=== PATIENT | male | born 1940 | race Caucasian/White ===

== ENCOUNTER → 2019-07-22 16:40 | Outpatient (BNVA) | payer MEDICARE, BC, SELFPAY | PROVIDERS: Family Provider Internal Medicine; PCP Internal Medicine; Visit Provider Internal Medicine Cardiovascular Disease | DX: I11.0 Hypertensive heart disease with heart failure (principal); I50.9 Heart failure, unspecified; I25.10 Atherosclerotic heart disease of native coronary artery without angina pectoris; E78.00 Pure hypercholesterolemia, unspecified; Z79.82 Long term (current) use of aspirin | CPT/HCPCS: 80053; 83735; 83880; 85025 ==

== ENCOUNTER 2019-09-29 13:14 | Inpatient (IN) | payer MEDICARE, BC, SELFPAY ==
[2019-09-29 13:15] VITALS: BMI 25.8
[2019-09-29 13:18] VITALS: BP 127/80; PULSE 88; RESP 16; TEMP 36.4; O2SAT 96
--- NOTE | 2019-09-29 13:30 | CT_ITS ---
WS: [id number] CT HEAD NONCONTRAST HISTORY: AMS TECHNIQUE: Contiguous axial imaging performed through the brain in 2.5 mm imaging. Bone and soft tiss ue windows. Sagittal and coronal reformats reviewed. All CT scans at [facility] use at ast one of these dose optimization techniques: automated exposure control; mA and/or kV adjustment pe r patient size (includes targeted exams where dose is matched to clinical indication); or iterative r econstruction. DLP: 710.38 mGy.cm COMPARISON: 03/04/2019 No acute intracranial hemorrhage, midline shift or mass effect. Mild bilateral atrophy and chronic ischemic disease. Small bilateral basal ganglia lacunar infarcts similar to the prior study. Ventricles: Normal size with no hydrocephalus. No inferior displacement of cerebellar tonsils. Mild atherosclerosis intracranial carotid arteries. Paranasal sinuses: Prior sinus surgery. Mucoperiosteal thickening involving the ethmoid and sphenoid air cells. Mastoid air cells: Well pneumatized. Calvarium and scalp: Skull is intact with no soft tissue edema or swelling. CT/CT head wo con* [id number] IMPRESSION: 1. No acute intracranial hemorrhage or edema. 2. Mild atrophy and chronic microvascular ischemic disease and prior lacunar i nfarcts, stable.
--- NOTE | 2019-09-29 13:31 | ECG_ITS ---
Measurements Intervals [place] Rate: 88 P: 63 MO: 159 QRS: -18 QRSD: 97 T: 13 QT: 330 QTc: 401 SINUS RHYTHM SEPTAL MYOCARDIAL INFARCTION [40+ ms Q WAVE IN V1/V2], PROBABLY OLD Compared to ECG 03/04/2019 21:11:20 Sinus tachycardia no longer present Myocardial infarct finding still present Electronically Signed On 09-29-2019 15:56:50 CDT by Annalise Roblero M.D. [id number]
--- NOTE | 2019-09-29 13:31 | XR_ITS ---
WS: [id number] PORTABLE CHEST HISTORY: dyspnea/cough COMPARISON: 03/04/2019 Lungs are clear and well expanded. No pleural effusion or pneumothorax. Cardiac size: Normal size heart. Mediastinum/Aorta: Mild atherosclerosis aorta. No osseous abnormality seen. XR/XR chest 1V portable [id number] IMPRESSION: Unremarkable portable chest.
--- NOTE | 2019-09-29 13:42 | ED_ITS ---
HPI - Altered Mental Status General: Chief Complaint: Altered Mental Status Stated Complaint: AMS Time Seen by Provider: 09/29/19 13:15 History of Present Illness: HPI narrative: 79-year-old male presents to the emergency room by EMS with a complaint of altered mental status. He is really not any help at all as a historian he will answer some simple yes/no questions but answers no to everything when answered simple questions about the color of an object he cannot answer. He is not able answer any open-ended questions. EMS reported that the son had called 911 for a wellbeing check. When the police arrived they were able to see him through a window he would wave at them but would not come to the door and took him 30 minutes to get him to even come to the door eventually when they did come to the door he did not seem very coherent so they called EMS. Normally report is that he is awake alert oriented able to manage his own tasks and does very well. complaint: altered mental status Review of Systems General: Reports: ROS unobtainable due to mental status PFSH ED 2 PFSH: Medical History (Updated 09/29/19 @ 17:05 by Deejay Novoa DO) CAD (coronary artery disease) CHF (congestive heart failure) CVA (cerebral vascular accident) HTN (hypertension) Hypercholesteremia Neuropathy Pericardial effusion Social History Smoking and tobacco status: never smoked Alcohol intake: never Physical Exam Const: COMMON NORMALS: no apparent distress GENERAL APPEARANCE: cooperative and comfortable HENMT: COMMON NORMALS: normocephalic, head/scalp atraumatic, hearing grossly normal bilaterally, external ears normal, EAC's normal, TM's normal bilaterally, nasal mucous membranes and turbinates normal, moist oral mucous membranes and oropharynx normal HEAD & SCALP: normocephalic and atraumatic NOSE: nasal mucous membranes and turbinates normal EXTERNAL EAR: Yes external ears normal EXTERNAL AUDITORY CANAL: EAC's normal TYMPANIC MEMBRANE: TM's normal bilaterally Eye: COMMON NORMALS: PERRL, EOMs intact bilaterally, conjunctivae normal and no scleral icterus CONJUNCTIVA: Yes conjunctivae normal PUPIL: Yes PERRL Neck/C-Spine: COMMON NORMALS: full ROM, no lymphadenopathy, supple and no JVD Lymph: LYMPHATIC: no lymphadenopathy noted and no lymphedema noted Resp: COMMON NORMALS: normal respiratory effort, no retractions, no use of accessory muscles and clear to auscultation bilaterally AUSCULTATION: clear to auscultation bilaterally Cardio: COMMON NORMALS: no JVD, regular rate, regular rhythm and no murmurs RATE: regular rate RHYTHM: regular rhythm GI: COMMON NORMALS: soft to palpation and no hepatosplenomegaly AUSCULTATION: Yes normoactive bowel sounds PALPATION: Yes soft, No tender, No guarding and Yes no hepatosplenomegaly Extremity: COMMON NORMALS: normal to inspection, normal capillary refill, no clubbing, cyanosis or edema, no calf tenderness and no pedal edema Skin: COMMON NORMALS: no rashes or lesions noted GENERAL SKIN EXAM: no rashes or lesions noted Course Vital Signs: Vital signs: Vital Signs Temperature 97.6 F 09/29/19 13:18 Pulse Rate 89 09/29/19 16:46 Respiratory Rate 16 09/29/19 16:46 Blood Pressure 138/77 09/29/19 16:46 Pulse Oximetry 98 09/29/19 16:46 MDM - Altered Mental Status Lab Data: Labs: Lab Results 09/29/19 09/29/19 09/29/19 Range/Units 13:50 13:52 14:05 WBC 14.2 H (4.0-10.0) 10^3/ uL RBC 5.28 (4.1-5.3) 10^6/u L Hgb 15.3 (11.7-16.6) g/dL Hct 48.9 (42.0-52.0) % MCV 92.6 (80-94) fL MCH 29.0 (28.0-34.0) pg MCHC 31.3 (30.0-36.0) g/dL RDW 13.8 (12.1-15.1) % Plt Count 281 (130-400) 10^3/c mm MPV 11.0 H (7.4-10.4) fL Neut % (Auto) 55.4 % Lymph % (Auto) 7.9 % Burt % (Auto) 7.7 % Eos % (Auto) 27.9 % Baso % (Auto) 0.7 % Neut # (Auto) 7.8 H (1.8-7.7) 10^3/u L Lymph # (Auto) 1.1 (0.8-4.8) 10^3/u L Burt # (Auto) 1.1 H (0.2-0.9) 10^3/u L Eos # (Auto) 4.0 H (0.0-0.8) 10^3/u L Baso # (Auto) 0.1 (0.0-0.1) 10^3/u L Nucleated RBC % (a uto) 0 % Nucleated RBCs # 0.0 /100WBC Specimen Type Arterial Sample Site Radial, left ABG pH 7.43 (7.35-7.45) ABG pCO2 30.9 L (35-45) mmHg ABG pO2 63.0 L (80.0-100.0) mmH g ABG HCO3 20.3 L (22-26) mmol/L ABG O2 Saturation 91.4 ABG Base Excess -2.8 L (-2.0-2.0) mmol/ L Holden Test Pos A-a O2 Gradient 47.1 H (5-10) mmHg Hematocrit 50.2 (42-52) % Hgb O2 Saturation 90.5 L (95-100) % Carboxyhemoglobin 0.6 (0.4-20.1) %THgb Methemoglobin 0.5 (0.4-1.5) % Total Hemoglobin 16.4 (14-18) g/dL Sodium 139.0 (131-143) mmol/L Potassium 4.6 (3.5-5.0) mmol/L Glucose 101.0 (70-115) mg/dL Ionized Calcium 1.2 (1.1-1.4) mmol/L O2 Delivery Device Room air FiO2 21.0 % Account Management Specialist ID glc Chloride (98-107) mmol/L Carbon Dioxide (22-29) mmol/L Anion Gap (5-19) BUN (8-23) mg/dL Creatinine (0.7-1.2) mg/dL Calculated Osmolal ity (285-295) mOsm/k g Calcium (8.5-10.5) mg/dL Total Bilirubin (0.15-1.2) mg/dL AST (0-40) U/L ALT (0-41) U/L Alkaline Phosphata se (40-130) IU/L Troponin T Baselin e (0-15) ng/mL Total Protein (6.6-8.7) g/dL Albumin (3.5-5.2) g/dL Globulin (1.3-4.6) g/dL Lipase (13-60) U/L Salicylates (3-10) mg/dL Acetaminophen (10-30) ug/mL Ethyl Alcohol (0-10) mg/dL Serum Ketones (Negative) Influenza Type A A g Negative (Negative) Influenza Type B A g Negative (Negative) 09/29/19 09/29/19 09/29/19 Range/Units 14:05 14:05 14:05 WBC (4.0-10.0) 10^3/ uL RBC (4.1-5.3) 10^6/u L Hgb (11.7-16.6) g/dL Hct (42.0-52.0) % MCV (80-94) fL MCH (28.0-34.0) pg MCHC (30.0-36.0) g/dL RDW (12.1-15.1) % Plt Count (130-400) 10^3/c mm MPV (7.4-10.4) fL Neut % (Auto) % Lymph % (Auto) % Burt % (Auto) % Eos % (Auto) % Baso % (Auto) % Neut # (Auto) (1.8-7.7) 10^3/u L Lymph # (Auto) (0.8-4.8) 10^3/u L Burt # (Auto) (0.2-0.9) 10^3/u L Eos # (Auto) (0.0-0.8) 10^3/u L Baso # (Auto) (0.0-0.1) 10^3/u L Nucleated RBC % (a uto) % Nucleated RBCs # /100WBC Specimen Type Sample Site ABG pH (7.35-7.45) ABG pCO2 (35-45) mmHg ABG pO2 (80.0-100.0) mmH g ABG HCO3 (22-26) mmol/L ABG O2 Saturation ABG Base Excess (-2.0-2.0) mmol/ L Holden Test A-a O2 Gradient (5-10) mmHg Hematocrit (42-52) % Hgb O2 Saturation (95-100) % Carboxyhemoglobin (0.4-20.1) %THgb Methemoglobin (0.4-1.5) % Total Hemoglobin (14-18) g/dL Sodium 139 (131-143) mmol/L Potassium 5.2 H (3.5-5.0) mmol/L Glucose 107 (70-115) mg/dL Ionized Calcium (1.1-1.4) mmol/L O2 Delivery Device FiO2 % Account Management Specialist ID Chloride 102 (98-107) mmol/L Carbon Dioxide 22 (22-29) mmol/L Anion Gap 20.2 H (5-19) BUN 47 H (8-23) mg/dL Creatinine 1.5 H (0.7-1.2) mg/dL Calculated Osmolal ity 287 (285-295) mOsm/k g Calcium 9.4 (8.5-10.5) mg/dL Total Bilirubin 0.4 (0.15-1.2) mg/dL AST 18 (0-40) U/L ALT 19 (0-41) U/L Alkaline Phosphata se 101 (40-130) IU/L Troponin T Baselin e 543 H* (0-15) ng/mL Total Protein 7.6 (6.6-8.7) g/dL Albumin 3.5 (3.5-5.2) g/dL Globulin 4.1 (1.3-4.6) g/dL Lipase 29 (13-60) U/L Salicylates < 0.3 L (3-10) mg/dL Acetaminophen < 5.0 L (10-30) ug/mL Ethyl Alcohol < 10 (0-10) mg/dL Serum Ketones Negative (Negative) Influenza Type A A g (Negative) Influenza Type B A g (Negative) Discharge Plan Discharge Patient Disposition: Admitted As Inpatient Admit Provider: Kassie Eugene Clinical Impression: Non-ST elevation OR (NSTEMI), HTN (hypertension), Altered mental status Condition: Stable Interventions: ED Discharge Assessment Last Done: 09/29/19 16:46 Discharge Date/Time: 09/29/19 16:47 Coding Level of Care Code ED Welder/Fitter for Chg Fwd Exam Comprehensive
[2019-09-29 14:08] LABS: ABG PCO2 30.9 mmHg (35-45); ABG PH Result 7.43 (7.35-7.45); Alveolar-Arterial Oxygen Gradi 47.1 mmHg (5-10); Arterial Blood Gas Hematocrit 50.2 % (42-52); Base Excess ABG -2.8 mmol/L (-2.0-2.0); Blood Gas Allen Test Pos; Blood Gas Operator Identificat glc; Blood Gas Sample Site Radial, left; Blood Gas Sample Type Arterial; Carboxyhemoglobin 0.6 %THgb (0.4-20.1); HCO3 ABG 20.3 mmol/L (22-26); HGB O2 Sat 90.5 % (95-100); Ionized Calcium Level - ABG 1.2 mmol/L (1.1-1.4); Methemoglobin 0.5 % (0.4-1.5); Oxygen Device ROOM AIR; Oxygen Saturation ABG 91.4; Potassium Level - ABG 4.6 mmol/L (3.5-5.0); Total Hemoglobin 16.4 g/dL (14-18)
[2019-09-29 14:14] LABS: Basophils # 0.1 10^3/uL (0.0-0.1); Basophils % 0.7 %; Eosinophils % 27.9 %; Hematocrit 48.9 % (42.0-52.0); Hemoglobin 15.3 g/dL (11.7-16.6); Lymphocytes # 1.1 10^3/uL (0.8-4.8); Lymphocytes % 7.9 %; Mean Corpuscular HGB Conc 31.3 g/dL (30.0-36.0); Mean Corpuscular Volume 92.6 fL (80-94); Monocytes # 1.1 10^3/uL (0.2-0.9); Monocytes % 7.7 %; Neutrophils # 7.8 10^3/uL (1.8-7.7); Neutrophils % 55.4 %; Nucleated Red Blood Cells % 0 %; Platelet Count 281 10^3/cmm (130-400); Red Blood Count 5.28 10^6/uL (4.1-5.3); Red Cell Distribution Width 13.8 % (12.1-15.1); White Blood Count 14.2 10^3/uL (4.0-10.0)
[2019-09-29] MEDS: sodium chloride 0.9% 1,000 ML 999 ML IV (14:23)
[2019-09-29 14:32] LABS: Influenza A by IFA Negative (Negative); Influenza B by IFA Negative (Negative)
[2019-09-29 14:40] LABS: Ketone (Acetest) Serum Negative (Negative)
[2019-09-29 14:41] LABS: Alanine Aminotransferase 19 U/L (0-41); Albumin Level 3.5 g/dL (3.5-5.2); Alkaline Phosphatase 101 IU/L (40-130); Anion Gap 20.2 (5-19); Aspartate Amino Transferase 18 U/L (0-40); Blood Urea Nitrogen 47 mg/dL (8-23); Calcium 9.4 mg/dL (8.5-10.5); Carbon Dioxide 22 mmol/L (22-29); Chloride 102 mmol/L (98-107); Globulin 4.1 g/dL (1.3-4.6); Glucose 107 mg/dL (65-115); Lipase 29 U/L (13-60); Osmolality Calculated 287 mOsm/kg (285-295); Potassium 5.2 mmol/L (3.5-5.1); Sodium 139 mmol/L (136-145); Total Bilirubin 0.4 mg/dL (0.15-1.2); Total Protein 7.6 g/dL (6.6-8.7)
[2019-09-29 14:47] LABS: Acetaminophen < 5.0 ug/mL (10-30); Alcohol Level < 10 mg/dL (0-10); Salicylate < 0.3 mg/dL (3-10)
[2019-09-29 15:20] LABS: Troponin(5th) Baseline 543 ng/mL (0-15)
--- NOTE | 2019-09-29 15:31 | ECG_ITS ---
Measurements Intervals [place] Rate: 84 P: 66 MO: 169 QRS: -17 QRSD: 108 T: -7 QT: 385 QTc: [address] DEPRESSION [0.025+ mV ST DEPRESSION] Compared to ECG 09/29/2019 13:47:55 ST (T wave) deviation now present Myocardial infarct finding no longer present Electronically Signed On 09-30-2019 18:12:04 CDT by Daljit Anthony M.D. [id number]
[2019-09-29] MEDS: aspirin 325 mg Tablet PO (16:14)
[2019-09-29] MEDS: enoxaparin 80 mg/0.8 mL Syringe SUBCUT (16:14)
[2019-09-29 16:46] VITALS: BP 138/77; PULSE 89; RESP 16; O2SAT 98
[2019-09-29 17:05] VITALS: BP 132/81; PULSE 86; RESP 18; TEMP 36.4; O2SAT 93
[2019-09-29 17:06] LABS: Troponin 5 2HR 512.5 ng/mL (0-15); Troponin 5 2HR Delta -30.5 ABS# (0-10)
--- NOTE | 2019-09-29 17:25 | PM.HP ---
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 He lives by himself. History is obtained today by talking to his son. He states that usually patients numbers go and check up on him. On Sunday 1 of his neighbors went to check on him and found him to be confused and disoriented. He also appeared to be disheveled at the time. His son usually has weekly calls at home with him on Sunday and tried calling him all day however his phone was switched off. This eventually triggered a wellness check by the police and when they reach the patient he was found to be at home confused and disoriented. He was then brought to the hospital. His son reports that he has had over the past year at least 3 instances of coming into the hospital after which she was placed into an assisted living facility, from which he subsequently returned home after some cognitive improvement. Patient is currently stating only yees or no answers in reesponse to questions. He almost appears to have aphasia. He is able to sign his name, however he does this in response to asking name, , all orientation questions. His son last spoke to him last weekend when he was last known to be in his usual state of health Review of Systems General: Reports: ROS unobtainable due to mental status Medications/Allergies Home Medications Medication Instructions Recorded Confirmed Last Taken Type aspirin 325 mg tablet 325 mg PO DAILY 07/24/19 09/29/19 Unknown History atorvastatin 20 mg tablet 20 mg PO DAILY #30 tab 07/24/19 09/29/19 Unknown Rx furosemide 40 mg tablet 40 mg PO BID #60 tab 07/24/19 09/29/19 Unknown Rx gabapentin 600 mg tablet 600 mg PO Q4H tab 07/24/19 09/29/19 Unknown History lisinopril 30 mg tablet 30 mg PO DAILY #30 tab 07/24/19 09/29/19 Unknown Rx metoprolol succinate 50 mg 50 mg PO DAILY #30 tab 07/24/19 09/29/19 Unknown Rx tablet,extended release 24 hr potassium chloride 20 mEq 20 meq PO DAILY #30 tab 07/24/19 09/29/19 Unknown Rx tablet,extended release spironolactone 25 mg tablet 25 mg PO DAILY #30 tab 07/24/19 09/29/19 Unknown Rx fluticasone propion-salmeterol 1 inh INHALATION BID 09/29/19 09/29/19 Unknown History [Wixela Inhub] Allergies Allergy/AdvReac Type Severity Reaction Status Date / Time No Known Allergies Allergy Unverified 09/29/19 13:20 PFSH Acute PFSH: Medical History CAD (coronary artery disease) CHF (congestive heart failure) CVA (cerebral vascular accident) HTN (hypertension) Hypercholesteremia Neuropathy Pericardial effusion Social History Smoking and tobacco status: never smoked Alcohol intake: never Vitals/I&O/Wt Last Vital Signs Temp 97.6 F 09/29/19 17:05 Pulse 86 09/29/19 17:05 Resp 18 09/29/19 17:05 BP 132/81 09/29/19 17:05 Pulse Ox 93 09/29/19 17:05 Weight last 48 hrs Weight 77.111 kg Physical Exam Narrative: EXAM NARRATIVE: GEN: Awake, aphasia+, moves extremities in bed CVS: S1S2 N RS: CTA B/L Abd: Soft, nt/nd , bs+ LAST MARKER: no focal neuro deficits Data : 09/30/19 06:37 09/30/19 06:37 Micro: Microbiology 09/29/19 14:08 Blood Culture - Preliminary Blood SPECIMEN COLLECTED 09/29/19 14:05 Blood Culture - Preliminary Blood SPECIMEN COLLECTED A&P Assessment and plan (1) Altered mental status: Status: Acute (2) CVA (cerebral vascular accident): Status: Acute Qualifiers: CVA mechanism: unspecified Qualified Code(s): I63.9 - Cerebral infarction, unspecified (3) HTN (hypertension): Status: Acute (4) Hypercholesteremia: Status: Acute (5) CHF (congestive heart failure): Status: Acute Additional A&P Information # AMS: suspect CVA, mri in am Continue ASA 325 mg and lipitor pt/ot/speech eval Check UA CXR without gross infiltrates #increased troponin : negative delta, no ekg changes, [facility], appears chronically elevated, liklely from cardiomyopathy. Last stress test 03/2019. # H/o GCA: Unable to asesss for current vision, however he follows commands to look at specific objects such as TV, board, etc. Check ESR #CHF: continue lasix 40mg BID, monitor urine output closely Code status: Full code for now as discussed with son, however if appearing to be without medical benefit, would want to switch to DNR Attestations Medical Necessity Statement*: AMS of unclear etiology undergoing work up Coding Level of Care Code Acute Sanding Machine Tender Automatic for Chg 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
[2019-09-29 17:35] LABS: Add Urine Microscopic? NO
[2019-09-29 17:40] LABS: Urine Appearance Hazy (CLEAR); Urine Color Yellow (Yellow)
[2019-09-29 17:42] LABS: Bilirubin Urine Neg (NEGATIVE); Blood Urine Neg (Negative); Glucose Urine UA Norm (Normal); Ketones Urine 1+ (Negative); Leukocyte Esterase Urine Negative (Negative); Nitrate Urine Negative (Negative); Protein Urine Neg (Negative); Specific Gravity, Urine 1.025 (1.005-1.030); Urobilinogen Urine Norm (Negative); pH Urine 5 (5-7)
[2019-09-29 17:46] LABS: Amphetamines Screen Urine Negative (Negative); Barbiturates Screen Urine Negative (Negative); Benzodiazepines Screen Urine Negative (Negative); Cocaine Screen Urine Negative (Negative); Opiate Screen Urine Negative (Negative); PCP Screen Urine Negative (Negative); THC Screen Urine Negative (Negative)
[2019-09-29 18:41] LABS: Thyroid Stimulating Hormone 1.69 uIU/mL (0.27-4.20)
--- NOTE | 2019-09-29 19:31 | ECG_ITS ---
Measurements Intervals [place] Rate: 87 P: 79 CA: 175 QRS: -17 QRSD: 104 T: -34 QT: 364 QTc: [address] & T-WAVE ABNORMALITY Compared to ECG 09/29/2019 13:47:55 T-wave abnormality now present Myocardial infarct finding no longer present Electronically Signed On 09-30-2019 18:11:58 CDT by Daljit Anthony M.D. [id number]
[2019-09-29 20:00] VITALS: BP 122/65; PULSE 80; RESP 24; TEMP 36.8; O2SAT 94
[2019-09-29] MEDS: sodium chloride 0.9% 1,000 ML 100 ML IV (20:17)
[2019-09-29 20:41] LABS: Troponin 5 6HR 566.7 ng/mL (0-15); Troponin 5 6HR Delta 23.7 ng/L (0-12)
[2019-09-29 22:38] VITALS: BP 122/65; PULSE 80; RESP 24; TEMP 36.8
[2019-09-30] VITALS (9 sets, daily range): BP systolic 108–123; BP diastolic 65–77; PULSE 77–93; RESP 16–24; TEMP 36.1–37.2; O2SAT 89–98
--- NOTE | 2019-09-30 06:09 | PC.NURSE ---
REEVES WAS PLACED D/T URINE RETENTION. PT HAD 400ML OF RETURN AFTER REEVES WAS PLACED. URINE WAS A DARK BROWN COLOR AND HAD A LOT OF SEDIMENTS. PT TOLERATES PLACEMENT FAIR. WILL CONTINUE TO MONITOR.
[2019-09-30 06:52] LABS: Basophils # 0.1 10^3/uL (0.0-0.1); Basophils % 0.8 %; Eosinophils # 6.8 10^3/uL (0.0-0.8); Eosinophils % 40.2 %; Hemoglobin 13.4 g/dL (11.7-16.6); Lymphocytes # 1.2 10^3/uL (0.8-4.8); Mean Corpuscular HGB Conc 31.9 g/dL (30.0-36.0); Mean Corpuscular Hemoglobin 29.6 pg (28.0-34.0); Mean Corpuscular Volume 92.7 fL (80-94); Mean Platelet Volume 11.2 fL (7.4-10.4); Monocytes # 1.2 10^3/uL (0.2-0.9); Neutrophils # 7.6 10^3/uL (1.8-7.7); Neutrophils % 44.8 %; Nucleated Red Blood Cells % 0 %; Platelet Count 242 10^3/cmm (130-400); Red Blood Count 4.53 10^6/uL (4.1-5.3); Red Cell Distribution Width 13.8 % (12.1-15.1); White Blood Count 16.9 10^3/uL (4.0-10.0)
[2019-09-30 07:01] LABS: Alanine Aminotransferase 15 U/L (0-41); Albumin Level 3.2 g/dL (3.5-5.2); Alkaline Phosphatase 87 IU/L (40-130); Anion Gap 16.6 (5-19); Aspartate Amino Transferase 18 U/L (0-40); Blood Urea Nitrogen 37 mg/dL (8-23); Calcium 8.6 mg/dL (8.5-10.5); Carbon Dioxide 22 mmol/L (22-29); Chloride 104 mmol/L (98-107); Globulin 3.4 g/dL (1.3-4.6); Glucose 85 mg/dL (65-115); Osmolality Calculated 283 mOsm/kg (285-295); Potassium 4.6 mmol/L (3.5-5.1); Sodium 138 mmol/L (136-145); Total Bilirubin 0.4 mg/dL (0.15-1.2); Total Protein 6.6 g/dL (6.6-8.7)
[2019-09-30 07:02] LABS: Chol HDL Ratio 3.45 mg/dL (1.0-5.00); Cholesterol 114 mg/dL (0-200); HDL Cholesterol 33 mg/dL (60-100); LDL Cholesterol Calculated 61 mg/dL (50-129); LDL HDL Ratio 1.85 RATIO (0.00-3.22); Triglycerides 102 mg/dL (0-150)
[2019-09-30 07:11] LABS: Estmated Average Glucose 157; Hemoglobin A1C 7.1 % (4.0-6.0)
--- NOTE | 2019-09-30 07:15 | PC.NURSE ---
Nurse called to bedside. Patient appears agitated, threatening staff. Patient disconnected IV. Patient unable to answer nurse's questions. Patient states, I don't know what you're saying! I'd like to smash your face in, as patient made a fist and shook it towards nurse. Dr. Eugene notified of patient behavior. RBVO received to administer 5 mg Zypreza IM.
[2019-09-30 08:00] LABS: Erythrocyte Sedimentation Rate 66 mm/hr (0-10)
--- NOTE | 2019-09-30 08:45 | PC.NURSE ---
Nurse entered room to administer Zyprexa. Patient now calm working with PT and ST. Patient aggression due to not being able to comprehend statements made to patient. Staff is now writing questions/statements, patient reads statement and is able to respond to question or statement. Patient is now compliant with care and does not appear anxious or aggressive. Dr. Eugene notified. Zyprexa is not to be administered.
[2019-09-30] MEDS: FUROsemide 40 mg Tablet PO ×2 (09:07→17:05)
[2019-09-30] MEDS: aspirin 325 mg Tablet PO (09:07)
[2019-09-30] MEDS: atorvastatin 40 mg Tablet PO (09:07)
[2019-09-30] MEDS: metoprolol succinate ER (24 HR) 50 mg Tablet PO (09:07)
[2019-09-30] MEDS: sodium chloride 0.9% 1,000 ML 100 ML IV (09:08)
--- NOTE | 2019-09-30 09:53 | PC.PHAR ---
Gabapentin dose reconciled as 600 q4h. Did not approve last night for use until dose checked. I clarified with [facility] 09/30/19 to be 600 q8h. ok to change per Dr. Sampson~[id number], entered for ,
--- NOTE | 2019-09-30 12:00 | MR_ITS ---
WS: [id number] MRI BRAIN WITHOUT CONTRAST HISTORY: new aphasia, CVA COMPARISON: 02/22/2018. Head CT 09/29/2019. TECHNIQUE: Diffusion imaging, multiplanar T1, T2 and FLAIR imaging obtained. No evidence for acute infarct or hemorrhage. Bailon-white matter differentiation is normal. Moderate atrophy with severe chronic microvascular ischemic disease. Bilateral prior cerebellar infar cts. Moderate progression of chronic ischemic changes since the prior study from 2018. Volume loss zepeda s slightly progressed also. Ventricles and extra-axial spaces are mildly prominent. No inferior displacement of cerebellar tonsils. The sella turcica and pituitary gland are unremarkabl e. Dural venous sinuses and [place] demonstrate no abnormality on this unenhanced studies. Paranasal sinuses: Moderate mucoperiosteal thickening throughout the maxillary sinuses. Extensive muc operiosteal thickening in the sphenoid air cells and ethmoid air cells. Mastoid air cells: Normal. Calvarium and scalp: Intact. MR/MR head wo con* [id number] IMPRESSION: 1. No acute infarct. 2. Moderate atrophy with progression of chronic ischemic changes and atrophy s juan 2017. 3. Bilateral cerebellar infarcts, remote. 4. Chronic pansinusitis.
[2019-09-30] MEDS: gabapentin 300 mg Capsule PO ×2 (13:40→21:17)
[2019-09-30] MEDS: enoxaparin 30 mg/0.3 mL Syringe SUBCUT (17:25)
--- NOTE | 2019-09-30 19:24 | PM.PN ---
Subjective Subjective: Interval history: Seen and examined earlier this morning. Underwent MRI this morning, awaiting results. This morning is more communicative, able to form 2-3 word sentences, however mainly communicates by writing. (yes, no, nods in response to reading written questions) Medications: Reviewed: Yes Vitals/I&O/Wt Last Vital Signs Temp 98.0 F 09/30/19 15:53 Pulse 81 09/30/19 15:53 Resp 16 09/30/19 15:53 BP 108/70 09/30/19 15:53 Pulse Ox 95 09/30/19 15:53 09/30/19 09/30/19 09/30/19 06:59 14:59 22:59 Intake Total 1021.667 / 2925.187 4293.334 / 1378.334 240 / 1618.334 Output Total 825 / 825 375 / 1200 Balance 1021.667 / 1021.667 553.334 / 553.334 -135 / 418.334 Weight last 48 hrs Weight 77.111 kg Physical Exam Narrative: EXAM NARRATIVE: GEN: Awake, alert and oriented, no acute distress CVS: S1S2 N RS: CTA B/L Abd: Soft, nt/nd , bs+ PROTEIN PURIFICATION SCIENTIST: no focal neuro deficits EXT: no gross edema Urinary Catheter Management^: Echevarria Latex Free: Cath Placed During This Visit: yes Reason for Continuing Indwelling Catheter: Acute Urinary Retention or Obstruction Urinary Catheter Date of Insertion: 09/30/19 Urinary Catheter Time of Insertion: 01:33 Data : 09/30/19 06:37 09/30/19 06:37 Micro: Microbiology 09/29/19 14:08 Blood Culture - Preliminary Blood NEGATIVE TO DATE 09/29/19 14:05 Blood Culture - Preliminary Blood NEGATIVE TO DATE A&P Assessment and plan (1) Altered mental status: Status: Acute (2) CVA (cerebral vascular accident): Status: Acute Qualifiers: CVA mechanism: unspecified Qualified Code(s): I63.9 - Cerebral infarction, unspecified (3) HTN (hypertension): Status: Acute (4) Hypercholesteremia: Status: Acute (5) CHF (congestive heart failure): Status: Acute Additional A&P Information # Expressive apahsia, which is new Susoect CVA, CT head without any acute changes, MR today MR today, pending results If new CVA on high dose ASA, will need to consider plavix pt/ot/speech eval Clinically does not appear to be enceohalopathic. UA with negative nitrates and leukocyte esterase, U tox negative, TSH within range. NA normal, CXR with clear lungs. No gross infectious focus at this present time. #increased troponin : negative delta, no ekg changes, per review of prior in [facility], appears elevated in the past, liklely from cardiomyopathy, however previous ones were trop I as against 5th generation. Last stress test 03/2019. Writes no when asked about current chest pain. # H/o GCA: Check ESR #h/o CHF : continue home dose lasix 40mg BID, monitor urine output closely. Currently euvolemic Code status: Full code for now as discussed with son, however if appearing to be without medical benefit, would want to switch to DNR Dispo: SNF placement Attestations Medical Necessity Statement*: Expressive aphasia under evaluation, therapy assessment, facility placement Coding Level of Care Code Acute Forge Heater for [facility] 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
--- NOTE | 2019-09-30 21:24 | PC.NURSE ---
patient has refused to have his ns hooked up, tried to explain why but he said ii dont want it.
[2019-10-01] VITALS (9 sets, daily range): BP systolic 101–115; BP diastolic 64–76; PULSE 68–80; RESP 17–20; TEMP 36.4–37.2; O2SAT 92–97
[2019-10-01] MEDS: gabapentin 300 mg Capsule PO ×3 (06:32→20:48)
[2019-10-01 06:43] LABS: Basophils # 0.1 10^3/uL (0.0-0.1); Basophils % 0.8 %; Eosinophils # 5.9 10^3/uL (0.0-0.8); Eosinophils % 46.4 %; Hematocrit 42.5 % (42.0-52.0); Hemoglobin 13.7 g/dL (11.7-16.6); Lymphocytes # 1.3 10^3/uL (0.8-4.8); Lymphocytes % 10.4 %; Mean Corpuscular HGB Conc 32.2 g/dL (30.0-36.0); Mean Corpuscular Hemoglobin 29.7 pg (28.0-34.0); Mean Platelet Volume 10.7 fL (7.4-10.4); Monocytes # 0.9 10^3/uL (0.2-0.9); Monocytes % 7.3 %; Neutrophils # 4.5 10^3/uL (1.8-7.7); Neutrophils % 34.9 %; Nucleated Red Blood Cells % 0 %; Platelet Count 231 10^3/cmm (130-400); Red Blood Count 4.62 10^6/uL (4.1-5.3); Red Cell Distribution Width 13.8 % (12.1-15.1); White Blood Count 12.7 10^3/uL (4.0-10.0)
[2019-10-01 06:58] LABS: Alanine Aminotransferase 15 U/L (0-41); Alkaline Phosphatase 81 IU/L (40-130); Anion Gap 17.2 (5-19); Aspartate Amino Transferase 16 U/L (0-40); Blood Urea Nitrogen 28 mg/dL (8-23); Calcium 8.7 mg/dL (8.5-10.5); Carbon Dioxide 21 mmol/L (22-29); Chloride 102 mmol/L (98-107); Globulin 3.6 g/dL (1.3-4.6); Glucose 92 mg/dL (65-115); Osmolality Calculated 279 mOsm/kg (285-295); Potassium 4.2 mmol/L (3.5-5.1); Sodium 136 mmol/L (136-145); Total Bilirubin 0.4 mg/dL (0.15-1.2); Total Protein 6.6 g/dL (6.6-8.7)
[2019-10-01] MEDS: metoprolol succinate ER (24 HR) 50 mg Tablet PO (08:44)
[2019-10-01] MEDS: atorvastatin 40 mg Tablet PO (08:44)
[2019-10-01] MEDS: FUROsemide 40 mg Tablet PO ×2 (08:44→16:58)
[2019-10-01] MEDS: aspirin 325 mg Tablet PO (08:44)
--- NOTE | 2019-10-01 11:26 | USCV_ITS ---
Chapin Govea Age: 79 Gender: M : 1940 Exam Date: 10/01/2019 15:12 Ordering Phys: Marty Montemayor MD Technologist: Evelin Segura [place] [facility] [place]: CVA Risk Factors: Unknown Previous Vascular Surgery: None PER PT Right Brachial BP: / Left Brachial BP: / Right Left Velocity (cm/s) Spectral Plaque Velocity (cm/s) Spectral Plaque Syst/Diast Broadening Syst/Diast Broadening 41.10/ 8.00 Prox CCA 67.00 / 8.10 52.80/ 7.80 Mid CCA 62.30 / 10.80 50.50/ 13.20 Distal CCA 41.40 / 8.40 39.30/ 10.80 Prox ICA 49.90 / 10.00 47.40/ 14.20 Mid ICA 40.30 / 12.90 46.00/ 16.90 Distal ICA 42.80 / 11.20 54.20 ECA 42.40 0.90 ICA/CCA 0.80 Antegrade Vertebral Antegrade 39.30/ 10.80 cm/s 25.10/ 6.90 cm/s Tri Subclavian Tri 58.20 84.00 FINDINGS Comparison:. 02/23/18 No significant elevation of systolic or diastolic velocities. Diffuse, mild bilateral scattered calcified plaque and intimal thickening throughout the common carotid arteries and extending through the bifurcation. Bilateral antegrade vertebral arteries. CONCLUSIONS Bilateral ICA stenosis less than 50%. No interval change in stenosis since prior exam. Dr. Jada Hansen DO (Electronically Signed) Final Date: 01 October 2019 16:02 S
[2019-10-01] MEDS: clopidogrel 75 mg Tablet PO (11:47)
--- NOTE | 2019-10-01 16:13 | PM.PN ---
Subjective Subjective: Interval history: Chapin reports he is doing okay. He feels somewhat tired. He refuses nursing facility placement, but will agree to home health. He denies any acute concerns now and believes his speech is back at baseline. He comments that there was quite a storm last night. History and physical was reviewed. Medications: Reviewed: Yes Vitals/I&O/Wt Last Vital Signs Temp 97.5 F L 10/01/19 15:40 Pulse 68 10/01/19 15:40 Resp 18 10/01/19 15:40 BP 101/64 10/01/19 15:40 Pulse Ox 97 10/01/19 15:40 10/01/19 10/01/19 10/01/19 06:59 14:59 22:59 Intake Total 563.333 / 2241.667 720 / 720 Balance 563.333 / 1041.667 720 / 720 Physical Exam Narrative: EXAM NARRATIVE: General exam is no apparent distress, he is alert and oriented x3 Cardiovascular regular rate and rhythm with a 2/6 systolic murmur Lungs clear Abdomen is soft and positive bowel sounds Extremities no cyanosis clubbing or edema Neuro no obvious focal deficits Urinary Catheter Management^: Echevarria Latex Free: Cath Placed During This Visit: yes, but has since been removed by the nurse Reason for Continuing Indwelling Catheter: Acute Urinary Retention or Obstruction Urinary Catheter Date of Insertion: 09/30/19 Urinary Catheter Time of Insertion: 01:33 Date Urinary Catheter Removed: 10/01/19 Time Urinary Catheter Discontinued: 10:57 Data : 10/01/19 06:32 10/01/19 06:32 Micro: Microbiology 09/29/19 14:08 Blood Culture - Preliminary Blood NEGATIVE TO DATE 09/29/19 14:05 Blood Culture - Preliminary Blood NEGATIVE TO DATE A&P Assessment and plan (1) Altered mental status: This appears to have resolved, sometime early this morning or late last night. If continues to have no recurrence, carotid duplex demonstrates no significant flow-limiting lesions consider discharge to home with home health tomorrow. Status: Acute (2) CVA (cerebral vascular accident): Will check carotid duplex Add Plavix. Change aspirin to low-dose. Echocardiogram not repeated. Was done in March 2019 demonstrating EF of 30%, diffuse hypokinesis. This was a change from her previous EF of 55%. Stress test at that time demonstrated myocardial scarring, with very little ayah-infarct ischemia. Secondary to his underlying mental status medical management was done. We will repeat echocardiogram. Status: Acute Qualifiers: CVA mechanism: unspecified Qualified Code(s): I63.9 - Cerebral infarction, unspecified (3) HTN (hypertension): Continue present medications. Status: Acute (4) Hypercholesteremia: Continue statin Status: Acute (5) CHF (congestive heart failure): Compensated currently Status: Acute Additional A&P Information Expressive aphasia, resolved CVA. MRI does not notice any new lesions, but symptomatology most consistent with CVA. Duration of symptoms much too long for postictal and no clinical history or exam findings consistent with seizure. TSH, laboratory, urine, etc. do not show any cause for encephalopathy. Elevated troponin, chronically so. Previous work-up. Patient without any new EKG changes, or chest discomfort. History of giant cell arteritis. ESR 66. This will warrant repeat as an outpatient but with symptoms resolving completely doubt this is playing a role. Son reports he has had several of these events in the past. Full code Lovenox for DVT prophylaxis Attestations Medical Necessity Statement*: Needs continued hospitalization for evaluation. 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
[2019-10-01] MEDS: enoxaparin 30 mg/0.3 mL Syringe SUBCUT (16:58)
[2019-10-02] VITALS (7 sets, daily range): BP systolic 94–124; BP diastolic 57–75; PULSE 80–98; RESP 16–18; TEMP 36.7–36.8; O2SAT 93–96
[2019-10-02] MEDS: gabapentin 300 mg Capsule PO (05:36)
[2019-10-02 06:05] LABS: Basophils # 0.1 10^3/uL (0.0-0.1); Basophils % 0.7 %; Eosinophils # 8.4 10^3/uL (0.0-0.8); Eosinophils % 58.1 %; Hematocrit 41.4 % (42.0-52.0); Hemoglobin 13.3 g/dL (11.7-16.6); Lymphocytes # 1.4 10^3/uL (0.8-4.8); Lymphocytes % 9.4 %; Mean Corpuscular HGB Conc 32.1 g/dL (30.0-36.0); Mean Corpuscular Hemoglobin 28.8 pg (28.0-34.0); Mean Corpuscular Volume 89.6 fL (80-94); Mean Platelet Volume 11.4 fL (7.4-10.4); Monocytes # 0.8 10^3/uL (0.2-0.9); Monocytes % 5.8 %; Neutrophils # 3.7 10^3/uL (1.8-7.7); Neutrophils % 25.7 %; Nucleated Red Blood Cells % 0 %; Platelet Count 268 10^3/cmm (130-400); Red Blood Count 4.62 10^6/uL (4.1-5.3); Red Cell Distribution Width 13.6 % (12.1-15.1); White Blood Count 14.4 10^3/uL (4.0-10.0)
[2019-10-02 06:20] LABS: Alanine Aminotransferase 18 U/L (0-41); Albumin Level 3.1 g/dL (3.5-5.2); Alkaline Phosphatase 89 IU/L (40-130); Anion Gap 15.8 (5-19); Aspartate Amino Transferase 22 U/L (0-40); Blood Urea Nitrogen 26 mg/dL (8-23); Calcium 8.2 mg/dL (8.5-10.5); Carbon Dioxide 24 mmol/L (22-29); Chloride 101 mmol/L (98-107); Glucose 103 mg/dL (65-115); Osmolality Calculated 281 mOsm/kg (285-295); Potassium 3.8 mmol/L (3.5-5.1); Sodium 137 mmol/L (136-145); Total Bilirubin 0.2 mg/dL (0.15-1.2); Total Protein 6.1 g/dL (6.6-8.7)
--- NOTE | 2019-10-02 07:00 | USCV_ITS ---
Chapin Govea Age: 79 Gender: M : 1940 Exam Date: 10/02/2019 10:43 Ordering Phys: Marty Montemayor MD Technologist: Evelin Segura Exam Location: [facility] Indication: ELEVATED TROP BP: / HR: 79 Rhythm: Sinus Technical Quality: Adequate MEASUREMENTS (Male / Female) Normal Values 2D ECHO LV Diastolic Diameter PLAX 5.3 cm 4.2 - 5.9 / 3.9 - 5.3 cm LV Systolic Diameter PLAX 4.0 cm LV Chamber Size 3.7 cm IVS Diastolic Thickness 1.3 cm 0.6 - 1.0 / 0.6 - 0.9 cm IVS Systolic Thickness 1.7 cm LVPW Diastolic Thickness 1.5 cm 0.6 - 1.0 / 0.6 - 0.9 cm LVPW Systolic Thickness 1.8 cm RV Chamber Size 3.4 cm LVOT Diameter 2.0 cm LV Ejection Fraction 2D Teich 48.4 % LV Ejection Fraction MOD 2C 7.2 % LV Ejection Fraction 2C AL 4.2 % LA Diameter 4.4 cm LA Width 2.7 cm LA Height 5.1 cm RA Width 3.6 cm RA Height 4.3 cm Aorta at Sinotubular Diameter 2.7 cm M-MODE LV Diastolic Diameter MM 5.1 cm 4.2 - 5.9 / 3.9 - 5.3 cm LV Systolic Diameter MM 3.6 cm LV Ejection Fraction MM Teich 54.3 % IVS Diastolic Thickness MM 1.4 cm 0.6 - 1.0 / 0.6 - 0.9 cm IVS Systolic Thickness MM 1.4 cm LVPW Diastolic Thickness MM 1.0 cm 0.6 - 1.0 / 0.6 - 0.9 cm LVPW Systolic Thickness MM 1.5 cm RV Diastolic Diameter MM 1.9 cm Aortic Annulus Diameter 3.3 cm LA Ao Ratio MM 1.3 MV E Point Septal Separation 1.2 cm DOPPLER AV Peak Velocity 163.0 cm/s LVOT Peak Velocity 62.0 cm/s AV Area Cont Eq vti 1.3 cm squared AV Area Cont Eq pk 1.2 cm squared MV Area PHT 5.4 cm squared Mitral E to A Ratio 0.6 MV E' Velocity 6.0 cm/s Mitral E to MV E' Ratio 11.7 Mitral E to LV E' Lateral Ratio 10.3 Mitral E to LV E' Septal Ratio 13.9 TR Peak Velocity 281.0 cm/s TR Peak Gradient 31.6 mmHg TR Mean Velocity 194.9 cm/s TR Mean Gradient 19.2 mmHg TR Velocity Time Integral 74.7 cm TV Peak E Velocity 67.0 cm/s PV Peak Velocity 60.0 cm/s RV Acceleration Time 0.1 s RV Ejection Time 0.3 s RV AcT/ET 0.4 FINDINGS Left Ventricle Normal left ventricular cavity size. Increased left ventricular wall thickness. Mildly decreased left ventricular systolic function. Left ventricular ejection fraction is estimated at 40 %. Mild diffuse hypokinesis with moderate hypokinesis of septal and inferior osullivan. Aneurysmal basal to mid inferior wall. Grade I diastolic dysfunction (abnormal relaxation filling pattern), mildly elevated filling pressures. Right Ventricle Normal right ventricular size and systolic function. Right ventricular systolic pressure 32 mmHg. Right Atrium Normal right atrial size. Right atrial pressure estimated at 3 mm Hg. Left Atrium Mildly increased left atrial size. Mitral Valve Mildly thickened mitral valve. No mitral valve stenosis. Mild mitral valve regurgitation. Aortic Valve Mildly thickened and calcified aortic valve. Mild aortic valve stenosis, mean gradient 6 mmHg, BILLY 1.3 cm squared. Tricuspid Valve Structurally normal tricuspid valve. Mild tricuspid valve regurgitation. Pulmonic Valve Pulmonic valve not well visualized. Trace pulmonary valve regurgitation. Pericardium Trivial pericardial effusion. No evidence of hemydynamic compromise. Aorta Normal sized aortic root. CONCLUSIONS 1. Normal left ventricular cavity size. Mildly decreased left ventricular systolic function. Left ventricular ejection fraction is estimated at 40 %. Mild diffuse hypokinesis with moderate hypokinesis of septal and inferior osullivan. Aneurysmal basal to mid inferior wall. Grade I diastolic dysfunction (abnormal relaxation filling pattern), mildly elevated filling pressures. 2. Normal right ventricular size and systolic function. 3. Mild aortic valve stenosis, mean gradient 6 mmHg, BILLY 1.3 cm squared. 4. Pulmonary artery pressure estimated at 32 mm Hg. 5. When compared to previous echocardiogram dated 03/05/2019, left ventyricular systolic function has improved. Manuela Novak MD (Electronically Signed) Final Date: 02 October 2019 13:04 S
[2019-10-02] MEDS: atorvastatin 40 mg Tablet PO (09:03)
[2019-10-02] MEDS: aspirin 81 mg EC Tablet PO (09:03)
[2019-10-02] MEDS: clopidogrel 75 mg Tablet PO (09:03)
--- NOTE | 2019-10-02 09:05 | PC.SOCIAL ---
IMM Page 2 of IMM explained to patient. Initialed, dated, and timed and placed in chart. Copy provided to patient.
[2019-10-02] MEDS: metoprolol succinate ER (24 HR) 50 mg Tablet PO (09:06)
[2019-10-02] MEDS: FUROsemide 40 mg Tablet PO (09:06)
--- NOTE | 2019-10-02 10:32 | PC.CHAP ---
Pastoral Care Encounter/Spiritual Assessment Type of Contact [] Declined toby maker visit [] Patient/Family/Request visit [] Outpatient visit [] Follow-up visit [] Physician referral [] Code/Alert [x] Routine visit [] Staff referral [] Actively dying [] Patient sleeping [] Family support [] [] Out of room [] Palliative care [] [] Receiving care in room [] Pre-surgical visit [] Trauma [] Long length of stay [] ICU visit [] Other: Relational/Emotional Strength [x] Patient feels connected with others/family/visitors/staff [] Distress [] Loneliness/isolation [] Abandonment Spirituality of Patient [x] Person of Melva [] Attends Evangelical of their Melva [x] Believes in Prayer [] Reads Bible or Quaker materials [] There are Spiritual issues to be addressed Aqua Ammonia Operator Interventions [x] Prayer [x] Active listening [x] Non-anxious presence x[] Spiritual/emotional support [] Crisis/trauma care [] Spiritual counseling [] Bereavement support [] Provided bereavement packet [] Provided Bible/devotional materials [] Provided toy/stuffed animal, coloring book to patient or family member [] Provided Communion [] Anointing/[place] [] Salvation [x] Completed spiritual assessment [] Other: Impact on Illness or Injury [] Angry [] Fearful [] Anxious [] Often cries [] Exhaustion [] Unable to work [] Unable to attend yarsani [] Unable to walk/stand [] Unable to read [] Unable to drive [] Unable to eat/drink [] Unable to sleep [] Unable to be with family [] Patient intubated [x] Other: Summary Patient was awaiting his release. Prayer provided. Time spent with patient 5 minutes
--- NOTE | 2019-10-02 11:54 | PC.OT ---
OT TREATMENT ATTEMPTED TWICE THIS A.M. PATIENT IS RECEIVING ULTRASOUND PROCEDURE AT FIRST ATTEMPT. AT SECOND ATTEMPT, HE IS SEATED DRESSED IN HIS CLOTHING. I ASKED HIM ABOUT SHOWERING TODAY, HE REPORTS THAT HE IS GOING HOME TODAY AND WILL SHOWER THERE.
--- NOTE | 2019-10-02 13:14 | P.DS_ITS ---
Discharge Providers Date of Admission: 09/29/19 15:46 Date of Discharge: October 02, 2019 Attending Provider at Admission: Kassie Eugene MD Attending Provider at Discharge: Marty Montemayor MD Primary Care Provider: Mike Ruggiero DO Diagnoses at Discharge Discharge Diagnosis (1) Altered mental status: Status: Acute Problem details: Improved. Had aphasia. All consistent with CVA. (2) CVA (cerebral vascular accident): Status: Acute Problem details: Continue aspirin change to low-dose and add Plavix 75 mg daily. No thrombus noted on echocardiogram. No flow-limiting disease in carotids. Qualifiers: CVA mechanism: unspecified Qualified Code(s): I63.9 - Cerebral infarction, unspecified (3) HTN (hypertension): Status: Acute Problem details: Blood pressure rather soft while in the hospital. Aldactone, lisinopril discontinued. May need to be restarted as an outpatient (4) Hypercholesteremia: Status: Acute Problem details: Continue statin. Change to 40 mg (5) CHF (congestive heart failure): Status: Acute Problem details: Compensated currently. Reason for Visit Reason for Visit: Reason For Visit: NSTEMI, AMS Hospital Course Hospital Course: Chapin presented to the hospital with some aphasia, and elevated troponin. He had no chest discomfort, or significant EKG changes. Aphasia slowly improved. By September 30 he was back to his baseline mental status, which I confirmed with his son via phone. No other cause other than CVA was found on further work-up, with evaluation of urine showing no UTI, chest x-ray showing no pneumonia, and blood culture showing no growth. No electrolyte abnormalities explained his confusion. Carotid duplex demonstrated no flow- limiting disease. Echocardiogram demonstrated an improved EF at approximately 40%, and no ever is thrombus. Plavix was added to his regimen. Aspirin reduced to 81 mg. Statin increased to 40 mg. I discussed with the patient secondary to his confusion he has had intermittently in the past it would be safest to go to a nursing facility for rehabilitation and close monitoring or at least residential care such as [facility]. He refused and reported he was going home. He was alert and oriented x3. I discussed this with his son, who reported his father was still making his own decisions. I discussed risks with the patient, as well as some with the son, that this is not ideal and the and/or disability could occur. Again patient was adamant that he go home but would agree to home health. This was arranged. He will follow-up with cardiology, and his primary care provider. Other medication adjustments included discontinuation of Aldactone and lisinopril secondary to soft blood pressures in the hospital. Lasix and beta-deb were continued. Troponin appears to be chronically elevated, and there was not evidence of a non-ST elevation myocardial infarction this hospital stay. He will have close follow- up with cardiology. Physical Exam Urinary Catheter Management^: Echevarria Latex Free: Cath Placed During This Visit: yes, but has since been removed by the nurse Reason for Continuing Indwelling Catheter: Acute Urinary Retention or Obstruction Urinary Catheter Date of Insertion: 09/30/19 Urinary Catheter Time of Insertion: 01:33 Date Urinary Catheter Removed: 10/01/19 Time Urinary Catheter Discontinued: 10:57 Discharge Data Data Completed and Pending: Completed Studies During Hospitalization Category Date Time Status CT head wo con* [id number] Stat Cat Scan 09/29/19 13:30 Completed XR chest 1V winifred ble [id number] Stat Exams 09/29/19 13:31 Completed MR head wo con* [id number] Routine MRI 09/30/19 12:00 Completed CV carotid duplex BI* [id number] Routine Ultrasound 10/01/19 11:26 Completed CV echo complete* [id number] Routine Ultrasound 10/02/19 07:00 Completed Pending at discharge Category Date Time Status Blood Culture Sta t Lab 09/29/19 14:08 Results Labs from last 24 hours 10/02/19 10/02/19 05:43 05:43 WBC 14.4 H RBC 4.62 Hgb 13.3 Hct 41.4 L MCV 89.6 MCH 28.8 MCHC 32.1 RDW 13.6 Plt Count 268 MPV 11.4 H Neut % (Auto) 25.7 Lymph % (Auto) 9.4 Hartley % (Auto) 5.8 Eos % (Auto) 58.1 Baso % (Auto) 0.7 Neut # (Auto) 3.7 Lymph # (Auto) 1.4 Hartley # (Auto) 0.8 Eos # (Auto) 8.4 H Baso # (Auto) 0.1 Nucleated RBC % (a uto) 0 Nucleated RBCs # 0.0 Sodium 137 Potassium 3.8 Chloride 101 Carbon Dioxide 24 Anion Gap 15.8 BUN 26 H Creatinine 1.2 Glucose 103 Calculated Osmolal ity 281 L Calcium 8.2 L Total Bilirubin 0.2 AST 22 ALT 18 Alkaline Phosphata se 89 Total Protein 6.1 L Albumin 3.1 L Globulin 3.0 Vitals: Last Vital Signs Temp 98.2 F 10/02/19 10:26 Pulse 80 10/02/19 11:02 Resp 17 10/02/19 11:02 BP 98/63 10/02/19 10:26 Pulse Ox 94 10/02/19 11:02 Discharge Plan Discharge Patient Disposition: Home Health Service Condition: Stable Prescriptions: New atorvastatin 40 mg Tablet 40 mg PO DAILY Qty: 30 RF: 0 clopidogrel 75 mg Tablet 75 mg PO DAILY Qty: 30 RF: 0 aspirin 81 mg Tablet,Delayed Release (Dr/Ec) 81 mg PO DAILY Qty: 30 RF: 0 gabapentin [Neurontin] 300 mg capsule 300 mg PO TID Qty: 90 RF: 0 Continued furosemide 40 mg tablet 40 mg PO BID Qty: 60 RF: 6 metoprolol succinate 50 mg tablet extended release 24 hr 50 mg PO DAILY Qty: 30 RF: 6 potassium chloride 20 mEq tablet extended release 20 meq PO DAILY Qty: 30 RF: 6 Wixela Inhub 250-50 mcg/dose Blister With Device 1 inh INHALATION BID RF: 0 Discontinued atorvastatin 20 mg tablet 20 mg PO DAILY Qty: 30 RF: 6 lisinopril 30 mg tablet 30 mg PO DAILY Qty: 30 RF: 6 spironolactone 25 mg tablet 25 mg PO DAILY Qty: 30 RF: 6 aspirin 325 mg tablet 325 mg PO DAILY RF: 0 gabapentin 600 mg tablet 600 mg PO Q4H RF: 0 Discharge Orders: Discharge Order (Routine); Ordered 10/02/19 Ordered By: Marty Montemayor Referrals: [facility] [Outside] (Your information has been sent to [facility] to see if they can provide home health services for you. They will not be able to begin home health services until you are seen by Dr. Ruggiero on Sunday at 1:30 pm. If you have questions, you may call [facility] at the number provided. You may also call [facility] Case Management if you have any questions or concerns at [phone] ext. [phone].) Manuela Novak MD [Physician] - 7-10 days (Keep regular follow-up already scheduled, which will occur in 7 to 10 days.) Mike Ruggiero DO [Primary Care Provider] - 10/06/19 1:30 pm Discharge Diet: Cardiac Discharge Activity: Increase activity as tolerated Activity Restrictions/Additional Instructions: Fall precautions at home Home health being arranged Keep regular follow-up Discharge Attestations Time Spent in Discharge Care*: greater than 30 min Quality Metrics Clinical Quality Measures During this hospital stay, did patient experience: Stroke Contraindication to Antithrombotic: Antithrombotic prescribed Contraindication to Anticoagulation: Overlap treatment not indicated Contraindication to Statin: Statin prescribed Coding Level of Care Code Acute Flat Lock 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
--- NOTE | 2019-10-02 14:05 | PC.NURSE ---
Discharge instructions given per the physician's orders. Patient verbalized understanding and did not have any further questions. Cab ride has been established for patient.
== END 2019-10-02 14:31 | disposition home health service (06) | DRG 65 ==
LOC: ER 16:33 → MEDSURG 16:35
PROVIDERS: Admitting Provider Student in an Organized Health Care Education/Training Program; Emergency Provider Family Medicine; Family Provider Internal Medicine; PCP Internal Medicine; Visit Provider Internal Medicine
DX: I63.9 Cerebral infarction, unspecified (principal); I42.9 Cardiomyopathy, unspecified; R47.01 Aphasia; R29.704 NIHSS score 4; I50.9 Heart failure, unspecified; I11.0 Hypertensive heart disease with heart failure; J44.9 Chronic obstructive pulmonary disease, unspecified; Z86.73 Personal history of transient ischemic attack (TIA), and cerebral infarction without residual deficits; F03.90 Unspecified dementia, unspecified severity, without behavioral disturbance, psychotic disturbance, mood disturbance, and anxiety; M31.6 Other giant cell arteritis; I25.10 Atherosclerotic heart disease of native coronary artery without angina pectoris; E78.00 Pure hypercholesterolemia, unspecified; G62.9 Polyneuropathy, unspecified; R41.82 Altered mental status, unspecified; J32.4 Chronic pansinusitis
CPT/HCPCS: 12345; 36415; 36600; 51702; 70450; 70551; 71045; 80051; 80053; 80061; 80306; 80307; 81003; 82009; 82810; 83036; 83690; 83986; 84443; 84484; 85025; 85651; 87040; 87804; 92523; 92610; 93005; 93306; 93880; 94640; 96105; 96372; 97110; 97116; 97163; 97166; 97535; 99282; J1650; J7030

== ENCOUNTER 2019-10-24 13:44 | Inpatient (IN) | payer MEDICARE, BC, SELFPAY ==
[2019-10-24 13:46] VITALS: BP 133/90; PULSE 117; RESP 16; TEMP 36.8; O2SAT 94; BMI 24.3
--- NOTE | 2019-10-24 14:00 | W.ED.AMS ---
HPI - Altered Mental Status General: Chief Complaint: Altered Mental Status Stated Complaint: CONFUSION// HX OF DEMENTIA Time Seen by Provider: 10/24/19 13:47 History of Present Illness: HPI narrative: Patient reportedly lives at home alone. Either his family, home health aides, or both have been trying to get the patient placed in a fdc. He has severe dementia. Home health was tried to contact him for the past 3 days but have been unsuccessful. Today when the patient would not answer his door police were summoned and made entry into the house. Patient is awake and alert but not oriented he does not answer questions. He does not appear to be in any physical discomfort. He does not appear ill. MD complaint: altered mental status and confusion Onset (ago): unknown Timing confirmed by: caregiver Severity: similar to previous episodes Consistency of symptoms: Constant Review of Systems General: Reports: ROS unobtainable due to mental status [facility] ED PFSH: Medical History CAD (coronary artery disease) CHF (congestive heart failure) Compensated currently. CVA (cerebral vascular accident) Continue aspirin change to low-dose and add Plavix 75 mg daily. No thrombus noted on echocardiogram. No flow-limiting disease in carotids. HTN (hypertension) Blood pressure rather soft while in the hospital. Aldactone, lisinopril discontinued. May need to be restarted as an outpatient Hypercholesteremia Continue statin. Change to 40 mg Neuropathy Pericardial effusion Social History Smoking and tobacco status: never smoked Alcohol intake: never Physical Exam Const: COMMON NORMALS: alert HENMT: COMMON NORMALS: normocephalic and atraumatic HEAD & SCALP: normocephalic and atraumatic Neck/C-Spine: COMMON NORMALS: full ROM, no meningeal signs and no JVD Resp: COMMON NORMALS: normal respiratory effort, No retractions, No use of accessory muscles and clear to auscultation bilaterally AUSCULTATION: clear to auscultation bilaterally Cardio: COMMON NORMALS: no JVD, regular rate and regular rhythm RATE: regular rate RHYTHM: regular rhythm GI: COMMON NORMALS: Normal to inspection, nondistended, normoactive bowel sounds present Extremity: COMMON NORMALS: normal to inspection, full ROM and no pedal edema Neuro: SENSORIUM/ORIENTATION: Yes alert and Yes Orientation impaired MENINGEAL SIGNS: Yes no meningeal signs Skin: COMMON NORMALS: no rashes or lesions noted, no wounds, turgor normal, no jaundice, no petechiae and no mottling GENERAL SKIN EXAM: no rashes or lesions noted and turgor normal Course Vital Signs: Vital signs: Vital Signs Temperature 98.3 F 10/24/19 13:46 Pulse Rate 117 H 10/24/19 13:46 Respiratory Rate 16 10/24/19 13:46 Blood Pressure 133/90 10/24/19 13:46 Pulse Oximetry 94 10/24/19 13:46 Discharge Plan Discharge Prescriptions: No Action furosemide 40 mg tablet 40 mg PO BID Qty: 60 RF: 6 metoprolol succinate 50 mg tablet extended release 24 hr 50 mg PO DAILY Qty: 30 RF: 6 potassium chloride 20 mEq tablet extended release 20 meq PO DAILY Qty: 30 RF: 6 clopidogrel 75 mg tablet 75 mg PO DAILY Qty: 30 RF: 5 atorvastatin 40 mg tablet 40 mg PO DAILY Qty: 30 RF: 5 Wixela Inhub 250-50 mcg/dose Blister With Device 1 inh INHALATION BID RF: 0 Neurontin 300 mg capsule 300 mg PO TID Qty: 90 RF: 0 aspirin 81 mg Tablet,Delayed Release (Dr/Ec) 81 mg PO DAILY Qty: 30 RF: 0 Coding Level of Care Code ED Optician for Mary Savage
--- NOTE | 2019-10-24 14:05 | XRR_ITS ---
PROCEDURE INFORMATION: Exam: XR Chest, 1 View Exam date and time: 10/24/2019 2:29 PM Age: 79 years old Clinical indication: Condition or disease; Patient HX: Unk, AMS TECHNIQUE: Imaging protocol: XR of the chest Views: 1 view. COMPARISON: CR XR chest 1V portable [id number] 09/29/2019 1:39 PM FINDINGS: Lungs: There is mild patchy opacification in the medial right lung base. The left lung is clear. Pleural space: Unremarkable. No pleural effusion. No pneumothorax. Heart/Mediastinum: Unremarkable. No cardiomegaly. Bones/joints: Unremarkable. XR/XR chest 1V portable [id number] IMPRESSION: There is mild patchy opacification in the medial right lung base consistent with atelectasis and/or pneumonia.
--- NOTE | 2019-10-24 14:05 | CT_ITS ---
WS: [id number] CT HEAD TECHNIQUE: Noncontrast CT of the head obtained from the skullbase to the vertex. CLINICAL INFORMATION: ams COMPARISON: MRI September 30, 2019 DLP: 755.[address] scans at [facility] use at least one of these dose optimization techniques: automat ed exposure control; mA and/or kV adjustment per patient size (includes targeted exams where dose is matched to clinical indication); or iterative reconstruction. FINDINGS: No evidence of intracranial hemorrhage or mass effect. Ventricular system and basal cisterns are leigh nt. Moderate small vessel changes with moderate parenchymal volume loss. Chronic lacunar infarcts in the cerebellum. Prominent perivascular spaces in the basal ganglia and midbrain. No extra-axial fluid collections. No evidence of mass or mass effect. Normal herbert-white differentiation. Mild polypoid mucosal thickening in the ethmoid air cells. Mastoid air cells well aerated. CT/CT head wo con* [id number] IMPRESSION: 1. No evidence of intracranial hemorrhage or mass effect. 2. [id number] small vessel changes with moderate parenchymal volume loss . 3. No acute intracranial findings.
--- NOTE | 2019-10-24 14:06 | ECG_ITS ---
Measurements Intervals [place] Rate: 112 P: 75 IL: 155 QRS: -55 QRSD: 119 T: 69 QT: 358 QTc: 490 SINUS TACHYCARDIA INCOMPLETE RIGHT BUNDLE BRANCH BLOCK LEFT ANTERIOR FASCICULAR BLOCK ANTEROSEPTAL MYOCARDIAL INFARCTION , OF INDETERMINATE AGE Compared to ECG 09/29/2019 17:54:25 Incomplete right bundle-branch block now present Left anterior fascicular block now present Myocardial infarct finding now present Sinus rhythm no longer present ST (T wave) deviation no longer present Electronically Signed On 10-24-2019 18:00:37 CDT by Manuela Novak M.D. [email or web address]
[2019-10-24] MEDS: sodium chloride 0.9% 500 ML IV (14:10)
[2019-10-24 14:43] LABS: Alanine Aminotransferase 21 U/L (0-41); Albumin Level 3.8 g/dL (3.5-5.2); Alkaline Phosphatase 100 IU/L (40-130); Anion Gap 23.5 (5-19); Aspartate Amino Transferase 34 U/L (0-40); Blood Urea Nitrogen 25 mg/dL (8-23); Calcium 8.9 mg/dL (8.5-10.5); Carbon Dioxide 24 mmol/L (22-29); Chloride 99 mmol/L (98-107); Globulin 3.3 g/dL (1.3-4.6); Glucose 105 mg/dL (65-115); Lipase 24 U/L (13-60); NT Pro B Type Natriuretic Pept 20112 pg/mL (0-450); Osmolality Calculated 291 mOsm/kg (285-295); Potassium 4.5 mmol/L (3.5-5.1); Sodium 142 mmol/L (136-145); Thyroid Stimulating Hormone 3.05 uIU/mL (0.27-4.20); Total Bilirubin 0.5 mg/dL (0.15-1.2); Total Protein 7.1 g/dL (6.6-8.7)
[2019-10-24 14:54] LABS: Basophils # 0.1 10^3/uL (0.0-0.1); Basophils % 0.3 %; Eosinophils # 5.7 10^3/uL (0.0-0.8); Eosinophils % 31.6 %; Hematocrit 43.9 % (42.0-52.0); Lymphocytes # 1.3 10^3/uL (0.8-4.8); Lymphocytes % 7.1 %; Mean Corpuscular HGB Conc 31.9 g/dL (30.0-36.0); Mean Corpuscular Hemoglobin 27.8 pg (28.0-34.0); Mean Corpuscular Volume 87.3 fL (80-94); Mean Platelet Volume 11.3 fL (7.4-10.4); Monocytes # 0.8 10^3/uL (0.2-0.9); Monocytes % 4.4 %; Neutrophils % 56.1 %; Nucleated Red Blood Cells % 0 %; Platelet Count 346 10^3/cmm (130-400); Red Blood Count 5.03 10^6/uL (4.1-5.3); Red Cell Distribution Width 14.6 % (12.1-15.1); White Blood Count 17.9 10^3/uL (4.0-10.0)
[2019-10-24 15:07] LABS: Lactate (Lactic Acid level) 1.2 mmol/L (0.5-2.2)
[2019-10-24 15:31] LABS: Procalcitonin 0.23 ng/mL (0-0.5)
[2019-10-24] MEDS: ziprasidone 20 mg/mL SDV 10 MG IM ×2 (15:34→16:19)
[2019-10-24 15:59] LABS: Specific Gravity, Urine 1.025 (1.005-1.030); Urine Color Amber (Yellow); pH Urine 5 (5-7)
[2019-10-24 16:00] LABS: Add Urine Culture? No; Add Urine Microscopic? YES; Bacteria Urine 1+; Bilirubin Urine 1+ (NEGATIVE); Blood Urine 2+ (Negative); Glucose Urine UA Norm (Normal); Hyaline Casts Urine 0-4; Ketones Urine 1+ (Negative); Leukocyte Esterase Urine Negative (Negative); Mucus Urine 2+; Nitrate Urine Negative (Negative); Protein Urine Neg (Negative); RBC Urine 0-4 /hpf (0-2); Urobilinogen Urine 1 mg/dL (Negative); WBC Urine 0-4 /hpf (0-5)
--- NOTE | 2019-10-24 16:06 | ECG_ITS ---
Measurements Intervals [place] Rate: 114 P: 71 OR: 147 QRS: -34 QRSD: 121 T: 71 QT: 344 QTc: 475 SINUS TACHYCARDIA POSSIBLE LEFT ATRIAL ENLARGEMENT [-0.1mV P WAVE IN V1/V2] LEFT AXIS DEVIATION [QRS AXIS < -30] POSSIBLE RIGHT VENTRICULAR CONDUCTION DELAY ANTEROSEPTAL MYOCARDIAL INFARCTION , OF INDETERMINATE AGE Compared to ECG 09/29/2019 17:54:25 Left-axis deviation now present Myocardial infarct finding now present Sinus rhythm no longer present ST (T wave) deviation no longer present Electronically Signed On 10-24-2019 18:24:45 CDT by Manuela Novak M.D. [email or web address]
[2019-10-24 16:20] LABS: Troponin(5th) Baseline 2469 ng/mL (0-15)
[2019-10-24 16:23] LABS: Troponin 5 2HR 2192 ng/mL (0-15)
--- NOTE | 2019-10-24 16:24 | PC.NURSE ---
!st Ruslan adm L deltoid 2nd Ruslan adm R deltoid
--- NOTE | 2019-10-24 16:24 | PC.NURSE ---
notified of critical troponin level
--- NOTE | 2019-10-24 16:27 | DCPLANNER ---
Addendum entered by Yoselin Otero 10/24/19 16:41: Miguel patients home health nurse, from [facility], returned test case developer phone call. manager internship was told that [facility] had accepted patient, was waiting on results of the Covid testing. Patients primary care physician,Dr. Ruggiero, had written orders for custodial. Patient has a son named Avel, who lives in another state, phone number is . Original Note: manager internship was asked to find out what home health agency that patient uses. manager internship called [facility], [place] [facility] and [facility], patient does not have services with any of these. manager internship called [facility], patient does have services with [facility], nurse case manager was unable to speak with patients nurse or anyone that knew about patients care. Per EMS, [facility] has been working to get patient placed into a SNF, did not know name of SNF. EMS stated that patient was needing a Covid test before being placed into SNF, that was why home health nurse was at patients home. Home health had went to patients house two times before, patient did not answer door, on third visit, [facility] called EMS to come and get patient. manager internship tried to speak with someone from [facility], to see which custodial that the home health agency was trying to get patient placed at, unable to speak with anyone. manager internship did tell the agency that if the patients nurse or someone from his team could call the ER and speak with patients nurse to fill the nurse in on what custodial. manager internship did speak with Darian on the in patient side to fill him on patient.
[2019-10-24] MEDS: cefTRIAXone 1,000 MG in sodium chloride 0.9% (plus) 50 ML 100 MG IV (16:30)
--- NOTE | 2019-10-24 17:45 | PM.HP ---
Providers/Chief Complaint Admitting Physician: Kimber Nielsen MD Primary Care Provider: Mike Ruggiero DO Chief Complaint: CONFUSION// HX OF DEMENTIA History of Present Illness Chapin Govea is a 79 year old male with PMHx of Ischemic cardiomyopathy, HTN, Hyperlipidemia, Chronic systolic CHF, COPD, Dementia, presents via EMS following call from home health nurse who found him at home and quite confused. Patient was recently admitted to our facility at the end of September during which time he had presented with altered mental status which was attributed to CVA. His mentation improved during his hospitalization and he was discharged home with home health services. It is worth noting that during his hospital stay there was discussion about alternative disposition including SNF versus assisted living facility which patient declined. It seems that they have been arrangements made for him to go to assisted living, specifically [facility] where he has been per my conversation with his son. Patient is very confused and disoriented during my assessment in the ER, has a sitter present and requires frequent reorientation. He is aware that he is in [place] and responds to his name but is unable to provide his date of or much else in the way of useful history. Collateral information is obtained from thorough review of medical record as well as conversation with patient's son Avel Govea. Son states that he has been unable to reach his father on the phone for the past 2 weeks and reportedly the home health agency has been unable to reach the patient by phone as well. They have made at least 2 previous visits which were unsuccessful as patient did not answer the door. On follow-up visit today nurse found the door to be open and found the patient confused and disoriented, disheveled. Son mentioned that patient took a taxi to [facility] and presented there last week stating that he was ready to move in. This seems a rather strange behavior as patient has been extremely resistant to alternative disposition in the past. Son is quite concerned about patient's nutrition status and it seems that he has lost significant amount of weight lately. Patient's baseline seems to be alert and oriented with bouts of confusion likely secondary to underlying dementia. Work-up in the ER today indicates leukocytosis with a white count of 17.9, normal hemoglobin, BUN of 25, creatinine of 1.2, BNP greater than 20,000, significant troponin elevation with noted delta of 277. There are no correlating ST changes on EKG. Vital signs are stable other than mild tachycardia. CT head is unremarkable. Chest x-ray is reported as mild patchy opacification in medial right lung base that could be secondary to atelectasis versus pneumonia. Urinalysis is contaminated though is cloudy and positive for blood and bacteria. He has received 500 mL normal saline bolus as well as a dose of ceftriaxone. He has also received 20 mg IM total of Geodon improvement in his restlessness and confusion. Patient was noted to have some troponin elevation during his last admission though not quite as high as today. I have requested cardiology evaluation given patient's underlying cardiac history, change in troponins. Been admitted for further evaluation, treatment of UTI and pneumonia as well as and noted altered mental status. Review of Systems General: Reports: ROS unobtainable due to mental status (patient is very confused) Neuro: Reports: confusion and behavioral changes Medications/Allergies Home Medications Medication Instructions Recorded Confirmed Last Taken Type furosemide 40 mg tablet 40 mg PO BID #60 tab 07/24/19 09/29/19 Unknown Rx metoprolol succinate 50 mg 50 mg PO DAILY #30 tab 07/24/19 09/29/19 Unknown Rx tablet,extended release 24 hr potassium chloride 20 mEq 20 meq PO DAILY #30 tab 07/24/19 09/29/19 Unknown Rx tablet,extended release Wixela Inhub 1 inh INHALATION BID 09/29/19 09/29/19 Unknown History aspirin 81 mg PO DAILY #30 tab 10/02/19 Unknown Rx gabapentin [Neurontin] 300 mg PO TID #90 cap 10/02/19 Unknown Rx atorvastatin 40 mg tablet 40 mg PO DAILY #30 tab 10/21/19 Unknown Rx clopidogrel 75 mg tablet 75 mg PO DAILY #30 tab 10/21/19 Unknown Rx Allergies Allergy/AdvReac Type Severity Reaction Status Date / Time No Known Allergies Allergy Verified 10/24/19 13:56 PFSH Acute PFSH: Medical History (Updated 10/24/19 @ 19:22 by Kimber Nielsen MD) BPH (benign prostatic hyperplasia) CAD (coronary artery disease) CHF (congestive heart failure) Compensated currently. COPD (chronic obstructive pulmonary disease) CVA (cerebral vascular accident) HTN (hypertension) Hypercholesteremia Neuropathy Pericardial effusion Temporal arteritis -resolved after treatment -affected R eye Vascular dementia Surgical History (Updated 10/24/19 @ 18:53 by Kimber Nielsen MD) H/O hand surgery -left hand, for finger contracture Social History (Updated 10/24/19 @ 18:54 by Kimber Nielsen MD) Smoking and tobacco status: never smoked Alcohol intake: never Lives independently: Yes Household members: none Current occupational status: retired Vitals/I&O/Wt Last Vital Signs Temp 98.3 F 10/24/19 13:46 Pulse 117 H 10/24/19 13:46 Resp 16 10/24/19 13:46 BP 133/90 10/24/19 13:46 Pulse Ox 94 10/24/19 13:46 Weight last 48 hrs Weight 72.575 kg Physical Exam Const: COMMON NORMALS: no acute distress GENERAL APPEARANCE: cooperative, comfortable and disheveled ORIENTATION/CONSCIOUSNESS: Yes awake and Yes confused HENMT: COMMON NORMALS: normocephalic, atraumatic and hearing grossly normal bilaterally HEAD & SCALP: normocephalic and atraumatic GENERAL EAR: hearing grossly impaired MOUTH: moist mucous membranes abnormal (dried residue on lips) Details: cracked Eye: COMMON NORMALS: Equal, round and reactive pupils present, EOMs intact bilaterally and conjunctivae normal CONJUNCTIVA: Yes conjunctivae normal PUPIL: Yes Equal, round and reactive pupils present Neck/C-Spine: COMMON NORMALS: full ROM GENERAL: Yes normal visual inspection and Yes trachea midline Chest: CHEST: Yes Symmetrical chest wall rise Resp: COMMON NORMALS: normal respiratory effort, No retractions, No use of accessory muscles and clear to auscultation bilaterally EFFORT & INSPECTION: Yes able to speak in complete sentences, Yes symmetric chest movement and No tachypneic AUSCULTATION: clear to auscultation bilaterally Cardio: COMMON NORMALS: regular rate, regular rhythm, S1 normal heart sound present, S2 normal heart sound present and No murmurs present (Cardio) RATE: tachycardic RHYTHM: regular rhythm HEART SOUNDS: S1 normal heart sound present and S2 normal heart sound present GI: COMMON NORMALS: Normal to inspection, nondistended, normoactive bowel sounds present, Soft to palpation and non-tender PALPATION: Yes Soft to palpation Back/Pelvis: COMMON NORMALS: thoracic and lumbar spine normal to inspection Extremity: COMMON NORMALS: normal to inspection, full ROM, no clubbing, cyanosis or edema and no pedal edema Neuro: COMMON NORMALS: moves all extremities, no focal motor deficits and no sensory deficits noted SENSORIUM/ORIENTATION: Yes alert and Yes Orientation impaired Psych: COMMON NORMALS: cooperative and speech normal ACTIVITY/MOTOR BEHAVIOR: Yes restless SPEECH: Yes normal speech THOUGHT PROCESS: confused ATTENTION/CONCENTRATION: Yes attention grossly impaired and Yes concentration grossly impaired MEMORY/COGNITION: Yes memory grossly impaired Impared memory type(s): short term INSIGHT: Poor insight present (Psych) Skin: COMMON NORMALS: no rashes or lesions noted, no jaundice, no petechiae and no mottling GENERAL SKIN EXAM: no rashes or lesions noted Data : 10/24/19 13:33 10/24/19 13:33 Micro: Microbiology 10/24/19 14:41 Blood Culture - Preliminary Blood SPECIMEN COLLECTED 10/24/19 14:28 Blood Culture - Preliminary Blood SPECIMEN COLLECTED A&P Assessment and plan (1) Altered mental status: -presents with significant confusion, was noted during last admission and attributed to CVA -has underlying vascular dementia and reportedly waxes and wanes at baseline -suspect this is multifactorial given UTI, pneumonia, NSTEMI, recent CVA and underlying dementia -needs 1:1 monitoring, fall, aspiration precautions Status: Resolved Qualifiers: Altered mental status type: disorientation Qualified Code(s): R41.0 - Disorientation, unspecified (2) Non-ST elevation (NSTEMI) myocardial infarction: -Noted to have significant troponin elevation with delta greater than 270, no correlating ST changes on ECGs -telemetry monitoring -close monitoring of vital signs -no hx of cath on review of medical record -nuclear stress testing (03/2019): Medium size perfusion abnormality of mid to distal anterior and apical osullivan with mild reversibility in mid anterior wall which is suggestive of old KS in LAD territory with minimal ayah-infarct ischemia. Medium size perfusion abnormality of basal to apical inferolateral and inferior osullivan suggestive of old KS/scarring in the RCA/circumflex artery territory, severe diffuse hypokinesis -Echo (09/2019): EF=40%, G1DD, mild diffuse hypokinesia, mild MR, mild , trace TR, aneurysmal basal to mid inferior wall -Start on therapeutic anticoagulation -Resume aspirin, statin -Cardiology evaluation requested Status: Acute (3) UTI (urinary tract infection): -UA contaminated though indicative of infection -in light of noted confusion will treat with antibiotics Status: Acute Qualifiers: Urinary tract infection type: acute cystitis Hematuria presence: without hematuria Qualified Code(s): N30.00 - Acute cystitis without hematuria (4) Pneumonia: -noted mild patchy opacification in the medial right lung base consistent with atelectasis versus pneumonia -In light of significant confusion and location of abnormality on x-ray, aspiration pneumonia is within the differential -aspiration precautions, ST evaluation -will treat with Ceftriaxone and metronidazole -noted significant leukocytosis, trend WBC -lactic acid-1.2 Status: Acute Qualifiers: Pneumonia type: due to unspecified organism Laterality: right Lung location: lower lobe of lung Qualified Code(s): J18.9 - Pneumonia, unspecified organism (5) COPD (chronic obstructive pulmonary disease): -no acute exacerbation -supplemental oxygen as needed; not oxygen dependent at baseline -monitor respiratory status Status: Chronic Qualifiers: COPD type: unspecified COPD Qualified Code(s): J44.9 - Chronic obstructive pulmonary disease, unspecified (6) BPH (benign prostatic hyperplasia): Status: Chronic Qualifiers: Lower urinary tract symptom presence: unspecified whether lower urinary tract symptoms present Qualified Code(s): N40.0 - Benign prostatic hyperplasia without lower urinary tract symptoms (7) Vascular dementia: Status: Chronic Qualifiers: Dementia behavioral disturbance: without behavioral disturbance Qualified Code(s): F01.50 - Vascular dementia without behavioral disturbance (8) CHF (congestive heart failure): -has chronic systolic CHF, last Echo with reported EF=40% as noted above -will hold lasix for now given dehydration -BNP >20,000 Status: Chronic Qualifiers: Heart failure chronicity: chronic Heart failure type: systolic Qualified Code(s): I50.22 - Chronic systolic (congestive) heart failure (9) CVA (cerebral vascular accident): -with noted aphasia during last admission which seems to have resolved today -resume ASA, Plavix -no significant stenosis on carotid US -Echo noted above -had neuroimaging done including CT head and MRI head showing chronic ischemic changes Status: Acute Qualifiers: CVA mechanism: unspecified Qualified Code(s): I63.9 - Cerebral infarction, unspecified (10) HTN (hypertension): -was noted to be borderline hypotensive during last admission; ACEi and aldactone discontinued -resume BB, titrate as needed -monitor vital signs Status: Chronic Qualifiers: Hypertension type: essential hypertension Qualified Code(s): I10 - Essential (primary) hypertension (11) Hypercholesteremia: -resume statin Status: Chronic (12) CAD (coronary artery disease): -Has known history of ischemic cardiomyopathy -has had cardiac workup as noted above Status: Chronic Qualifiers: Coronary Disease-Associated Artery/Lesion type: [place] artery [place] vs. transplanted heart: [place] heart Associated angina: angina presence unspecified Qualified Code(s): I25.10 - Atherosclerotic heart disease of [place] coronary artery without angina pectoris Additional A&P Information -POOJA on CKD unknown stage, baseline Cr is around 0.9-1.0; suspect dehydration, gentle IVF to avoid fluid overload -keep NPO after midnight in case of need for intervention -DVT ppx not needed as on therapeutic lovenox -Dispo: JAIL vs. SNF; discussed extensively with son Avel Govea ([phone]) who reports that patient has been accepted at [facility]. Son is health-care DPOA -Code status: FULL code Attestations Medical Necessity Statement*: Chapin Govea's hospital stay will require greater than 2 midnights for management of NSTEMI, UTI, pneumonia with noted confusion. Time Spent in Patient Care: Greater than 35 minutes (>than 50% of time spent in counselling and/or direct pt care on unit). Coding Level of Care Code Acute Mold Laminator for Chg Fwd Diagnoses Altered mental status R41.0 Altered mental status type: disorientation Non-ST elevation (NSTEMI) myocardial infarction I21.4 UTI (urinary tract infection) N30.00 Urinary tract infection type: acute cystitis Hematuria presence: without hematuria Pneumonia J18.9 Pneumonia type: due to unspecified organism Laterality: right Lung location: lower lobe of lung COPD (chronic obstructive pulmonary disease) J44.9 COPD type: unspecified COPD BPH (benign prostatic hyperplasia) N40.0 Lower urinary tract symptom presence: unspecified whether lower urinary tract symptoms present Vascular dementia F01.50 Dementia behavioral disturbance: without behavioral disturbance CHF (congestive heart failure) I50.22 Heart failure chronicity: chronic Heart failure type: systolic CVA (cerebral vascular accident) I63.9 CVA mechanism: unspecified HTN (hypertension) I10 Hypertension type: essential hypertension Hypercholesteremia E78.00 CAD (coronary artery disease) I25.10 Coronary Disease-Associated Artery/Lesion type: [place] artery [place] vs. transplanted heart: [place] heart Associated angina: angina presence unspecified
[2019-10-24] MEDS: diphenhydrAMINE 50 mg/mL SDV 1mL IVP (18:40)
[2019-10-24] MEDS: LORazepam 2 mg/mL INJ 1 mL IVP (18:42)
--- NOTE | 2019-10-24 19:16 | PC.NURSE ---
Miguel, home health nurse [phone]
--- NOTE | 2019-10-24 19:25 | PM.CONSULT ---
Providers/Reason For Consult Consulting Physican/Specialty*: Cardiology Reason for Consult*: Non-ST elevation [place] Attending Physician: Kimber Nielsen MD Primary Care Provider: Mike Ruggiero DO History of Present Illness History of Present Illness Chapin Govea is a 79 year old male past medical history significant for recent discharge from the hospital for CVA, altered mental status changes, elevated cardiac markers thought to be due to myopericarditis, history of congestive heart failure systolic type with LV dysfunction 40%, recent stress test showed mild ayah-infarct ischemia who follows with Dr. Novak was managed medically presented to the ER with mental status changes. His generation 5 troponin are found to be 2400. White cell count is elevated. Patient is confused and cannot converse. He moans and groans but I was told that he was not complaining of any chest pain. Review of Systems General: Reports: ROS unobtainable due to mental status (patient is very confused) Neuro: Reports: confusion and behavioral changes Meds/Allergies Home Medications and Allergies Home Medications Medication Instructions Recorded Confirmed Last Taken Type furosemide 40 mg tablet 40 mg PO BID #60 tab 07/24/19 09/29/19 Unknown Rx metoprolol succinate 50 mg 50 mg PO DAILY #30 tab 07/24/19 09/29/19 Unknown Rx tablet,extended release 24 hr potassium chloride 20 mEq 20 meq PO DAILY #30 tab 07/24/19 09/29/19 Unknown Rx tablet,extended release Wixela Inhub 1 inh INHALATION BID 09/29/19 09/29/19 Unknown History aspirin 81 mg PO DAILY #30 tab 10/02/19 Unknown Rx gabapentin [Neurontin] 300 mg PO TID #90 cap 10/02/19 Unknown Rx atorvastatin 40 mg tablet 40 mg PO DAILY #30 tab 10/21/19 Unknown Rx clopidogrel 75 mg tablet 75 mg PO DAILY #30 tab 10/21/19 Unknown Rx Allergies Allergy/AdvReac Type Severity Reaction Status Date / Time No Known Allergies Allergy Verified 10/24/19 13:56 PFSH Acute PFSH: Medical History (Updated 10/24/19 @ 19:46 by Daljit Anthony MD) BPH (benign prostatic hyperplasia) CAD (coronary artery disease) CHF (congestive heart failure) Compensated currently. COPD (chronic obstructive pulmonary disease) CVA (cerebral vascular accident) HTN (hypertension) Hypercholesteremia Neuropathy Pericardial effusion Temporal arteritis -resolved after treatment -affected R eye Vascular dementia Surgical History H/O hand surgery -left hand, for finger contracture Social History Smoking and tobacco status: never smoked Alcohol intake: never Lives independently: Yes Household members: none Current occupational status: retired Vitals/I&O/Wt Last Vital Signs Temp 98.3 F 10/24/19 13:46 Pulse 117 H 10/24/19 13:46 Resp 16 10/24/19 13:46 BP 133/90 10/24/19 13:46 Pulse Ox 94 10/24/19 13:46 Weight last 48 hrs Weight 160 lb Physical Exam Narrative: EXAM NARRATIVE: GENERAL: Patient is arousable moans and groans but confused. NECK: No jugular vein distension. HEENT: No cyanosis. No icterus. No pallor. HEART: Regular S1 and S2. No murmur, rub or gallop. LUNGS: Coarse bilaterally without crackles CENTRAL NERVOUS SYSTEM: Grossly nonfocal. EXTREMITIES: Lower extremities without edema bilaterally. Data Labs: Other Labs: SINUS TACHYCARDIA POSSIBLE LEFT ATRIAL ENLARGEMENT [-0.1mV P WAVE IN V1/V2] LEFT AXIS DEVIATION [QRS AXIS < -30] POSSIBLE RIGHT VENTRICULAR CONDUCTION DELAY ANTEROSEPTAL MYOCARDIAL INFARCTION , OF INDETERMINATE AGE Compared to ECG 09/29/2019 17:54:25 Left-axis deviation now present Myocardial infarct finding now present Sinus rhythm no longer present ST (T wave) deviation no longer present CONCLUSIONS 1. Normal left ventricular cavity size. Mildly decreased left ventricular systolic function. Left ventricular ejection fraction is estimated at 40 %. Mild diffuse hypokinesis with moderate hypokinesis of septal and inferior osullivan. Aneurysmal basal to mid inferior wall. Grade I diastolic dysfunction (abnormal relaxation filling pattern), mildly elevated filling pressures. 2. Normal right ventricular size and systolic function. 3. Mild aortic valve stenosis, mean gradient 6 mmHg, BILLY 1.3 cm squared. 4. Pulmonary artery pressure estimated at 32 mm Hg. 5. When compared to previous echocardiogram dated 03/05/2019, left ventyricular systolic function has improved. Manuela Novak MD (Electronically Signed) Final Date: 02 October 2019 13:04 S Micro: Micro: Microbiology 10/24/19 14:41 Blood Culture - Pr eliminary Blood SPECIMEN [facility] 10/24/19 14:28 Blood Culture - Pr eliminary Blood SPECIMEN [facility] A&P Assessment and plan (1) Non-ST elevation (NSTEMI) myocardial infarction: Patient may have underlying coronary artery disease which during this time of stress and sepsis has become more evident with demand ischemia. Currently we will manage him conservatively once improved from sepsis before discharge may discussed regarding possible angiogram. For now continue aspirin statin and Plavix and anticoagulation if okay with medicine with PT/INR in normal range. Status: Acute (2) CHF (congestive heart failure): Currently compensated. Hold diuretics for now Status: Chronic Qualifiers: Heart failure chronicity: chronic Heart failure type: systolic Qualified Code(s): I50.22 - Chronic systolic (congestive) heart failure (3) HTN (hypertension): Well-controlled Status: Chronic Qualifiers: Hypertension type: essential hypertension Qualified Code(s): I10 - Essential (primary) hypertension (4) Mental status change resolved: Most likely due to urosepsis or chest infection. Status: Acute Consult Attestations Medical Necessity Statement: Patient require continuation hospitalization for above defined care. Coding Level of Care Code New Pt Acute Small Lot Operator for [place] Patient Type New History Detailed Exam Detailed Medical Decision Making Moderate Complexity Diagnoses Non-ST elevation (NSTEMI) myocardial infarction I21.4 CHF (congestive heart failure) I50.22 Heart failure chronicity: chronic Heart failure type: systolic HTN (hypertension) I10 Hypertension type: essential hypertension Mental status change resolved Z86.59
[2019-10-24 19:31] VITALS: BP 138/98; PULSE 96; RESP 22; O2SAT 96
[2019-10-24 20:00] LABS: Troponin 5 6HR 2360 ng/mL (0-15)
--- NOTE | 2019-10-24 20:00 | PC.NURSE ---
Assessment reviewed and verified by RN
--- NOTE | 2019-10-24 20:04 | PC.NURSE ---
CRITICAL LAB RESULTS CALLED TO THIS NURSE. 6 HOUR TROPONIN 2360 WITH A DELTA OF -109. DR MOREJON WAS NOTIFIED AND NO NEW ORDERS WERE RECEIVED.
[2019-10-24 20:26] VITALS: BP 135/112; BP 143/94; PULSE 121; RESP 101; RESP 43; TEMP 36.6; O2SAT 91
[2019-10-24] MEDS: enoxaparin 80 mg/0.8 mL Syringe 70 MG SUBCUT (20:51)
[2019-10-24] MEDS: sodium chloride 0.9% 1,000 ML 75 ML IV (20:52)
[2019-10-24] MEDS: metroNIDAZOLE IV 500 MG/100 ML PREMIX 100 MG IV (20:52)
--- NOTE | 2019-10-24 21:54 | PC.NURSE ---
Dr. Eugene notified of patient's heart rate of 140. There is artifact on the monitor, however it appears to be sinus tach. Per EKG from ER, patient's heart rate was 115 ST at that time.
[2019-10-24 23:07] VITALS: PULSE 146; RESP 28; O2SAT 90
[2019-10-24] MEDS: ipratropium-albuterol 3 mL Neb INHALATION (23:07)
[2019-10-24 23:15] VITALS: PULSE 146
[2019-10-24] MEDS: LORazepam 2 mg/mL INJ 1 mL 1 MG IVP (23:41)
[2019-10-24] MEDS: metoprolol tartrate 1 mg/1 mL SDV 5 mL 2.5 MG IV (23:41)
--- NOTE | 2019-10-24 23:42 | PC.NURSE ---
scanned pt but forgot to scan meds before tossing the bottles and didnt want to mess up count on ativan in pixus.
[2019-10-25] VITALS (9 sets, daily range): BP systolic 115–132; BP diastolic 80–92; PULSE 112–118; RESP 33–46; TEMP 36.3–36.7; O2SAT 90–97
--- NOTE | 2019-10-25 01:24 | PC.NURSE ---
patient came to the floor via ER on stretcher. patient was abd grunting with eah breath, still snowed from medication given in the ER to calm him down. er says patient very agitated, and aggressive. patients lung sounds showed expiratory wheezing that continued to get worse even after changing positions. Called Dr. Eugene and got an order for RT to see him and she gave him a breathing treatment which she said he didnt tolerate very well and couldnt hold the device. patient vs were elevated, heart rate was 121 when arrived and increased to maintain in the 140s. A call was put in to Dr. Eugene regarding this and his anxiety level as he started waking and becoming angry. 2.5 mg metoprolol iv was given which brought his hr down to around 115 and holding in the teens. 1 mg ativan given which seemed to calm him pretty good in about 20-30 minutes. patient is currently resting with the same abd grunting on each breath.
[2019-10-25] MEDS: metroNIDAZOLE IV 500 MG/100 ML PREMIX 100 MG IV ×4 (03:31→21:09)
[2019-10-25 05:06] LABS: Basophils # 0.1 10^3/uL (0.0-0.1); Basophils % 0.4 %; Eosinophils # 6.7 10^3/uL (0.0-0.8); Eosinophils % 37.4 %; Hematocrit 41.8 % (42.0-52.0); Hemoglobin 13.1 g/dL (11.7-16.6); Lymphocytes # 1.2 10^3/uL (0.8-4.8); Lymphocytes % 6.7 %; Mean Corpuscular HGB Conc 31.3 g/dL (30.0-36.0); Mean Corpuscular Hemoglobin 27.9 pg (28.0-34.0); Mean Corpuscular Volume 89.1 fL (80-94); Monocytes # 0.7 10^3/uL (0.2-0.9); Monocytes % 4.2 %; Neutrophils # 9.1 10^3/uL (1.8-7.7); Neutrophils % 50.9 %; Nucleated Red Blood Cells % 0 %; Platelet Count 292 10^3/cmm (130-400); Red Blood Count 4.69 10^6/uL (4.1-5.3); Red Cell Distribution Width 14.8 % (12.1-15.1); White Blood Count 17.8 10^3/uL (4.0-10.0)
[2019-10-25 05:21] LABS: Anion Gap 20.3 (5-19); Blood Urea Nitrogen 22 mg/dL (8-23); Calcium 8.4 mg/dL (8.5-10.5); Carbon Dioxide 24 mmol/L (22-29); Chloride 104 mmol/L (98-107); Creatinine Clr Calc Pharmacy 47.1625; Glucose 102 mg/dL (65-115); Osmolality Calculated 295 mOsm/kg (285-295); Potassium 4.3 mmol/L (3.5-5.1); Sodium 144 mmol/L (136-145)
[2019-10-25] MEDS: LORazepam 2 mg/mL INJ 1 mL 1 MG IVP ×2 (06:07→23:25)
[2019-10-25] MEDS: enoxaparin 80 mg/0.8 mL Syringe 70 MG SUBCUT ×2 (09:37→21:08)
[2019-10-25] MEDS: cefTRIAXone 1,000 MG in sodium chloride 0.9% (plus) 50 ML 100 MG IV (09:38)
[2019-10-25] MEDS: ipratropium-albuterol 3 mL Neb INHALATION (10:00)
--- NOTE | 2019-10-25 10:08 | PC.NURSE ---
Sppeech Eval in room Pt is still lethargic, open his eyes to name. He verbalizes words such as what Yousuf to state his month and day of . Asked if he is in pain and he said, no. Pt is clenching his teeth and won't take the ice chips during speech eval with Deb. Oral meds this morning is on hold. Will notify
--- NOTE | 2019-10-25 10:19 | PC.SLP ---
Received orders to evaluate patient. He had been given Ativan approximately 4 hours before I attempted to see him. He would open his eyes when his name was said but he couldn't follow any instructions or stay awake for any length of time. The patient was given 2-3 small ice chips. There was no indication of recognition of the ice chips in his mouth and no swallow response was noted. Will continue to monitor and assess the patient when he is fully able to participate in the evaluation.
[2019-10-25] MEDS: metoprolol succinate ER (24 HR) 50 mg Tablet PO (10:50)
[2019-10-25] MEDS: aspirin 81 mg EC Tablet PO (10:51)
[2019-10-25] MEDS: atorvastatin 40 mg Tablet PO (10:51)
--- NOTE | 2019-10-25 10:51 | PM.PN ---
Subjective Subjective: Interval history: Chapin Govea is a 79 year old male past medical history significant for recent discharge from the hospital for CVA, altered mental status changes, elevated cardiac markers thought to be due to myopericarditis, history of congestive heart failure systolic type with LV dysfunction 40%, recent stress test showed mild ayah-infarct ischemia who follows with Dr. Novak was managed medically presented to the ER with mental status changes. His generation 5 troponin are found to be 2400. White cell count is elevated. Patient is confused and cannot converse. He moans and groans but I was told that he was not complaining of any chest pain. Today he is awake, mentally still confused with limited ability to communicate. he does not complain of chest pain although he has had increasing O2 requirements and tachypnea overnight. he is being treated for pneumonia. Medications: Reviewed: Yes Vitals/I&O/Wt Last Vital Signs Temp 97.8 F 10/25/19 04:00 Pulse 118 H 10/25/19 10:10 Resp 38 H 10/25/19 10:00 BP 132/90 10/25/19 08:00 Pulse Ox 94 10/25/19 10:00 10/24/19 10/25/19 10/25/19 22:59 06:59 14:59 Intake Total 100 / 100 650 / 750 Output Total 250 / 250 Balance 100 / 100 400 / 500 Weight last 48 hrs Weight 160 lb Physical Exam Const: EXAM LIMITATIONS: physical limitations GENERAL APPEARANCE: ill appearing and frail appearing NUTRITIONAL APPEARANCE: cachectic, thin and underweight ORIENTATION/CONSCIOUSNESS: Yes confused Neck/C-Spine: COMMON NORMALS: no JVD Chest: COMMONS NORMALS: normal inspection of the chest and normal palpation of entire chest wall Resp: EFFORT & INSPECTION: Yes abnormal respiratory pattern, Yes tachypneic, Yes respiratory distress (moderate), Yes retractions and Yes uses accessory muscles AUSCULTATION: abnormal I/E ratio, diminished lung sounds and bronchial breath sounds on the right Cardio: COMMON NORMALS: no JVD, regular rhythm, S1 normal heart sound present and S2 normal heart sound present RATE: tachycardic RHYTHM: regular rhythm HEART SOUNDS: S1 normal heart sound present and S2 normal heart sound present GI: COMMON NORMALS: Normal to inspection, nondistended, normoactive bowel sounds present and Soft to palpation PALPATION: Yes Soft to palpation Extremity: COMMON NORMALS: normal to inspection, full ROM, capillary refill normal and no clubbing, cyanosis or edema Neuro: COMMON NORMALS: CN's II-XII intact bilaterally SENSORIUM/ORIENTATION: Yes fluctuating sensorium Skin: COMMON NORMALS: no rashes or lesions noted and turgor normal GENERAL SKIN EXAM: no rashes or lesions noted and turgor normal Data : 10/25/19 04:40 10/25/19 04:40 Micro: Microbiology 10/24/19 14:41 Blood Culture - Preliminary Blood SPECIMEN COLLECTED 10/24/19 14:28 Blood Culture - Preliminary Blood SPECIMEN COLLECTED A&P Assessment and plan (1) CHF (congestive heart failure): Does not appear decompensated with heart failure at this point although respiratory status is impaired and can lead to worsening cardiac dysfunction, demand ischemia. Status: Chronic Qualifiers: Heart failure chronicity: chronic Heart failure type: systolic Qualified Code(s): I50.22 - Chronic systolic (congestive) heart failure (2) Non-ST elevation (NSTEMI) myocardial infarction: Conservative medical management as primary plan. Metoprolol and antiplatelet therapy as currently prescribed. Limited by hypotension. Status: Acute (3) HTN (hypertension): Controlled on medical therapy. Status: Chronic Qualifiers: Hypertension type: essential hypertension Qualified Code(s): I10 - Essential (primary) hypertension Attestations Medical Necessity Statement*: Heart failure and NSTEMI treatment. Time Spent in Patient Care: 16 - 35 minutes (>than 50% of time spent in counselling and/or direct pt care on unit). Coding Level of Care Code Acute Educational/Development Assistant for [facility] Fwd Diagnoses CHF (congestive heart failure) I50.22 Heart failure chronicity: chronic Heart failure type: systolic Non-ST elevation (NSTEMI) myocardial infarction I21.4 HTN (hypertension) I10 Hypertension type: essential hypertension
--- NOTE | 2019-10-25 10:53 | PC.NURSE ---
Medications were crushed and mixed with apple sauce. Tolerating his crushed pills with apple sauce. Swallowed fairly.
--- NOTE | 2019-10-25 11:16 | P.PN_ITS ---
Subjective Subjective: Interval history: Continues to be confused and disoriented, had urine output of 250 mL overnight, tachycardic and tachypneic. Cardiology evaluation appreciated. COVID-19 testing negative. Due to noted confusion and agitation required a total of 2 mg of Ativan overnight. Awake, requires frequent redirection, sitter at bedside, even with 2-person assist, is unable to weight bear, has some abdominal breathing and is now requiring supplemental oxygen support, on 2-3 L NC. Patient unable to stay awake long enough to fully participate in ST evaluation. Medications: Reviewed: Yes Medication Review Details: Active Medications Generic Name Dose Route Start Last Admin Trade Name Freq PRN Reason Stop Dose Admin Acetaminophen 650 mg 10/24/19 20:26 Tylenol PO Q6H PRN Mild/Mod Pain Or Temp >/= 101 Albuterol/Ipratrop ium 3 ml 10/24/19 20:26 10/25/19 10:00 Duoneb INHALATION 3 ml Q6H PRN Administration SHORTNESS OF PRISCILLA TH Aspirin 81 mg 10/25/19 09:00 10/25/19 10:51 Aspirin Ec PO 81 mg DAILY PHIL Administration Atorvastatin Calci um 40 mg 10/25/19 09:00 10/25/19 10:51 Lipitor PO 40 mg DAILY PHIL Administration Enoxaparin Sodium 70 mg 10/24/19 20:26 10/25/19 09:37 Lovenox SUBCUT 70 mg Q12H PHIL Administration Ceftriaxone Sodium 1,000 mg/ 50 mls @ 100 mls/ hr 10/25/19 09:00 10/25/19 09:38 Sodium Chloride IV 100 mls/hr DAILY PHIL Administration Protocol Sodium Chloride 1,000 mls @ 75 ml s/hr 10/24/19 20:26 10/24/19 20:52 Sodium Chloride 0.9% IV 75 mls/hr .[id number] PHIL Administration Metronidazole 500 mg in 100 mls @ 100 mls/hr 10/24/19 21:00 10/25/19 09:38 Flagyl Iv IV 100 mls/hr Q6H PHIL Administration Protocol Lorazepam 1 mg 10/24/19 20:26 10/25/19 06:07 Ativan IVP 1 mg Q6H PRN Administration ANXIETY Metoprolol Succina te 50 mg 10/25/19 09:00 10/25/19 10:50 Toprol Xl PO 50 mg DAILY PHIL Administration Morphine Sulfate 2 mg 10/24/19 20:26 Morphine IVP Q4H PRN SEVERE PAIN Olanzapine 2.5 mg 10/24/19 20:26 Zyprexa PO DAILY PRN AGITATION Olanzapine 2.5 mg 10/24/19 23:24 Zyprexa IM DAILY PRN SEVERE AGITATION Ondansetron HCl 4 mg 10/24/19 20:26 Zofran IVP Q6H PRN vomiting, or N/V if npo No Known Allergies Allergy (Verified 10/24/19 13:56) Vitals/I&O/Wt Last Vital Signs Temp 97.8 F 10/25/19 04:00 Pulse 118 H 10/25/19 10:10 Resp 38 H 10/25/19 10:00 BP 132/90 10/25/19 08:00 Pulse Ox 94 10/25/19 10:00 10/24/19 10/25/19 10/25/19 22:59 06:59 14:59 Intake Total 100 / 100 650 / 750 Output Total 250 / 250 Balance 100 / 100 400 / 500 Weight last 48 hrs Weight 72.575 kg Physical Exam Const: COMMON NORMALS: no acute distress and alert GENERAL APPEARANCE: cooperative, comfortable, disheveled and lethargic ORIENTATION/CONSCIOUSNESS: Yes awake, Yes confused and Yes lethargic HENMT: COMMON NORMALS: normocephalic, atraumatic and hearing grossly normal bilaterally HEAD & SCALP: normocephalic and atraumatic GENERAL EAR: hearing grossly impaired MOUTH: moist mucous membranes abnormal (dried residue on lips) Details: cracked Eye: COMMON NORMALS: Equal, round and reactive pupils present, EOMs intact bilaterally and conjunctivae normal CONJUNCTIVA: Yes conjunctivae normal PUPIL: Yes Equal, round and reactive pupils present Neck/C-Spine: COMMON NORMALS: full ROM GENERAL: Yes normal visual inspection and Yes trachea midline Chest: CHEST: Yes Symmetrical chest wall rise Resp: COMMON NORMALS: normal respiratory effort and No retractions EFFORT & INSPECTION: Yes able to speak in complete sentences, Yes symmetric chest movement, No tachypneic, Yes Actively coughing dry and Yes uses accessory muscles AUSCULTATION: wheezes Cardio: COMMON NORMALS: regular rate, regular rhythm, S1 normal heart sound present, S2 normal heart sound present and No murmurs present (Cardio) RATE: regular rate and tachycardic RHYTHM: regular rhythm HEART SOUNDS: S1 normal heart sound present and S2 normal heart sound present GI: COMMON NORMALS: Normal to inspection, nondistended, normoactive bowel sounds present, Soft to palpation and non-tender PALPATION: Yes Soft to palpation Back/Pelvis: COMMON NORMALS: thoracic and lumbar spine normal to inspection Extremity: COMMON NORMALS: normal to inspection, full ROM, no clubbing, cyanosis or edema and no pedal edema Neuro: COMMON NORMALS: moves all extremities, no focal motor deficits and no sensory deficits noted SENSORIUM/ORIENTATION: Yes alert, Yes Orientation impaired and Yes lethargic Psych: COMMON NORMALS: cooperative and speech normal ACTIVITY/MOTOR BEHAVIOR: Yes restless SPEECH: Yes normal speech THOUGHT PROCESS: confused ATTENTION/CONCENTRATION: Yes attention grossly impaired and Yes concentration grossly impaired MEMORY/COGNITION: Yes memory grossly impaired Impared memory type(s): short term INSIGHT: Poor insight present (Psych) Skin: COMMON NORMALS: no rashes or lesions noted, no jaundice, no petechiae and no mottling GENERAL SKIN EXAM: no rashes or lesions noted Data : 10/25/19 04:40 10/25/19 04:40 Micro: Microbiology 10/24/19 14:41 Blood Culture - Preliminary Blood SPECIMEN COLLECTED 10/24/19 14:28 Blood Culture - Preliminary Blood SPECIMEN COLLECTED A&P Assessment and plan (1) Altered mental status: -presents with significant confusion, was noted during last admission and attributed to CVA -has underlying vascular dementia and reportedly waxes and wanes at baseline -suspect this is multifactorial given UTI, pneumonia, NSTEMI, recent CVA and underlying dementia -needs 1:1 monitoring, fall, aspiration precautions Status: Resolved Qualifiers: Altered mental status type: disorientation Qualified Code(s): R41.0 - Disorientation, unspecified (2) Non-ST elevation (NSTEMI) myocardial infarction: -Noted to have significant troponin elevation with delta greater than 270, no correlating ST changes on ECGs -telemetry monitoring -close monitoring of vital signs -no hx of cath on review of medical record -nuclear stress testing (03/2019): Medium size perfusion abnormality of mid to distal anterior and apical osullivan with mild reversibility in mid anterior wall which is suggestive of old TX in LAD territory with minimal ayah-infarct ischemia. Medium size perfusion abnormality of basal to apical inferolateral and inferior osullivan suggestive of old TX/scarring in the RCA/circumflex artery territory, severe diffuse hypokinesis -Echo (09/2019): EF=40%, G1DD, mild diffuse hypokinesia, mild MR, mild , trace TR, aneurysmal basal to mid inferior wall -on therapeutic anticoagulation, aspirin, statin -Cardiology evaluation appreciated; medical management for now Status: Acute (3) UTI (urinary tract infection): -UA contaminated though indicative of infection -in light of noted confusion will continue to treat with antibiotics -f/u urine cx Status: Acute Qualifiers: Hematuria presence: without hematuria Urinary tract infection type: acute cystitis Qualified Code(s): N30.00 - Acute cystitis without hematuria (4) Pneumonia: -noted mild patchy opacification in the medial right lung base consistent with atelectasis versus pneumonia -In light of significant confusion and location of abnormality on x-ray, aspiration pneumonia is within the differential -aspiration precautions, ST evaluation -on Ceftriaxone and metronidazole (day 2) -noted significant leukocytosis, trend WBC -lactic acid-1.2 -f/u blood cx: 06/07 bottles positive for GPC; repeat set ordered Status: Acute Qualifiers: Laterality: right Lung location: lower lobe of lung Pneumonia type: due to unspecified organism Qualified Code(s): J18.9 - Pneumonia, unspecified organism (5) COPD (chronic obstructive pulmonary disease): -no acute exacerbation -supplemental oxygen as needed; not oxygen dependent at baseline -continue to monitor respiratory status Status: Chronic Qualifiers: COPD type: unspecified COPD Qualified Code(s): J44.9 - Chronic obstructive pulmonary disease, unspecified (6) BPH (benign prostatic hyperplasia): Status: Chronic Qualifiers: Lower urinary tract symptom presence: unspecified whether lower urinary tract symptoms present Qualified Code(s): N40.0 - Benign prostatic hyperplasia without lower urinary tract symptoms (7) Vascular dementia: Status: Chronic Qualifiers: Dementia behavioral disturbance: without behavioral disturbance Qualified Code(s): F01.50 - Vascular dementia without behavioral disturbance (8) CHF (congestive heart failure): -has chronic systolic CHF, last Echo with reported EF=40% as noted above -will hold lasix for now given dehydration -BNP >20,000 Status: Chronic Qualifiers: Heart failure chronicity: chronic Heart failure type: systolic Qualified Code(s): I50.22 - Chronic systolic (congestive) heart failure (9) CVA (cerebral vascular accident): -with noted aphasia during last admission which seems to have resolved today -on ASA, Plavix -no significant stenosis on carotid US -Echo noted above -had neuroimaging done including CT head and MRI head showing chronic ischemic changes Status: Acute Qualifiers: CVA mechanism: unspecified Qualified Code(s): I63.9 - Cerebral infarction, unspecified (10) HTN (hypertension): -was noted to be borderline hypotensive during last admission; ACEi and aldactone discontinued -on BB, titrate as needed -continue to monitor vital signs; normotensive currently Status: Chronic Qualifiers: Hypertension type: essential hypertension Qualified Code(s): I10 - Essential (primary) hypertension (11) Hypercholesteremia: -continue statin Status: Chronic (12) CAD (coronary artery disease): -Has known history of ischemic cardiomyopathy -has had cardiac workup as noted above Status: Chronic Qualifiers: Associated angina: angina presence unspecified Coronary Disease- Associated Artery/Lesion type: [place] artery [place] vs. transplanted heart: [place] heart Qualified Code(s): I25.10 - Atherosclerotic heart disease of [place] coronary artery without angina pectoris Additional A&P Information -POOJA on CKD unknown stage, baseline Cr is around 0.9-1.0; suspect dehydration, gentle IVF to avoid fluid overload -start on mechanical soft diet pending ST evaluation, needs assistance with meals -DVT ppx not needed as on therapeutic lovenox -Dispo: [facility] vs. SNF; discussed extensively with son Avel Govea ([phone]) who reports that patient has been accepted at [facility]. Son is health-care DPOA. With need for closer supervision, appears to be more ap propriate for SNF -Code status: FULL code Attestations Medical Necessity Statement*: Patient requires hospitalization for continued treatment of pneumonia, UTI, on IV antibiotics as well as management of NSTEMI. Time Spent in Patient Care: 16 - 35 minutes (>than 50% of time spent in counselling and/or direct pt care on unit) . Coding Level of Care Code Acute Timber Estimator for [facility] Fwd Exam Comprehensive Diagnoses Altered mental status R41.0 Altered mental status type: disorientation Non-ST elevation (NSTEMI) myocardial infarction I21.4 UTI (urinary tract infection) N30.00 Hematuria presence: without hematuria Urinary tract infection type: acute cystitis Pneumonia J18.9 Laterality: right Lung location: lower lobe of lung Pneumonia type: due to unspecified organism COPD (chronic obstructive pulmonary disease) J44.9 COPD type: unspecified COPD BPH (benign prostatic hyperplasia) N40.0 Lower urinary tract symptom presence: unspecified whether lower urinary tract symptoms present Vascular dementia F01.50 Dementia behavioral disturbance: without behavioral disturbance CHF (congestive heart failure) I50.22 Heart failure chronicity: chronic Heart failure type: systolic CVA (cerebral vascular accident) I63.9 CVA mechanism: unspecified HTN (hypertension) I10 Hypertension type: essential hypertension Hypercholesteremia E78.00 CAD (coronary artery disease) I25.10 Associated angina: angina presence unspecified Coronary Disease-Associated Artery/Lesion type: [place] artery [place] vs. transplanted heart: [place] heart
--- NOTE | 2019-10-25 13:40 | NUR.SHIFT ---
Bladder scanned/urine retention No urine output noted with fluids running overnight. Received order from doctor to do bladder scan and insert pickering catheter for retention. Bladder scanning noted ranging from upper 200-301 mls. Pickering catheter insertion. Pt tolerated well without difficulty.
[2019-10-25] MEDS: sodium chloride 0.9% 1,000 ML 75 ML IV (14:17)
--- NOTE | 2019-10-25 14:33 | PC.CHAP ---
Pastoral Care Encounter/Spiritual Assessment Type of Contact [] Declined bulldozer engineer visit [] Patient/Family/Request visit [] Outpatient visit [] Follow-up visit [] Physician referral [] Code/Alert [] Routine visit [] Staff referral [] Actively dying [] Patient sleeping [] Family support [] [] Out of room [] Palliative care [] [] Receiving care in room [] Pre-surgical visit [] Trauma [] Long length of stay [] ICU visit [] Other: Relational/Emotional Strength [] Patient feels connected with others/family/visitors/staff [] Distress [] Loneliness/isolation [] Abandonment Spirituality of Patient [] Person of Melva [] Attends Restoration of their Melva [] Believes in Prayer [] Reads Bible or Zoroastrianism materials [] There are Spiritual issues to be addressed [place] Interventions [] Prayer [] Active listening [] Non-anxious presence [] Spiritual/emotional support [] Crisis/trauma care [] Spiritual counseling [] Bereavement support [] Provided bereavement packet [] Provided Bible/devotional materials [] Provided toy/stuffed animal, coloring book to patient or family member [] Provided Communion [] Anointing/[employer] [] Salvation [] Completed spiritual assessment [] Other: Impact on Illness or Injury [] Angry [] Fearful [] Anxious [] Often cries [] Exhaustion [] Unable to work [] Unable to attend yarsanism [] Unable to walk/stand [] Unable to read [] Unable to drive [] Unable to eat/drink [] Unable to sleep [] Unable to be with family [] Patient intubated [] Other: Summary PRECAUTIONS RELATED TO COVID-19, DID NOT VISIT Time spent with patient
--- NOTE | 2019-10-25 20:14 | PC.NURSE ---
Dr. Eugene notified of one bottle out of four coming back positive on blood culture for gram positive cocci in clusters. Ordered to give IV vanc x1 1 gram and repeat blood culture with morning labs.
[2019-10-25 20:17] LABS: Coronavirus Lab Test PTC SEE COMMENTS
--- NOTE | 2019-10-25 20:46 | PC.NURSE ---
supervisor of guidance and testing notified me that COVID test came back negative. Dr. Eugene was notified. Droplet precautions removed.
[2019-10-25] MEDS: vancomycin 1,000 MG in sodium chloride 0.9% 250 ML 250 MG IV (21:09)
[2019-10-26] VITALS (9 sets, daily range): BP systolic 90–111; BP diastolic 51–77; PULSE 88–104; RESP 18–36; TEMP 36.1–36.6; O2SAT 92–98
[2019-10-26] MEDS: metroNIDAZOLE IV 500 MG/100 ML PREMIX 100 MG IV ×4 (03:07→20:56)
[2019-10-26 05:23] LABS: Basophils % 0.1 %; Nucleated Red Blood Cells % 0 %
[2019-10-26 05:40] LABS: Eosinophils % 0.4 %; Hematocrit 35.2 % (42.0-52.0); Lymphocytes # 0.8 10^3/uL (0.8-4.8); Mean Corpuscular HGB Conc 31.3 g/dL (30.0-36.0); Mean Corpuscular Hemoglobin 27.8 pg (28.0-34.0); Mean Corpuscular Volume 89.1 fL (80-94); Mean Platelet Volume 11.3 fL (7.4-10.4); Monocytes # 0.2 10^3/uL (0.2-0.9); Monocytes % 1.7 %; Neutrophils # 9.2 10^3/uL (1.8-7.7); Neutrophils % 89.1 %; Platelet Count 280 10^3/cmm (130-400); Red Blood Count 3.95 10^6/uL (4.1-5.3); Red Cell Distribution Width 14.8 % (12.1-15.1); White Blood Count 10.3 10^3/uL (4.0-10.0)
[2019-10-26] MEDS: sodium chloride 0.9% 1,000 ML 75 ML IV (05:44)
[2019-10-26 06:26] LABS: Anion Gap 18.8 (5-19); Blood Urea Nitrogen 27 mg/dL (8-23); Calcium 7.7 mg/dL (8.5-10.5); Carbon Dioxide 20 mmol/L (22-29); Chloride 110 mmol/L (98-107); Glucose 139 mg/dL (65-115); Osmolality Calculated 297 mOsm/kg (285-295); Potassium 4.8 mmol/L (3.5-5.1); Sodium 144 mmol/L (136-145)
[2019-10-26] MEDS: ipratropium-albuterol 3 mL Neb INHALATION (07:35)
[2019-10-26] MEDS: cefTRIAXone 1,000 MG in sodium chloride 0.9% (plus) 50 ML 50 MG IV (09:16)
[2019-10-26] MEDS: enoxaparin 80 mg/0.8 mL Syringe 70 MG SUBCUT ×2 (09:16→20:45)
[2019-10-26] MEDS: atorvastatin 40 mg Tablet PO (09:17)
[2019-10-26] MEDS: aspirin 81 mg EC Tablet PO (09:17)
[2019-10-26] MEDS: metoprolol tartrate 25 mg Tablet PO ×2 (09:17→16:44)
--- NOTE | 2019-10-26 09:32 | PC.NURSE ---
Pt is more awake and alert, conversant, obey commands to ST/OT, PT and nsg staff. Pt is still mildly confused and disoriented. Able to state his full name,. Pt is reoriented to time, place and date. Redirection and guidance required. Able to swallow his crushed pills with apple sauce occasional choking spells noted with Speech therapist and nsg staff. Aspiration precautions.
--- NOTE | 2019-10-26 09:45 | PC.NURSE ---
Up ad jayce and ambulating down hallways with PT Using walker, 1:1 sitter standby
--- NOTE | 2019-10-26 13:56 | PM.PN ---
Subjective Subjective: Interval history: Continues to require one-on-one monitoring due to confusion though seems less disoriented today, had urine output of 450 mL overnight, decreased leukocytosis, improved creatinine, slight drop in hemoglobin. Noted 1 out of 4 bottles from initial blood culture growing gram-positive rods in 1 out of 4 bottles growing gram-positive cocci. Had received 1 g dose of vancomycin which I will continue, repeat blood cultures ordered. Blood pressure stable, afebrile, on room air, some tachycardia and tachypnea. Has Echevarria catheter in place. Seems to have worked better with therapy today, per speech therapy recommendations is to continue on pur?ed diet with regular liquids. Medications: Reviewed: Yes Medication Review Details: Active Medications Generic Name Dose Route Start Last Admin Trade Name Freq PRN Reason Stop Dose Admin Acetaminophen 650 mg 10/24/19 20:26 Tylenol PO Q6H PRN Mild/Mod Pain Or Temp >/= 101 Albuterol/Ipratrop ium 3 ml 10/24/19 20:26 10/26/19 07:35 Duoneb INHALATION 3 ml Q6H PRN Administration SHORTNESS OF PRISCILLA TH Aspirin 81 mg 10/25/19 09:00 10/26/19 09:17 Aspirin Ec PO 81 mg DAILY PHIL Administration Atorvastatin Calci um 40 mg 10/25/19 09:00 10/26/19 09:17 Lipitor PO 40 mg DAILY PHIL Administration Enoxaparin Sodium 70 mg 10/24/19 20:26 10/26/19 09:16 Lovenox SUBCUT 70 mg Q12H PHIL Administration Ceftriaxone Sodium 1,000 mg/ 50 mls @ 100 mls/ hr 10/25/19 09:00 10/26/19 09:16 Sodium Chloride IV 50 mls/hr DAILY PHIL Administration Protocol Sodium Chloride 1,000 mls @ 75 ml s/hr 10/24/19 20:26 10/26/19 05:44 Sodium Chloride 0.9% IV 75 mls/hr .[id number] PHIL Administration Metronidazole 500 mg in 100 mls @ 100 mls/hr 10/24/19 21:00 10/26/19 09:16 Flagyl Iv IV 100 mls/hr Q6H PHIL Administration Protocol Vancomycin HCl 1,0 00 mg/ 250 mls @ 250 mls /hr 10/26/19 14:00 Sodium Chloride IV Q12H PHIL Protocol Lorazepam 1 mg 10/24/19 20:26 10/25/19 23:25 Ativan IVP 1 mg Q6H PRN Administration ANXIETY Methylprednisolone Sodium Succinate 40 mg 10/25/19 20:30 10/26/19 09:15 Solu-Medrol IVP 40 mg Q12H [facility] Administration Metoprolol Tartrat e 25 mg 10/26/19 09:00 10/26/19 09:17 Lopressor PO 25 mg BID [facility] Administration Morphine Sulfate 2 mg 10/24/19 20:26 Morphine IVP Q4H PRN SEVERE PAIN Olanzapine 2.5 mg 10/24/19 20:26 Zyprexa PO DAILY PRN AGITATION Olanzapine 2.5 mg 10/24/19 23:24 Zyprexa IM DAILY PRN SEVERE AGITATION Ondansetron HCl 4 mg 10/24/19 20:26 Zofran IVP Q6H PRN vomiting, or N/V if npo No Known Allergies Allergy (Verified 10/24/19 13:56) Vitals/I&O/Wt Last Vital Signs Temp 97.3 F L 10/26/19 07:38 Pulse 98 10/26/19 12:00 Resp 27 H 10/26/19 12:00 BP 99/65 10/26/19 12:00 Pulse Ox 93 10/26/19 12:00 10/25/19 10/26/19 10/26/19 22:59 06:59 14:59 Intake Total 100 / 1368 1450 / 2818 358 / 358 Output Total 450 / 750 Balance 100 / 1068 1000 / 2068 358 / 358 Physical Exam Const: COMMON NORMALS: no acute distress GENERAL APPEARANCE: cooperative, comfortable and lethargic ORIENTATION/CONSCIOUSNESS: Yes confused and Yes lethargic HENMT: COMMON NORMALS: normocephalic, atraumatic and hearing grossly normal bilaterally HEAD & SCALP: normocephalic and atraumatic GENERAL EAR: hearing grossly impaired MOUTH: moist mucous membranes abnormal (dried residue on lips) Details: cracked Eye: COMMON NORMALS: Equal, round and reactive pupils present, EOMs intact bilaterally and conjunctivae normal CONJUNCTIVA: Yes conjunctivae normal PUPIL: Yes Equal, round and reactive pupils present Neck/C-Spine: COMMON NORMALS: full ROM GENERAL: Yes normal visual inspection and Yes trachea midline Chest: CHEST: Yes Symmetrical chest wall rise Resp: COMMON NORMALS: normal respiratory effort, No retractions and No use of accessory muscles EFFORT & INSPECTION: Yes able to speak in complete sentences, Yes symmetric chest movement and No tachypneic AUSCULTATION: diminished lung sounds bilateral in the lower lung manning OTHER: -on RA Cardio: COMMON NORMALS: regular rate, regular rhythm, S1 normal heart sound present, S2 normal heart sound present and No murmurs present (Cardio) RATE: regular rate and tachycardic RHYTHM: regular rhythm HEART SOUNDS: S1 normal heart sound present and S2 normal heart sound present GI: COMMON NORMALS: Normal to inspection, nondistended, normoactive bowel sounds present, Soft to palpation and non-tender PALPATION: Yes Soft to palpation : BLADDER/KIDNEY EXAM: Yes catheter in place Catheter type (Male): urethral Back/Pelvis: COMMON NORMALS: thoracic and lumbar spine normal to inspection Extremity: COMMON NORMALS: normal to inspection, full ROM, no clubbing, cyanosis or edema and no pedal edema Neuro: COMMON NORMALS: moves all extremities, no focal motor deficits and no sensory deficits noted SENSORIUM/ORIENTATION: Yes Orientation impaired and Yes lethargic Psych: COMMON NORMALS: cooperative and speech normal ACTIVITY/MOTOR BEHAVIOR: Yes restless SPEECH: Yes normal speech THOUGHT PROCESS: confused ATTENTION/CONCENTRATION: Yes attention grossly impaired and Yes concentration grossly impaired MEMORY/COGNITION: Yes memory grossly impaired Impared memory type(s): short term INSIGHT: Poor insight present (Psych) Skin: COMMON NORMALS: no rashes or lesions noted, no jaundice, no petechiae and no mottling GENERAL SKIN EXAM: no rashes or lesions noted Urinary Catheter Management^: Echevarria: Cath Placed During This Visit: yes Urethral Indwelling: Yes Reason for Continuing Indwelling Catheter: Acute Urinary Retention or Obstruction Urinary Catheter Date of Insertion: 10/25/19 Urinary Catheter Time of Insertion: 14:52 Data : 10/26/19 04:31 10/26/19 04:31 Micro: Microbiology 10/24/19 14:28 Blood Culture - Preliminary Blood Gram positive cocci Gram positive triston 10/25/19 21:00 Blood Culture - Preliminary Blood SPECIMEN COLLECTED 10/25/19 20:55 Blood Culture - Preliminary Blood SPECIMEN COLLECTED 10/24/19 14:41 Blood Culture - Preliminary Blood NEGATIVE TO DATE A&P Assessment and plan (1) Altered mental status: -presents with significant confusion, was noted during last admission and attributed to CVA -has underlying vascular dementia and reportedly waxes and wanes at baseline -suspect this is multifactorial given UTI, pneumonia, NSTEMI, recent CVA and underlying dementia -needs 1:1 monitoring, fall, aspiration precautions Status: Resolved Qualifiers: Altered mental status type: disorientation Qualified Code(s): R41.0 - Disorientation, unspecified (2) Non-ST elevation (NSTEMI) myocardial infarction: -Noted to have significant troponin elevation with delta greater than 270, no correlating ST changes on ECGs -telemetry monitoring -close monitoring of vital signs -no hx of cath on review of medical record -nuclear stress testing (03/2019): Medium size perfusion abnormality of mid to distal anterior and apical osullivan with mild reversibility in mid anterior wall which is suggestive of old WA in LAD territory with minimal ayah-infarct ischemia. Medium size perfusion abnormality of basal to apical inferolateral and inferior osullivan suggestive of old [place]/scarring in the RCA/circumflex artery territory, severe diffuse hypokinesis -Echo (09/2019): EF=40%, G1DD, mild diffuse hypokinesia, mild MR, mild , trace TR, aneurysmal basal to mid inferior wall -on therapeutic anticoagulation, aspirin, statin -Cardiology evaluation appreciated; medical management for now Status: Acute (3) UTI (urinary tract infection): -UA contaminated though indicative of infection -in light of noted confusion will continue to treat with antibiotics -may not get urine cx results as sample contaminated Status: Acute Qualifiers: Hematuria presence: without hematuria Urinary tract infection type: acute cystitis Qualified Code(s): N30.00 - Acute cystitis without hematuria (4) Pneumonia: -noted mild patchy opacification in the medial right lung base consistent with atelectasis versus pneumonia -In light of significant confusion and location of abnormality on x-ray, aspiration pneumonia is within the differential. Repeat CXR in AM to monitor progression -aspiration precautions, ST evaluation -on Ceftriaxone and metronidazole (day 3) -noted significant leukocytosis, trend WBC -lactic acid-1.2 -f/u blood cx: 1/4 bottles positive for GPC, 1/4 bottles positive for GPRs; repeat set ordered. Vancomycin added Status: Acute Qualifiers: Laterality: right Lung location: lower lobe of lung Pneumonia type: due to unspecified organism Qualified Code(s): J18.9 - Pneumonia, unspecified organism (5) COPD (chronic obstructive pulmonary disease): -no acute exacerbation -supplemental oxygen as needed; not oxygen dependent at baseline -continue to monitor respiratory status Status: Chronic Qualifiers: COPD type: unspecified COPD Qualified Code(s): J44.9 - Chronic obstructive pulmonary disease, unspecified (6) BPH (benign prostatic hyperplasia): -start on flomax Status: Chronic Qualifiers: Lower urinary tract symptom presence: unspecified whether lower urinary tract symptoms present Qualified Code(s): N40.0 - Benign prostatic hyperplasia without lower urinary tract symptoms (7) Vascular dementia: Status: Chronic Qualifiers: Dementia behavioral disturbance: without behavioral disturbance Qualified Code(s): F01.50 - Vascular dementia without behavioral disturbance (8) CHF (congestive heart failure): -has chronic systolic CHF, last Echo with reported EF=40% as noted above -will hold lasix for now given dehydration -BNP >20,000 Status: Chronic Qualifiers: Heart failure chronicity: chronic Heart failure type: systolic Qualified Code(s): I50.22 - Chronic systolic (congestive) heart failure (9) CVA (cerebral vascular accident): -with noted aphasia during last admission which seems to have resolved today -on ASA, Plavix -no significant stenosis on carotid US -Echo noted above -had neuroimaging done including CT head and MRI head showing chronic ischemic changes Status: Acute Qualifiers: CVA mechanism: unspecified Qualified Code(s): I63.9 - Cerebral infarction, unspecified (10) HTN (hypertension): -was noted to be borderline hypotensive during last admission; ACEi and aldactone discontinued -on BB, titrate as needed -continue to monitor vital signs; normotensive currently Status: Chronic Qualifiers: Hypertension type: essential hypertension Qualified Code(s): I10 - Essential (primary) hypertension (11) Hypercholesteremia: -continue statin Status: Chronic (12) CAD (coronary artery disease): -Has known history of ischemic cardiomyopathy -has had cardiac workup as noted above Status: Chronic Qualifiers: Associated angina: angina presence unspecified Coronary Disease-Associated Artery/Lesion type: [place] artery [place] vs. transplanted heart: [place] heart Qualified Code(s): I25.10 - Atherosclerotic heart disease of [place] coronary artery without angina pectoris Additional A&P Information -POOJA on CKD unknown stage, baseline Cr is around 0.9-1.0; suspect dehydration given improvement with gentle IVF; d/c today and encourage oral hydration -start on pureed diet with thin liquids per ST evaluation, needs assistance with meals -DVT ppx not needed as on therapeutic lovenox -Dispo: [facility] vs. SNF; discussed extensively with son Avel Govea ([phone]) who reports that patient has been accepted at [facility]. Son is health-care DPOA. With need for closer supervision, appears to be more appropriate for SNF -Code status: FULL code Attestations Medical Necessity Statement*: Patient requires hospitalization for continued treatment of pneumonia, UTI, NSTEMI, and altered mental status, remains on IV antibiotic therapy and requires one-on-one monitoring. Time Spent in Patient Care: 16 - 35 minutes (>than 50% of time spent in counselling and/or direct pt care on unit). Coding Level of Care Code Acute Deckhand Fishing Vessel for Chg Fwd Exam Comprehensive Diagnoses Altered mental status R41.0 Altered mental status type: disorientation Non-ST elevation (NSTEMI) myocardial infarction I21.4 UTI (urinary tract infection) N30.00 Hematuria presence: without hematuria Urinary tract infection type: acute cystitis Pneumonia J18.9 Laterality: right Lung location: lower lobe of lung Pneumonia type: due to unspecified organism COPD (chronic obstructive pulmonary disease) J44.9 COPD type: unspecified COPD BPH (benign prostatic hyperplasia) N40.0 Lower urinary tract symptom presence: unspecified whether lower urinary tract symptoms present Vascular dementia F01.50 Dementia behavioral disturbance: without behavioral disturbance CHF (congestive heart failure) I50.22 Heart failure chronicity: chronic Heart failure type: systolic CVA (cerebral vascular accident) I63.9 CVA mechanism: unspecified HTN (hypertension) I10 Hypertension type: essential hypertension Hypercholesteremia E78.00 CAD (coronary artery disease) I25.10 Associated angina: angina presence unspecified Coronary Disease-Associated Artery/Lesion type: [place] artery [place] vs. transplanted heart: [place] heart
[2019-10-26] MEDS: vancomycin 1,000 MG in sodium chloride 0.9% 250 ML 250 MG IV (14:08)
--- NOTE | 2019-10-26 15:03 | PC.RESP ---
Pulmonary Rehab information to patient.
[2019-10-26] MEDS: tamsulosin 0.4 mg Capsule PO (16:44)
[2019-10-26] MEDS: LORazepam 2 mg/mL INJ 1 mL 1 MG IVP (23:49)
[2019-10-27] VITALS (10 sets, daily range): BP systolic 94–114; BP diastolic 58–73; PULSE 80–104; RESP 16–36; TEMP 36–36.6; O2SAT 92–98
[2019-10-27] MEDS: vancomycin 1,000 MG in sodium chloride 0.9% 250 ML 250 MG IV (00:58)
[2019-10-27] MEDS: metroNIDAZOLE IV 500 MG/100 ML PREMIX 100 MG IV ×3 (03:48→14:36)
[2019-10-27 06:18] LABS: Basophils % 0.1 %; Hematocrit 32.3 % (42.0-52.0); Hemoglobin 10.2 g/dL (11.7-16.6); Lymphocytes # 0.8 10^3/uL (0.8-4.8); Lymphocytes % 6.9 %; Mean Corpuscular HGB Conc 31.6 g/dL (30.0-36.0); Mean Corpuscular Hemoglobin 27.8 pg (28.0-34.0); Mean Platelet Volume 11.5 fL (7.4-10.4); Monocytes # 0.7 10^3/uL (0.2-0.9); Monocytes % 6.1 %; Neutrophils % 85.7 %; Nucleated Red Blood Cells % 0 %; Platelet Count 295 10^3/cmm (130-400); Red Blood Count 3.67 10^6/uL (4.1-5.3); Red Cell Distribution Width 14.9 % (12.1-15.1); White Blood Count 11.7 10^3/uL (4.0-10.0)
[2019-10-27 06:33] LABS: Anion Gap 16.1 (5-19); Blood Urea Nitrogen 33 mg/dL (8-23); Calcium 8.8 mg/dL (8.5-10.5); Carbon Dioxide 20 mmol/L (22-29); Chloride 114 mmol/L (98-107); Glucose 138 mg/dL (65-115); Osmolality Calculated 301 mOsm/kg (285-295); Potassium 4.1 mmol/L (3.5-5.1); Sodium 146 mmol/L (136-145)
--- NOTE | 2019-10-27 08:24 | PM.PN ---
Subjective Subjective: Interval history: Improved mental status this morning. Breathing easy. No events over night. Medications: Reviewed: Yes Vitals/I&O/Wt Last Vital Signs Temp 96.8 F L 10/27/19 07:55 Pulse 91 10/27/19 07:55 Resp 29 H 10/27/19 07:55 BP 108/69 10/27/19 07:55 Pulse Ox 92 10/27/19 07:55 10/26/19 10/27/19 10/27/19 22:59 06:59 14:59 Intake Total 1370 / 1878 200 / 2078 Output Total 350 / 350 225 / 575 Balance 1020 / 1528 -25 / 1503 Weight last 48 hrs Weight 160 lb 14.4 oz Weight 160 lb Physical Exam Const: COMMON NORMALS: no acute distress GENERAL APPEARANCE: comfortable NUTRITIONAL APPEARANCE: underweight Neck/C-Spine: COMMON NORMALS: no JVD Chest: COMMONS NORMALS: normal inspection of the chest and normal palpation of entire chest wall Resp: COMMON NORMALS: normal respiratory effort, No retractions and clear to auscultation bilaterally AUSCULTATION: clear to auscultation bilaterally Cardio: COMMON NORMALS: no JVD, regular rate and regular rhythm RATE: regular rate RHYTHM: regular rhythm Extremity: COMMON NORMALS: normal to inspection and no clubbing, cyanosis or edema Neuro: COMMON NORMALS: CN's II-XII intact bilaterally and moves all extremities Psych: COMMON NORMALS: cooperative Urinary Catheter Management^: Echevarria: Cath Placed During This Visit: yes Urethral Indwelling: Yes Reason for Continuing Indwelling Catheter: Acute Urinary Retention or Obstruction Urinary Catheter Date of Insertion: 10/25/19 Urinary Catheter Time of Insertion: 14:52 Data : 10/27/19 05:35 10/27/19 05:35 Micro: Microbiology 10/25/19 21:00 Blood Culture - Preliminary Blood NEGATIVE TO DATE 10/25/19 20:55 Blood Culture - Preliminary Blood NEGATIVE TO DATE 10/24/19 14:28 Blood Culture - Preliminary Blood Gram positive cocci Gram positive triston A&P Assessment and plan (1) Pneumonia: Medical therapy with antibiotics ongoing. Status: Acute Qualifiers: Pneumonia type: due to unspecified organism Laterality: right Lung location: lower lobe of lung Qualified Code(s): J18.9 - Pneumonia, unspecified organism (2) UTI (urinary tract infection): Treated with improvement of mental status. Status: Acute Qualifiers: Urinary tract infection type: acute cystitis Hematuria presence: without hematuria Qualified Code(s): N30.00 - Acute cystitis without hematuria (3) COPD (chronic obstructive pulmonary disease): Stable without wheezes or rhonchi. Status: Chronic Qualifiers: COPD type: unspecified COPD Qualified Code(s): J44.9 - Chronic obstructive pulmonary disease, unspecified (4) CHF (congestive heart failure): Compensated. GDMT on diuretic with beta blockade. Pressure not likely to tolerate ada inhibition at this point. Status: Chronic Qualifiers: Heart failure chronicity: chronic Heart failure type: systolic Qualified Code(s): I50.22 - Chronic systolic (congestive) heart failure (5) CAD (coronary artery disease): No angina. Continue metoprolol, dual antiplatelet therapy and lipitor. Status: Chronic Qualifiers: Coronary Disease-Associated Artery/Lesion type: [place] artery [place] vs. 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 Time Spent in Patient Care: less than 15 minutes (>than 50% of time spent in counselling and/or direct pt care on unit). Coding Level of Care Code Acute Skip Hoist Engineer for g Fwd Diagnoses Pneumonia J18.9 Pneumonia type: due to unspecified organism Laterality: right Lung location: lower lobe of lung UTI (urinary tract infection) N30.00 Urinary tract infection type: acute cystitis Hematuria presence: without hematuria COPD (chronic obstructive pulmonary disease) J44.9 COPD type: unspecified COPD CHF (congestive heart failure) I50.22 Heart failure chronicity: chronic Heart failure type: systolic CAD (coronary artery disease) I25.10 Coronary Disease-Associated Artery/Lesion type: [place] artery [place] vs. transplanted heart: [place] heart Associated angina: angina presence unspecified
--- NOTE | 2019-10-27 09:00 | XR_ITS ---
WS: [id number] PORTABLE CHEST HISTORY: progression of R lung base opacity COMPARISON: 10/22/2019 Hyperinflated lungs. Changes of emphysema. Slight improvement in the RIGHT lower lobe opacification. Study is limited by breathing motion. No pleural effusion or pneumothorax. Cardiac size: Normal. Mediastinum/Aorta: Normal mediastinum. No osseous abnormality seen. XR/XR chest 1V portable [id number] IMPRESSION: Improving opacification RIGHT lower lobe. Recommend continued follow-up. Study is limited by breathing motion artifact. Emphysema.
--- NOTE | 2019-10-27 09:07 | DCPLANNER ---
Attempted review of Pg 2 with pt. It is not believed that he is understanding what it is about. We will certainly talk to his family when we talk with them again regarding d/c.
[2019-10-27] MEDS: enoxaparin 80 mg/0.8 mL Syringe 70 MG SUBCUT (09:31)
[2019-10-27] MEDS: cefTRIAXone 1,000 MG in sodium chloride 0.9% (plus) 50 ML 100 MG IV (09:34)
[2019-10-27] MEDS: atorvastatin 40 mg Tablet PO (09:59)
[2019-10-27] MEDS: tamsulosin 0.4 mg Capsule PO (09:59)
[2019-10-27] MEDS: metoprolol tartrate 25 mg Tablet PO (09:59)
[2019-10-27] MEDS: aspirin 81 mg EC Tablet PO (09:59)
--- NOTE | 2019-10-27 12:07 | PM.PN ---
Subjective Subjective: Interval history: Hemodynamically stable, currently on room air, had to 25 mL urine output overnight, stable hemoglobin, slight increase in leukocytosis, stable renal function. Repeat chest x-ray shows improvement. Repeat set of blood cultures prelim negative so we will discontinue vancomycin. Seems to have done relatively well today based on nursing and sitter reports. Sitting in recliner during my visit, is calm but has been quite restless towards the tail end of the afternoon, has not had quite as good an appetite today as he did yesterday. Medications: Reviewed: Yes Medication Review Details: Active Medications Generic Name Dose Route Start Last Admin Trade Name Freq PRN Reason Stop Dose Admin Acetaminophen 650 mg 10/24/19 20:26 Tylenol PO Q6H PRN Mild/Mod Pain Or Temp >/= 101 Albuterol/Ipratrop ium 3 ml 10/24/19 20:26 10/26/19 07:35 Duoneb INHALATION 3 ml Q6H PRN Administration SHORTNESS OF PRISCILLA TH Aspirin 81 mg 10/25/19 09:00 10/27/19 09:59 Aspirin Ec PO 81 mg DAILY PHIL Administration Atorvastatin Calci um 40 mg 10/25/19 09:00 10/27/19 09:59 Lipitor PO 40 mg DAILY PHIL Administration Enoxaparin Sodium 70 mg 10/24/19 20:26 10/27/19 09:31 Lovenox SUBCUT 70 mg Q12H PHIL Administration Ceftriaxone Sodium 1,000 mg/ 50 mls @ 100 mls/ hr 10/25/19 09:00 10/27/19 10:05 Sodium Chloride IV Infused DAILY PHIL Infusion Protocol Metronidazole 500 mg in 100 mls @ 100 mls/hr 10/24/19 21:00 10/27/19 11:05 Flagyl Iv IV Infused Q6H PHIL Infusion Protocol Vancomycin HCl 1,0 00 mg/ 250 mls @ 250 mls /hr 10/26/19 14:00 10/27/19 00:58 Sodium Chloride IV 250 mls/hr Q12H PHIL Administration Protocol Lorazepam 1 mg 10/24/19 20:26 10/26/19 23:49 Ativan IVP 1 mg Q6H PRN Administration ANXIETY Methylprednisolone Sodium Succinate 40 mg 10/25/19 20:30 10/27/19 09:28 Solu-Medrol IVP 40 mg Q12H PHIL Administration Metoprolol Tartrat e 25 mg 10/26/19 09:00 10/27/19 09:59 Lopressor PO 25 mg BID PHIL Administration Morphine Sulfate 2 mg 10/24/19 20:26 Morphine IVP Q4H PRN SEVERE PAIN Olanzapine 2.5 mg 10/24/19 20:26 Zyprexa PO DAILY PRN AGITATION Olanzapine 2.5 mg 10/24/19 23:24 Zyprexa IM DAILY PRN SEVERE AGITATION Ondansetron HCl 4 mg 10/24/19 20:26 Zofran IVP Q6H PRN vomiting, or N/V if npo Tamsulosin HCl 0.4 mg 10/26/19 14:00 10/27/19 09:59 Flomax PO 0.4 mg DAILY PHIL Administration No Known Allergies Allergy (Verified 10/24/19 13:56) Vitals/I&O/Wt Last Vital Signs Temp 97.5 F L 10/27/19 11:33 Pulse 82 10/27/19 11:33 Resp 23 H 10/27/19 11:33 BP 94/58 10/27/19 11:33 Pulse Ox 93 10/27/19 11:33 10/26/19 10/27/19 10/27/19 22:59 06:59 14:59 Intake Total 1370 / 1878 200 / 2078 150 / 150 Output Total 350 / 350 225 / 575 Balance 1020 / 1528 -25 / 1503 150 / 150 Weight last 48 hrs Weight 72.983 kg Weight 72.983 kg Weight 72.575 kg Physical Exam Const: COMMON NORMALS: no acute distress and alert GENERAL APPEARANCE: cooperative and comfortable ORIENTATION/CONSCIOUSNESS: Yes confused HENMT: COMMON NORMALS: normocephalic, atraumatic and hearing grossly normal bilaterally HEAD & SCALP: normocephalic and atraumatic GENERAL EAR: hearing grossly impaired MOUTH: moist mucous membranes abnormal (dried residue on lips) Details: cracked Eye: COMMON NORMALS: Equal, round and reactive pupils present, EOMs intact bilaterally and conjunctivae normal CONJUNCTIVA: Yes conjunctivae normal PUPIL: Yes Equal, round and reactive pupils present Neck/C-Spine: COMMON NORMALS: full ROM GENERAL: Yes normal visual inspection and Yes trachea midline Chest: CHEST: Yes Symmetrical chest wall rise Resp: COMMON NORMALS: normal respiratory effort, No retractions and No use of accessory muscles EFFORT & INSPECTION: Yes able to speak in complete sentences, Yes symmetric chest movement and Yes tachypneic AUSCULTATION: diminished lung sounds bilateral in the lower lung manning OTHER: -on RA Cardio: COMMON NORMALS: regular rate, regular rhythm, S1 normal heart sound present, S2 normal heart sound present and No murmurs present (Cardio) RATE: regular rate RHYTHM: regular rhythm HEART SOUNDS: S1 normal heart sound present and S2 normal heart sound present GI: COMMON NORMALS: Normal to inspection, nondistended, normoactive bowel sounds present, Soft to palpation and non-tender PALPATION: Yes Soft to palpation : BLADDER/KIDNEY EXAM: Yes catheter in place Back/Pelvis: COMMON NORMALS: thoracic and lumbar spine normal to inspection Extremity: COMMON NORMALS: normal to inspection, full ROM, no clubbing, cyanosis or edema and no pedal edema Neuro: COMMON NORMALS: moves all extremities, no focal motor deficits and no sensory deficits noted SENSORIUM/ORIENTATION: Yes alert and Yes Orientation impaired Psych: COMMON NORMALS: cooperative and speech normal ACTIVITY/MOTOR BEHAVIOR: Yes restless SPEECH: Yes normal speech THOUGHT PROCESS: confused ATTENTION/CONCENTRATION: Yes attention grossly impaired and Yes concentration grossly impaired MEMORY/COGNITION: Yes memory grossly impaired Impared memory type(s): short term INSIGHT: Poor insight present (Psych) Skin: COMMON NORMALS: no rashes or lesions noted, no jaundice, no petechiae and no mottling GENERAL SKIN EXAM: no rashes or lesions noted Urinary Catheter Management^: Echevarria: Cath Placed During This Visit: yes Urethral Indwelling: Yes Reason for Continuing Indwelling Catheter: Acute Urinary Retention or Obstruction Urinary Catheter Date of Insertion: 10/25/19 Urinary Catheter Time of Insertion: 14:52 Data : 10/27/19 05:35 10/27/19 05:35 Micro: Microbiology 10/25/19 21:00 Blood Culture - Preliminary Blood NEGATIVE TO DATE 10/25/19 20:55 Blood Culture - Preliminary Blood NEGATIVE TO DATE 10/24/19 14:28 Blood Culture - Preliminary Blood Gram positive cocci Gram positive triston A&P Assessment and plan (1) Altered mental status: -presents with significant confusion, was noted during last admission and attributed to CVA -has underlying vascular dementia and reportedly waxes and wanes at baseline -suspect this is multifactorial given UTI, pneumonia, NSTEMI, recent CVA and underlying dementia -needs 1:1 monitoring, fall, aspiration precautions -gradually improving Status: Resolved Qualifiers: Altered mental status type: disorientation Qualified Code(s): R41.0 - Disorientation, unspecified (2) Non-ST elevation (NSTEMI) myocardial infarction: -Noted to have significant troponin elevation with delta greater than 270, no correlating ST changes on ECGs -telemetry monitoring -close monitoring of vital signs -no hx of cath on review of medical record -nuclear stress testing (03/2019): Medium size perfusion abnormality of mid to distal anterior and apical osullivan with mild reversibility in mid anterior wall which is suggestive of old [place] in LAD territory with minimal yaah-infarct ischemia. 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 -on aspirin, statin; has been on therapeutic anticoagulation -Cardiology evaluation appreciated; medical management for now Status: Acute (3) UTI (urinary tract infection): -UA contaminated though indicative of infection -in light of noted confusion will continue to treat with antibiotics -may not get urine cx results as sample contaminated Status: Acute Qualifiers: Hematuria presence: without hematuria Urinary tract infection type: acute cystitis Qualified Code(s): N30.00 - Acute cystitis without hematuria (4) Pneumonia: -noted mild patchy opacification in the medial right lung base consistent with atelectasis versus pneumonia -In light of significant confusion and location of abnormality on x-ray, aspiration pneumonia is within the differential. Repeat CXR shows improvement -aspiration precautions, ST evaluation -on Ceftriaxone and metronidazole (day 4); with improvement noted on imaging and clinically we will switch to oral Augmentin -noted significant leukocytosis which is improving, continue to trend WBC -lactic acid-1.2 -f/u blood cx: 1/4 bottles positive for GPC, 1/4 bottles positive for GPRs; repeat set prelim negative so we will discontinue Vancomycin Status: Acute Qualifiers: Laterality: right Lung location: lower lobe of lung Pneumonia type: due to unspecified organism Qualified Code(s): J18.9 - Pneumonia, unspecified organism (5) COPD (chronic obstructive pulmonary disease): -no acute exacerbation -supplemental oxygen as needed; not oxygen dependent at baseline -continue to monitor respiratory status Status: Chronic Qualifiers: COPD type: unspecified COPD Qualified Code(s): J44.9 - Chronic obstructive pulmonary disease, unspecified (6) BPH (benign prostatic hyperplasia): -on flomax Status: Chronic Qualifiers: Lower urinary tract symptom presence: unspecified whether lower urinary tract symptoms present Qualified Code(s): N40.0 - Benign prostatic hyperplasia without lower urinary tract symptoms (7) Vascular dementia: Status: Chronic Qualifiers: Dementia behavioral disturbance: without behavioral disturbance Qualified Code(s): F01.50 - Vascular dementia without behavioral disturbance (8) CHF (congestive heart failure): -has chronic systolic CHF, last Echo with reported EF=40% as noted above -will hold lasix for now given dehydration -BNP >20,000 Status: Chronic Qualifiers: Heart failure chronicity: chronic Heart failure type: systolic Qualified Code(s): I50.22 - Chronic systolic (congestive) heart failure (9) CVA (cerebral vascular accident): -with noted aphasia during last admission which seems to have resolved -on ASA, Plavix -no significant stenosis on carotid US -Echo noted above -had neuroimaging done including CT head and MRI head showing chronic ischemic changes Status: Acute Qualifiers: CVA mechanism: unspecified Qualified Code(s): I63.9 - Cerebral infarction, unspecified (10) HTN (hypertension): -was noted to be borderline hypotensive during last admission; ACEi and aldactone discontinued -on BB, titrate as needed -continue to monitor vital signs; normotensive currently Status: Chronic Qualifiers: Hypertension type: essential hypertension Qualified Code(s): I10 - Essential (primary) hypertension (11) Hypercholesteremia: -continue statin Status: Chronic (12) CAD (coronary artery disease): -Has known history of ischemic cardiomyopathy -has had cardiac workup as noted above Status: Chronic Qualifiers: Associated angina: angina presence unspecified Coronary Disease-Associated Artery/Lesion type: [place] artery [place] vs. transplanted heart: [place] heart Qualified Code(s): I25.10 - Atherosclerotic heart disease of [place] coronary artery without angina pectoris Additional A&P Information -POOJA on CKD unknown stage, baseline Cr is around 0.9-1.0; suspect dehydration given improvement with gentle IVF; d/c today and encourage oral hydration -Diarrhea, negative stool studies including C. difficile, possibly secondary to antibiotic use, add probiotics -on pureed diet with thin liquids per ST evaluation, needs assistance with meals -DVT ppx not needed as on therapeutic lovenox -Dispo: [facility] vs. SNF; discussed extensively with son Avel Govea ([phone]) who reports that patient has been accepted at [facility]. Son is health-care DPOA. With need for closer supervision, appears to be more appropriate for SNF -Code status: FULL code Attestations Medical Necessity Statement*: Patient requires hospitalization for continued treatment of pneumonia, on IV antibiotics, altered mental status pending consistent improvement in mental status as well as appropriate disposition. Time Spent in Patient Care: 16 - 35 minutes (>than 50% of time spent in counselling and/or direct pt care on unit). Coding Level of Care Code Acute Leather Tooler for Chg Fwd Exam Comprehensive Diagnoses Altered mental status R41.0 Altered mental status type: disorientation Non-ST elevation (NSTEMI) myocardial infarction I21.4 UTI (urinary tract infection) N30.00 Hematuria presence: without hematuria Urinary tract infection type: acute cystitis Pneumonia J18.9 Laterality: right Lung location: lower lobe of lung Pneumonia type: due to unspecified organism COPD (chronic obstructive pulmonary disease) J44.9 COPD type: unspecified COPD BPH (benign prostatic hyperplasia) N40.0 Lower urinary tract symptom presence: unspecified whether lower urinary tract symptoms present Vascular dementia F01.50 Dementia behavioral disturbance: without behavioral disturbance CHF (congestive heart failure) I50.22 Heart failure chronicity: chronic Heart failure type: systolic CVA (cerebral vascular accident) I63.9 CVA mechanism: unspecified HTN (hypertension) I10 Hypertension type: essential hypertension Hypercholesteremia E78.00 CAD (coronary artery disease) I25.10 Associated angina: angina presence unspecified Coronary Disease-Associated Artery/Lesion type: [place] artery [place] vs. transplanted heart: [place] heart
--- NOTE | 2019-10-27 17:42 | PC.NURSE ---
Metoprolol Nurse notified Dr. Nielsen, patient's BP 99/66, HR 90, NSR. Physician instructed nurse to hold evening dose of metoprolol.
[2019-10-27] MEDS: LORazepam 2 mg/mL INJ 1 mL 1 MG IVP (20:28)
[2019-10-27] MEDS: lactobacillus 1 Tablet 1 TAB PO (20:29)
[2019-10-27] MEDS: predniSONE 20 mg Tablet 40 MG PO (20:29)
[2019-10-28] VITALS (13 sets, daily range): BP systolic 91–109; BP diastolic 58–75; PULSE 80–102; RESP 20–29; TEMP 36.4–36.7; O2SAT 94–96
[2019-10-28 04:35] LABS: Basophils % 0.1 %; Hemoglobin 10.9 g/dL (11.7-16.6); Lymphocytes # 0.9 10^3/uL (0.8-4.8); Lymphocytes % 8.4 %; Mean Corpuscular HGB Conc 31.1 g/dL (30.0-36.0); Mean Corpuscular Hemoglobin 27.5 pg (28.0-34.0); Mean Corpuscular Volume 88.4 fL (80-94); Mean Platelet Volume 11.6 fL (7.4-10.4); Monocytes # 0.5 10^3/uL (0.2-0.9); Monocytes % 4.6 %; Neutrophils # 9.3 10^3/uL (1.8-7.7); Neutrophils % 85.3 %; Nucleated Red Blood Cells % 0 %; Platelet Count 325 10^3/cmm (130-400); Red Blood Count 3.96 10^6/uL (4.1-5.3); Red Cell Distribution Width 15.1 % (12.1-15.1); White Blood Count 10.9 10^3/uL (4.0-10.0)
[2019-10-28] MEDS: LORazepam 2 mg/mL INJ 1 mL 1 MG IVP ×2 (04:45→21:24)
[2019-10-28] MEDS: ipratropium-albuterol 3 mL Neb INHALATION (04:52)
--- NOTE | 2019-10-28 04:57 | PC.NURSE ---
Addendum entered by Chiara Valerio RN 10/28/19 05:46: report entered, patient calm, crossing tender ok at this time. Original Note: At 0430 patient woke up and sat up in bed. After a couple minutes he began to try and get up. assistant quality manager [employer]ID[employer] TEACHER stated it was not time to get up yet and to lie down and try and get more sleep. Patient grabbed the top of the CNAs arm and bit the outer forearm. HOME CARE AND HOME HE[employer] AIDES TEACHER got loose and then called tearer charge nurse and patients nurse for help.
[2019-10-28 04:58] LABS: Anion Gap 16.3 (5-19); Blood Urea Nitrogen 36 mg/dL (8-23); Calcium 8.9 mg/dL (8.5-10.5); Carbon Dioxide 20 mmol/L (22-29); Chloride 110 mmol/L (98-107); Glucose 142 mg/dL (65-115); Osmolality Calculated 294 mOsm/kg (285-295); Potassium 4.3 mmol/L (3.5-5.1); Sodium 142 mmol/L (136-145)
[2019-10-28] MEDS: aspirin 81 mg EC Tablet PO (09:53)
[2019-10-28] MEDS: atorvastatin 40 mg Tablet PO (09:53)
[2019-10-28] MEDS: metoprolol tartrate 25 mg Tablet PO (09:53)
[2019-10-28] MEDS: amoxicillin-clav 875-125 mg Tablet 1 TAB PO ×2 (09:53→17:09)
[2019-10-28] MEDS: tamsulosin 0.4 mg Capsule PO (09:53)
[2019-10-28] MEDS: lactobacillus 1 Tablet 1 TAB PO ×3 (09:53→21:24)
[2019-10-28] MEDS: predniSONE 20 mg Tablet 40 MG PO (09:53)
[2019-10-28] MEDS: enoxaparin 40 mg/0.4 mL Syringe SUBCUT (09:54)
--- NOTE | 2019-10-28 10:13 | PM.PN ---
Subjective Subjective: Interval history: Afebrile, hemodynamically stable, has 600 mL urine output overnight, 1 bowel movement this morning, improved leukocytosis, stable hemoglobin, stable renal function. Required 2 doses of Ativan 1 mg IV overnight. Sitter at bedside, appetite and oral intake seems to have improved today, he is somewhat lethargic and is confused and disoriented, needs continued constant supervision. Medications: Reviewed: Yes Medication Review Details: Active Medications Generic Name Dose Route Start Last Admin Trade Name Freq PRN Reason Stop Dose Admin Acetaminophen 650 mg 10/24/19 20:26 Tylenol PO Q6H PRN Mild/Mod Pain Or Temp >/= 101 Albuterol/Ipratrop ium 3 ml 10/24/19 20:26 10/28/19 04:52 Duoneb INHALATION 3 ml Q6H PRN Administration SHORTNESS OF PRISCILLA TH Amoxicillin/Clavul anate Potassium 1 tab 10/28/19 09:00 10/28/19 09:53 Augmentin 875-12 5 Mg PO 1 tab BID PHIL Administration Protocol Aspirin 81 mg 10/25/19 09:00 10/28/19 09:53 Aspirin Ec PO 81 mg DAILY PHIL Administration Atorvastatin Calci um 40 mg 10/25/19 09:00 10/28/19 09:53 Lipitor PO 40 mg DAILY PHIL Administration Enoxaparin Sodium 40 mg 10/28/19 09:00 10/28/19 09:54 Lovenox SUBCUT 40 mg DAILY PHIL Administration Lactobacillus Acid ophilus 1 tab 10/27/19 21:00 10/28/19 09:53 Floranex PO 1 tab QID PHIL Administration Lorazepam 1 mg 10/24/19 20:26 10/28/19 04:45 Ativan IVP 1 mg Q6H PRN Administration ANXIETY Metoprolol Tartrat e 25 mg 10/26/19 09:00 10/28/19 09:53 Lopressor PO 25 mg BID PHIL Administration Morphine Sulfate 2 mg 10/24/19 20:26 Morphine IVP Q4H PRN SEVERE PAIN Olanzapine 2.5 mg 10/24/19 20:26 Zyprexa PO DAILY PRN AGITATION Olanzapine 2.5 mg 10/24/19 23:24 Zyprexa IM DAILY PRN SEVERE AGITATION Ondansetron HCl 4 mg 10/24/19 20:26 Zofran IVP Q6H PRN vomiting, or N/V if npo Prednisone 40 mg 10/27/19 19:55 10/28/19 09:53 Prednisone PO 40 mg DAILY PHIL Administration Tamsulosin HCl 0.4 mg 10/26/19 14:00 10/28/19 09:53 Flomax PO 0.4 mg DAILY PHIL Administration No Known Allergies Allergy (Verified 10/24/19 13:56) Vitals/I&O/Wt Last Vital Signs Temp 97.6 F 10/28/19 07:48 Pulse 80 10/28/19 07:54 Resp 28 H 10/28/19 07:54 BP 100/66 10/28/19 07:54 Pulse Ox 95 10/28/19 07:48 10/27/19 10/28/19 10/28/19 22:59 06:59 14:59 Intake Total 910 / 1180 200 / 1380 Output Total 600 / 800 Balance 910 / 980 -400 / 580 Weight last 48 hrs Weight 72.847 kg Weight 72.983 kg Weight 72.983 kg Weight 72.575 kg Physical Exam Const: COMMON NORMALS: no acute distress GENERAL APPEARANCE: cooperative, comfortable and lethargic ORIENTATION/CONSCIOUSNESS: Yes confused and Yes lethargic HENMT: COMMON NORMALS: normocephalic, atraumatic and hearing grossly normal bilaterally HEAD & SCALP: normocephalic and atraumatic GENERAL EAR: hearing grossly impaired MOUTH: moist mucous membranes abnormal Details: parched Eye: COMMON NORMALS: Equal, round and reactive pupils present, EOMs intact bilaterally and conjunctivae normal CONJUNCTIVA: Yes conjunctivae normal PUPIL: Yes Equal, round and reactive pupils present Neck/C-Spine: COMMON NORMALS: full ROM GENERAL: Yes normal visual inspection and Yes trachea midline Chest: CHEST: Yes Symmetrical chest wall rise Resp: COMMON NORMALS: normal respiratory effort, No retractions and No use of accessory muscles EFFORT & INSPECTION: Yes able to speak in complete sentences, Yes symmetric chest movement and Yes tachypneic AUSCULTATION: wheezes expiratory wheezes (end-expiratory) and diminished lung sounds bilateral in the lower lung manning OTHER: -on RA Cardio: COMMON NORMALS: regular rate, regular rhythm, S1 normal heart sound present, S2 normal heart sound present and No murmurs present (Cardio) RATE: regular rate RHYTHM: regular rhythm HEART SOUNDS: S1 normal heart sound present and S2 normal heart sound present GI: COMMON NORMALS: Normal to inspection, nondistended, normoactive bowel sounds present, Soft to palpation and non-tender PALPATION: Yes Soft to palpation : BLADDER/KIDNEY EXAM: Yes catheter in place Back/Pelvis: COMMON NORMALS: thoracic and lumbar spine normal to inspection Extremity: COMMON NORMALS: normal to inspection, full ROM, no clubbing, cyanosis or edema and no pedal edema Neuro: COMMON NORMALS: moves all extremities, no focal motor deficits and no sensory deficits noted SENSORIUM/ORIENTATION: Yes Orientation impaired and Yes lethargic GAIT: Yes Shuffling gait present Psych: COMMON NORMALS: cooperative and speech normal ACTIVITY/MOTOR BEHAVIOR: Yes restless SPEECH: Yes normal speech THOUGHT PROCESS: confused ATTENTION/CONCENTRATION: Yes attention grossly impaired and Yes concentration grossly impaired MEMORY/COGNITION: Yes memory grossly impaired Impared memory type(s): short term INSIGHT: Poor insight present (Psych) Skin: COMMON NORMALS: no rashes or lesions noted, no jaundice, no petechiae and no mottling GENERAL SKIN EXAM: no rashes or lesions noted Urinary Catheter Management^: Echevarria: Cath Placed During This Visit: yes Urethral Indwelling: Yes Reason for Continuing Indwelling Catheter: Acute Urinary Retention or Obstruction Urinary Catheter Date of Insertion: 10/25/19 Urinary Catheter Time of Insertion: 14:52 Data : 10/28/19 03:25 10/28/19 03:25 Micro: Microbiology 10/27/19 13:33 Enteric Pathogens (PCR) - Final Stool C.difficile Toxin B Gene (PCR) - Final A&P Assessment and plan (1) Altered mental status: -presents with significant confusion, was noted during last admission and attributed to CVA -has underlying vascular dementia and reportedly waxes and wanes at baseline -suspect this is multifactorial given UTI, pneumonia, NSTEMI, recent CVA and underlying dementia -needs 1:1 monitoring, fall, aspiration precautions -gradually improving Status: Resolved Qualifiers: Altered mental status type: disorientation Qualified Code(s): R41.0 - Disorientation, unspecified (2) Non-ST elevation (NSTEMI) myocardial infarction: -Noted to have significant troponin elevation with delta greater than 270, no correlating ST changes on ECGs -telemetry monitoring -close monitoring of vital signs -no hx of cath on review of medical record -nuclear stress testing (03/2019): Medium size perfusion abnormality of mid to distal anterior and apical osullivan with mild reversibility in mid anterior wall which is suggestive of old MD in LAD territory with minimal ayah-infarct ischemia. Medium size perfusion abnormality of basal to apical inferolateral and inferior osullivan suggestive of old MD/scarring in the RCA/circumflex artery territory, severe diffuse hypokinesis -Echo (09/2019): EF=40%, G1DD, mild diffuse hypokinesia, mild MR, mild , trace TR, aneurysmal basal to mid inferior wall -on aspirin, statin; off therapeutic anticoagulation -Cardiology evaluation appreciated; medical management for now Status: Acute (3) UTI (urinary tract infection): -UA contaminated though indicative of infection -in light of noted confusion will continue to treat with antibiotics -may not get urine cx results as sample contaminated Status: Acute Qualifiers: Hematuria presence: without hematuria Urinary tract infection type: acute cystitis Qualified Code(s): N30.00 - Acute cystitis without hematuria (4) Pneumonia: -noted mild patchy opacification in the medial right lung base consistent with atelectasis versus pneumonia -In light of significant confusion and location of abnormality on x-ray, aspiration pneumonia is within the differential. Repeat CXR shows improvement -aspiration precautions, ST evaluation -off Ceftriaxone and metronidazole (x 4 days); with improvement noted on imaging and clinically, switched to oral Augmentin -noted significant leukocytosis which is improving, continue to trend WBC -lactic acid-1.2 -f/u blood cx: 1/4 bottles positive for GPC, 1/4 bottles positive for GPRs; repeat set prelim negative so off Vancomycin Status: Acute Qualifiers: Laterality: right Lung location: lower lobe of lung Pneumonia type: due to unspecified organism Qualified Code(s): J18.9 - Pneumonia, unspecified organism (5) COPD (chronic obstructive pulmonary disease): -no acute exacerbation -supplemental oxygen as needed; not oxygen dependent at baseline -continue to monitor respiratory status Status: Chronic Qualifiers: COPD type: unspecified COPD Qualified Code(s): J44.9 - Chronic obstructive pulmonary disease, unspecified (6) BPH (benign prostatic hyperplasia): -on flomax Status: Chronic Qualifiers: Lower urinary tract symptom presence: unspecified whether lower urinary tract symptoms present Qualified Code(s): N40.0 - Benign prostatic hyperplasia without lower urinary tract symptoms (7) Vascular dementia: -needs 1:1 monitoring -reorient as needed Status: Chronic Qualifiers: Dementia behavioral disturbance: without behavioral disturbance Qualified Code(s): F01.50 - Vascular dementia without behavioral disturbance (8) CHF (congestive heart failure): -has chronic systolic CHF, last Echo with reported EF=40% as noted above -will hold lasix for now given dehydration -BNP >20,000 Status: Chronic Qualifiers: Heart failure chronicity: chronic Heart failure type: systolic Qualified Code(s): I50.22 - Chronic systolic (congestive) heart failure (9) CVA (cerebral vascular accident): -with noted aphasia during last admission which seems to have resolved -on ASA, Plavix -no significant stenosis on carotid US -Echo noted above -had neuroimaging done including CT head and MRI head showing chronic ischemic changes Status: Acute Qualifiers: CVA mechanism: unspecified Qualified Code(s): I63.9 - Cerebral infarction, unspecified (10) HTN (hypertension): -was noted to be borderline hypotensive during last admission; ACEi and aldactone discontinued -on BB, titrate as needed -continue to monitor vital signs; normotensive currently Status: Chronic Qualifiers: Hypertension type: essential hypertension Qualified Code(s): I10 - Essential (primary) hypertension (11) Hypercholesteremia: -continue statin Status: Chronic (12) CAD (coronary artery disease): -Has known history of ischemic cardiomyopathy -has had cardiac workup as noted above Status: Chronic Qualifiers: Associated angina: angina presence unspecified Coronary Disease-Associated Artery/Lesion type: [place] artery [place] vs. transplanted heart: [place] heart Qualified Code(s): I25.10 - Atherosclerotic heart disease of [place] coronary artery without angina pectoris Additional A&P Information -POOJA on CKD unknown stage, baseline Cr is around 0.9-1.0; suspect dehydration given improvement with gentle IVF; d/c today and encourage oral hydration -Diarrhea, negative stool studies including C. difficile, possibly secondary to antibiotic use, added probiotics -on pureed diet with thin liquids per ST evaluation, needs assistance with meals -DVT ppx not needed as on therapeutic lovenox -Dispo: [facility] vs. SNF; discussed extensively with son Avel Govea ([phone]) who reports that patient has been accepted at [facility]. Son is health-care DPOA. With need for closer supervision, appears to be more appropriate for SNF, has been accepted at [facility] -Code status: FULL code Attestations Medical Necessity Statement*: Patient requires hospitalization for continued treatment of pneumonia, UTI, altered mental status; pending appropriate disposition. Time Spent in Patient Care: 16 - 35 minutes (>than 50% of time spent in counselling and/or direct pt care on unit). Coding Level of Care Code Acute Other Spatial Scientist for g Fwd Exam Comprehensive Diagnoses Altered mental status R41.0 Altered mental status type: disorientation Non-ST elevation (NSTEMI) myocardial infarction I21.4 UTI (urinary tract infection) N30.00 Hematuria presence: without hematuria Urinary tract infection type: acute cystitis Pneumonia J18.9 Laterality: right Lung location: lower lobe of lung Pneumonia type: due to unspecified organism COPD (chronic obstructive pulmonary disease) J44.9 COPD type: unspecified COPD BPH (benign prostatic hyperplasia) N40.0 Lower urinary tract symptom presence: unspecified whether lower urinary tract symptoms present Vascular dementia F01.50 Dementia behavioral disturbance: without behavioral disturbance CHF (congestive heart failure) I50.22 Heart failure chronicity: chronic Heart failure type: systolic CVA (cerebral vascular accident) I63.9 CVA mechanism: unspecified HTN (hypertension) I10 Hypertension type: essential hypertension Hypercholesteremia E78.00 CAD (coronary artery disease) I25.10 Associated angina: angina presence unspecified Coronary Disease-Associated Artery/Lesion type: [place] artery [place] vs. transplanted heart: [place] heart
--- NOTE | 2019-10-28 19:42 | PM.PN ---
Subjective Subjective: Interval history: Patient is awake but not oriented. Continues to be confused. Medications: Reviewed: Yes Vitals/I&O/Wt Last Vital Signs Temp 97.8 F 10/28/19 19:17 Pulse 89 10/28/19 19:17 Resp 29 H 10/28/19 19:17 BP 91/58 10/28/19 19:17 Pulse Ox 95 10/28/19 19:17 10/28/19 10/28/19 10/28/19 06:59 14:59 22:59 Intake Total 200 / 1380 440 / 440 Output Total 600 / 800 Balance -400 / 580 440 / 440 Weight last 48 hrs Weight 160 lb 9.6 oz Weight 160 lb 14.4 oz Weight 160 lb 14.4 oz Weight 160 lb Physical Exam Narrative: EXAM NARRATIVE: GENERAL: Patient is alert, awake but not oriented nECK: No jugular vein distension. HEENT: No cyanosis. No icterus. No pallor. HEART: Regular S1 and S2. No murmur, rub or gallop. LUNGS: Clear to auscultate bilaterally. CENTRAL NERVOUS SYSTEM: Grossly nonfocal. EXTREMITIES: Lower extremities without edema bilaterally. Urinary Catheter Management^: Echevarria: Cath Placed During This Visit: yes Urethral Indwelling: Yes Reason for Continuing Indwelling Catheter: Acute Urinary Retention or Obstruction Urinary Catheter Date of Insertion: 10/25/19 Urinary Catheter Time of Insertion: 14:52 Data : 10/28/19 03:25 10/28/19 03:25 Micro: Microbiology 10/24/19 14:28 Blood Culture - Preliminary Blood Coagulase negativ staphylococc 10/27/19 13:33 Enteric Pathogens (PCR) - Final Stool C.difficile Toxin B Gene (PCR) - Final A&P Assessment and plan (1) CHF (congestive heart failure): Well compensated continue current Status: Chronic Qualifiers: Heart failure chronicity: chronic Heart failure type: systolic Qualified Code(s): I50.22 - Chronic systolic (congestive) heart failure (2) Non-ST elevation (NSTEMI) myocardial infarction: Continue to treat medically denies any symptoms denies chest pain. Not a good candidate for intervention at the moment Status: Acute (3) HTN (hypertension): Blood pressure is on the lower side I will reduce metoprolol. Status: Chronic Qualifiers: Hypertension type: essential hypertension Qualified Code(s): I10 - Essential (primary) hypertension (4) Mental status change resolved: Status: Acute Attestations Medical Necessity Statement*: As per medicine Coding Level of Care Code Established Pt Acute Dehydrating Press Operator for Chg Fwd Patient Type Established History Expanded Problem Focused Exam Expanded Problem Focused Medical Decision Making Moderate Complexity Diagnoses CHF (congestive heart failure) I50.22 Heart failure chronicity: chronic Heart failure type: systolic Non-ST elevation (NSTEMI) myocardial infarction I21.4 HTN (hypertension) I10 Hypertension type: essential hypertension Mental status change resolved Z86.59
--- NOTE | 2019-10-28 22:35 | PC.NURSE ---
Patient awake and alert at shift change if a littl
--- NOTE | 2019-10-28 22:36 | PC.NURSE ---
Patient alert and awake at shift changeThis nurse noticed only appropriate communication but the convalescent sitter said he had been very inappropriate in communication with her asking to get into bed with him, huges etc. he also asked for something twice to help him sleep so a prn dose of ativan was given. The patient is resting at this time.
[2019-10-29] VITALS (9 sets, daily range): BP systolic 98–123; BP diastolic 42–82; PULSE 83–110; RESP 18–29; TEMP 36.4–36.6; O2SAT 94–97
--- NOTE | 2019-10-29 00:52 | PC.NURSE ---
The patient has been up and down in bed and side of bed for the last few hours, seemingly restless and cant leep. medication already in play will continue to monitor. patient settled down then was back up acting slightly aggressive. we went into his room and got him calmed and settled and he layed back down and closed his eyes.
[2019-10-29] MEDS: lactobacillus 1 Tablet 1 TAB PO ×4 (08:51→20:17)
[2019-10-29] MEDS: enoxaparin 40 mg/0.4 mL Syringe SUBCUT (08:51)
[2019-10-29] MEDS: aspirin 81 mg EC Tablet PO (08:52)
[2019-10-29] MEDS: metoprolol tartrate 25 mg Tablet 12.5 MG PO ×2 (08:52→17:59)
[2019-10-29] MEDS: predniSONE 20 mg Tablet 40 MG PO (08:52)
[2019-10-29] MEDS: atorvastatin 40 mg Tablet PO (08:52)
[2019-10-29] MEDS: tamsulosin 0.4 mg Capsule PO (08:52)
[2019-10-29] MEDS: amoxicillin-clav 875-125 mg Tablet 1 TAB PO ×2 (08:52→17:59)
--- NOTE | 2019-10-29 09:55 | PC.SOCIAL ---
IMM Updated Page 2 of IMM updated and given to patient. Initialed, dated, and timed and placed back in chart.
--- NOTE | 2019-10-29 10:03 | P.PN_ITS ---
Subjective Subjective: Interval history: Continues to require one-on-one monitoring, had 250 mL urine output overnight. On RA, stable BP though low normal. Required 1 mg dose of IV ativan overnight. Seen ambulating with walker and stand-by assistance in hallway, no apparent distress, will work on moving him closer to the nursing station and trial him off the sitter. Medications: Reviewed: Yes Medication Review Details: Active Medications Generic Name Dose Route Start Last Admin Trade Name Freq PRN Reason Stop Dose Admin Acetaminophen 650 mg 10/24/19 20:26 Tylenol PO Q6H PRN Mild/Mod Pain Or Temp >/= 101 Albuterol/Ipratrop ium 3 ml 10/24/19 20:26 10/28/19 04:52 Duoneb INHALATION 3 ml Q6H PRN Administration SHORTNESS OF PRISCILLA TH Amoxicillin/Clavul anate Potassium 1 tab 10/28/19 09:00 10/29/19 08:52 Augmentin 875-12 5 Mg PO 1 tab BID PHIL Administration Protocol Aspirin 81 mg 10/25/19 09:00 10/29/19 08:52 Aspirin Ec PO 81 mg DAILY PHIL Administration Atorvastatin Calci um 40 mg 10/25/19 09:00 10/29/19 08:52 Lipitor PO 40 mg DAILY PHIL Administration Enoxaparin Sodium 40 mg 10/28/19 09:00 10/29/19 08:51 Lovenox SUBCUT 40 mg DAILY PHIL Administration Lactobacillus Acid ophilus 1 tab 10/27/19 21:00 10/29/19 08:51 Floranex PO 1 tab QID PHIL Administration Lorazepam 1 mg 10/24/19 20:26 10/28/19 21:24 Ativan IVP 1 mg Q6H PRN Administration ANXIETY Metoprolol Tartrat e 12.5 mg 10/29/19 09:00 10/29/19 08:52 Lopressor PO 12.5 mg BID PHIL Administration Olanzapine 2.5 mg 10/24/19 20:26 Zyprexa PO DAILY PRN AGITATION Olanzapine 2.5 mg 10/24/19 23:24 Zyprexa IM DAILY PRN SEVERE AGITATION Ondansetron HCl 4 mg 10/24/19 20:26 Zofran IVP Q6H PRN vomiting, or N/V if npo Prednisone 40 mg 10/27/19 19:55 10/29/19 08:52 Prednisone PO 40 mg DAILY PHIL Administration Tamsulosin HCl 0.4 mg 10/26/19 14:00 10/29/19 08:52 Flomax PO 0.4 mg DAILY PHIL Administration No Known Allergies Allergy (Verified 10/24/19 13:56) Vitals/I&O/Wt Last Vital Signs Temp 97.9 F 10/29/19 07:38 Pulse 87 10/29/19 07:46 Resp 20 H 10/29/19 07:46 BP 100/68 10/29/19 07:38 Pulse Ox 94 10/29/19 07:46 10/28/19 10/29/19 10/29/19 22:59 06:59 14:59 Intake Total 470 / 470 60 / 60 Output Total 250 / 250 Balance 470 / 470 -250 / 220 60 / 60 Weight last 48 hrs Weight 72.711 kg Weight 72.847 kg Weight 72.983 kg Physical Exam Const: COMMON NORMALS: no acute distress and alert GENERAL APPEARANCE: cooperative and comfortable ORIENTATION/CONSCIOUSNESS: Yes confused OTHER: -ambulating with walker in hallway HENMT: COMMON NORMALS: normocephalic, atraumatic and hearing grossly normal bilaterally HEAD & SCALP: normocephalic and atraumatic GENERAL EAR: hearing grossly impaired MOUTH: moist mucous membranes abnormal Details: parched Eye: COMMON NORMALS: Equal, round and reactive pupils present, EOMs intact bilaterally and conjunctivae normal CONJUNCTIVA: Yes conjunctivae normal PUPIL: Yes Equal, round and reactive pupils present Neck/C-Spine: COMMON NORMALS: full ROM GENERAL: Yes normal visual inspection and Yes trachea midline Chest: CHEST: Yes Symmetrical chest wall rise Resp: COMMON NORMALS: normal respiratory effort, No retractions and No use of accessory muscles EFFORT & INSPECTION: Yes able to speak in complete sentences, Yes symmetric chest movement and Yes tachypneic AUSCULTATION: wheezes expiratory wheezes (end-expiratory) and diminished lung sounds bilateral in the lower lung manning OTHER: -on RA Cardio: COMMON NORMALS: regular rate, regular rhythm, S1 normal heart sound present, S2 normal heart sound present and No murmurs present (Cardio) RATE: regular rate RHYTHM: regular rhythm HEART SOUNDS: S1 normal heart sound present and S2 normal heart sound present GI: COMMON NORMALS: Normal to inspection, nondistended, normoactive bowel sounds present, Soft to palpation and non-tender PALPATION: Yes Soft to palpation : BLADDER/KIDNEY EXAM: Yes catheter in place Back/Pelvis: COMMON NORMALS: thoracic and lumbar spine normal to inspection Extremity: COMMON NORMALS: normal to inspection, full ROM, no clubbing, cyanosis or edema and no pedal edema Neuro: COMMON NORMALS: moves all extremities, no focal motor deficits and no sensory deficits noted SENSORIUM/ORIENTATION: Yes alert and Yes Orientation impaired GAIT: Yes Shuffling gait present and Yes Assistive device used walker Psych: COMMON NORMALS: cooperative and speech normal ACTIVITY/MOTOR BEHAVIOR: Yes restless SPEECH: Yes normal speech THOUGHT PROCESS: confused ATTENTION/CONCENTRATION: Yes attention grossly impaired and Yes concentration grossly impaired MEMORY/COGNITION: Yes memory grossly impaired Impared memory type(s): short term INSIGHT: Poor insight present (Psych) Skin: COMMON NORMALS: no rashes or lesions noted, no jaundice, no petechiae and no mottling GENERAL SKIN EXAM: no rashes or lesions noted Urinary Catheter Management^: Echevarria: Cath Placed During This Visit: yes Urethral Indwelling: Yes Reason for Continuing Indwelling Catheter: Acute Urinary Retention or Obstruction Urinary Catheter Date of Insertion: 10/25/19 Urinary Catheter Time of Insertion: 14:52 Data : 10/28/19 03:25 10/28/19 03:25 Micro: Microbiology 10/24/19 14:28 Blood Culture - Preliminary Blood Coagulase negativ staphylococc A&P Assessment and plan (1) Altered mental status: -presents with significant confusion, was noted during last admission and attributed to CVA -has underlying vascular dementia and reportedly waxes and wanes at baseline -suspect this is multifactorial given UTI, pneumonia, NSTEMI, recent CVA and underlying dementia -needs 1:1 monitoring, fall, aspiration precautions; will move closer to nurse's station and trial off sitter -gradually improving Status: Resolved Qualifiers: Altered mental status type: disorientation Qualified Code(s): R41.0 - Disorientation, unspecified (2) Non-ST elevation (NSTEMI) myocardial infarction: -Noted to have significant troponin elevation with delta greater than 270, no correlating ST changes on ECGs -telemetry monitoring -close monitoring of vital signs -no hx of cath on review of medical record -nuclear stress testing (03/2019): Medium size perfusion abnormality of mid to distal anterior and apical osullivan with mild reversibility in mid anterior wall which is suggestive of old AL in LAD territory with minimal ayah-infarct ischemia. Medium size perfusion abnormality of basal to apical inferolateral and inferior osullivan suggestive of old AL/scarring in the RCA/circumflex artery territory, severe diffuse hypokinesis -Echo (09/2019): EF=40%, G1DD, mild diffuse hypokinesia, mild MR, mild , trace TR, aneurysmal basal to mid inferior wall -on aspirin, statin; off therapeutic anticoagulation -Cardiology evaluation appreciated; medical management for now Status: Acute (3) UTI (urinary tract infection): -UA contaminated though indicative of infection -in light of noted confusion will continue to treat with antibiotics -may not get urine cx results as sample contaminated Status: Acute Qualifiers: Hematuria presence: without hematuria Urinary tract infection type: acute cystitis Qualified Code(s): N30.00 - Acute cystitis without hematuria (4) Pneumonia: -noted mild patchy opacification in the medial right lung base consistent with atelectasis versus pneumonia -In light of significant confusion and location of abnormality on x-ray, aspiration pneumonia is within the differential. Repeat CXR shows improvement -aspiration precautions, ST evaluation -off Ceftriaxone and metronidazole (x 4 days); with improvement noted on imaging and clinically, switched to oral Augmentin -noted significant leukocytosis which is improving, continue to trend WBC -lactic acid-1.2 -f/u blood cx: 06/07 bottles positive for coagulase negative staph (likely contaminant); repeat set prelim negative so off Vancomycin Status: Acute Qualifiers: Laterality: right Lung location: lower lobe of lung Pneumonia type: due to unspecified organism Qualified Code(s): J18.9 - Pneumonia, unspecified organism (5) COPD (chronic obstructive pulmonary disease): -no acute exacerbation -supplemental oxygen as needed; not oxygen dependent at baseline -continue to monitor respiratory status Status: Chronic Qualifiers: COPD type: unspecified COPD Qualified Code(s): J44.9 - Chronic obstructive pulmonary disease, unspecified (6) BPH (benign prostatic hyperplasia): -on flomax Status: Chronic Qualifiers: Lower urinary tract symptom presence: unspecified whether lower urinary tract symptoms present Qualified Code(s): N40.0 - Benign prostatic hyperplasia without lower urinary tract symptoms (7) Vascular dementia: -needs 1:1 monitoring -reorient as needed Status: Chronic Qualifiers: Dementia behavioral disturbance: without behavioral disturbance Qualified Code(s): F01.50 - Vascular dementia without behavioral disturbance (8) CHF (congestive heart failure): -has chronic systolic CHF, last Echo with reported EF=40% as noted above -will hold lasix for now given dehydration -BNP >20,000 Status: Chronic Qualifiers: Heart failure chronicity: chronic Heart failure type: systolic Qualified Code(s): I50.22 - Chronic systolic (congestive) heart failure (9) CVA (cerebral vascular accident): -with noted aphasia during last admission which seems to have resolved -on ASA, Plavix -no significant stenosis on carotid US -Echo noted above -had neuroimaging done including CT head and MRI head showing chronic ischemic changes Status: Acute Qualifiers: CVA mechanism: unspecified Qualified Code(s): I63.9 - Cerebral infarction, unspecified (10) HTN (hypertension): -was noted to be borderline hypotensive during last admission; ACEi and aldactone discontinued -on BB, titrate as needed -continue to monitor vital signs; normotensive currently Status: Chronic Qualifiers: Hypertension type: essential hypertension Qualified Code(s): I10 - Essential (primary) hypertension (11) Hypercholesteremia: -continue statin Status: Chronic (12) CAD (coronary artery disease): -Has known history of ischemic cardiomyopathy -has had cardiac workup as noted above Status: Chronic Qualifiers: Associated angina: angina presence unspecified Coronary Disease- Associated Artery/Lesion type: [place] artery [place] vs. transplanted heart: [place] heart Qualified Code(s): I25.10 - Atherosclerotic heart disease of [place] coronary artery without angina pectoris Additional A&P Information -POOJA on CKD unknown stage, baseline Cr is around 0.9-1.0; suspect dehydration given improvement with gentle IVF; d/c and encourage oral hydration -Diarrhea, negative stool studies including C. difficile, possibly secondary to antibiotic use, added probiotics -on dysphagia diet with thin liquids per ST evaluation, needs assistance with meals -DVT ppx with lovenox -Dispo: [facility] vs. SNF; discussed extensively with son Avel Govea ([phone]) who reports that patient has been accepted at [facility]. Son is health-care DPOA. With need for closer supervision, appears to be more appropriate for SNF, has been accepted at [facility]. Needs to be off 1:1 monitoring before transition to SNF -Code status: FULL code Attestations Medical Necessity Statement*: Patient requires hospitalization for continued management of altered mental status, pending being off 1:1 monitoring. Time Spent in Patient Care: 16 - 35 minutes (>than 50% of time spent in counselling and/or direct pt care on unit) . Coding Level of Care Code Acute Hearing Aid Specialist for Terrig Fwd Exam Comprehensive Diagnoses Altered mental status R41.0 Altered mental status type: disorientation Non-ST elevation (NSTEMI) myocardial infarction I21.4 UTI (urinary tract infection) N30.00 Hematuria presence: without hematuria Urinary tract infection type: acute cystitis Pneumonia J18.9 Laterality: right Lung location: lower lobe of lung Pneumonia type: due to unspecified organism COPD (chronic obstructive pulmonary disease) J44.9 COPD type: unspecified COPD BPH (benign prostatic hyperplasia) N40.0 Lower urinary tract symptom presence: unspecified whether lower urinary tract symptoms present Vascular dementia F01.50 Dementia behavioral disturbance: without behavioral disturbance CHF (congestive heart failure) I50.22 Heart failure chronicity: chronic Heart failure type: systolic CVA (cerebral vascular accident) I63.9 CVA mechanism: unspecified HTN (hypertension) I10 Hypertension type: essential hypertension Hypercholesteremia E78.00 CAD (coronary artery disease) I25.10 Associated angina: angina presence unspecified Coronary Disease-Associated Artery/Lesion type: [place] artery [place] vs. transplanted heart: [place] heart
--- NOTE | 2019-10-29 13:04 | PC.NURSE ---
verbal order received to stop 1:1 sitter at 1304. pt moved closer to nurses station and chair alarm set.
--- NOTE | 2019-10-29 18:18 | P.PN_ITS ---
Subjective Subjective: Interval history: Alert but not oriented. Denies chest pain Medications: Reviewed: Yes Medication Review Details: Active Medications Generic Name Dose Route Start Last Admin Trade Name Freq PRN Reason Stop Dose Admin Acetaminophen 650 mg 10/24/19 20:26 Tylenol PO Q6H PRN Mild/Mod Pain Or Temp >/= 101 Albuterol/Ipratrop ium 3 ml 10/24/19 20:26 10/28/19 04:52 Duoneb INHALATION 3 ml Q6H PRN Administration SHORTNESS OF PRISCILLA TH Amoxicillin/Clavul anate Potassium 1 tab 10/28/19 09:00 10/29/19 08:52 Augmentin 875-12 5 Mg PO 1 tab BID PHIL Administration Protocol Aspirin 81 mg 10/25/19 09:00 10/29/19 08:52 Aspirin Ec PO 81 mg DAILY PHIL Administration Atorvastatin Calci um 40 mg 10/25/19 09:00 10/29/19 08:52 Lipitor PO 40 mg DAILY PHIL Administration Enoxaparin Sodium 40 mg 10/28/19 09:00 10/29/19 08:51 Lovenox SUBCUT 40 mg DAILY PHIL Administration Lactobacillus Acid ophilus 1 tab 10/27/19 21:00 10/29/19 08:51 Floranex PO 1 tab QID PHIL Administration Lorazepam 1 mg 10/24/19 20:26 10/28/19 21:24 Ativan IVP 1 mg Q6H PRN Administration ANXIETY Metoprolol Tartrat e 12.5 mg 10/29/19 09:00 10/29/19 08:52 Lopressor PO 12.5 mg BID PHIL Administration Olanzapine 2.5 mg 10/24/19 20:26 Zyprexa PO DAILY PRN AGITATION Olanzapine 2.5 mg 10/24/19 23:24 Zyprexa IM DAILY PRN SEVERE AGITATION Ondansetron HCl 4 mg 10/24/19 20:26 Zofran IVP Q6H PRN vomiting, or N/V if npo Prednisone 40 mg 10/27/19 19:55 10/29/19 08:52 Prednisone PO 40 mg DAILY PHIL Administration Tamsulosin HCl 0.4 mg 10/26/19 14:00 10/29/19 08:52 Flomax PO 0.4 mg DAILY PHIL Administration No Known Allergies Allergy (Verified 10/24/19 13:56) Vitals/I&O/Wt Last Vital Signs Temp 97.9 F 10/29/19 15:21 Pulse 91 10/29/19 15:21 Resp 18 10/29/19 15:21 BP 103/65 10/29/19 15:21 Pulse Ox 97 10/29/19 15:21 10/29/19 10/29/19 10/29/19 06:59 14:59 22:59 Intake Total 180 / 180 60 / 240 Output Total 250 / 250 100 / 100 Balance -250 / 220 180 / 180 -40 / 140 Weight last 48 hrs Weight 160 lb 4.8 oz Weight 160 lb 9.6 oz Physical Exam Narrative: EXAM NARRATIVE: GENERAL: Patient is alert, awake but not oriented nECK: No jugular vein distension. HEENT: No cyanosis. No icterus. No pallor. HEART: Regular S1 and S2. No murmur, rub or gallop. LUNGS: Clear to auscultate bilaterally. CENTRAL NERVOUS SYSTEM: Grossly nonfocal. EXTREMITIES: Lower extremities without edema bilaterally. Urinary Catheter Management^: Echevarria: Cath Placed During This Visit: yes, but has since been removed by the nurse Urethral Indwelling: Yes Reason for Continuing Indwelling Catheter: Other Urinary Catheter Date of Insertion: 10/25/19 Urinary Catheter Time of Insertion: 14:52 Date Urinary Catheter Removed: 10/29/19 Time Urinary Catheter Discontinued: 10:10 Data : 10/28/19 03:25 10/28/19 03:25 Micro: Microbiology 10/24/19 14:41 Blood Culture - Final Blood NO GROWTH AFTER 5 DAYS 10/24/19 14:28 Blood Culture - Preliminary Blood Coagulase negativ staphylococc A&P Assessment and plan (1) CHF (congestive heart failure): Well compensated continue current Status: Chronic Qualifiers: Heart failure chronicity: chronic Heart failure type: systolic Qualified Code(s): I50.22 - Chronic systolic (congestive) heart failure (2) Non-ST elevation (NSTEMI) myocardial infarction: Continue medical management Status: Acute (3) HTN (hypertension): Welcome Status: Chronic Qualifiers: Hypertension type: essential hypertension Qualified Code(s): I10 - Essential (primary) hypertension (4) Mental status change resolved: As per medicine Status: Acute Attestations Medical Necessity Statement*: As per med Coding Level of Care Code Established Pt Acute Transfer Machine Operator for g Fwd Patient Type Established History Expanded Problem Focused Exam Expanded Problem Focused Medical Decision Making Moderate Complexity Diagnoses CHF (congestive heart failure) I50.22 Heart failure chronicity: chronic Heart failure type: systolic Non-ST elevation (NSTEMI) myocardial infarction I21.4 HTN (hypertension) I10 Hypertension type: essential hypertension Mental status change resolved Z86.59
--- NOTE | 2019-10-29 19:05 | PC.NURSE ---
Patient is alert to person only. Patient's bed alarm is set. Patient is close to nurse's station. Patient is unable to comprehend education to call light. Will check on patient frequently.
--- NOTE | 2019-10-29 20:04 | PC.NURSE ---
Patient has ambulated the hallway twice with RN and walker and once with VP OF [employer] and walker.
--- NOTE | 2019-10-29 22:41 | PC.NURSE ---
Patient has pulled telemetry leads off three times throughout shift so far and were placed back on each time. Patient is unable to comprehend education. Will continue to monitor. Bed alarm is still on.
--- NOTE | 2019-10-29 23:29 | PC.NURSE ---
Patient continually pulls his heart telemetry wires off. Patient became a little bit agitated when placing the telemetry wires back on the last time. Patient stated why do you have to make everything so difficult and clinched his fist. Telemetry wires are being left off at this time due to patient being agitated when wires are placed on. Dr. Marcelo notified. Will continue to monitor. Will check on patient frequently. Bed alarm is still on.
--- NOTE | 2019-10-30 01:08 | PC.NURSE ---
Patient has not slept much tonight. Patient has been up and down from bed frequently.
[2019-10-30 03:15] VITALS: BP 98/56; PULSE 96; RESP 19; TEMP 36.4; O2SAT 95
--- NOTE | 2019-10-30 05:55 | PC.NURSE ---
Patient had 2 incontinent episodes of urine and bowel in his brief. Brief change twice throughout shift and linen change once. Patient urinated in stool once. Patient has been offered to use the bathroom, but is confused.
[2019-10-30 07:26] VITALS: BP 100/67; PULSE 80; RESP 18; TEMP 36.6; O2SAT 96
[2019-10-30] MEDS: tamsulosin 0.4 mg Capsule PO (09:30)
[2019-10-30] MEDS: predniSONE 20 mg Tablet 40 MG PO (09:30)
[2019-10-30] MEDS: metoprolol tartrate 25 mg Tablet 12.5 MG PO ×2 (09:30→17:21)
[2019-10-30] MEDS: enoxaparin 40 mg/0.4 mL Syringe SUBCUT (09:31)
[2019-10-30] MEDS: atorvastatin 40 mg Tablet PO (09:31)
[2019-10-30] MEDS: aspirin 81 mg EC Tablet PO (09:31)
[2019-10-30] MEDS: lactobacillus 1 Tablet 1 TAB PO ×4 (09:31→20:03)
[2019-10-30] MEDS: amoxicillin-clav 875-125 mg Tablet 1 TAB PO ×2 (09:31→17:21)
[2019-10-30 10:56] VITALS: BP 100/70; PULSE 81; RESP 18; TEMP 36.6; O2SAT 95
--- NOTE | 2019-10-30 11:28 | PC.CHAP ---
Pastoral Care Encounter/Spiritual Assessment Type of Contact [] Declined fiberglasser visit [] Patient/Family/Request visit [] Outpatient visit [] Follow-up visit [] Physician referral [] Code/Alert [x] Routine visit [] Staff referral [] Actively dying [] Patient sleeping [] Family support [] [] Out of room [] Palliative care [] [] Receiving care in room [] Pre-surgical visit [] Trauma [] Long length of stay [] ICU visit [] Other: Relational/Emotional Strength [x] Patient feels connected with others/family/visitors/staff [] Distress [] Loneliness/isolation [] Abandonment Spirituality of Patient [] Person of Melva [] Attends Jainism of their Melva [] Believes in Prayer [] Reads Bible or Tenriism materials [x] There are Spiritual issues to be addressed Hand Button Splitter Interventions [x] Prayer [x] Active listening [x] Non-anxious presence [x] Spiritual/emotional support [] Crisis/trauma care [] Spiritual counseling [] Bereavement support [] Provided bereavement packet [] Provided Bible/devotional materials [] Provided toy/stuffed animal, coloring book to patient or family member [] Provided Communion [] Anointing/[place] [] Salvation [] Completed spiritual assessment [] Other: Impact on Illness or Injury [] Angry [] Fearful [] Anxious [] Often cries [] Exhaustion [] Unable to work [] Unable to attend latter-day [] Unable to walk/stand [] Unable to read [] Unable to drive [] Unable to eat/drink [] Unable to sleep [] Unable to be with family [] Patient intubated [x] Other: n/a Summary Time spent with patient 5 minutes
--- NOTE | 2019-10-30 11:32 | PM.PN ---
Subjective Subjective: Interval history: Off 1:1 monitoring, did reasonably well overnight, easily redirected, has been ambulating in hallway, alert though disoriented, requesting to be shaved, no apparent distress, has been incontinent since removal of Echevarria catheter yesterday afternoon. Medications: Reviewed: Yes Medication Review Details: Active Medications Generic Name Dose Route Start Last Admin Trade Name Freq PRN Reason Stop Dose Admin Acetaminophen 650 mg 10/24/19 20:26 Tylenol PO Q6H PRN Mild/Mod Pain Or Temp >/= 101 Albuterol/Ipratrop ium 3 ml 10/24/19 20:26 10/28/19 04:52 Duoneb INHALATION 3 ml Q6H PRN Administration SHORTNESS OF PRISCILLA TH Amoxicillin/Clavul anate Potassium 1 tab 10/28/19 09:00 10/30/19 09:31 Augmentin 875-12 5 Mg PO 1 tab BID PHIL Administration Protocol Aspirin 81 mg 10/25/19 09:00 10/30/19 09:31 Aspirin Ec PO 81 mg DAILY PHIL Administration Atorvastatin Calci um 40 mg 10/25/19 09:00 10/30/19 09:31 Lipitor PO 40 mg DAILY PHIL Administration Enoxaparin Sodium 40 mg 10/28/19 09:00 10/30/19 09:31 Lovenox SUBCUT 40 mg DAILY PHIL Administration Lactobacillus Acid ophilus 1 tab 10/27/19 21:00 10/30/19 09:31 Floranex PO 1 tab QID PHIL Administration Lorazepam 1 mg 10/24/19 20:26 10/28/19 21:24 Ativan IVP 1 mg Q6H PRN Administration ANXIETY Metoprolol Tartrat e 12.5 mg 10/29/19 09:00 10/30/19 09:30 Lopressor PO 12.5 mg BID PHIL Administration Olanzapine 2.5 mg 10/24/19 20:26 Zyprexa PO DAILY PRN AGITATION Olanzapine 2.5 mg 10/24/19 23:24 Zyprexa IM DAILY PRN SEVERE AGITATION Ondansetron HCl 4 mg 10/24/19 20:26 Zofran IVP Q6H PRN vomiting, or N/V if npo Prednisone 40 mg 10/27/19 19:55 10/30/19 09:30 Prednisone PO 40 mg DAILY PHIL Administration Tamsulosin HCl 0.4 mg 10/26/19 14:00 10/30/19 09:30 Flomax PO 0.4 mg DAILY PHIL Administration No Known Allergies Allergy (Verified 10/24/19 13:56) Vitals/I&O/Wt Last Vital Signs Temp 97.9 F 10/30/19 10:56 Pulse 81 10/30/19 10:56 Resp 18 10/30/19 10:56 BP 100/70 10/30/19 10:56 Pulse Ox 95 10/30/19 10:56 10/29/19 10/30/19 10/30/19 22:59 06:59 14:59 Intake Total 60 / 240 360 / 360 Output Total 100 / 100 Balance -40 / 140 360 / 360 Weight last 48 hrs Weight 71.985 kg Weight 72.711 kg Physical Exam Const: COMMON NORMALS: no acute distress and alert GENERAL APPEARANCE: cooperative and comfortable ORIENTATION/CONSCIOUSNESS: Yes confused OTHER: -sitting in chair by bedside HENMT: COMMON NORMALS: normocephalic, atraumatic and hearing grossly normal bilaterally HEAD & SCALP: normocephalic and atraumatic GENERAL EAR: hearing grossly impaired MOUTH: moist mucous membranes abnormal Details: parched Eye: COMMON NORMALS: Equal, round and reactive pupils present, EOMs intact bilaterally and conjunctivae normal CONJUNCTIVA: Yes conjunctivae normal PUPIL: Yes Equal, round and reactive pupils present Neck/C-Spine: COMMON NORMALS: full ROM GENERAL: Yes normal visual inspection and Yes trachea midline Chest: CHEST: Yes Symmetrical chest wall rise Resp: COMMON NORMALS: normal respiratory effort, No retractions and No use of accessory muscles EFFORT & INSPECTION: Yes able to speak in complete sentences, Yes symmetric chest movement and Yes tachypneic AUSCULTATION: wheezes expiratory wheezes (end-expiratory) and diminished lung sounds bilateral in the lower lung manning OTHER: -on RA Cardio: COMMON NORMALS: regular rate, regular rhythm, S1 normal heart sound present, S2 normal heart sound present and No murmurs present (Cardio) RATE: regular rate RHYTHM: regular rhythm HEART SOUNDS: S1 normal heart sound present and S2 normal heart sound present GI: COMMON NORMALS: Normal to inspection, nondistended, normoactive bowel sounds present, Soft to palpation and non-tender PALPATION: Yes Soft to palpation : BLADDER/KIDNEY EXAM: No catheter in place Back/Pelvis: COMMON NORMALS: thoracic and lumbar spine normal to inspection Extremity: COMMON NORMALS: normal to inspection, full ROM, no clubbing, cyanosis or edema and no pedal edema Neuro: COMMON NORMALS: moves all extremities, no focal motor deficits and no sensory deficits noted SENSORIUM/ORIENTATION: Yes alert and Yes Orientation impaired GAIT: Yes Shuffling gait present and Yes Assistive device used walker Psych: COMMON NORMALS: cooperative and speech normal ACTIVITY/MOTOR BEHAVIOR: Yes restless SPEECH: Yes normal speech THOUGHT PROCESS: confused ATTENTION/CONCENTRATION: Yes attention grossly impaired and Yes concentration grossly impaired MEMORY/COGNITION: Yes memory grossly impaired Impared memory type(s): short term INSIGHT: Poor insight present (Psych) Skin: COMMON NORMALS: no rashes or lesions noted, no jaundice, no petechiae and no mottling GENERAL SKIN EXAM: no rashes or lesions noted Urinary Catheter Management^: Echevarria: Cath Placed During This Visit: yes, but has since been removed by the nurse Urethral Indwelling: Yes Reason for Continuing Indwelling Catheter: Other Urinary Catheter Date of Insertion: 10/25/19 Urinary Catheter Time of Insertion: 14:52 Date Urinary Catheter Removed: 10/29/19 Time Urinary Catheter Discontinued: 10:10 Data : 10/28/19 03:25 10/28/19 03:25 Micro: Microbiology 10/24/19 14:41 Blood Culture - Final Blood NO GROWTH AFTER 5 DAYS 10/24/19 14:28 Blood Culture - Preliminary Blood Coagulase negativ staphylococc A&P Assessment and plan (1) Altered mental status: -presents with significant confusion, was noted during last admission and attributed to CVA -has underlying vascular dementia and waxes and wanes at baseline -suspect this is multifactorial given UTI, pneumonia, NSTEMI, recent CVA and underlying dementia -off 1:1 monitoring; fall/aspiration precautions; moved closer to nurse's station, frequent rounding -stable Status: Resolved Qualifiers: Altered mental status type: disorientation Qualified Code(s): R41.0 - Disorientation, unspecified (2) Non-ST elevation (NSTEMI) myocardial infarction: -Noted to have significant troponin elevation with delta greater than 270, no correlating ST changes on ECGs -telemetry monitoring -close monitoring of vital signs -no hx of cath on review of medical record -nuclear stress testing (03/2019): Medium size perfusion abnormality of mid to distal anterior and apical osullivan with mild reversibility in mid anterior wall which is suggestive of old [place] in LAD territory with minimal ayah-infarct ischemia. 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 -on aspirin, statin; off therapeutic anticoagulation -Cardiology evaluation appreciated; medical management Status: Acute (3) UTI (urinary tract infection): -UA contaminated though indicative of infection -in light of noted confusion will continue to treat with antibiotics -may not get urine cx results as sample contaminated Status: Acute Qualifiers: Urinary tract infection type: acute cystitis Hematuria presence: without hematuria Qualified Code(s): N30.00 - Acute cystitis without hematuria (4) Pneumonia: -noted mild patchy opacification in the medial right lung base consistent with atelectasis versus pneumonia -In light of significant confusion and location of abnormality on x-ray, aspiration pneumonia is within the differential. Repeat CXR shows improvement -aspiration precautions, ST evaluation -off Ceftriaxone and metronidazole (x 4 days); with improvement noted on imaging and clinically, continue Augmentin (day 3) -noted significant leukocytosis which is improving, continue to trend WBC -lactic acid-1.2 -f/u blood cx: 06/07 bottles positive for coagulase negative staph (likely contaminant); repeat set prelim negative so off Vancomycin Status: Acute Qualifiers: Pneumonia type: due to unspecified organism Laterality: right Lung location: lower lobe of lung Qualified Code(s): J18.9 - Pneumonia, unspecified organism (5) COPD (chronic obstructive pulmonary disease): -no acute exacerbation -supplemental oxygen as needed; not oxygen dependent at baseline -continue to monitor respiratory status Status: Chronic Qualifiers: COPD type: unspecified COPD Qualified Code(s): J44.9 - Chronic obstructive pulmonary disease, unspecified (6) BPH (benign prostatic hyperplasia): -on flomax Status: Chronic Qualifiers: Lower urinary tract symptom presence: unspecified whether lower urinary tract symptoms present Qualified Code(s): N40.0 - Benign prostatic hyperplasia without lower urinary tract symptoms (7) Vascular dementia: -needs 1:1 monitoring -reorient as needed Status: Chronic Qualifiers: Dementia behavioral disturbance: without behavioral disturbance Qualified Code(s): F01.50 - Vascular dementia without behavioral disturbance (8) CHF (congestive heart failure): -has chronic systolic CHF, last Echo with reported EF=40% as noted above -will hold lasix for now given dehydration -BNP >20,000 Status: Chronic Qualifiers: Heart failure chronicity: chronic Heart failure type: systolic Qualified Code(s): I50.22 - Chronic systolic (congestive) heart failure (9) CVA (cerebral vascular accident): -with noted aphasia during last admission which seems to have resolved -on ASA, Plavix -no significant stenosis on carotid US -Echo noted above -had neuroimaging done including CT head and MRI head showing chronic ischemic changes Status: Acute Qualifiers: CVA mechanism: unspecified Qualified Code(s): I63.9 - Cerebral infarction, unspecified (10) HTN (hypertension): -was noted to be borderline hypotensive during last admission; ACEi and aldactone discontinued -on BB, titrate as needed -continue to monitor vital signs; normotensive currently Status: Chronic Qualifiers: Hypertension type: essential hypertension Qualified Code(s): I10 - Essential (primary) hypertension (11) Hypercholesteremia: -continue statin Status: Chronic (12) CAD (coronary artery disease): -Has known history of ischemic cardiomyopathy -has had cardiac workup as noted above Status: Chronic Qualifiers: Coronary Disease-Associated Artery/Lesion type: [place] artery [place] vs. transplanted heart: [place] heart Associated angina: angina presence unspecified Qualified Code(s): I25.10 - Atherosclerotic heart disease of [place] coronary artery without angina pectoris Additional A&P Information -POOJA on CKD unknown stage, baseline Cr is around 0.9-1.0; suspect dehydration given improvement with gentle IVF; d/c and encourage oral hydration -Diarrhea, negative stool studies including C. difficile, possibly secondary to antibiotic use, added probiotics -on dysphagia diet with thin liquids per ST evaluation, needs assistance with meals -DVT ppx with lovenox -Dispo: [facility] vs. SNF; discussed extensively with son Avel Govea ([phone]) who reports that patient has been accepted at [facility]. Son is health-care DPOA. With need for closer supervision, appears to be more appropriate for SNF, has been accepted at [facility]. Needs to be off 1:1 monitoring before transition to SNF; anticipate d/c tomorrow -Code status: FULL code Attestations Medical Necessity Statement*: Patient requires hospitalization pending appropriate disposition as needs to be off 1:1 monitoring for at least 24 hrs. Time Spent in Patient Care: 16 - 35 minutes (>than 50% of time spent in counselling and/or direct pt care on unit). Coding Level of Care Code Acute [employer]ater for Chg Fwd Diagnoses Altered mental status R41.0 Altered mental status type: disorientation Non-ST elevation (NSTEMI) myocardial infarction I21.4 UTI (urinary tract infection) N30.00 Urinary tract infection type: acute cystitis Hematuria presence: without hematuria Pneumonia J18.9 Pneumonia type: due to unspecified organism Laterality: right Lung location: lower lobe of lung COPD (chronic obstructive pulmonary disease) J44.9 COPD type: unspecified COPD BPH (benign prostatic hyperplasia) N40.0 Lower urinary tract symptom presence: unspecified whether lower urinary tract symptoms present Vascular dementia F01.50 Dementia behavioral disturbance: without behavioral disturbance CHF (congestive heart failure) I50.22 Heart failure chronicity: chronic Heart failure type: systolic CVA (cerebral vascular accident) I63.9 CVA mechanism: unspecified HTN (hypertension) I10 Hypertension type: essential hypertension Hypercholesteremia E78.00 CAD (coronary artery disease) I25.10 Coronary Disease-Associated Artery/Lesion type: [place] artery [place] vs. transplanted heart: [place] heart Associated angina: angina presence unspecified
[2019-10-30 15:08] VITALS: BP 105/64; PULSE 86; RESP 20; TEMP 36.6; O2SAT 95
--- NOTE | 2019-10-30 17:52 | P.PN_ITS ---
Subjective Subjective: Interval history: Remains confused and disoriented but walking around with nurses without any symptoms. Stable blood pressure phipps as well Medications: Reviewed: Yes Medication Review Details: Active Medications Generic Name Dose Route Start Last Admin Trade Name Freq PRN Reason Stop Dose Admin Acetaminophen 650 mg 10/24/19 20:26 Tylenol PO Q6H PRN Mild/Mod Pain Or Temp >/= 101 Albuterol/Ipratrop ium 3 ml 10/24/19 20:26 10/28/19 04:52 Duoneb INHALATION 3 ml Q6H PRN Administration SHORTNESS OF PRISCILLA TH Amoxicillin/Clavul anate Potassium 1 tab 10/28/19 09:00 10/30/19 09:31 Augmentin 875-12 5 Mg PO 1 tab BID PHIL Administration Protocol Aspirin 81 mg 10/25/19 09:00 10/30/19 09:31 Aspirin Ec PO 81 mg DAILY PHIL Administration Atorvastatin Calci um 40 mg 10/25/19 09:00 10/30/19 09:31 Lipitor PO 40 mg DAILY PHIL Administration Enoxaparin Sodium 40 mg 10/28/19 09:00 10/30/19 09:31 Lovenox SUBCUT 40 mg DAILY PHIL Administration Lactobacillus Acid ophilus 1 tab 10/27/19 21:00 10/30/19 09:31 Floranex PO 1 tab QID PHIL Administration Lorazepam 1 mg 10/24/19 20:26 10/28/19 21:24 Ativan IVP 1 mg Q6H PRN Administration ANXIETY Metoprolol Tartrat e 12.5 mg 10/29/19 09:00 10/30/19 09:30 Lopressor PO 12.5 mg BID PHIL Administration Olanzapine 2.5 mg 10/24/19 20:26 Zyprexa PO DAILY PRN AGITATION Olanzapine 2.5 mg 10/24/19 23:24 Zyprexa IM DAILY PRN SEVERE AGITATION Ondansetron HCl 4 mg 10/24/19 20:26 Zofran IVP Q6H PRN vomiting, or N/V if npo Prednisone 40 mg 10/27/19 19:55 10/30/19 09:30 Prednisone PO 40 mg DAILY PHIL Administration Tamsulosin HCl 0.4 mg 10/26/19 14:00 10/30/19 09:30 Flomax PO 0.4 mg DAILY PHIL Administration No Known Allergies Allergy (Verified 10/24/19 13:56) Vitals/I&O/Wt Last Vital Signs Temp 97.9 F 10/30/19 15:08 Pulse 86 10/30/19 15:08 Resp 20 H 10/30/19 15:08 BP 105/64 10/30/19 15:08 Pulse Ox 95 10/30/19 15:08 10/30/19 10/30/19 10/30/19 06:59 14:59 22:59 Intake Total 360 / 360 120 / 480 Balance 360 / 360 120 / 480 Weight last 48 hrs Weight 158 lb 11.2 oz Weight 160 lb 4.8 oz Physical Exam Narrative: EXAM NARRATIVE: GENERAL: Patient is alert, awake but not oriented nECK: No jugular vein distension. HEENT: No cyanosis. No icterus. No pallor. HEART: Regular S1 and S2. No murmur, rub or gallop. LUNGS: Clear to auscultate bilaterally. CENTRAL NERVOUS SYSTEM: Grossly nonfocal. EXTREMITIES: Lower extremities without edema bilaterally. Urinary Catheter Management^: Echevarria: Cath Placed During This Visit: yes, but has since been removed by the nurse Urethral Indwelling: Yes Reason for Continuing Indwelling Catheter: Other Urinary Catheter Date of Insertion: 10/25/19 Urinary Catheter Time of Insertion: 14:52 Date Urinary Catheter Removed: 10/29/19 Time Urinary Catheter Discontinued: 10:10 Data : 10/28/19 03:25 10/28/19 03:25 Micro: Microbiology 10/24/19 14:41 Blood Culture - Final Blood NO GROWTH AFTER 5 DAYS A&P Assessment and plan (1) CHF (congestive heart failure): Continue to be well compensated. Continue meds Status: Chronic Qualifiers: Heart failure chronicity: chronic Heart failure type: systolic Qualified Code(s): I50.22 - Chronic systolic (congestive) heart failure (2) Non-ST elevation (NSTEMI) myocardial infarction: Stable. Continue conservative management Status: Acute (3) HTN (hypertension): Welcome Status: Chronic Qualifiers: Hypertension type: essential hypertension Qualified Code(s): I10 - Essential (primary) hypertension (4) Mental status change resolved: As per medicine Status: Acute Attestations Medical Necessity Statement*: Patient require continuation of hospitalization for above defined care Coding Level of Care Code Established Pt Acute Loss Prevention Consultant for Chg Fwd Patient Type Established History Expanded Problem Focused Exam Expanded Problem Focused Medical Decision Making Moderate Complexity Diagnoses CHF (congestive heart failure) I50.22 Heart failure chronicity: chronic Heart failure type: systolic Non-ST elevation (NSTEMI) myocardial infarction I21.4 HTN (hypertension) I10 Hypertension type: essential hypertension Mental status change resolved Z86.59
--- NOTE | 2019-10-30 19:54 | PC.NURSE ---
pt sat up in chair most of the day. he read a magazine and watched tv. pt ambulated the halls multiple times with walker and staff walking beside him. pt showed no aggressive behavior today. he is refusing to wear telemetry and dr is awake and alright with that. will continue to monitor.
[2019-10-30 20:00] VITALS: BP 115/79; PULSE 88; RESP 22; O2SAT 93
--- NOTE | 2019-10-30 20:05 | PC.NURSE ---
Patient is currently sitting in chair with chair alarm in patient room. Patient is alert and pleasant, but is not oriented. Patient has difficulty understanding instructions and education. Patient was offered to use the bathroom and did void in the toilet with nurse assistance.
[2019-10-30 21:27] VITALS: PULSE 63; RESP 18; O2SAT 98
--- NOTE | 2019-10-30 23:48 | PC.NURSE ---
Patient got up to use urinal with assistance from nurse. Patient had IV laying on floor. Dr. Marcelo notified. Order given to leave IV out due to patient's confusion and to prevent agrivation to patient. Bed alarm is still set.
[2019-10-31] VITALS: BP 108/70; PULSE 91; RESP 16; TEMP 36.4; O2SAT 96
--- NOTE | 2019-10-31 00:41 | PC.NURSE ---
Patient used urinal with assistance from nurse. Patient is back in bed with bed alarm on.
--- NOTE | 2019-10-31 00:56 | PC.NURSE ---
Patient was assisted to toilet by nurse and had bowel movement and urine void. Brief was changed. Patient was assisted back to bed and bed alarm is on.
--- NOTE | 2019-10-31 03:42 | PC.NURSE ---
Patient is currently sitting in chair with chair alarm.
[2019-10-31 04:00] VITALS: BP 116/73; PULSE 82; RESP 14; TEMP 36.3; O2SAT 96
--- NOTE | 2019-10-31 05:01 | PC.NURSE ---
Patient has been back and forth from bed to chair throughout the night.
[2019-10-31 08:00] VITALS: RESP 16
[2019-10-31 08:39] VITALS: PULSE 70; RESP 18; O2SAT 97
[2019-10-31] MEDS: amoxicillin-clav 875-125 mg Tablet 1 TAB PO (09:48)
[2019-10-31] MEDS: metoprolol tartrate 25 mg Tablet 12.5 MG PO (09:48)
[2019-10-31] MEDS: aspirin 81 mg EC Tablet PO (09:48)
[2019-10-31] MEDS: tamsulosin 0.4 mg Capsule PO (09:48)
[2019-10-31] MEDS: enoxaparin 40 mg/0.4 mL Syringe SUBCUT (09:48)
[2019-10-31] MEDS: atorvastatin 40 mg Tablet PO (09:48)
[2019-10-31] MEDS: lactobacillus 1 Tablet 1 TAB PO (09:48)
[2019-10-31] MEDS: predniSONE 20 mg Tablet 40 MG PO (09:49)
--- NOTE | 2019-10-31 09:52 | P.DS_ITS ---
Discharge Providers Date of Admission: 10/24/19 17:28 Date of Discharge: October 31, 2019 Attending Provider at Admission: Kimber Nielsen MD Attending Provider at Discharge: Kimber Nielsen MD Primary Care Provider: Mike Ruggiero DO Diagnoses at Discharge Discharge Diagnosis (1) Altered mental status: Status: Resolved Problem details: -presents with significant confusion, was noted during last admission and attributed to CVA -has underlying vascular dementia and waxes and wanes at baseline -suspect this is multifactorial given UTI, pneumonia, NSTEMI, recent CVA and underlying dementia -off 1:1 monitoring x > 24 hrs; fall/aspiration precautions; moved closer to nurse's station, frequent rounding -stable and this is likely his new baseline Qualifiers: Altered mental status type: disorientation Qualified Code(s): R41.0 - Disorientation, unspecified (2) Non-ST elevation (NSTEMI) myocardial infarction: Status: Acute Problem details: -Noted to have significant troponin elevation with delta greater than 270, no correlating ST changes on ECGs -telemetry monitoring -close monitoring of vital signs -no hx of cath on review of medical record -nuclear stress testing (03/2019): Medium size perfusion abnormality of mid to distal anterior and apical osullivan with mild reversibility in mid anterior wall which is suggestive of old [place] in LAD territory with minimal ayah-infarct ischemia. 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 -on aspirin, statin; off therapeutic anticoagulation -Cardiology evaluation appreciated; medical management (3) UTI (urinary tract infection): Status: Acute Problem details: -UA contaminated though indicative of infection -in light of noted confusion will continue to treat with antibiotics -no urine cx results as sample contaminated Qualifiers: Urinary tract infection type: acute cystitis Hematuria presence: without hematuria Qualified Code(s): N30.00 - Acute cystitis without hematuria (4) Pneumonia: Status: Acute Problem details: -noted mild patchy opacification in the medial right lung base consistent with atelectasis versus pneumonia -In light of significant confusion and location of abnormality on x-ray, aspiration pneumonia is within the differential. Repeat CXR shows improvement -aspiration precautions, ST evaluation appreciated (no overt aspiration) -off Ceftriaxone and metronidazole (x 4 days); with improvement noted on imaging and clinically, continue Augmentin (day 4) -noted significant leukocytosis which is improving, continue to trend WBC -lactic acid-1.2 -f/u blood cx: 2/4 bottles positive for coagulase negative staph, 1 /4 bottles positive for corynebacterium species (likely contaminant); repeat set prelim negative so off Vancomycin Qualifiers: Pneumonia type: due to unspecified organism Laterality: right Lung location: lower lobe of lung Qualified Code(s): J18.9 - Pneumonia, unspecified organism (5) COPD (chronic obstructive pulmonary disease): Status: Chronic Problem details: -no acute exacerbation -supplemental oxygen as needed; not oxygen dependent at baseline -continue to monitor respiratory status Qualifiers: COPD type: unspecified COPD Qualified Code(s): J44.9 - Chronic obstructive pulmonary disease, unspecified (6) HTN (hypertension): Status: Chronic Problem details: -was noted to be borderline hypotensive during last admission; ACEi and aldactone discontinued -on BB, titrate as needed -continue to monitor vital signs; normotensive currently Qualifiers: Hypertension type: essential hypertension Qualified Code(s): I10 - Essential (primary) hypertension (7) CHF (congestive heart failure): Status: Chronic Problem details: -has chronic systolic CHF, last Echo with reported EF=40% as noted above -can resume low dose lasix, previously held diuretics due to hypotension -BNP >20,000 Qualifiers: Heart failure chronicity: chronic Heart failure type: systolic Qualified Code(s): I50.22 - Chronic systolic (congestive) heart failure (8) BPH (benign prostatic hyperplasia): Status: Chronic Problem details: -on Flomax Qualifiers: Lower urinary tract symptom presence: unspecified whether lower urinary tract symptoms present Qualified Code(s): N40.0 - Benign prostatic hyperplasia without lower urinary tract symptoms (9) Vascular dementia: Status: Chronic Problem details: -waxes and wanes at baseline, easily redirected -off 1:1 monitoring Qualifiers: Dementia behavioral disturbance: without behavioral disturbance Qualified Code(s): F01.50 - Vascular dementia without behavioral disturbance (10) CVA (cerebral vascular accident): Status: Acute Problem details: -with noted aphasia during last admission which seems to have resolved -on ASA, Plavix -no significant stenosis on carotid US -Echo noted above -had neuroimaging done including CT head and MRI head showing chronic ischemic changes Qualifiers: CVA mechanism: unspecified Qualified Code(s): I63.9 - Cerebral infarction, unspecified (11) Hypercholesteremia: Status: Chronic Problem details: -on statin Other Information Additional DC diagnoses/information: -POOJA on CKD unknown stage, baseline Cr is around 0.9-1.0; suspect dehydration given improvement with gentle IVF; d/c and encourage oral hydration -Diarrhea, negative stool studies including C. difficile, possibly secondary to antibiotic use, added probiotics Reason for Visit Reason for Visit: Reason For Visit: CONFUSION// HX OF DEMENTIA Hospital Course Hospital Course: Patient was admitted to the cardiac stepdown unit and placed on telemetry monitoring. Due to noted significant troponin elevation with noted delta cardiology was consulted. Urinalysis was indicative of infection and he was started on treatment with ceftriaxone pending culture results. Due to altered mental status and underlying dementia he required one-on-one monitoring. Cardiology recommended continued medical management, patient already been started on therapeutic Lovenox, has been on aspirin and Plavix as well as a statin. Patient had recent echo so this did not need to be repeated during this hospitalization. He was noted to have opacification in the right lung base and due to altered mental status and potential for aspiration antibiotic regimen also included Flagyl for anaerobic coverage. He has been on room air for at least 48 hours, has been transitioned to oral antibiotics pending improvement on imaging and clinically, appears to be at his baseline mental status and following move closer to the nurses station we were able to discontinue one-on-one monitoring. Disposition was discussed with patient's son who agrees that patient will require continued supervision and has chosen [facility] as preferred SNF. As patient has consistently been off one-on-one monitoring for more than 24 hours he will be discharged to [facility] this afternoon. He has been hemodynamically stable, afebrile, ambulatory with walker and appropriate supervision. He will need to continue on a dysphagia diet with thin liquids per ST evaluation, assistance with meals as needed. He was noted to have some episodes of diarrhea, stool studies were negative, probiotics have been added, this could be secondary to antibiotic treatment. He had a Echevarria catheter placed on admission that has since been removed and he is incontinent but voiding without difficulty. 2 out of 4 bottles of his initial blood cultures grew coagulase negative staph and 1 out of 4 bottles grew corynebacterium species w hich is likely contamination. Repeat blood cultures have been negative. Urine culture not available due to contaminated sample. He will be discharged on a 7- day course of Augmentin to complete his treatment course. While hospitalized he had received steroids, has completed a short course of prednisone so no further steroids will be prescribed on discharge. Of note, patient was tested for COVID- 19 though clinical suspicion for this is low, test is negative. Discharge Summary: -Patient to follow-up with primary care physician within 1 week Physical Exam Const: COMMON NORMALS: no acute distress and alert GENERAL APPEARANCE: cooperative and comfortable ORIENTATION/CONSCIOUSNESS: Yes confused OTHER: -sitting in chair by bedside HENMT: COMMON NORMALS: normocephalic, atraumatic and hearing grossly normal bilaterally HEAD & SCALP: normocephalic and atraumatic GENERAL EAR: hearing grossly impaired MOUTH: moist mucous membranes abnormal Details: parched Eye: COMMON NORMALS: Equal, round and reactive pupils present, EOMs intact bilaterally and conjunctivae normal CONJUNCTIVA: Yes conjunctivae normal PUPIL: Yes Equal, round and reactive pupils present Neck/C-Spine: COMMON NORMALS: full ROM GENERAL: Yes normal visual inspection and Yes trachea midline Chest: CHEST: Yes Symmetrical chest wall rise Resp: COMMON NORMALS: normal respiratory effort, No retractions and No use of accessory muscles EFFORT & INSPECTION: Yes able to speak in complete sentences, Yes symmetric chest movement and Yes tachypneic AUSCULTATION: wheezes expiratory wheezes (end-expiratory) and diminished lung sounds bilateral in the lower lung manning OTHER: -on RA Cardio: COMMON NORMALS: regular rate, regular rhythm, S1 normal heart sound present, S2 normal heart sound present and No murmurs present (Cardio) RATE: regular rate RHYTHM: regular rhythm HEART SOUNDS: S1 normal heart sound present and S2 normal heart sound present GI: COMMON NORMALS: Normal to inspection, nondistended, normoactive bowel sounds present, Soft to palpation and non-tender PALPATION: Yes Soft to palpation : BLADDER/KIDNEY EXAM: No catheter in place Back/Pelvis: COMMON NORMALS: thoracic and lumbar spine normal to inspection Extremity: COMMON NORMALS: normal to inspection, full ROM, no clubbing, cyanosis or edema and no pedal edema Neuro: COMMON NORMALS: moves all extremities, no focal motor deficits and no sensory deficits noted SENSORIUM/ORIENTATION: Yes alert and Yes Orientation impaired GAIT: Yes Shuffling gait present and Yes Assistive device used walker Psych: COMMON NORMALS: cooperative and speech normal ACTIVITY/MOTOR BEHAVIOR: Yes restless SPEECH: Yes normal speech THOUGHT PROCESS: confused ATTENTION/CONCENTRATION: Yes attention grossly impaired and Yes concentration grossly impaired MEMORY/COGNITION: Yes memory grossly impaired Impared memory type(s): short term INSIGHT: Poor insight present (Psych) Skin: COMMON NORMALS: no rashes or lesions noted, no jaundice, no petechiae and no mottling GENERAL SKIN EXAM: no rashes or lesions noted Urinary Catheter Management^: Echevarria: Cath Placed During This Visit: yes, but has since been removed by the nurse Urethral Indwelling: Yes Reason for Continuing Indwelling Catheter: Other Urinary Catheter Date of Insertion: 10/25/19 Urinary Catheter Time of Insertion: 14:52 Date Urinary Catheter Removed: 10/29/19 Time Urinary Catheter Discontinued: 10:10 Discharge Data Data Completed and Pending: Completed Studies During Hospitalization Category Date Time Status CT head wo con* 7 0450 Stat Cat Scan 10/24/19 14:05 Completed XR chest 1V winifred ble [id number] Routine Exams 10/27/19 09:00 Completed XR chest 1V winifred ble 45664 Urgent Exams 10/24/19 14:05 Completed Pending at discharge Category Date Time Status Blood Culture Sta t Lab 10/24/19 14:41 Results Vitals: Last Vital Signs Temp 97.3 F L 10/31/19 04:00 Pulse 70 10/31/19 08:39 Resp 18 10/31/19 08:39 BP 116/73 10/31/19 04:00 Pulse Ox 97 10/31/19 08:39 Discharge Plan Discharge Patient Disposition: Xfer SNF Condition: Fair Prescriptions: New metoprolol tartrate 25 mg Tablet 12.5 mg PO BID 30 Days Qty: 30 RF: 0 ipratropium-albuterol 0.5 mg-3 mg(2.5 mg base)/3 mL Solution For Nebulization 3 ml inhalation Q6H PRN (Reason: Shortness Of Breath) Qty: 30 RF: 0 olanzapine 5 mg Tablet 2.5 mg PO DAILY PRN (Reason: Agitation) Qty: 30 RF: 0 tamsulosin 0.4 mg Capsule 0.4 mg PO DAILY 30 Days Qty: 30 RF: 0 amoxicillin-pot clavulanate 875-125 mg Tablet 1 tab PO BID 7 Days Qty: 14 RF: 0 Floranex 1 million cell Tablet 1 tab PO QID 30 Days Qty: 120 RF: 0 fluticasone propion-salmeterol 250-50 mcg/dose blister with device 1 inh INHALATION BID Qty: 60 RF: 0 furosemide 20 mg tablet 10 mg PO DAILY Qty: 30 RF: 0 Continued atorvastatin 40 mg tablet 40 mg PO DAILY 30 Days Qty: 30 RF: 0 clopidogrel 75 mg tablet 75 mg PO DAILY 30 Days Qty: 30 RF: 5 aspirin 81 mg Tablet,Delayed Release (Dr/Ec) 81 mg PO DAILY 30 Days Qty: 30 RF: 0 Neurontin 300 mg capsule 300 mg PO TID 30 Days Qty: 90 RF: 0 Discontinued furosemide 40 mg tablet 40 mg PO BID Qty: 60 RF: 6 metoprolol succinate 50 mg tablet extended release 24 hr 50 mg PO DAILY Qty: 30 RF: 6 potassium chloride 20 mEq tablet extended release 20 meq PO DAILY Qty: 30 RF: 6 fluticasone propion-salmeterol [Wixela Inhub] 250-50 mcg/dose Blister With Device 1 inh INHALATION BID RF: 0 Discharge Orders: Discharge Order (Routine); Ordered 10/31/19 Ordered By: Kimber Nielsen Referrals: [facility] [Outside] Mike Ruggiero DO [Primary Care Provider] - 4-7 days (Post hospital discharge follow up. ) Discharge Diet: Cardiac and Soft Mechanical Discharge Activity: Increase activity as tolerated Activity Restrictions/Additional Instructions: -Patient is at continued risk of fall, continue fall precautions. Will need to be redirected as well due to underlying dementia Discharge Attestations Time Spent in Discharge Care*: greater than 30 min Specific Discharge Activities: Specific discharge activities: educating patient, discussing with case management associate/social workers/dc planners, documenting/other paperwork and evaluating patient/reviewing data Status at Discharge: Cognitive status at discharge: moderately impaired cognition (underlying dementia) , Behavioral status at discharge: cooperative and dependent in ADL's , Functional status at discharge: uses cane/walker Overall status at discharge: patient has a new baseline Quality Metrics Clinical Quality Measures During this hospital stay, did patient experience: None Coding Level of Care Code Acute Medical Office Administrator for Chg Fwd Diagnoses Altered mental status R41.0 Altered mental status type: disorientation Non-ST elevation (NSTEMI) myocardial infarction I21.4 UTI (urinary tract infection) N30.00 Urinary tract infection type: acute cystitis Hematuria presence: without hematuria Pneumonia J18.9 Pneumonia type: due to unspecified organism Laterality: right Lung location: lower lobe of lung COPD (chronic obstructive pulmonary disease) J44.9 COPD type: unspecified COPD HTN (hypertension) I10 Hypertension type: essential hypertension CHF (congestive heart failure) I50.22 Heart failure chronicity: chronic Heart failure type: systolic BPH (benign prostatic hyperplasia) N40.0 Lower urinary tract symptom presence: unspecified whether lower urinary tract symptoms present Vascular dementia F01.50 Dementia behavioral disturbance: without behavioral disturbance CVA (cerebral vascular accident) I63.9 CVA mechanism: unspecified Hypercholesteremia E78.00
--- NOTE | 2019-10-31 10:05 | PC.SOCIAL ---
IMM Page 2 of IMM updated and given to patient. Initialed, dated, and timed and placed back in chart.
--- NOTE | 2019-10-31 10:20 | PC.NURSE ---
Addendum entered by Enedina Laboy RN 10/31/19 10:24: MEDS WERE CRUSHED IN APPLESAUCE Original Note: MULTIPLE ATTEMPTS WERE MADE TO GET PATIENT TO TAKE AM MEDICATIONS ; PATIENT WAS VERY PLEASANT BUT ADAMANTLY STATED HE WAS NOT HUNGRY ; ATTEMPTED TO REORIENT PATIENT TO SURROUNDINGS AND GET HIM TO TAKE HIS MEDS WITH NO SUCCESS
--- NOTE | 2019-10-31 11:46 | PC.NURSE ---
REPORT CALLED TO BELA SYED AT [facility] ; SS ARRANGED TRANSPORT AND NOTIFIED FAMILY
--- NOTE | 2019-10-31 13:32 | PC.NURSE ---
PATIENT TO EXIT VIA WHEELCHAIR TO [facility] ; NO ISSUES ; VSS
[2019-10-31 13:33] VITALS: BP 120/75; PULSE 82; RESP 16; TEMP 36.7; O2SAT 97
== END 2019-10-31 13:34 | disposition skilled nursing facility (03) | DRG 280 ==
LOC: ER 17:18 → CSU 18:22
PROVIDERS: Family Medicine; Admitting Provider Family Medicine; PCP Internal Medicine; Visit Provider Family Medicine
DX: I21.4 Non-ST elevation (NSTEMI) myocardial infarction (principal); J69.0 Pneumonitis due to inhalation of food and vomit; I13.0 Hypertensive heart and chronic kidney disease with heart failure and stage 1 through stage 4 chronic kidney disease, or unspecified chronic kidney disease; I50.22 Chronic systolic (congestive) heart failure; N30.00 Acute cystitis without hematuria; N17.9 Acute kidney failure, unspecified; F01.50 Vascular dementia, unspecified severity, without behavioral disturbance, psychotic disturbance, mood disturbance, and anxiety; I25.5 Ischemic cardiomyopathy; N18.9 Chronic kidney disease, unspecified; E78.5 Hyperlipidemia, unspecified; J44.9 Chronic obstructive pulmonary disease, unspecified; Z86.73 Personal history of transient ischemic attack (TIA), and cerebral infarction without residual deficits; N40.0 Benign prostatic hyperplasia without lower urinary tract symptoms; I25.10 Atherosclerotic heart disease of native coronary artery without angina pectoris; E78.00 Pure hypercholesterolemia, unspecified; G62.9 Polyneuropathy, unspecified; I25.2 Old myocardial infarction; I25.119 Atherosclerotic heart disease of native coronary artery with unspecified angina pectoris; Z20.828 Contact with and (suspected) exposure to other viral communicable diseases; Z79.82 Long term (current) use of aspirin; Z79.02 Long term (current) use of antithrombotics/antiplatelets
CPT/HCPCS: 12345; 36415; 51702; 51798; 70450; 71045; 80048; 80053; 81001; 83605; 83690; 83880; 84145; 84443; 84484; 85025; 87040; 87205; 87493; 87506; 87635; 92507; 92523; 92526; 92610; 93005; 94640; 94664; 96372; 96375; 97116; 97162; 97530; 99282; J0696; J1200; J1650; J2060; J2920; J3370; J3486; J3490; J7030; J7040; J7050; J7512; S0030

== ENCOUNTER 2019-12-03 10:08 | Inpatient (IN) | payer MEDICARE, BC, SELFPAY ==
[2019-12-03] VITALS (9 sets, daily range): BP systolic 95–141; BP diastolic 71–92; PULSE 74–96; RESP 17–28; TEMP 36.6; O2SAT 92–97; BMI 24.3
--- NOTE | 2019-12-03 11:05 | ED_ITS ---
HPI - Weakness General: Chief complaint: Weakness Stated complaint: FATIGUE, PNEUMONIA Time Seen by Provider: 12/03/19 10:23 Source: patient and RN notes reviewed Mode of arrival: EMS History of Present Illness: HPI Narrative: Patient from [facility] complains of fatigue generalized weakness and diarrhea that started this morning. The stated complaint says fatigue, pneumonia but the patient tells me that he does not know of any pneumonia that he has had in the last couple of weeks nor does he have any cough fever or shortness of breath other than short of breath when he walks far distances because he gets tired in general. Denies any vomiting or pain. Nothing makes this better or worse. Associated symptoms: Reports easy bruising; Denies chest pain, chills, fever(s) or headache(s) Review of Systems Const: Reports: fatigue; Denies: fever(s) or chills Eyes: Denies: change in vision ENMT: Denies: throat pain Card: Denies: chest pain Resp: Denies: dyspnea GI: Reports: diarrhea; Denies: abdominal pain : Denies: difficulty urinating Musc: Reports: muscle weakness Skin/Breast: Denies: rash Neuro: Denies: headache(s) Psych: Denies: hopelessness or suicidal ideation Endo: Denies: polyuria Mike/Lymph: Reports: easy bruising and easy bleeding All/Imm: Denies: urticaria PFSH ED PFSH: Medical History (Updated 12/03/19 @ 13:22 by Genie Beckham MD) BPH (benign prostatic hyperplasia) -on Flomax CAD (coronary artery disease) CHF (congestive heart failure) Compensated currently. CHF (congestive heart failure) -has chronic systolic CHF, last Echo with reported EF=40% as noted above -can resume low dose lasix, previously held diuretics due to hypotension -BNP >20,000 COPD (chronic obstructive pulmonary disease) -no acute exacerbation -supplemental oxygen as needed; not oxygen dependent at baseline -continue to monitor respiratory status CVA (cerebral vascular accident) -with noted aphasia during last admission which seems to have resolved -on ASA, Plavix -no significant stenosis on carotid US -Echo noted above -had neuroimaging done including CT head and MRI head showing chronic ischemic changes Dementia HTN (hypertension) -was noted to be borderline hypotensive during last admission; ACEi and aldactone discontinued -on BB, titrate as needed -continue to monitor vital signs; normotensive currently Hypercholesteremia -on statin Neuropathy Non-ST elevation (NSTEMI) myocardial infarction -Noted to have significant troponin elevation with delta greater than 270, no correlating ST changes on ECGs -telemetry monitoring -close monitoring of vital signs -no hx of cath on review of medical record -nuclear stress testing (03/2019): Medium size perfusion abnormality of mid to distal anterior and apical osullivan with mild reversibility in mid anterior wall which is suggestive of old MS in LAD territory with minimal ayah-infarct ischemia. 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 -on aspirin, statin; off therapeutic anticoagulation -Cardiology evaluation appreciated; medical management Pericardial effusion Temporal arteritis -resolved after treatment -affected R eye Vascular dementia -waxes and wanes at baseline, easily redirected -off 1:1 monitoring Surgical History H/O hand surgery -left hand, for finger contracture Social History Smoking and tobacco status: never smoked Alcohol intake: never Lives independently: Yes Household members: none Current occupational status: retired Physical Exam Const: COMMON NORMALS: no acute distress, patient oriented x3, alert and well nourished HENMT: COMMON NORMALS: normocephalic and Normal external nose present HEAD & SCALP: normocephalic NOSE: Normal external nose present MOUTH: no trismus Eye: COMMON NORMALS: EOMs intact bilaterally and conjunctivae normal CONJUNCTIVA: Yes conjunctivae normal Neck/C-Spine: COMMON NORMALS: full ROM, no lymphadenopathy and supple CER VICAL SPINE: Yes cervical ROM normal Lymph: LYMPHATIC: no lymphadenopathy noted Resp: COMMON NORMALS: normal respiratory effort, No retractions, No use of accessory muscles and clear to auscultation bilaterally EFFORT & INSPECTION: Yes able to speak in complete sentences AUSCULTATION: clear to auscultation bilaterally Cardio: COMMON NORMALS: regular rate and regular rhythm RATE: regular rate RHYTHM: regular rhythm GI: COMMON NORMALS: Normal to inspection, nondistended, normoactive bowel sounds present, Soft to palpation, non-tender and no masses INSPECTION: Yes normal to inspection AUSCULTATION: Yes normoactive bowel sounds PALPATION: Yes Soft to palpation, No Guarding due to palpation present (GI) and No Rigid due to palpation Back/Pelvis: OTHER: Normal range of motion Extremity: GENERAL: Yes normal exam except as noted and Yes edema (bilateral PE 1Plus) Neuro: COMMON NORMALS: patient oriented x3 and CN's II-XII intact bilaterally SENSORIUM/ORIENTATION: Yes alert SPEECH: speech normal Psych: COMMON NORMALS: mental status grossly normal Skin: COMMON NORMALS: no rashes or lesions noted GENERAL SKIN EXAM: no rashes or lesions noted Course Vital Signs: Vital signs: Vital Signs Temperature 97.8 F 12/03/19 10:09 Pulse Rate 83 12/03/19 16:13 Respiratory Rate 28 H 12/03/19 16:13 Blood Pressure 115/76 12/03/19 16:13 Pulse Oximetry 95 12/03/19 16:13 MDM - Weakness MDM Narrative: Medical decision making narrative: Reviewed patient's old record including elevated BNP and troponin at the end of October this year. Discussed with Dr. Spangler-would like Zosyn and Levaquin ordered in addition to the Rocephin already gave empirically. Also would like patient retested for COVID he was COVID negative approximately a month ago but since he is in a senior care would like this test performed again. Patient is currently in no distress and can go to the cardiac stepdown unit I did not diurese him because when he arrived his systolic blood pressure was 95 we will monitor closely in the ER especially with antibiotics as his pressure could drop Lab Data: Attestation: I reviewed the patient's lab results. Labs: Lab Results 12/03/19 12/03/19 12/03/19 Range/Units 10:50 10:50 10:50 WBC Cancelled Corrected WBC Cancelled RBC Cancelled Hgb Cancelled Hct Cancelled MCV Cancelled MCH Cancelled MCHC Cancelled RDW Cancelled Plt Count Cancelled MPV Cancelled Gran % Cancelled Neut % (Auto) Cancelled Lymph % (Auto) Cancelled Ocean % (Auto) Cancelled Eos % (Auto) Cancelled Baso % (Auto) Cancelled Neut # (Auto) Cancelled Lymph # (Auto) Cancelled Ocean # (Auto) Cancelled Eos # (Auto) Cancelled Baso # (Auto) Cancelled Absolute Gran (aut o) Cancelled Nucleated RBC % (a uto) Cancelled Nucleated RBCs # Cancelled Sodium 137 (136-145) mmol/L Potassium 3.7 (3.5-5.1) mmol/L Chloride 100 (98-107) mmol/L Carbon Dioxide 23 (22-29) mmol/L Anion Gap 17.7 (5-19) BUN 17 (8-23) mg/dL Creatinine 1.0 (0.7-1.2) mg/dL Glucose 98 (65-115) mg/dL Calculated Osmolal ity 280 L (285-295) mOsm/k g Lactic Acid (0.5-2.2) mmol/L Calcium 8.3 L (8.5-10.5) mg/dL Total Bilirubin 1.0 (0.15-1.2) mg/dL AST 25 (0-40) U/L ALT 37 (0-41) U/L Alkaline Phosphata se 134 H (40-130) IU/L Troponin T Gen 5 n g/L 286 H* (0-15) ng/L NT-Pro-B Natriuret Pep 89661 H (0-450) pg/mL Total Protein 6.1 L (6.6-8.7) g/dL Albumin 3.0 L (3.5-5.2) g/dL Globulin 3.1 (1.3-4.6) g/dL Urine Color (Yellow) Urine Appearance (CLEAR) Urine pH (5-7) Ur Specific Gravit y (1.005-1.030) Urine Protein (Negative) Urine Glucose (UA) (Normal) Urine Ketones (Negative) Urine Blood (Negative) Urine Nitrate (Negative) Urine Bilirubin (NEGATIVE) Urine Urobilinogen (Negative) mg/dL Ur Leukocyte Kirsten ase (Negative) Urine RBC (0-2) /hpf Urine WBC (0-5) /hpf Ur Squamous Epith Cells (0-5) Amorphous Sediment Urine Bacteria (NONE) 12/03/19 12/03/19 12/03/19 Range/Units 11:30 12:04 12:15 WBC 23.3 H Corrected WBC RBC 4.15 Hgb 11.4 L Hct 37.3 L MCV 89.9 MCH 27.5 L MCHC 30.6 RDW 18.3 H Plt Count 403 H MPV 11.7 H Gran % Neut % (Auto) 68.0 Lymph % (Auto) 5.7 Ocean % (Auto) 6.6 Eos % (Auto) 18.7 Baso % (Auto) 0.4 Neut # (Auto) 15.9 H Lymph # (Auto) 1.3 Ocean # (Auto) 1.6 H Eos # (Auto) 4.4 H Baso # (Auto) 0.1 Absolute Gran (aut o) Nucleated RBC % (a uto) 0 Nucleated RBCs # 0.0 Sodium (136-145) mmol/L Potassium (3.5-5.1) mmol/L Chloride (98-107) mmol/L Carbon Dioxide (22-29) mmol/L Anion Gap (5-19) BUN (8-23) mg/dL Creatinine (0.7-1.2) mg/dL Glucose (65-115) mg/dL Calculated Osmolal ity (285-295) mOsm/k g Lactic Acid 1.8 (0.5-2.2) mmol/L Calcium (8.5-10.5) mg/dL Total Bilirubin (0.15-1.2) mg/dL AST (0-40) U/L ALT (0-41) U/L Alkaline Phosphata se (40-130) IU/L Troponin T Gen 5 n g/L (0-15) ng/L NT-Pro-B Natriuret Pep (0-450) pg/mL Total Protein (6.6-8.7) g/dL Albumin (3.5-5.2) g/dL Globulin (1.3-4.6) g/dL Urine Color Yellow (Yellow) Urine Appearance Sl cloudy A (CLEAR) Urine pH 5 (5-7) Ur Specific Gravit y 1.020 (1.005-1.030) Urine Protein 1+ H (Negative) Urine Glucose (UA) Norm (Normal) Urine Ketones 1+ H (Negative) Urine Blood 3+ H (Negative) Urine Nitrate Negative (Negative) Urine Bilirubin 1+ H (NEGATIVE) Urine Urobilinogen Neg (Negative) mg/dL Ur Leukocyte Kirsten ase 2+ H (Negative) Urine RBC 15-25 H (0-2) /hpf Urine WBC >100 H (0-5) /hpf Ur Squamous Epith Cells 0-4 H (0-5) Amorphous Sediment Not Reportable Urine Bacteria 4+ H (NONE) Imaging Data^: CXR: Attestation: I personally reviewed and interpreted this imaging study as follows: My impression: bibasilar atelectasis right greater than left EKG Data^: EKG 1: Attestation: I personally reviewed and interpreted this EKG as follows: EKG interpretation date: 12/03/19 EKG interpretation time: 11:23 Prior EKG tracings: available for review Interpretation: Sinus rate [address] changes. Compared to EKG 10/24/2019 this EKG is unchanged except for the rate and PVCs Discharge Plan Discharge Patient Disposition: Admitted As Inpatient Admit Provider: Subhash Mukherjee Clinical Impression: Non-ST elevated myocardial infarction (non-STEMI) CHF (congestive heart failure) Qualifiers: Heart failure type: diastolic Heart failure chronicity: unspecified Qualified Code(s): I50.30 - Unspecified diastolic (congestive) heart failure Leukocytosis Qualifiers: Leukocytosis type: unspecified Qualified Code(s): D72.829 - Elevated white blood cell count, unspecified Condition: Stable Referrals: Mike Ruggiero DO [Primary Care Provider] - Coding Level of Care Code ED Sustainability Consultant for g Fwd Exam Comprehensive
--- NOTE | 2019-12-03 11:11 | XRR_ITS ---
PROCEDURE INFORMATION: Exam: XR Chest, 1 View Exam date and time: 12/03/2019 11:33 AM Age: 79 years old Clinical indication: Other: Weakness/pneumonia/fatigue; Additional info: Weak TECHNIQUE: Imaging protocol: XR of the chest Views: 1 view. COMPARISON: CR XR chest 1V portable [id number] 10/27/2019 9:03 AM FINDINGS: Lungs: Reticular opacities in the visualized lung bases suggesting interstitial infiltrates versus more chronic atelectasis/fibrosis. Pleural space: Blunting of lateral costophrenic angles consistent with bibasilar pleural effusions. Heart/Mediastinum: Mild cardiomegaly. Bones/joints: Unremarkable. XR/XR chest 1V portable [id number] IMPRESSION: Bibasilar pleural effusions. Reticular opacities in lung bases as described above.
--- NOTE | 2019-12-03 11:11 | ECG_ITS ---
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 Measurements Intervals May Rate: 84 P: 55 MN: 160 QRS: -26 QRSD: 100 T: 70 QT: 407 QTc: 484 Interpretive Statements SINUS RHYTHM WITH FREQUENT VENTRICULAR PREMATURE COMPLEXES ANTEROSEPTAL MYOCARDIAL INFARCTION , PROBABLY OLD [40+ ms Q WAVE IN V1-V4] Compared to ECG 10/24/2019 17:04:03 Ventricular premature complex(es) now present Sinus tachycardia no longer present Left-axis deviation no longer present Myocardial infarct finding still present Electronically Signed On 12-03-2019 17:44:30 CDT by Darian Bond M.D. [id number]
[2019-12-03 11:50] LABS: Alanine Aminotransferase 37 U/L (0-41); Alkaline Phosphatase 134 IU/L (40-130); Anion Gap 17.7 (5-19); Aspartate Amino Transferase 25 U/L (0-40); Blood Urea Nitrogen 17 mg/dL (8-23); Calcium 8.3 mg/dL (8.5-10.5); Carbon Dioxide 23 mmol/L (22-29); Chloride 100 mmol/L (98-107); Globulin 3.1 g/dL (1.3-4.6); Glucose 98 mg/dL (65-115); NT Pro B Type Natriuretic Pept 18106 pg/mL (0-450); Osmolality Calculated 280 mOsm/kg (285-295); Potassium 3.7 mmol/L (3.5-5.1); Sodium 137 mmol/L (136-145); Total Protein 6.1 g/dL (6.6-8.7)
[2019-12-03 12:10] LABS: Basophils # 0.1 10^3/uL (0.0-0.1); Basophils % 0.4 %; Eosinophils # 4.4 10^3/uL (0.0-0.8); Eosinophils % 18.7 %; Hematocrit 37.3 % (42.0-52.0); Hemoglobin 11.4 g/dL (11.7-16.6); Lymphocytes # 1.3 10^3/uL (0.8-4.8); Lymphocytes % 5.7 %; Mean Corpuscular HGB Conc 30.6 g/dL (30.0-36.0); Mean Corpuscular Hemoglobin 27.5 pg (28.0-34.0); Mean Corpuscular Volume 89.9 fL (80-94); Mean Platelet Volume 11.7 fL (7.4-10.4); Monocytes # 1.6 10^3/uL (0.2-0.9); Monocytes % 6.6 %; Neutrophils # 15.9 10^3/uL (1.8-7.7); Nucleated Red Blood Cells % 0 %; Platelet Count 403 10^3/cmm (130-400); Red Blood Count 4.15 10^6/uL (4.1-5.3); Red Cell Distribution Width 18.3 % (12.1-15.1); White Blood Count 23.3 10^3/uL (4.0-10.0)
[2019-12-03 12:16] LABS: Lactic Sepsis W/Reflex 1.8 mmol/L (0.5-2.2)
[2019-12-03 12:32] LABS: Troponin T (5th) Once 286 ng/L (0-15)
--- NOTE | 2019-12-03 12:32 | PC.NURSE ---
Troponin 286
[2019-12-03] MEDS: cefTRIAXone 1,000 MG in sodium chloride 0.9% (plus) 50 ML 100 MG IV (13:06)
[2019-12-03 13:29] LABS: Add Urine Microscopic? YES; Bilirubin Urine 1+ (NEGATIVE); Blood Urine 3+ (Negative); Glucose Urine UA Norm (Normal); Ketones Urine 1+ (Negative); Leukocyte Esterase Urine 2+ (Negative); Nitrate Urine Negative (Negative); Protein Urine 1+ (Negative); Urine Color Yellow (Yellow); Urobilinogen Urine Neg (Negative); pH Urine 5 (5-7)
[2019-12-03 13:30] LABS: Add Urine Culture? Yes; Bacteria Urine 4+; RBC Urine 15-25 /hpf (0-2); Squamous Epithelial Cell Urine 0-4 (0-5); WBC Urine >100 /hpf (0-5)
[2019-12-03] MEDS: levofloxacin-dextrose 5 % 750 MG/150 ML PREMIX 100 MG IV (14:35)
[2019-12-03] MEDS: piperacillin-tazobactam 3.375 GM in sodium chloride 0.9% (plus) 50 ML IV ×2 (14:35→22:39)
--- NOTE | 2019-12-03 18:51 | P.HP_ITS ---
Providers/Chief Complaint Admitting Physician: Subhash Mukherjee Primary Care Provider: Mike Ruggiero DO Chief Complaint: FATIGUE, PNEUMONIA History of Present Illness Chapin Govea is a 79 year old gentleman with dementia, CVA/TIA few months ago, recently with several admissions to the hospital including acute MO, last admission with troponin 2500 during which was seen by cardiology with recommendation for medical management, received treatment for pneumonia and urinary tract infection, at that time also with concern for aspiration, with recommendation also for dysphagia diet and thick liquids for evaluation by speech therapy. Episodes of diarrhea were noted already then, with stool studies negative. Probiotics were added at that time. Noted 2/4 bottles of blood cultures growing coagulase-negative staph and 1/4 bottles growing Corynebacterium secondary to contamination of the sample. At that time he was assessed for COVID-19 and was found negative. He is currently residing at [facility] from where he was referred for admission currently due to easy fatigability, dyspnea on exertion, as well as finding of infiltrates on chest x-ray with concern for pneumonia in left lung and bilateral perihilar areas. He himself also reports history of diarrhea which is bothersome to him, with liquid stools sometimes happening during urination. From [place] records he has been tested for C. difficile on 11/27 and negative again. Patient himself is not a good historian, and does not remember any of his recent hospitalizations. In ER he is noted with leukocytosis of 23,000. With finding of pneumonia, CHF exacerbation, as well as elevated troponin, although significantly less than during prior admission. He denies having any chest pain currently or recently. He is noted also to have a urinary tract infection on UA. On arrival to [facility] he is also noted to have blood at the end of urethra, and so far has not voided by himself. Echevarria catheter placement has been attempted, however, he has declined this currently, and has been bothered by his telemetry wires. He does state that he would like his catheter to be placed in the morning and would like to rest for a while at first. Per discussion with his son, the patient has been having progressive dementia with longer and longer episodes of confusion. He is also concerned regarding recurrent buildup of fluid and congestive heart failure. 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 He also states that his father could not be living independently, with lack of self-care and thus of the only home possible for him currently is at the [facility] although that his father may forget sometimes and request that he would like to go home . Review of Systems Const: Reports: fatigue; Denies: fever(s), chills, body aches or malaise Eyes: Denies: change in vision or eye redness ENMT: Denies: throat pain, oral sores or ear or mastoid pain Card: Reports: edema, swelling of feet/ankles and dyspnea on exertion; Denies: chest pain or pre-syncope Resp: Reports: dyspnea; Denies: productive cough, non-productive cough, change in phlegm color or hemoptysis GI: Reports: diarrhea; Denies: abdominal pain, nausea, vomiting, constipation, hematochezia or melena : Denies: flank pain, difficulty urinating, urinary frequency or hematuria Musc: Denies: back pain, joint swelling or joint redness Skin/Breast: Denies: rash, sores or new lesions Neuro: Reports: other (Dementia, progressing in the last half year); Denies: headache(s), numbness in extremities, weakness in extremities, dizziness, confusion or seizure-like activity Endo: Denies: polyuria or polydipsia Mike/Lymph: Denies: easy bleeding or purpura All/Imm: Denies: urticaria, throat swelling or tongue swelling Medications/Allergies Home Medications Medication Instructions Recorded Confirmed Last Taken Type aspirin 81 mg PO DAILY 30 Days #30 tab 10/31/19 12/03/19 Unknown Rx atorvastatin 40 mg PO DAILY 30 Days #30 tab 10/31/19 12/03/19 Unknown Rx clopidogrel 75 mg PO DAILY 30 Days #30 tab 10/31/19 12/03/19 Unknown Rx fluticasone propion-salmeterol 1 inh INHALATION BID #60 each 10/31/19 12/03/19 Unknown Rx gabapentin [Neurontin] 300 mg PO TID 30 Days #90 cap 10/31/19 12/03/19 Unknown Rx Lactobacillus rhamnosus GG 1 cap PO DAILY 12/03/19 12/03/19 Unknown History [Culturelle] acetaminophen 650 mg PO QID PRN 12/03/19 12/03/19 Unknown History albuterol sulfate 1 inh INHALATION QID PRN 12/03/19 12/03/19 Unknown History bisacodyl 10 mg DC DAILY PRN 12/03/19 12/03/19 Unknown History furosemide 20 mg PO DAILY 12/03/19 12/03/19 Unknown History magnesium hydroxide [Milk of 30 ml PO DAILY PRN 12/03/19 12/03/19 Unknown History Magnesia] metoprolol tartrate 12.5 mg PO BID 12/03/19 12/03/19 Unknown History potassium chloride 10 meq PO DAILY 12/03/19 12/03/19 Unknown History sodium phosphates [Fleet Enema] 118 ml DC DAILY PRN 12/03/19 12/03/19 Unknown History tamsulosin [Flomax] 0.4 mg PO DAILY 12/03/19 12/03/19 Unknown History Allergies Allergy/AdvReac Type Severity Reaction Status Date / Time No Known Allergies Allergy Verified 10/24/19 13:56 PFSH Acute PFSH: Medical History BPH (benign prostatic hyperplasia) -on Flomax CAD (coronary artery disease) CHF (congestive heart failure) Compensated currently. CHF (congestive heart failure) -has chronic systolic CHF, last Echo with reported EF=40% as noted above -can resume low dose lasix, previously held diuretics due to hypotension -BNP >20,000 COPD (chronic obstructive pulmonary disease) -no acute exacerbation -supplemental oxygen as needed; not oxygen dependent at baseline -continue to monitor respiratory status CVA (cerebral vascular accident) -with noted aphasia during last admission which seems to have resolved -on ASA, Plavix -no significant stenosis on carotid US -Echo noted above -had neuroimaging done including CT head and MRI head showing chronic ischemic changes Dementia HTN (hypertension) -was noted to be borderline hypotensive during last admission; ACEi and aldactone discontinued -on BB, titrate as needed -continue to monitor vital signs; normotensive currently Hypercholesteremia -on statin Neuropathy Non-ST elevation (NSTEMI) myocardial infarction -Noted to have significant troponin elevation with delta greater than 270, no correlating ST changes on ECGs -telemetry monitoring -close monitoring of vital signs -no hx of cath on review of medical record -nuclear stress testing (03/2019): Medium size perfusion abnormality of mid to distal anterior and apical osullivan with mild reversibility in mid anterior wall which is suggestive of old MO in LAD territory with minimal ayah-infarct ischemia. Medium size perfusion abnormality of basal to apical inferolateral and inferior osullivan suggestive of old MO/scarring in the RCA/circumflex artery territory, severe diffuse hypokinesis -Echo (09/2019): EF=40%, G1DD, mild diffuse hypokinesia, mild MR, mild , trace TR, aneurysmal basal to mid inferior wall -on aspirin, statin; off therapeutic anticoagulation -Cardiology evaluation appreciated; medical management Pericardial effusion Temporal arteritis -resolved after treatment -affected R eye Vascular dementia -waxes and wanes at baseline, easily redirected -off 1:1 monitoring Surgical History H/O hand surgery -left hand, for finger contracture Social History Smoking and tobacco status: never smoked Alcohol intake: never Lives independently: Yes Household members: none Current occupational status: retired Vitals/I&O/Wt Last Vital Signs Temp 97.8 F 12/03/19 10:09 Pulse 83 12/03/19 16:13 Resp 28 H 12/03/19 16:13 BP 115/76 12/03/19 16:13 Pulse Ox 95 12/03/19 16:13 12/03/19 12/03/19 12/03/19 06:59 14:59 22:59 Intake Total 100 / 100 Balance 100 / 100 Weight last 48 hrs Weight 72.575 kg Physical Exam Const: COMMON NORMALS: no acute distress ORIENTATION/CONSCIOUSNESS: Yes oriented to person and Yes oriented to place (Knows he is in a hospital, knows it is 2019, but states the wrong date) HENMT: COMMON NORMALS: oropharynx normal Neck/C-Spine: COMMON NORMALS: no JVD (while sitting upright) Resp: COMMON NORMALS: normal respiratory effort AUSCULTATION: diminished lung sounds Cardio: COMMON NORMALS: no JVD, regular rhythm, S1 normal heart sound present, S2 normal heart sound present and No murmurs present (Cardio) RHYTHM: regular rhythm HEART SOUNDS: S1 normal heart sound present and S2 normal heart sound present GI: COMMON NORMALS: Normal to inspection, nondistended, normoactive bowel sounds present, Soft to palpation and non-tender PALPATION: Yes Soft to palpation Extremity: COMMON NORMALS: no joint enlargement GENERAL: Yes edema (3+ bilateral LE edema below knees) Neuro: COMMON NORMALS: patient oriented x3 and moves all extremities Skin: COMMON NORMALS: no rashes or lesions noted OTHER: Some chronic stasis changes in LE Data : 12/03/19 12:04 12/03/19 10:50 Micro: Microbiology 12/03/19 11:30 Blood Culture - Preliminary Blood SPECIMEN COLLECTED 12/03/19 10:50 Blood Culture - Preliminary Blood SPECIMEN COLLECTED A&P Assessment and plan (1) Pneumonia: With leukocytosis 23.3, otherwise no findings of sepsis, with noted infiltrate at [facility], as well as here. Given recent admission will cover for hospital-acquired pneumonia. Blood cultures collected. Will request for sputum culture, assess rapid flu. Test for coronavirus. Status: Acute (2) CHF exacerbation: Systolic CHF with exacerbation. BNP 18,106. Peripheral edema. Dyspnea on exertion. Last echo noted 40% EF. With recent MO, however. Troponin is elevated, but lower than last time. No chest pain. Less suspicion for current MO, however, will reassess limited TTE to assess for any progression of his ischemic cardiomyopathy. At this time Lasix 40 mg IV twice daily. Monitor I&O. Cardiac diet. Continue CAD medications as optimized by cardiology. With significant bilateral edema, will also assess Doppler ultrasound. Status: Acute (3) CAD (coronary artery disease): Complete troponin EKG series. Troponin is elevated in ER, I do not see that series have been ordered, however, were done during prior admission when it was 2500. He does not have any chest pain, and I suspect that troponin elevation is rather secondary to gradual decline from prior admission. We will continue his cardiac medications. Status: Acute (4) UTI (urinary tract infection): Noted on UA. At this time antibiotic coverage as for hospital-acquired pneumonia. Follow-up urine culture. He does have BPH, and with some noted blood at the end of urethra on arrival to [facility]. Monitor I&O. Obstruction may become an issue. Status: Acute (5) Dementia: Recently progressive dementia per son, with episodes of confusion lasting longer and longer, with patient not able to care for himself at home, and requiring placement to [facility]. His son has power of prosecuting attorney healthcare paperwork. Patient may get confused sometimes and thus can go home, however, he currently primarily lives at [facility]. Given declining quality of life, as well as underlying medical issues with known CAD, CHF, in case of cardiopulmonary arrest his son would not want extraordinary measures including CPR or intubation as he does not believe his father would want such interventions given the low chance of likely recovery. Otherwise, he is agreeable with other medical interventions that may lead to reasonable recovery. Discussed his current condition, diagnosis and treatment plan with his son, who is in agreement. All questions answered to his satisfaction. Status: Acute (6) Hematuria: Noted on arrival to [facility]. Not clear whether he has had this before or if this is something from traumatic straight catheterization for urine sample. We have asked patient to urinate on his own, however, has urinated only a small amount. He currently declines placement of urinary catheter, and has actually been bothered by his telemetry cable stating I feel like I may want to rip them out of the wall . Discussed this with his son who understands that for now it may not be safe to place Echevarria catheter unless his father is in agreement as t here may be risk that he may tear out to catheter an episode of confusion. Patient did state that he would like to rest some and would allow for placement of catheter later on in the morning, and on discussion does say that we could perform a bladder scan, and if we see concerning urinary distention would then agree to placement of the catheter. Discussed with the son that concern is with some hematuria he may develop obstruction, and may require irrigation, however, son understands and is in agreement that currently we may need to hold off before we can place the catheter until his father is in somewhat better disposition. Status: Acute (7) BPH (benign prostatic hyperplasia): History of. Status: Acute (8) CKD (chronic kidney disease): History of. Status: Acute Additional A&P Information Anemia Thrombocytosis: Suspected reactive secondary to infection Mild isolated alkaline phosphatase elevation: Minimal at 134. Monitor. Attestations Medical Necessity Statement*: Admission of over 2 midnights is continued for assessment of management of dyspnea with CHF exacerbation, pneumonia, urinary tract infection in a gentleman with underlying coronary disease, recent MO, underlying dementia and other medical problems. Coding Level of Care Code Acute Health Insurance Sales Agent for Chg Fwd Diagnoses Pneumonia J18.9 CHF exacerbation I50.9 CAD (coronary artery disease) I25.10 UTI (urinary tract infection) N39.0 Dementia F03.90 Hematuria R31.9 BPH (benign prostatic hyperplasia) N40.0 CKD (chronic kidney disease) N18.9
--- NOTE | 2019-12-03 19:54 | ECG_ITS ---
[facility] ED Test Date: 2019-12-03 Pat Name: Chapin Govea Department: Room: 101 Gender: Male Adjunct Trainer: PEARL OCAMPO: 1940 Requested By: Subhash Mukherjee Order Number: [id number] Reading MD: Manuela Novak M.D. Measurements Intervals [place] Rate: 89 P: 66 ND: 164 QRS: 93 QRSD: 102 T: 56 QT: 391 QTc: 478 Interpretive Statements SINUS RHYTHM WITH OCCASIONAL VENTRICULAR PREMATURE COMPLEXES INDETERMINATE AXIS SEPTAL MYOCARDIAL INFARCTION [40+ ms Q WAVE IN V1/V2], OF INDETERMINATE AGE Compared to ECG 12/03/2019 11:28:59 Indeterminate axis now present Myocardial infarct finding still present Electronically Signed On 12-04-2019 20:51:46 CDT by Manuela Novak M.D. [id number]
[2019-12-03] MEDS: vancomycin 750 MG in sodium chloride 0.9% 250 ML 250 MG IV (20:18)
[2019-12-03] MEDS: FUROsemide 10 mg/mL SDV 4mL 40 MG IVP (20:18)
[2019-12-03] MEDS: heparin 5,000 unit/mL INJ 1 mL 5000 UNIT SUBCUT (20:23)
[2019-12-03] MEDS: gabapentin 300 mg Capsule PO (20:23)
--- NOTE | 2019-12-03 20:56 | PC.NURSE ---
Patient assisted up to BSC. Patient had small amount of loose,watery green stool. Observed blood separate from stool in BSC. Couple drops of blood on the floor. Inspected skin for breakdown, none observed. Blood may be coming from penis. Unsure at this time. Will continue to monitor for signs of bleeding.
--- NOTE | 2019-12-03 21:54 | ECG_ITS ---
[facility] ED Test Date: 2019-12-03 Pat Name: Chapin Govea Department: Room: 111 Gender: Male Hose Maker: : 1940 Requested By: Subhash Mukherjee Order Number: [id number] Katie MD: Manuela Novak M.D. Measurements Intervals [place] Rate: 96 P: 71 [place]: 163 QRS: 31 QRSD: 103 T: 32 QT: 372 QTc: 471 Interpretive Statements SINUS RHYTHM WITH FREQUENT VENTRICULAR PREMATURE COMPLEXES SEPTAL MYOCARDIAL INFARCTION [40+ ms Q WAVE IN V1/V2], PROBABLY OLD Compared to ECG 12/03/2019 20:05:06 Indeterminate axis no longer present Myocardial infarct finding still present Electronically Signed On 12-04-2019 21:04:03 CDT by Manuela Novak M.D. [id number]
[2019-12-03 22:46] LABS: Troponin(5th) Baseline 277 ng/L (0-15)
--- NOTE | 2019-12-03 22:49 | PC.NURSE ---
Addendum entered by Patience Jon RN 12/03/19 23:01: No new orders received from Dr Marcelo at this time. Original Note: Patient is confused tonight. Refusing to have flu swab collected tonight stating, we can do that tomorrow. Patient has had several incontinent voids with clear pink to red in his urine. Also, patient has elevated baseline troponin of 277. Informed Dr Marcelo of all.
[2019-12-04] VITALS (7 sets, daily range): BP systolic 105–129; BP diastolic 65–82; PULSE 82–91; RESP 17–27; TEMP 36.6–36.7; O2SAT 18–98
--- NOTE | 2019-12-04 00:17 | PC.NURSE ---
Patient's brief has been changed 4 times by this RN and several times by AWS DEVELOPER and primary nurse. Patient has been assisted to bedside commode several times throughout shift by staff. Attempt to put 3rd side rail up and patient became agitated saying no I want that down, now! Bed alarm has been set. Will monitor.
--- NOTE | 2019-12-04 01:22 | PC.NURSE ---
Unable to maintain accurate I&O due to patient incontinence.
[2019-12-04] MEDS: phenazopyridine 100 mg Tablet PO (01:55)
[2019-12-04 02:47] LABS: Basophils # 0.1 10^3/uL (0.0-0.1); Basophils % 0.4 %; Eosinophils # 3.9 10^3/uL (0.0-0.8); Eosinophils % 16.5 %; Hematocrit 36.1 % (42.0-52.0); Hemoglobin 11.1 g/dL (11.7-16.6); Lymphocytes # 1.1 10^3/uL (0.8-4.8); Lymphocytes % 4.6 %; Mean Corpuscular HGB Conc 30.7 g/dL (30.0-36.0); Mean Corpuscular Hemoglobin 27.5 pg (28.0-34.0); Mean Corpuscular Volume 89.6 fL (80-94); Mean Platelet Volume 11.8 fL (7.4-10.4); Monocytes # 1.5 10^3/uL (0.2-0.9); Monocytes % 6.4 %; Neutrophils # 16.6 10^3/uL (1.8-7.7); Neutrophils % 71.2 %; Nucleated Red Blood Cells % 0 %; Platelet Count 379 10^3/cmm (130-400); Red Blood Count 4.03 10^6/uL (4.1-5.3); Red Cell Distribution Width 17.7 % (12.1-15.1); White Blood Count 23.3 10^3/uL (4.0-10.0)
[2019-12-04 03:14] LABS: Alanine Aminotransferase 26 U/L (0-41); Albumin Level 2.6 g/dL (3.5-5.2); Alkaline Phosphatase 111 IU/L (40-130); Anion Gap 16.4 (5-19); Aspartate Amino Transferase 17 U/L (0-40); Blood Urea Nitrogen 21 mg/dL (8-23); Calcium 8.1 mg/dL (8.5-10.5); Carbon Dioxide 24 mmol/L (22-29); Chloride 103 mmol/L (98-107); Creatinine Clr Calc Pharmacy 47.1625; Globulin 2.7 g/dL (1.3-4.6); Glucose 85 mg/dL (65-115); Osmolality Calculated 286 mOsm/kg (285-295); Potassium 3.4 mmol/L (3.5-5.1); Sodium 140 mmol/L (136-145); Total Bilirubin 0.8 mg/dL (0.15-1.2); Total Protein 5.3 g/dL (6.6-8.7)
[2019-12-04 03:22] LABS: Troponin 5 6HR 236.5 ng/L (0-15)
[2019-12-04] MEDS: piperacillin-tazobactam 3.375 GM in sodium chloride 0.9% (plus) 50 ML IV ×3 (05:00→22:38)
[2019-12-04] MEDS: heparin 5,000 unit/mL INJ 1 mL 5000 UNIT SUBCUT ×3 (05:01→20:40)
--- NOTE | 2019-12-04 08:15 | PC.NURSE ---
Contacted pharmacy to obtain 0715 vancomycin dose.
[2019-12-04] MEDS: tamsulosin 0.4 mg Capsule PO (08:44)
[2019-12-04] MEDS: gabapentin 300 mg Capsule PO ×3 (08:44→20:43)
[2019-12-04] MEDS: FUROsemide 10 mg/mL SDV 4mL 40 MG IVP ×2 (08:45→20:42)
[2019-12-04] MEDS: clopidogrel 75 mg Tablet PO (08:45)
[2019-12-04] MEDS: atorvastatin 40 mg Tablet PO (08:45)
[2019-12-04] MEDS: metoprolol tartrate 25 mg Tablet 12.5 MG PO ×2 (08:45→17:14)
[2019-12-04] MEDS: aspirin 81 mg EC Tablet PO (08:45)
--- NOTE | 2019-12-04 09:15 | PC.NURSE ---
Bladder scan completed. Residual of 75-98.
[2019-12-04] MEDS: vancomycin 750 MG in sodium chloride 0.9% 250 ML 100 MG IV (09:24)
[2019-12-04 12:15] LABS: Influenza A by IFA Negative (Negative); Influenza B by IFA Negative (Negative)
[2019-12-04] MEDS: levofloxacin-dextrose 5 % 750 MG/150 ML PREMIX 100 MG IV (16:09)
[2019-12-04 20:01] LABS: Vancomycin Trough 11.8 ug/mL (10-15)
--- NOTE | 2019-12-04 20:11 | PM.PN ---
Subjective Subjective: Interval history: Today he is somewhat more alert, and conversational. Reports he is feeling slightly better. Has noticed that the Lasix have been working well making him urinate. No noted hematuria. No chest or abdominal pain. Vitals/I&O/Wt Last Vital Signs Temp 97.9 F 12/04/19 16:14 Pulse 85 12/04/19 16:14 Resp 18 12/04/19 16:14 BP 105/72 12/04/19 16:14 Pulse Ox 18 L 12/04/19 16:14 12/04/19 12/04/19 12/04/19 06:59 14:59 22:59 Intake Total 50 / 400 590 / 590 250 / 840 Output Total 440 / 440 100 / 540 Balance 50 / 400 150 / 150 150 / 300 Weight last 48 hrs Weight 74.072 kg Weight 74.026 kg Weight 72.575 kg Physical Exam Const: COMMON NORMALS: no acute distress HENMT: COMMON NORMALS: oropharynx normal Neck/C-Spine: COMMON NORMALS: no JVD Resp: COMMON NORMALS: normal respiratory effort AUSCULTATION: diminished lung sounds Cardio: COMMON NORMALS: no JVD, regular rhythm, S1 normal heart sound present, S2 normal heart sound present and No murmurs present (Cardio) RHYTHM: regular rhythm HEART SOUNDS: S1 normal heart sound present and S2 normal heart sound present GI: COMMON NORMALS: Normal to inspection, nondistended, normoactive bowel sounds present, Soft to palpation and non-tender PALPATION: Yes Soft to palpation Extremity: COMMON NORMALS: no joint enlargement GENERAL: Yes edema (3+ bilateral LE edema below knees) Neuro: COMMON NORMALS: moves all extremities Skin: COMMON NORMALS: no rashes or lesions noted GENERAL SKIN EXAM: no rashes or lesions noted OTHER: Some chronic stasis changes in LE Data : 12/04/19 02:00 12/04/19 02:00 Micro: Microbiology 12/03/19 11:30 Blood Culture - Preliminary Blood NEGATIVE TO DATE 12/03/19 10:50 Blood Culture - Preliminary Blood NEGATIVE TO DATE 12/03/19 12:15 Urine Culture - Preliminary Urine,Clean Catch Gram Negative Rods A&P Assessment and plan (1) Pneumonia: Oxygenation remains good on room air. Persistent leukocytosis. Given recent admission continue with coverage for hospital-acquired pneumonia. Blood cultures collected. Sputum culture requested. Rapid flu negative. Coronavirus negative. We will request for MRSA by PCR. Urine bacterial antigens. Status: Acute (2) CHF exacerbation: Reports he is urinating well. Unfortunately we cannot keep good track of his output as he is incontinent, frequently going into depends. He has declined placement of Echevarria catheter. We will have to continue assessments by weight. Systolic CHF with exacerbation. BNP 18,106 on presentation. Peripheral edema. Dyspnea on exertion. Last echo noted 40% EF. With recent AL, however. Troponin is elevated, but lower than last time. No chest pain. Less suspicion for current AL, however, will reassess limited TTE to assess for any progression of his ischemic cardiomyopathy. Continue Lasix 40 mg IV twice daily. Monitor I&O. Cardiac diet. Continue CAD medications as optimized by cardiology. With significant bilateral edema, will also assess Doppler ultrasound. Status: Acute (3) CAD (coronary artery disease): With gradually declining troponin. Suspect this is secondary to his prior AL. No chest pain. We will continue his cardiac medications. Status: Acute (4) UTI (urinary tract infection): Gram-negative rods in urine. Continue to biotics. Follow-up culture results. Bladder scans noted with only 75-100 mL residuals. Does not appear to have any significant obstruction. No further hematuria. He does have BPH, and with some noted blood at the end of urethra on arrival to [facility] on admission. Without recurrence. Monitor I&O. Obstruction may become an issue. Status: Acute (5) Dementia: Recently progressive dementia per son, with episodes of confusion lasting longer and longer, with patient not able to care for himself at home, and requiring placement to senior care. His son has power of template worker healthcare paperwork. Patient may get confused sometimes and thus can go home, however, he currently primarily lives at [facility]. Given declining quality of life, as well as underlying medical issues with known CAD, CHF, in case of cardiopulmonary arrest his son would not want extraordinary measures including CPR or intubation as he does not believe his father would want such interventions given the low chance of likely recovery. Otherwise, he is agreeable with other medical interventions that may lead to reasonable recovery. Status: Acute (6) Hematuria: Resolved. Secondary to UTI or traumatic straight catheterization. Monitor for any recurrence or signs of obstruction. Status: Acute (7) BPH (benign prostatic hyperplasia): History of. Status: Acute (8) CKD (chronic kidney disease): History of. Status: Acute Additional A&P Information Anemia Thrombocytosis: Suspected reactive secondary to infection Mild isolated alkaline phosphatase elevation: Minimal. Monitor. Per son's request touch base again with him on Sunday. Attestations Medical Necessity Statement*: Continue admission for assessment of management of pneumonia, UTI, CHF exacerbation. Coding Level of Care Code Acute Office Analyst for [facility] Fwd Diagnoses Pneumonia J18.9 CHF exacerbation I50.9 CAD (coronary artery disease) I25.10 UTI (urinary tract infection) N39.0 Dementia F03.90 Hematuria R31.9 BPH (benign prostatic hyperplasia) N40.0 CKD (chronic kidney disease) N18.9
--- NOTE | 2019-12-04 20:30 | PC.NURSE ---
Received report from YAHAIRA Mauro. Pt resting in bed with no complaints. See nursing assessment.
[2019-12-04] MEDS: vancomycin 750 MG in sodium chloride 0.9% 250 ML 250 MG IV (21:00)
[2019-12-04] MEDS: potassium chloride oral liq 20 mEq/15 mL UDC 40 MEQ PO (21:03)
--- NOTE | 2019-12-04 23:00 | PC.NURSE ---
Unable to obtain vancomycin trough level until 2100 after calling lab multiple times, IV vanc and zosyn were both late being administered.
--- NOTE | 2019-12-04 23:34 | PC.NURSE ---
Patient has been up to bedside commode and sheet rock installation helper light several times. SALES FINANCIAL ANALYST and 2 RNs have been assisting him to bathroom and helping him clean up afterwords and change wet brief frequently. Patient is confused at times and has bed alarm set.
[2019-12-05] VITALS (10 sets, daily range): BP systolic 92–104; BP diastolic 63–74; PULSE 75–90; RESP 12–30; TEMP 36.3–36.6; O2SAT 93–97
[2019-12-05] MEDS: heparin 5,000 unit/mL INJ 1 mL 5000 UNIT SUBCUT ×2 (04:18→19:34)
[2019-12-05 04:29] LABS: Basophils # 0.1 10^3/uL (0.0-0.1); Basophils % 0.4 %; Eosinophils # 5.7 10^3/uL (0.0-0.8); Eosinophils % 29.7 %; Hematocrit 35.2 % (42.0-52.0); Hemoglobin 10.8 g/dL (11.7-16.6); Lymphocytes # 1.3 10^3/uL (0.8-4.8); Lymphocytes % 6.8 %; Mean Corpuscular HGB Conc 30.7 g/dL (30.0-36.0); Mean Corpuscular Hemoglobin 26.9 pg (28.0-34.0); Mean Corpuscular Volume 87.8 fL (80-94); Mean Platelet Volume 11.9 fL (7.4-10.4); Monocytes # 1.3 10^3/uL (0.2-0.9); Monocytes % 6.9 %; Neutrophils # 10.7 10^3/uL (1.8-7.7); Neutrophils % 55.5 %; Nucleated Red Blood Cells % 0 %; Platelet Count 412 10^3/cmm (130-400); Red Blood Count 4.01 10^6/uL (4.1-5.3); Red Cell Distribution Width 17.7 % (12.1-15.1); White Blood Count 19.2 10^3/uL (4.0-10.0)
[2019-12-05 05:00] LABS: Alanine Aminotransferase 25 U/L (0-41); Albumin Level 2.6 g/dL (3.5-5.2); Alkaline Phosphatase 104 IU/L (40-130); Anion Gap 17.4 (5-19); Aspartate Amino Transferase 19 U/L (0-40); Blood Urea Nitrogen 22 mg/dL (8-23); Calcium 7.9 mg/dL (8.5-10.5); Carbon Dioxide 24 mmol/L (22-29); Chloride 103 mmol/L (98-107); Globulin 3.1 g/dL (1.3-4.6); Glucose 97 mg/dL (65-115); Osmolality Calculated 289 mOsm/kg (285-295); Potassium 3.4 mmol/L (3.5-5.1); Sodium 141 mmol/L (136-145); Total Bilirubin 0.5 mg/dL (0.15-1.2); Total Protein 5.7 g/dL (6.6-8.7)
[2019-12-05] MEDS: piperacillin-tazobactam 3.375 GM in sodium chloride 0.9% (plus) 50 ML IV (05:09)
[2019-12-05 05:25] LABS: Magnesium 1.9 mg/dL (1.7-2.3)
--- NOTE | 2019-12-05 06:17 | PC.NURSE ---
Spoke with pharmacy about zosyn infusing now and retiming vanc that is due at 0715. Stated zosyn needed to be stopped, vanc infused and then zosyn resumed and completed.
[2019-12-05 07:39] LABS: Coronavirus Lab Test PTC NOT DETECTED
[2019-12-05] MEDS: vancomycin 750 MG in sodium chloride 0.9% 250 ML 250 MG IV (08:15)
[2019-12-05] MEDS: potassium chloride oral liq 20 mEq/15 mL UDC 40 MEQ PO (08:22)
[2019-12-05] MEDS: atorvastatin 40 mg Tablet PO (08:22)
[2019-12-05] MEDS: clopidogrel 75 mg Tablet PO (08:23)
[2019-12-05] MEDS: FUROsemide 10 mg/mL SDV 4mL 40 MG IVP (08:23)
[2019-12-05] MEDS: tamsulosin 0.4 mg Capsule PO (08:23)
[2019-12-05] MEDS: gabapentin 300 mg Capsule PO ×3 (08:23→20:07)
[2019-12-05] MEDS: metoprolol tartrate 25 mg Tablet 12.5 MG PO ×2 (08:23→18:10)
[2019-12-05] MEDS: aspirin 81 mg EC Tablet PO (08:23)
--- NOTE | 2019-12-05 10:22 | CT_ITS ---
WS: [id number] CT ABDOMEN PELVIS TECHNIQUE: Noncontrast CT of the abdomen and pelvis with coronal and sagittal reformatted images. CLINICAL INFORMATION: UTI, POOJA COMPARISON: 018 DLP: 1268.[address] scans at [facility] use at least one of these dose optimization techniques: automat ed exposure control; mA and/or kV adjustment per patient size (includes targeted exams where dose is matched to clinical indication); or iterative reconstruction. FINDINGS: Small amount of perihepatic ascites. Hepatomegaly. Gallbladder is contracted with dense cholelithiasi s. Small amount of pericholecystic fluid in the gallbladder fossa likely due to hepatic disease. Gall bladder can be further evaluated with ultrasound. Small right pleural effusion. Compressive atelectasis in right lung base with air bronchograms. Nonca lcified pulmonary nodule right lower lobe with slight spiculation measuring 10 mm slightly enlarged s juan 2018. Recommend 6 month follow-up. Additional infectious or inflammatory nodular opacities in ernestine th lower lobes with interstitial edema. Subpleural nodular opacities in the lingula and left lower lo be. This can be further evaluated with chest CT Small pericardial effusion. Normal GE junction. Noncontrast spleen is normal. Right adrenal gland is normal. Thickening of the le ft adrenal gland. Diffuse body wall anasarca. Mesenteric edema. Fatty atrophy of the pancreas. Normal caliber abdominal aorta. No obstructing renal or ureteral calculi. Diffuse bladder wall thickening can be seen with bl adder outlet obstruction or cystitis. Diffuse heterogeneous enlargement of the prostate with mild nitin rounding inflammatory stranding. Recommend correlation PSA and prostatitis. Prostate measures 6.7 cm in maximum dimension. Fat-containing inguinal hernias. Fat-containing umbilical hernia. Diverticulosi s. CT/CT kidney stone 94802 IMPRESSION: 1. No obstructing renal or ureteral calculi. No hydronephrosis. 2. Diffuse bladder wall thickening can be seen with chronic cystitis or bladde r outlet obstruction. 3. Diffuse enlargement and heterogeneity involving the prostate measuring 6.6 CM. Recommend correlation with PSA and consider prostatitis. 4. Diffuse body wall anasarca and mesenteric edema. 5. Small right pleural effusion with compressive atelectasis in right lung bas e with air bronchograms. 6. Multiple opacities in both lung bases likely infectious or inflammatory. Re commend chest CT. 7. Spiculated nodule right lower lobe measuring 10 mm slightly increased since 2018. Recommend further evaluation with chest CT in 6 month follow-up. 8. Gallbladder is contracted with cholelithiasis. Fluid in the gallbladder fos sa likely related to hepatic disease. This can be further evaluated with ultras ound. 9. Small pericardial effusion.
--- NOTE | 2019-12-05 15:00 | PC.NURSE ---
Patient taken to CT scan in wheelchair.
[2019-12-05] MEDS: levofloxacin-dextrose 5 % 750 MG/150 ML PREMIX 100 MG IV (15:22)
--- NOTE | 2019-12-05 18:00 | PC.NURSE ---
After 8 ml of air removed from TR band patient began oozing at right wrist. Re-instilled 5 ml of air to stop oozing.
--- NOTE | 2019-12-05 18:10 | P.CONIM_ITS ---
Providers/Reason For Consult Consulting Physican/Specialty*: Shad Roblero MD/cardiology Reason for Consult*: Patient with congestive heart failure and worsening LV systolic function Attending Physician: Subhash Mukherjee Primary Care Provider: Mike Ruggiero DO History of Present Illness History of Present Illness Chapin Govea is a 79 year old male with a history of vascular dementia, recent CVA, possible recent non-ST relation myocardial infarction and congestive heart failure, is admitted to the hospital through the emergency room where he presented with complaints of generalized fatigue, diarrhea and shortness of breath. Chest x-ray, showing possible left lower lobe pneumonia. Was found to have elevated white cell count. Repeat echocardiogram revealed LV ejection fraction of 25 to 30%. There was reported to be around 40% in September of this year. Cardiology consult is requested for further cardiac evaluation recommendations. This patient is a very poor historian. Has dementia and intermittent confusion. He was admitted to the hospital in September of this year with features of congestive heart failure and elevated troponin T, altered mental status and possible CVA.He was thought to have myopericarditis. Myocardial perfusion imaging subsequently revealed areas of fixed defects and small areas of reversible defect. During his last hospital admission in October, he had features of congestive heart failure and elevated troponin T. He also had altered mental status, stable aspiration pneumonia and UTI. Plan was to consider cardiac catheterization n once his overall condition is stable. He denies any chest pain. The main symptom seems to be shortness of breath. He has previous history for coronary artery disease. He never had any cardiac catheterization. Review of Systems Narrative: CONSTITUTIONAL: Hospital admission for recurrent infections-UTI and pneumonia EYES: No blurring of vision or other visual disturbances lately. ENT: No hoarseness of voice, auditory disturbances or sore throat. CARDIOVASCULAR: As mentioned above. RESPIRATORY:_Breath as mentioned above GASTROINTESTINAL: Intermittent watery diarrhea GENITOURINARY: Current UTI INTEGUMENTARY: No skin rashes or history of skin cancer. NEURO: Dementia and recent CVA PSYCHIATRIC: No history of psychosis or major depression. HEMATOLOGIC: Chronic anemia ENDOCRINE: No history of polyuria or polydipsia. MUSCULOSKELETAL: No recent joint pain or swelling. ALLERGY/IMMUNOLOGY: As mentioned above. Meds/Allergies Home Medications and Allergies Home Medications Medication Instructions Recorded Confirmed Last Taken Type aspirin 81 mg PO DAILY 30 Days #30 tab 10/31/19 12/03/19 Unknown Rx atorvastatin 40 mg PO DAILY 30 Days #30 tab 10/31/19 12/03/19 Unknown Rx clopidogrel 75 mg PO DAILY 30 Days #30 tab 10/31/19 12/03/19 Unknown Rx fluticasone propion-salmeterol 1 inh INHALATION BID #60 each 10/31/19 12/03/19 Unknown Rx gabapentin [Neurontin] 300 mg PO TID 30 Days #90 cap 10/31/19 12/03/19 Unknown Rx Lactobacillus rhamnosus GG 1 cap PO DAILY 12/03/19 12/03/19 Unknown History [Culturelle] acetaminophen 650 mg PO QID PRN 12/03/19 12/03/19 Unknown History albuterol sulfate 1 inh INHALATION QID PRN 12/03/19 12/03/19 Unknown History bisacodyl 10 mg MI DAILY PRN 12/03/19 12/03/19 Unknown History furosemide 20 mg PO DAILY 12/03/19 12/03/19 Unknown History magnesium hydroxide [Milk of 30 ml PO DAILY PRN 12/03/19 12/03/19 Unknown History Magnesia] metoprolol tartrate 12.5 mg PO BID 12/03/19 12/03/19 Unknown History potassium chloride 10 meq PO DAILY 12/03/19 12/03/19 Unknown History sodium phosphates [Fleet Enema] 118 ml MI DAILY PRN 12/03/19 12/03/19 Unknown History tamsulosin [Flomax] 0.4 mg PO DAILY 12/03/19 12/03/19 Unknown History Allergies Allergy/AdvReac Type Severity Reaction Status Date / Time No Known Allergies Allergy Verified 10/24/19 13:56 Current Medications Current Medications Generic Name Dose Route Start Last Admin Trade Name Freq PRN Reason Stop Dose Admin Aspirin 81 mg 12/04/19 09:00 12/05/19 08:23 Aspirin Ec PO 81 mg DAILY PHIL Administration Atorvastatin Calcium 40 mg 12/04/19 09:00 12/05/19 08:22 Lipitor PO 40 mg DAILY PHIL Administration Clopidogrel Bisulfate 75 mg 12/04/19 09:00 12/05/19 08:23 Plavix PO 75 mg DAILY PHIL Administration Furosemide 40 mg 12/03/19 20:00 12/05/19 08:23 Lasix IVP 40 mg Q12H PHIL Administration Gabapentin 300 mg 12/03/19 21:00 12/05/19 15:22 Neurontin PO 300 mg TID PHIL Administration Heparin Sodium (Beef Lung) 5,000 unit 12/03/19 20:15 12/05/19 13:28 Heparin SUBCUT Not Given Q8H PHIL Levofloxacin/Dextrose 750 mg in 150 mls @ 100 mls/hr 12/04/19 14:30 12/05/19 15:22 Levaquin-D5w IV 100 mls/hr Q24H PHIL Administration Protocol Metoprolol Tartrate 12.5 mg 12/04/19 09:00 12/05/19 08:23 Lopressor PO 12.5 mg BID PHIL Administration Phenazopyridine HCl 100 mg 12/04/19 01:22 12/04/19 01:55 Pyridium PO 100 mg TID PRN Administration DYSURIA Fluticasone/Salmeterol 1 puff 12/04/19 08:00 12/04/19 19:56 Advair Diskus 250-50 INHALATION 1 puff BID.RESPIRATORY PHIL Administration Tamsulosin HCl 0.4 mg 12/04/19 09:00 12/05/19 08:23 Flomax PO 0.4 mg DAILY PHIL Administration PFSH Acute PFSH: Medical History (Updated 12/05/19 @ 19:22 by Annalise Roblero MD) Acute on chronic systolic heart failure BPH (benign prostatic hyperplasia) -on Flomax CAD (coronary artery disease) CHF (congestive heart failure) Compensated currently. CHF (congestive heart failure) -has chronic systolic CHF, last Echo with reported EF=40% as noted above -can resume low dose lasix, previously held diuretics due to hypotension -BNP >20,000 COPD (chronic obstructive pulmonary disease) -no acute exacerbation -supplemental oxygen as needed; not oxygen dependent at baseline -continue to monitor respiratory status CVA (cerebral vascular accident) -with noted aphasia during last admission which seems to have resolved -on ASA, Plavix -no significant stenosis on carotid US -Echo noted above -had neuroimaging done including CT head and MRI head showing chronic ischemic changes Dementia HTN (hypertension) -was noted to be borderline hypotensive during last admission; ACEi and aldactone discontinued -on BB, titrate as needed -continue to monitor vital signs; normotensive currently Hypercholesteremia -on statin Ischemic cardiomyopathy Neuropathy Non-ST elevation (NSTEMI) myocardial infarction -Noted to have significant troponin elevation with delta greater than 270, no correlating ST changes on ECGs -telemetry monitoring -close monitoring of vital signs -no hx of cath on review of medical record -nuclear stress testing (03/2019): Medium size perfusion abnormality of mid to distal anterior and apical osullivan with mild reversibility in mid anterior wall which is suggestive of old IL in LAD territory with minimal ayah-infarct ischemia. Medium size perfusion abnormality of basal to apical inferolateral and inferior osullivan suggestive of old IL/scarring in the RCA/circumflex artery territory, severe diffuse hypokinesis -Echo (09/2019): EF=40%, G1DD, mild diffuse hypokinesia, mild MR, mild , trace TR, aneurysmal basal to mid inferior wall -on aspirin, statin; off therapeutic anticoagulation -Cardiology evaluation appreciated; medical management Pericardial effusion Recent cerebrovascular accident (CVA) Recent non-ST elevation myocardial infarction Temporal arteritis -resolved after treatment -affected R eye Vascular dementia -waxes and wanes at baseline, easily redirected -off 1:1 monitoring Surgical History H/O hand surgery -left hand, for finger contracture Social History Smoking and tobacco status: never smoked Alcohol intake: never Lives independently: Yes Household members: none Current occupational status: retired Vitals/I&O/Wt Last Vital Signs Temp 97.8 F 12/05/19 12:00 Pulse 84 12/05/19 16:06 Resp 25 H 12/05/19 16:06 BP 104/71 12/05/19 16:06 Pulse Ox 95 12/05/19 12:00 12/05/19 12/05/19 12/05/19 06:59 14:59 22:59 Intake Total 50 / 1340 680 / 680 Output Total 300 / 1140 1060 / 1060 Balance -250 / 200 -380 / -380 Weight last 48 hrs Weight 166 lb 8 oz Weight 163 lb 4.8 oz Weight 163 lb 3.2 oz Laboratory Last Values WBC 19.2 10^3/uL (4.0-10.0) H 12/05/19 03:57 Corrected WBC Cancelled 12/03/19 10:50 RBC 4.01 10^6/uL (4.1-5.3) L 12/05/19 03:57 Hgb 10.8 g/dL (11.7-16.6) L 12/05/19 03:57 Hct 35.2 % (42.0-52.0) L 12/05/19 03:57 MCV 87.8 fL (80-94) 12/05/19 03:57 MCH 26.9 pg (28.0-34.0) L 12/05/19 03:57 MCHC 30.7 g/dL (30.0-36.0) 12/05/19 03:57 RDW 17.7 % (12.1-15.1) H 12/05/19 03:57 Plt Count 412 10^3/cmm (130-400) H 12/05/19 03:57 MPV 11.9 fL (7.4-10.4) H 12/05/19 03:57 Gran % Cancelled 12/03/19 10:50 Neut % (Auto) 55.5 % 12/05/19 03:57 Lymph % (Auto) 6.8 % 12/05/19 03:57 [place] % (Auto) 6.9 % 12/05/19 03:57 Eos % (Auto) 29.7 % 12/05/19 03:57 Baso % (Auto) 0.4 % 12/05/19 03:57 Neut # (Auto) 10.7 10^3/uL (1.8-7.7) H 12/05/19 03:57 Lymph # (Auto) 1.3 10^3/uL (0.8-4.8) 12/05/19 03:57 [place] # (Auto) 1.3 10^3/uL (0.2-0.9) H 12/05/19 03:57 Eos # (Auto) 5.7 10^3/uL (0.0-0.8) H 12/05/19 03:57 Baso # (Auto) 0.1 10^3/uL (0.0-0.1) 12/05/19 03:57 Absolute Gran (auto) Cancelled 12/03/19 10:50 Nucleated RBC % (auto) 0 % 12/05/19 03:57 Nucleated RBCs # 0.0 /100WBC 12/05/19 03:57 Sodium 141 mmol/L (136-145) 12/05/19 03:57 Potassium 3.4 mmol/L (3.5-5.1) L 12/05/19 03:57 Chloride 103 mmol/L (98-107) 12/05/19 03:57 Carbon Dioxide 24 mmol/L (22-29) 12/05/19 03:57 Anion Gap 17.4 (5-19) 12/05/19 03:57 BUN 22 mg/dL (8-23) 12/05/19 03:57 Creatinine 1.4 mg/dL (0.7-1.2) H 12/05/19 03:57 Glucose 97 mg/dL (65-115) 12/05/19 03:57 Calculated Osmolality 289 mOsm/kg (285-295) 12/05/19 03:57 Lactic Acid 1.8 mmol/L (0.5-2.2) 12/03/19 11:30 Calcium 7.9 mg/dL (8.5-10.5) L 12/05/19 03:57 Magnesium 1.9 mg/dL (1.7-2.3) 12/05/19 03:57 Total Bilirubin 0.5 mg/dL (0.15-1.2) 12/05/19 03:57 AST 19 U/L (0-40) 12/05/19 03:57 ALT 25 U/L (0-41) 12/05/19 03:57 Alkaline Phosphatase 104 IU/L (40-130) 12/05/19 03:57 Troponin I 6 Hour 236.5 ng/L (0-15) H 12/04/19 02:00 Troponin I Hi Sens Del -40.5 ng/L (0-12) L 12/04/19 02:00 Troponin T Gen 5 ng/L 286 ng/L (0-15) H* 12/03/19 10:50 Troponin T Baseline 277 ng/L (0-15) H* 12/03/19 20:50 Troponin T 120 Minute 248.0 ng/L (0-15) H 12/03/19 23:00 Delta Troponin T -29.0 ABS# (0-10) L 12/03/19 23:00 NT-Pro-B Natriuret Pep 59339 pg/mL (0-450) H 12/03/19 10:50 Total Protein 5.7 g/dL (6.6-8.7) L 12/05/19 03:57 Albumin 2.6 g/dL (3.5-5.2) L 12/05/19 03:57 Globulin 3.1 g/dL (1.3-4.6) 12/05/19 03:57 Urine Color Yellow (Yellow) 12/03/19 12:15 Urine Appearance Sl cloudy (CLEAR) A 12/03/19 12:15 Urine pH 5 (5-7) 12/03/19 12:15 Ur Specific [place] 1.020 (1.005-1.030) 12/03/19 12:15 Urine Protein 1+ (Negative) H 12/03/19 12:15 Urine Glucose (UA) Norm (Normal) 12/03/19 12:15 Urine Ketones 1+ (Negative) H 12/03/19 12:15 Urine Blood 3+ (Negative) H 12/03/19 12:15 Urine Nitrate Negative (Negative) 12/03/19 12:15 Urine Bilirubin 1+ (NEGATIVE) H 12/03/19 12:15 Urine Urobilinogen Neg mg/dL (Negative) 12/03/19 12:15 Ur Leukocyte Esterase 2+ (Negative) H 12/03/19 12:15 Urine RBC 15-25 /hpf (0-2) H 12/03/19 12:15 Urine WBC >100 /hpf (0-5) H 12/03/19 12:15 Ur Squamous Epith Cells 0-4 (0-5) H 12/03/19 12:15 Amorphous Sediment Not Reportable 12/03/19 12:15 Urine Bacteria 4+ (NONE) H 12/03/19 12:15 Vancomycin Trough 11.8 ug/mL (10-15) 12/04/19 18:20 Nasal/Oral COVID-19 PCR Not detected 12/03/19 14:35 Influenza Type A Ag Negative (Negative) 12/04/19 11:30 Influenza Type B Ag Negative (Negative) 12/04/19 11:30 Physical Exam Narrative: EXAM NARRATIVE: GENERAL: The patient is alert and oriented to person. HEENT: Minimal pallor. No icterus or lymphadenopathy. Oral cavity: There are no mucous membrane lesions. Funduscopic examination: The disk margins appear to be sharp with no exudates or hemorrhages. NECK: Trachea appears to be central. No masses noted. No JVD or thyromegaly appreciated. No carotid bruit. RESPIRATORY: Chest is symmetrical. No intercostals muscle retraction or any accessory muscle activation. There is no chest wall tenderness. Breath sounds are heard bilaterally. Few coarse crackles in the bases. No evidence of any consolidation. BREASTS: Deferred. HEART: The heart sounds are normal. No S3. Short systolic murmur in the left sternal border. No diastolic murmurs. ABDOMEN: Abdomen is slightly distended. Bowel sounds are normally heard. Vague tenderness in the umbilical region : Deferred. RECTAL: Deferred. LYMPHATIC: No lymphadenopathy noted in the neck or groin. EXTREMITIES: 2+ edema both lower extremities. MUSCULOSKELETAL: No acute joint deformities or swelling SKIN: There are no significant scars or skin rash noted. NEUROPSYCHIATRIC: The patient is alert and oriented to person.. Appears to be in a good mood. No focal motor deficits. Data Micro: Micro: Microbiology 12/05/19 03:05 MRSA Culture - Fin al Nose 12/03/19 12:15 Urine Culture - Fi nal Urine,Clean Catch Klebsiella pneu moniae 12/05/19 03:05 Legionella Urinary Antigen - Final Urine,Voided Bacterial Antigens - Final Imaging^: CT Abd/Pel: Radiologist's impression: 1. No obstructing renal or ureteral calculi. No hydronephrosis. 2. Diffuse bladder wall thickening can be seen with chronic cystitis or bladder outlet obstruction. 3. Diffuse enlargement and heterogeneity involving the prostate measuring 6.6 CM. Recommend correlation with PSA and consider prostatitis. 4. Diffuse body wall anasarca and mesenteric edema. 5. Small right pleural effusion with compressive atelectasis in right lung base with air bronchograms. 6. Multiple opacities in both lung bases likely infectious or inflammatory. R ecommend chest CT. 7. Spiculated nodule right lower lobe measuring 10 mm slightly increased since 2018. Recommend further evaluation with chest CT in 6 month follow-up. 8. Gallbladder is contracted with cholelithiasis. Fluid in the gallbladder fossa likely related to hepatic disease. This can be further evaluated with ultrasound. 9. Small pericardial effusion. Echo: I personally reviewed and interpreted this imaging study as follows: My impression: 12/05/2019 dilated left ventricle with severely diminished ejection fraction of 25 to 30%. Wall motion normalities as mentioned above. Mildly dilated right atrium, right ventricle and the left atrium. Minimally thickened aortic and mitral valves. Small pericardial effusion. Compared to the study from 10/02/2019, there is some worsening of the LV systolic function CXR: Radiologist's impression: Lungs: Reticular opacities in the visualized lung bases suggesting interstitial infiltrates versus more chronic atelectasis/fibrosis. Pleural space: Blunting of lateral costophrenic angles consistent with bibasilar pleural effusions. Heart/Mediastinum: Mild cardiomegaly. Bones/joints: Unremarkable. EKG^: EKG 1: My Interpretation: Normal sinus rhythm with poor R wave progression. PVCs. Possible old septal IL. Nonspecific IVCD. A&P Assessment and plan (1) Acute on chronic systolic heart failure: Patient may be continued on the careful diuresis. I also may start him on Entresto 24/26 twice daily and monitor blood pressure closely. Status: Acute (2) Recent non-ST elevation myocardial infarction: May continue on the Plavix, aspirin and statin. Patient requires a c ardiac catheterization, to further evaluate his coronary status. In view of his multiple comorbidities, and especially with the possible acute kidney injury it would be appropriate to hold off on this for the time being. Status: Acute (3) Ischemic cardiomyopathy: Medications as mentioned above. Had an episode of nonsustained ventricular tachycardia on the monitor. He need to be closely monitored on telemetry. May continue on the beta-deb. I may start him on Mag-Tab SR 84 mg twice daily Status: Acute (4) Recent cerebrovascular accident (CVA): Patient had a carotid Doppler examination which did not reveal any signif icant carotid artery disease. May continue on the current measures. Status: Acute (5) Dementia: Management as per the primary. Status: Acute Qualifiers: Dementia behavioral disturbance: with behavioral disturbance Dementia type: vascular dementia Qualified Code(s): F01.51 - Vascular dementia with behavioral disturbance (6) Acute kidney injury: We will carefully monitor the kidney function. May be appropriate to hold off on the diuretics tonight and repeat the BMP in the morning Status: Acute Additional A&P Information His other problems are Possible pneumonia UTI Anemia Diarrhea Peripheral edema Hypoalbuminemia Ventricular arrhythmia Based on the patient's clinical progress, further recommendations will be made. 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
--- NOTE | 2019-12-05 19:21 | P.PN_ITS ---
Subjective Subjective: Interval history: Overall he states that he is feeling somewhat better. Feel leg swelling had gotten slightly better. Denies chest or abdominal pain. Vitals/I&O/Wt Last Vital Signs Temp 97.8 F 12/05/19 12:00 Pulse 90 12/05/19 18:12 Resp 30 H 12/05/19 18:12 BP 101/74 12/05/19 18:12 Pulse Ox 94 12/05/19 18:12 12/05/19 12/05/19 12/05/19 06:59 14:59 22:59 Intake Total 50 / 1340 680 / 680 220 / 900 Output Total 300 / 1140 1060 / 1060 120 / 1180 Balance -250 / 200 -380 / -380 100 / -280 Weight last 48 hrs Weight 75.523 kg Weight 74.072 kg Weight 74.026 kg Physical Exam Const: COMMON NORMALS: no acute distress ORIENTATION/CONSCIOUSNESS: Yes oriented to person and Yes oriented to place (Knows he is in a hospital) HENMT: COMMON NORMALS: oropharynx normal Neck/C-Spine: COMMON NORMALS: no JVD Resp: COMMON NORMALS: normal respiratory effort AUSCULTATION: diminished lung sounds Cardio: COMMON NORMALS: no JVD, regular rhythm, S1 normal heart sound present, S2 normal heart sound present and No murmurs present (Cardio) RHYTHM: regular rhythm HEART SOUNDS: S1 normal heart sound present and S2 normal heart sound present GI: COMMON NORMALS: Normal to inspection, nondistended, normoactive bowel sounds present, Soft to palpation and non-tender PALPATION: Yes Soft to palpation Extremity: COMMON NORMALS: no joint enlargement GENERAL: Yes edema (3+ bilateral LE edema below knees) Neuro: COMMON NORMALS: moves all extremities SENSORIUM/ORIENTATION: Yes oriented to person and Yes oriented to place (Knows he is in a hospital) Skin: COMMON NORMALS: no rashes or lesions noted GENERAL SKIN EXAM: no rashes or lesions noted OTHER: Some chronic stasis changes in LE Data : 12/05/19 03:57 12/05/19 03:57 Micro: Microbiology 12/05/19 03:05 MRSA Culture - Final Nose 12/03/19 12:15 Urine Culture - Final Urine,Clean Catch Klebsiella pneumoniae 12/05/19 03:05 Legionella Urinary Antigen - Final Urine,Voided Bacterial Antigens - Final A&P Assessment and plan (1) Acute kidney injury: Creatinine up to 1.4 today. Previously on bladder scan 75 to 100 mL, without sign of retention. Obtain CT abdomen pelvis due to history of hematuria, currently POOJA, as well as recurrent UTI. No hydronephrosis or signs of obstruction to explain POOJA. May be secondary to diuresis. Discussed with his son that kidney injury in setting of heart failure may portend a worse prognosis. For now diuretics held. Reassess renal function in the morning. Baseline creatinine appears to be somewhere around 1.1-1.2. Creatinine of 1 on presentation may have been falsely low secondary to fluid overload. Status: Acute (2) CHF exacerbation: With peripheral edema, noted abdominal wall edema and mesenteric edema on CT scan. Unfortunately renal function appears to be her due to diuresis. Some of the edema may also be secondary to poor nutritional status, with low albumin, possibly secondary to dementia. Discussed with his son. We will monitor renal function for now. Hold diuretic. In case his condition continues to deteriorate and he is at risk of terminal event, some would like to be notified so he can come stay with his father. He would have to drive down here from [place] which takes about [address] Robelro. Appreciate consultation. Noted worsening of ejection fraction down to 25-30% from prior 40% back in September. If renal function were to stabilize at some point, long-term may benefit from coronary angiography. Monitor I&O. Cardiac diet. Continue CAD medications. No VTE on Doppler ultrasound. Status: Acute (3) Pneumonia: Oxygenation remains good on room air. Persistent leukocytosis. Given recent admission continue with coverage for hospital-acquired pneumonia. Blood cultures collected. Sputum culture requested. Rapid flu negative. Coronavirus negative. Negative MRSA by PCR. Urine bacterial antigens negative. Status: Acute (4) UTI (urinary tract infection): Klebsiella in urine. Continue Levaquin. Noted likely chronic cystitis on CT scan, versus bladder wall thickening due to chronic bladder outlet obstruction. Noted also enlarged prostate, possible prostatitis, versus prostate cancer. Will check PSA. Discussed with his son. He does have BPH, and with some noted blood at the end of urethra on arrival to [facility] on admission. Without recurrence. Monitor I&O. Status: Acute (5) CAD (coronary artery disease): With gradually declining troponin. Suspect this is secondary to his prior HI. No chest pain. Appreciate cardiology consultation. Status: Acute (6) Dementia: Recently progressive dementia per son, with episodes of confusion lasting longer and longer, with patient not able to care for himself at home, and requiring placement to [facility]. His son has power of ambulance driver healthcare paperwork. Patient may get confused sometimes and thus can go home, however, he currently primarily lives at [facility]. Given declining quality of life, as well as underlying medical issues with known CAD, CHF, in case of cardiopulmonary arrest his son would not want extraordinary measures including CPR or intubation as he does not believe his father would want such interventions given the low chance of likely recovery. Otherwise, he is agreeable with other medical interventions that may lead to reasonable recovery. Status: Acute Qualifiers: Dementia type: vascular dementia Dementia behavioral disturbance: with behavioral disturbance Qualified Code(s): F01.51 - Vascular dementia with behavioral disturbance (7) Hematuria: Resolved. Secondary to UTI or traumatic straight catheterization. Monitor for any recurrence or signs of obstruction. Status: Acute (8) BPH (benign prostatic hyperplasia): History of. Status: Acute (9) CKD (chronic kidney disease): History of. Status: Acute Additional A&P Information Noted spiculated 10 mm nodule right lower lobe. Follow-up recommended with CT scan in 6 months. Discussed with patient's son. Cholelithiasis. Small pericardial effusion Anemia Thrombocytosis: Suspected reactive secondary to infection Mild isolated alkaline phosphatase elevation: Minimal. Monitor. Hypoalbuminemia: Suspect may be under nourished, possibly secondary to dementia. Add Ensure shakes to meals. Per son's request touch base again with him on Sunday. Attestations Medical Necessity Statement*: Continue admission for assessment management of UTI, pneumonia, CHF exacerbation in setting of acute kidney injury. Coding Level of Care Code Acute [facility] Binder for [facility] Diagnoses Acute kidney injury N17.9 CHF exacerbation I50.9 Pneumonia J18.9 UTI (urinary tract infection) N39.0 CAD (coronary artery disease) I25.10 Dementia F01.51 Dementia type: vascular dementia Dementia behavioral disturbance: with behavioral disturbance Hematuria R31.9 BPH (benign prostatic hyperplasia) N40.0 CKD (chronic kidney disease) N18.9
[2019-12-05] MEDS: magnesium lactate 84 mg Tablet PO (19:34)
--- NOTE | 2019-12-05 19:54 | USCV_ITS ---
Chapin Govea Age: 79 Gender: M : 1940 Exam Date: 12/05/2019 14:27 Ordering Phys: Subhash Mukherjee MD Technologist: Catarino Trujillo [place] [facility] [place]: LOW EF BP: 92 / 66 HR: Rhythm: Sinus Technical Quality: Good MEASUREMENTS (Male / Female) Normal Values 2D ECHO LV Diastolic Diameter PLAX 5.0 cm 4.2 - 5.9 / 3.9 - 5.3 cm LV Systolic Diameter PLAX 4.6 cm IVS Diastolic Thickness 1.1 cm 0.6 - 1.0 / 0.6 - 0.9 cm IVS Systolic Thickness 0.9 cm LVPW Diastolic Thickness 0.8 cm 0.6 - 1.0 / 0.6 - 0.9 cm LVPW Systolic Thickness 0.9 cm LVOT Diameter 2.0 cm LV Ejection Fraction 2D Teich 17.2 % LV Ejection Fraction MOD 2C 41.4 % LV Ejection Fraction 2C AL 40.6 % LA Diameter 4.6 cm LA Width 4.9 cm LA Height 6.8 cm RA Width 4.0 cm RA Height 6.0 cm M-MODE LV Diastolic Diameter MM 5.8 cm 4.2 - 5.9 / 3.9 - 5.3 cm LV Systolic Diameter MM 5.0 cm LV Ejection Fraction MM Teich 30.2 % IVS Diastolic Thickness MM 1.0 cm 0.6 - 1.0 / 0.6 - 0.9 cm IVS Systolic Thickness MM 1.4 cm LVPW Diastolic Thickness MM 1.1 cm 0.6 - 1.0 / 0.6 - 0.9 cm LVPW Systolic Thickness MM 1.6 cm RV Diastolic Diameter MM 2.6 cm Aortic Annulus Diameter 3.4 cm LA Ao Ratio MM 1.4 MV E Point Septal Separation 1.9 cm FINDINGS Left Ventricle Mildly increased left ventricular cavity size. Diffuse hypokinesia of the left ventricle with ejection fraction around 25 to 30%. Dyskinetic basal inferior wall segment Right Ventricle Mildly increased right ventricular size. Right Atrium Mildly increased right atrial size. Left Atrium Mildly increased left atrial size. Mitral Valve Thickened mitral valve. Aortic Valve Thickened aortic valve. Tricuspid Valve No gross abnormalities noted Pulmonic Valve No gross abnormalities noted Pericardium Small pericardial effusion Aorta Normal aortic annulus size. CONCLUSIONS Dilated left ventricle with severely diminished ejection fraction of 25 to 30%. Wall motion normalities as mentioned above. Mildly dilated right atrium, right ventricle and the left atrium. Minimally thickened aortic and mitral valves. Small pericardial effusion. Compared to the study from 10/02/2019, there is some worsening of the LV systolic function Dr Annalise Roblero MD FAC (Electronically Signed) Final Date: 05 December 2019 17:16 S
--- NOTE | 2019-12-05 20:02 | USCV_ITS ---
Chapin Govea Age: 79 Gender: M : 1940 Exam Date: 12/05/2019 14:35 Ordering Phys: Subhash Mukherjee MD Technologist: Catarino Trujillo Exam Location: [facility] – [place] Indication: BILAT EDEMA HISTORY: Lower extremity swelling. PROCEDURES: The venous duplex Doppler examination of both lower extremities was performed in the standard fashion. The following venous structures were evaluated: common femoral vein, profunda vein, proximal portion of the greater saphenous vein, superficial femoral vein, and the popliteal vein. In addition, the posterior tibial and peroneal trunk were evaluated. Serial compression, augmentation maneuvers, and spectral Doppler flow evaluation were performed. FINDINGS: Normal 2-D Doppler and augmentation and compressibility throughout the lower extremity venous structures. Additional imaging through the proximal calf veins also reveals no thrombus. Limited evaluation of the greater saphenous vein is patent with no thrombus.. The veins were found to be easily compressible with spontaneous blood flow. Non pulsatile flow pattern. CONCLUSIONS No evidence of DVT in the above-mentioned identifiable veins. Dr Annalise Roblero MD [facility] (Electronically Signed) Final Date: 05 December 2019 17:52 S
--- NOTE | 2019-12-05 20:30 | PC.NURSE ---
Received report from YAHAIRA Nunez. Pt sitting on the side of the bed watching tv. See nursing assessment.
[2019-12-06] VITALS (9 sets, daily range): BP systolic 100–121; BP diastolic 68–75; PULSE 82–92; RESP 14–28; TEMP 36.2–36.8; O2SAT 95–98
[2019-12-06] MEDS: heparin 5,000 unit/mL INJ 1 mL 5000 UNIT SUBCUT ×3 (03:41→20:50)
[2019-12-06 04:39] LABS: Basophils # 0.1 10^3/uL (0.0-0.1); Basophils % 0.9 %; Eosinophils # 4.1 10^3/uL (0.0-0.8); Eosinophils % 28.9 %; Hematocrit 35.5 % (42.0-52.0); Hemoglobin 10.6 g/dL (11.7-16.6); Lymphocytes # 1.4 10^3/uL (0.8-4.8); Lymphocytes % 10.2 %; Mean Corpuscular HGB Conc 29.9 g/dL (30.0-36.0); Mean Corpuscular Volume 90.6 fL (80-94); Mean Platelet Volume 11.9 fL (7.4-10.4); Monocytes # 1.4 10^3/uL (0.2-0.9); Monocytes % 9.8 %; Neutrophils % 49.7 %; Nucleated Red Blood Cells % 0 %; Platelet Count 344 10^3/cmm (130-400); Red Blood Count 3.92 10^6/uL (4.1-5.3)
[2019-12-06 05:37] LABS: Alanine Aminotransferase 28 U/L (0-41); Albumin Level 2.8 g/dL (3.5-5.2); Alkaline Phosphatase 104 IU/L (40-130); Anion Gap 16.9 (5-19); Aspartate Amino Transferase 28 U/L (0-40); Blood Urea Nitrogen 26 mg/dL (8-23); Calcium 8.3 mg/dL (8.5-10.5); Carbon Dioxide 22 mmol/L (22-29); Chloride 102 mmol/L (98-107); Globulin 2.6 g/dL (1.3-4.6); Glucose 85 mg/dL (65-115); Osmolality Calculated 280 mOsm/kg (285-295); Potassium 3.9 mmol/L (3.5-5.1); Sodium 137 mmol/L (136-145); Total Bilirubin 0.5 mg/dL (0.15-1.2); Total Protein 5.4 g/dL (6.6-8.7)
--- NOTE | 2019-12-06 08:22 | PM.PN ---
Subjective Subjective: Interval history: Patient denies any chest pain or shortness of breath. No palpitation, dizziness or syncopal episodes. He continues to have the leg swelling. The creatinine today is 1.4 with no significant change. He has 2-3+ edema of the lower extremity. Also had some evidence of bowel edema based on the CT scan. Medications: Reviewed: Yes Medication Review Details: Current Medications Acetaminophen (Tylenol) 650 mg PO Q6H PRN PRN Reason: Mild/Mod Pain Or Temp >/= 101 Acetaminophen (Tylenol) 650 mg PO QID PRN PRN Reason: Pain Albuterol Sulfate (Ventolin) 1 puff INHALATION QID PRN PRN Reason: Shortness Of Breath Aspirin (Aspirin Ec) 81 mg PO DAILY [facility] Last Admin: 12/05/19 08:23 Dose: 81 mg Documented by: Atorvastatin Calcium (Lipitor) 40 mg PO DAILY [facility] Last Admin: 12/05/19 08:22 Dose: 40 mg Documented by: Bisacodyl (Bisac-Evac) 10 mg HI DAILY PRN PRN Reason: Constipation Clopidogrel Bisulfate (Plavix) 75 mg PO DAILY [facility] Last Admin: 12/05/19 08:23 Dose: 75 mg Documented by: Furosemide (Lasix) 40 mg IVP Q12H [facility] Last Admin: 12/05/19 08:23 Dose: 40 mg Documented by: Gabapentin (Neurontin) 300 mg PO TID [facility] Last Admin: 12/05/19 20:07 Dose: 300 mg Documented by: Heparin Sodium (Beef Lung) (Heparin) 5,000 unit SUBCUT Q8H [facility] Last Admin: 12/06/19 03:41 Dose: 5,000 unit Documented by: Levofloxacin/Dextrose (Levaquin-D5w) 750 mg in 150 mls @ 100 mls/hr IV Q24H [facility]; Protocol Last Admin: 12/05/19 15:22 Dose: 100 mls/hr Documented by: Magnesium Lactate (Mag-Tab Sr) 84 mg PO BID [facility] Last Admin: 12/05/19 19:34 Dose: 84 mg Documented by: Metoprolol Tartrate (Lopressor) 12.5 mg PO BID [facility] Last Admin: 12/05/19 18:10 Dose: 12.5 mg Documented by: Ondansetron HCl (Zofran) 4 mg PO Q8H PRN PRN Reason: NAUSEA Phenazopyridine HCl (Pyridium) 100 mg PO TID PRN PRN Reason: DYSURIA Last Admin: 12/04/19 01:55 Dose: 100 mg Documented by: Sacubitril/Valsartan (Entresto 24-26 Mg) 1 each PO BID [facility] Fluticasone/Salmeterol (Advair Diskus 250-50) 1 puff INHALATION BID.RESPIRATORY PHIL Last Admin: 12/05/19 21:19 Dose: 1 puff Documented by: Tamsulosin HCl (Flomax) 0.4 mg PO DAILY [facility] Last Admin: 12/05/19 08:23 Dose: 0.4 mg Documented by: Vitals/I&O/Wt Last Vital Signs Temp 98.3 F 12/06/19 04:00 Pulse 82 12/06/19 04:00 Resp 22 H 12/06/19 04:00 BP 105/68 12/06/19 04:00 Pulse Ox 95 12/06/19 04:00 12/05/19 12/06/19 12/06/19 22:59 06:59 14:59 Intake Total 220 / 900 0 / 900 Output Total 120 / 1180 Balance 100 / -280 0 / -280 Weight last 48 hrs Weight 169 lb 4.8 oz Weight 166 lb 8 oz Physical Exam Narrative: EXAM NARRATIVE: GENERAL: The patient is alert and oriented to person. HEENT: Minimal pallor. No icterus or lymphadenopathy. Oral cavity: There are no mucous membrane lesions. NECK: Trachea appears to be central. No masses noted. No JVD or thyromegaly appreciated. No carotid bruit. RESPIRATORY: Chest is symmetrical. No intercostals muscle retraction or any accessory muscle activation. There is no chest wall tenderness. Breath sounds are heard bilaterally. Few coarse crackles in the bases. No evidence of any consolidation. BREASTS: Deferred. HEART: The heart sounds are normal. No S3. Short systolic murmur in the left sternal border. No diastolic murmurs. ABDOMEN: Abdomen is slightly distended. Bowel sounds are normally heard. Vague tenderness in the umbilical region : Deferred. RECTAL: Deferred. LYMPHATIC: No lymphadenopathy noted in the neck or groin. EXTREMITIES: 2- 3+ edema both lower extremities. MUSCULOSKELETAL: No acute joint deformities or swelling SKIN: There are no significant scars or skin rash noted. NEUROPSYCHIATRIC: The patient is alert and oriented to person.. Appears to be in a good mood. No focal motor deficits. Data : 12/06/19 04:20 12/06/19 04:20 Micro: Laboratory Last Values WBC 14.0 10^3/uL (4.0-10.0) H 12/06/19 04:20 Corrected WBC Cancelled 12/03/19 10:50 RBC 3.92 10^6/uL (4.1-5.3) L 12/06/19 04:20 Hgb 10.6 g/dL (11.7-16.6) L 12/06/19 04:20 Hct 35.5 % (42.0-52.0) L 12/06/19 04:20 MCV 90.6 fL (80-94) 12/06/19 04:20 MCH 27.0 pg (28.0-34.0) L 12/06/19 04:20 MCHC 29.9 g/dL (30.0-36.0) L 12/06/19 04:20 RDW 18.0 % (12.1-15.1) H 12/06/19 04:20 Plt Count 344 10^3/cmm (130-400) 12/06/19 04:20 MPV 11.9 fL (7.4-10.4) H 12/06/19 04:20 Gran % Cancelled 12/03/19 10:50 Neut % (Auto) 49.7 % 12/06/19 04:20 Lymph % (Auto) 10.2 % 12/06/19 04:20 [place] % (Auto) 9.8 % 12/06/19 04:20 Eos % (Auto) 28.9 % 12/06/19 04:20 Baso % (Auto) 0.9 % 12/06/19 04:20 Neut # (Auto) 7.0 10^3/uL (1.8-7.7) 12/06/19 04:20 Lymph # (Auto) 1.4 10^3/uL (0.8-4.8) 12/06/19 04:20 [place] # (Auto) 1.4 10^3/uL (0.2-0.9) H 12/06/19 04:20 Eos # (Auto) 4.1 10^3/uL (0.0-0.8) H 12/06/19 04:20 Baso # (Auto) 0.1 10^3/uL (0.0-0.1) 12/06/19 04:20 Absolute Gran (auto) Cancelled 12/03/19 10:50 Nucleated RBC % (auto) 0 % 12/06/19 04:20 Nucleated RBCs # 0.0 /100WBC 12/06/19 04:20 Sodium 137 mmol/L (136-145) 12/06/19 04:20 Potassium 3.9 mmol/L (3.5-5.1) 12/06/19 04:20 Chloride 102 mmol/L (98-107) 12/06/19 04:20 Carbon Dioxide 22 mmol/L (22-29) 12/06/19 04:20 Anion Gap 16.9 (5-19) 12/06/19 04:20 BUN 26 mg/dL (8-23) H 12/06/19 04:20 Creatinine 1.4 mg/dL (0.7-1.2) H 12/06/19 04:20 Glucose 85 mg/dL (65-115) 12/06/19 04:20 Calculated Osmolality 280 mOsm/kg (285-295) L 12/06/19 04:20 Lactic Acid 1.8 mmol/L (0.5-2.2) 12/03/19 11:30 Calcium 8.3 mg/dL (8.5-10.5) L 12/06/19 04:20 Magnesium 1.9 mg/dL (1.7-2.3) 12/05/19 03:57 Total Bilirubin 0.5 mg/dL (0.15-1.2) 12/06/19 04:20 AST 28 U/L (0-40) 12/06/19 04:20 ALT 28 U/L (0-41) 12/06/19 04:20 Alkaline Phosphatase 104 IU/L (40-130) 12/06/19 04:20 Troponin I 6 Hour 236.5 ng/L (0-15) H 12/04/19 02:00 Troponin I Hi Sens Del -40.5 ng/L (0-12) L 12/04/19 02:00 Troponin T Gen 5 ng/L 286 ng/L (0-15) H* 12/03/19 10:50 Troponin T Baseline 277 ng/L (0-15) H* 12/03/19 20:50 Troponin T 120 Minute 248.0 ng/L (0-15) H 12/03/19 23:00 Delta Troponin T -29.0 ABS# (0-10) L 12/03/19 23:00 NT-Pro-B Natriuret Pep 29886 pg/mL (0-450) H 12/03/19 10:50 Total Protein 5.4 g/dL (6.6-8.7) L 12/06/19 04:20 Albumin 2.8 g/dL (3.5-5.2) L 12/06/19 04:20 Globulin 2.6 g/dL (1.3-4.6) 12/06/19 04:20 Prostate Specific Ag 12.550 ng/mL (0-4) H 12/05/19 03:51 Urine Color Yellow (Yellow) 12/03/19 12:15 Urine Appearance Sl cloudy (CLEAR) A 12/03/19 12:15 Urine pH 5 (5-7) 12/03/19 12:15 Ur Specific [place] 1.020 (1.005-1.030) 12/03/19 12:15 Urine Protein 1+ (Negative) H 12/03/19 12:15 Urine Glucose (UA) Norm (Normal) 12/03/19 12:15 Urine Ketones 1+ (Negative) H 12/03/19 12:15 Urine Blood 3+ (Negative) H 12/03/19 12:15 Urine Nitrate Negative (Negative) 12/03/19 12:15 Urine Bilirubin 1+ (NEGATIVE) H 12/03/19 12:15 Urine Urobilinogen Neg mg/dL (Negative) 12/03/19 12:15 Ur Leukocyte Esterase 2+ (Negative) H 12/03/19 12:15 Urine RBC 15-25 /hpf (0-2) H 12/03/19 12:15 Urine WBC >100 /hpf (0-5) H 12/03/19 12:15 Ur Squamous Epith Cells 0-4 (0-5) H 12/03/19 12:15 Amorphous Sediment Not Reportable 12/03/19 12:15 Urine Bacteria 4+ (NONE) H 12/03/19 12:15 Vancomycin Trough 11.8 ug/mL (10-15) 12/04/19 18:20 Nasal/Oral COVID-19 PCR Not detected 12/03/19 14:35 Influenza Type A Ag Negative (Negative) 12/04/19 11:30 Influenza Type B Ag Negative (Negative) 12/04/19 11:30 Microbiology 12/05/19 03:05 MRSA Culture - Final Nose 12/03/19 12:15 Urine Culture - Final Urine,Clean Catch Klebsiella pneumoniae 12/05/19 03:05 Legionella Urinary Antigen - Final Urine,Voided Bacterial Antigens - Final A&P Assessment and plan (1) Acute on chronic systolic heart failure: I may go ahead and give him Lasix 60 mg every 8 hours. Potassium 20 mEq p.o. every 8 hours. Repeat BMP in the morning. Based on the results, further recommendations will be made. Status: Acute (2) Recent non-ST elevation myocardial infarction: May continue on the Plavix, aspirin and statin. Patient requires a cardiac catheterization, to further evaluate his coronary status. In view of his multiple comorbidities, and especially with the possible acute kidney injury it would be appropriate to hold off on this for the time being. Status: Acute (3) Ischemic cardiomyopathy: Medications as mesntioned above. Had an episode of nonsustained ventricular tachycardia on the monitor. He need to be closely monitored on telemetry. May continue on the beta-deb. I may start him on Mag-Tab SR 84 mg twice daily Status: Acute (4) Recent cerebrovascular accident (CVA): Patient had a carotid Doppler examination which did not reveal any significant carotid artery disease. May continue on the current measures. Status: Acute (5) Dementia: Management as per the primary. Status: Acute Qualifiers: Dementia type: vascular dementia Dementia behavioral disturbance: with behavioral disturbance Qualified Code(s): F01.51 - Vascular dementia with behavioral disturbance (6) Acute kidney injury: Kidney function appears to be stable. Recent vancomycin treatment could be a contributing factor for the acute injury. After appropriately treating the heart failure and the diarrhea, may consider doing a cardiac catheterization, to further evaluate the coronary status. Status: Acute Additional A&P Information His other problems are Possible pneumonia UTI Anemia Diarrhea Peripheral edema Hypoalbuminemia Ventricular arrhythmia Based on the patient's clinical progress, further recommendations will be made. Thank you for the opportunity to eval this patient make these recommendations Attestations Medical Necessity Statement*: Patient requires continued hospital stay for close monitoring and further management Coding Level of Care Code Acute [employer] for [facility] [facility] Diagnoses Acute on chronic systolic heart failure I50.23 Recent non-ST elevation myocardial infarction Ischemic cardiomyopathy I25.5 Recent cerebrovascular accident (CVA) Z86.73 Dementia F01.51 Dementia type: vascular dementia Dementia behavioral disturbance: with behavioral disturbance Acute kidney injury N17.9
--- NOTE | 2019-12-06 09:41 | PC.SOCIAL ---
Pg 2 IMM Explained to pt Pg 2 IMM. Pt verbally understands. Provided pt a copy. Signed, dated, & timed a copy & placed in pt's chart.
[2019-12-06] MEDS: gabapentin 300 mg Capsule PO ×3 (10:07→20:48)
[2019-12-06] MEDS: sacubitril/valsartan 24-26 mg Tablet 1 EACH PO ×2 (10:07→17:43)
[2019-12-06] MEDS: magnesium lactate 84 mg Tablet PO ×2 (10:07→17:43)
[2019-12-06] MEDS: metoprolol tartrate 25 mg Tablet 12.5 MG PO ×2 (10:07→17:43)
[2019-12-06] MEDS: tamsulosin 0.4 mg Capsule PO (10:08)
[2019-12-06] MEDS: aspirin 81 mg EC Tablet PO (10:08)
[2019-12-06] MEDS: atorvastatin 40 mg Tablet PO (10:09)
[2019-12-06] MEDS: clopidogrel 75 mg Tablet PO (10:09)
--- NOTE | 2019-12-06 10:33 | P.PN_ITS ---
Subjective Subjective: Interval history: He states that he is feeling all right. He says that his breathing is not bothering him. The swelling is legs is still there, and has perhaps gotten somewhat worse. He denies drinking excessive amounts of water. Denies any chest or abdominal pain. Vitals/I&O/Wt Last Vital Signs Temp 98.3 F 12/06/19 04:00 Pulse 91 12/06/19 09:55 Resp 18 12/06/19 09:55 BP 105/68 12/06/19 04:00 Pulse Ox 98 12/06/19 09:55 12/05/19 12/06/19 12/06/19 22:59 06:59 14:59 Intake Total 220 / 900 0 / 900 Output Total 120 / 1180 Balance 100 / -280 0 / -280 Weight last 48 hrs Weight 76.793 kg Weight 75.523 kg Physical Exam Const: COMMON NORMALS: no acute distress OTHER: Sitting at the edge of the bed. Appears more energetic. HENMT: COMMON NORMALS: oropharynx normal Neck/C-Spine: COMMON NORMALS: no JVD Resp: COMMON NORMALS: normal respiratory effort and clear to auscultation bilaterally AUSCULTATION: clear to auscultation bilaterally Cardio: COMMON NORMALS: no JVD, regular rhythm, S1 normal heart sound present, S2 normal heart sound present and No murmurs present (Cardio) RHYTHM: regular rhythm HEART SOUNDS: S1 normal heart sound present and S2 normal heart sound present GI: COMMON NORMALS: Normal to inspection, nondistended, normoactive bowel sounds present and non-tender OTHER: Abdomen with some distention, firm to touch, but no rigidity. No pain. Extremity: COMMON NORMALS: no joint enlargement GENERAL: Yes edema (3+ bilateral LE edema below knees) Neuro: COMMON NORMALS: moves all extremities Skin: COMMON NORMALS: no rashes or lesions noted GENERAL SKIN EXAM: no rashes or lesions noted OTHER: Some chronic stasis changes in LE Data : 12/06/19 04:20 12/06/19 04:20 Micro: Microbiology 12/05/19 03:05 MRSA Culture - Final Nose 12/03/19 12:15 Urine Culture - Final Urine,Clean Catch Klebsiella pneumoniae 12/05/19 03:05 Legionella Urinary Antigen - Final Urine,Voided Bacterial Antigens - Final A&P Assessment and plan (1) Acute kidney injury: This appears to stabilize. May have been secondary to combination of vancomycin and Zosyn on presentation. Diuretics were held yesterday, however, with anasarca, with severe lower extremity edema, as well as abdominal wall and mesenteric edema noted on CT. Discussed with him we will need to resume diuretics despite some elevation in creatinine as also discussed with cardiology. Monitor I&O. Given CKD, if inade quate output dose of Lasix may need to be increased further. Creatinine up to 1.4 today. Previously on bladder scan 75 to 100 mL, without sign of retention. Obtain CT abdomen pelvis due to history of hematuria, currently POOJA, as well as recurrent UTI. No hydronephrosis or signs of obstruction to explain POOJA. May be secondary to diuresis. Discussed with his son that kidney injury in setting of heart failure may portend a worse prognosis. Baseline creatinine appears to be somewhere around 1.1-1.2. Creatinine of 1 on presentation may have been falsely low secondary to fluid overload. Status: Acute (2) CHF exacerbation: As above. Will resume diuresis with Lasix at this time. Anasarca. Some of the edema may also be secondary to poor nutritional status, with low albumin, possibly secondary to dementia. We will monitor renal function for now. In case his condition continues to deteriorate and he is at risk of terminal event, son would like to be notified so he can come stay with his father. He wo uld have to drive down here from [place] which takes about [address] Roblero. Appreciate consultation. Noted worsening of ejection fraction down to 25-30% from prior 40% back in September. If renal function were to stabilize at some point, long-term may benefit from coronary angiography. Monitor I&O. Cardiac diet. Continue CAD medications. No VTE on Doppler ultrasound. Status: Acute (3) Pneumonia: Oxygenation remains good on room air. Persistent leukocytosis, but gradually improving. Given recent admission continue with coverage for hospital-acquired pneumonia. Blood cultures collected. Sputum culture requested. Rapid flu negative. Coronavirus negative. Negative MRSA by PCR. Urine bacterial antigens negative. Status: Acute (4) UTI (urinary tract infection): Klebsiella in urine. Continue Levaquin. Noted likely chronic cystitis on CT scan, versus bladder wall thickening due to chronic bladder outlet obstruction. Noted also enlarged prostate, possible prostatitis, versus prostate cancer. PSA elevated at 12.5. Discussed with patient and his son. Will need outpatient follow-up with urology, in about 6 weeks of antibiotics due to prostatitis. He does have BPH, and with some noted blood at the end of urethra on arrival to [facility] on admission. Without recurrence. Monitor I&O. Status: Acute (5) CAD (coronary artery disease): With gradually declining troponin. Suspect this is secondary to his prior [place]. No chest pain. Appreciate cardiology consultation. Status: Acute (6) Dementia: Recently progressive dementia per son, with episodes of confusion lasting longer and longer, with patient not able to care for himself at home, and requiring placement to senior living. His son has power of business attorney healthcare paperwork. Patient may get confused sometimes and thus can go home, however, he currently primarily lives at [facility]. Given declining quality of life, as well as underlying medical issues with known CAD, CHF, in case of cardiopulmonary arrest his son would not want extraordinary measures including CPR or intubation as he does not believe his father would want such interventions given the low chance of likely recovery. Otherwise, he is agreeable with other medical interventions that may lead to reasonable recovery. Status: Acute Qualifiers: Dementia type: vascular dementia Dementia behavioral disturbance: with behavioral disturbance Qualified Code(s): F01.51 - Vascular dementia with beha vioral disturbance (7) Hematuria: Resolved. Secondary to UTI or traumatic straight catheterization. Monitor for any recurrence or signs of obstruction. Status: Acute (8) BPH (benign prostatic hyperplasia): History of. Status: Acute (9) CKD (chronic kidney disease): History of. Status: Acute Additional A&P Information Noted spiculated 10 mm nodule right lower lobe. Follow-up recommended with CT scan in 6 months. Discussed with patient's son. Cholelithiasis. Small pericardial effusion Anemia Thrombocytosis: Suspected reactive secondary to infection Mild isolated alkaline phosphatase elevation: Minimal. Monitor. Hypoalbuminemia: Suspect may be under nourished, possibly secondary to dementia. Add Ensure shakes to meals. Per son's request touch base again with him on Sunday. Attestations Medical Necessity Statement*: Continue admission for assessment of management of acute exacerbation of congestive heart failure, with anasarca, in the setting of acute kidney injury, also with urinary tract infection, pneumonia, with underlying dementia. Coding Level of Care Code Acute Fudge Candy Maker for [facility] Fwd Diagnoses Acute kidney injury N17.9 CHF exacerbation I50.9 Pneumonia J18.9 UTI (urinary tract infection) N39.0 CAD (coronary artery disease) I25.10 Dementia F01.51 Dementia type: vascular dementia Dementia behavioral disturbance: with behavioral disturbance Hematuria R31.9 BPH (benign prostatic hyperplasia) N40.0 CKD (chronic kidney disease) N18.9
[2019-12-06] MEDS: FUROsemide 10 mg/mL SDV 10mL 60 MG IVP ×2 (14:52→20:47)
[2019-12-06] MEDS: potassium chloride ER 10 mEq Tablet 20 MEQ PO ×2 (14:53→20:48)
[2019-12-06] MEDS: levofloxacin-dextrose 5 % 750 MG/150 ML PREMIX 100 MG IV (14:53)
--- NOTE | 2019-12-06 18:10 | PC.NURSE ---
Patient has had several episodes of incontinence of both bowel and bladder due to urgency. We have changed 10 pairs of disposable underwear nad provided perineal care with each episode. Patient is using a bedside commode next to habut is not always able to make a successful transition to commode due to urgency & diarrhea.
--- NOTE | 2019-12-06 20:30 | PC.NURSE ---
Received report from YAHAIRA Nunez. Pt sitting on the side of bed watching tv. Frequest trips to the [facility] for urination and diarrhea. See nursing assessment.
[2019-12-07] VITALS (10 sets, daily range): BP systolic 86–101; BP diastolic 53–64; PULSE 62–89; RESP 18–23; TEMP 36.2–36.8; O2SAT 91–95
--- NOTE | 2019-12-07 01:14 | PC.PHAR ---
RENAL DOSING FOR LEVAQUIN 750 MG Q24H CHANGED TO Q48H DUE TO CRCL OF 42.75
[2019-12-07] MEDS: heparin 5,000 unit/mL INJ 1 mL 5000 UNIT SUBCUT ×3 (04:09→20:53)
[2019-12-07 04:48] LABS: Basophils # 0.1 10^3/uL (0.0-0.1); Basophils % 0.8 %; Eosinophils % 29.4 %; Hematocrit 37.5 % (42.0-52.0); Hemoglobin 11.6 g/dL (11.7-16.6); Lymphocytes # 1.3 10^3/uL (0.8-4.8); Lymphocytes % 9.4 %; Mean Corpuscular HGB Conc 30.9 g/dL (30.0-36.0); Mean Corpuscular Hemoglobin 27.6 pg (28.0-34.0); Mean Corpuscular Volume 89.3 fL (80-94); Mean Platelet Volume 11.9 fL (7.4-10.4); Monocytes # 1.1 10^3/uL (0.2-0.9); Monocytes % 8.2 %; Neutrophils # 6.9 10^3/uL (1.8-7.7); Neutrophils % 51.2 %; Nucleated Red Blood Cells % 0 %; Platelet Count 360 10^3/cmm (130-400); Red Cell Distribution Width 18.1 % (12.1-15.1); White Blood Count 13.5 10^3/uL (4.0-10.0)
[2019-12-07 05:16] LABS: Anion Gap 18.9 (5-19); Blood Urea Nitrogen 26 mg/dL (8-23); Calcium 8.2 mg/dL (8.5-10.5); Carbon Dioxide 24 mmol/L (22-29); Chloride 101 mmol/L (98-107); Glucose 95 mg/dL (65-115); Osmolality Calculated 287 mOsm/kg (285-295); Potassium 3.9 mmol/L (3.5-5.1); Sodium 140 mmol/L (136-145)
[2019-12-07] MEDS: FUROsemide 10 mg/mL SDV 10mL 60 MG IVP ×3 (06:12→20:53)
[2019-12-07] MEDS: gabapentin 300 mg Capsule PO ×3 (08:55→20:52)
[2019-12-07] MEDS: clopidogrel 75 mg Tablet PO (08:55)
[2019-12-07] MEDS: magnesium lactate 84 mg Tablet PO ×2 (08:55→17:12)
[2019-12-07] MEDS: sacubitril/valsartan 24-26 mg Tablet 1 EACH PO ×2 (08:55→17:12)
[2019-12-07] MEDS: metoprolol tartrate 25 mg Tablet 12.5 MG PO ×2 (08:55→17:12)
[2019-12-07] MEDS: atorvastatin 40 mg Tablet PO (08:56)
[2019-12-07] MEDS: potassium chloride ER 10 mEq Tablet 20 MEQ PO ×3 (08:56→20:52)
[2019-12-07] MEDS: aspirin 81 mg EC Tablet PO (08:56)
[2019-12-07] MEDS: tamsulosin 0.4 mg Capsule PO (08:56)
--- NOTE | 2019-12-07 10:05 | PM.PN ---
Subjective Subjective: Interval history: Patient seems to be doing okay. He has been supported with IV Lasix appropriately. He has no chest pain or palpitations. No dizziness or syncopal episode. He continues to have an elevated white cell count and diarrhea. His BUN and creatinine slowly going up. Does not have any significant shortness of breath at this time. No fever, chills or cough. No other specific complaints. Medications: Reviewed: Yes Medication Review Details: Current Medications Acetaminophen (Tylenol) 650 mg PO Q6H PRN PRN Reason: Mild/Mod Pain Or Temp >/= 101 Acetaminophen (Tylenol) 650 mg PO QID PRN PRN Reason: Pain Albuterol Sulfate (Ventolin) 1 puff INHALATION QID PRN PRN Reason: Shortness Of Breath Aspirin (Aspirin Ec) 81 mg PO DAILY [facility] Last Admin: 12/07/19 08:56 Dose: 81 mg Documented by: Atorvastatin Calcium (Lipitor) 40 mg PO DAILY [facility] Last Admin: 12/07/19 08:56 Dose: 40 mg Documented by: Bisacodyl (Bisac-Evac) 10 mg SC DAILY PRN PRN Reason: Constipation Clopidogrel Bisulfate (Plavix) 75 mg PO DAILY [facility] Last Admin: 12/07/19 08:55 Dose: 75 mg Documented by: Furosemide (Lasix) 60 mg IVP Q8H [facility] Last Admin: 12/07/19 13:53 Dose: 60 mg Documented by: Gabapentin (Neurontin) 300 mg PO TID [facility] Last Admin: 12/07/19 16:04 Dose: 300 mg Documented by: Heparin Sodium (Beef Lung) (Heparin) 5,000 unit SUBCUT Q8H [facility] Last Admin: 12/07/19 11:55 Dose: 5,000 unit Documented by: Levofloxacin/Dextrose (Levaquin-D5w) 750 mg in 150 mls @ 100 mls/hr IV Q48H [facility]; Protocol Loperamide HCl (Imodium Capsule) 2 mg PO QID PRN PRN Reason: DIARRHEA Magnesium Lactate (Mag-Tab Sr) 84 mg PO BID [facility] Last Admin: 12/07/19 08:55 Dose: 84 mg Documented by: Metoprolol Tartrate (Lopressor) 12.5 mg PO BID [facility] Last Admin: 12/07/19 08:55 Dose: 12.5 mg Documented by: Ondansetron HCl (Zofran) 4 mg PO Q8H PRN PRN Reason: NAUSEA Phenazopyridine HCl (Pyridium) 100 mg PO TID PRN PRN Reason: DYSURIA Last Admin: 12/04/19 01:55 Dose: 100 mg Documented by: Potassium Chloride (Klor-Con 10) 20 meq PO TID [facility] Last Admin: 12/07/19 16:03 Dose: 20 meq Documented by: Sacubitril/Valsartan (Entresto 24-26 Mg) 1 each PO BID [facility] Last Admin: 12/07/19 08:55 Dose: 1 each Documented by: Fluticasone/Salmeterol (Advair Diskus 250-50) 1 puff INHALATION BID.RESPIRATORY [facility] Last Admin: 12/07/19 07:30 Dose: 1 puff Documented by: Tamsulosin HCl (Flomax) 0.4 mg PO DAILY [facility] Last Admin: 12/07/19 08:56 Dose: 0.4 mg Documented by: Vitals/I&O/Wt Last Vital Signs Temp 98.1 F 12/07/19 07:57 Pulse 80 12/07/19 07:57 Resp 18 12/07/19 07:57 BP 101/64 12/07/19 07:57 Pulse Ox 94 12/07/19 07:57 12/06/19 12/07/19 12/07/19 22:59 06:59 14:59 Intake Total 120 / 880 100 / 980 Output Total 300 / 880 600 / 1480 500 / 500 Balance -180 / 0 -500 / -500 -500 / -500 Weight last 48 hrs Weight 169 lb Weight 169 lb 4.8 oz Physical Exam Narrative: EXAM NARRATIVE: GENERAL: The patient is alert and oriented to person. Has dementia with intermittent confusion . HEENT: Minimal pallor. No icterus or lymphadenopathy. Oral cavity: There are no mucous membrane lesions. NECK: Trachea appears to be central. No masses noted. No JVD or thyromegaly appreciated. No carotid bruit. RESPIRATORY: Chest is symmetrical. No intercostals muscle retraction or any accessory muscle activation. There is no chest wall tenderness. Breath sounds are heard bilaterally. No evidence of any consolidation. BREASTS: Deferred. HEART: The heart sounds are normal. No S3. Short systolic murmur in the left sternal border. No diastolic murmurs. ABDOMEN: Abdomen is slightly distended. Bowel sounds are normally heard. Vague tenderness in the umbilical region : Deferred. RECTAL: Deferred. LYMPHATIC: No lymphadenopathy noted in the neck or groin. EXTREMITIES: 1-2+ edema both lower extremities. MUSCULOSKELETAL: No acute joint deformities or swelling SKIN: There are no significant scars or skin rash noted. NEUROPSYCHIATRIC: The patient is alert and oriented to person.. Appears to be in a good mood. No focal motor deficits. Data : 12/07/19 04:24 12/07/19 04:24 A&P Assessment and plan (1) Acute on chronic systolic heart failure: Patient is responding to the IV Lasix appropriately. I may cut back the Lasix dose to 60 mg every 12 hours. Repeat the BMP in the morning. Status: Acute (2) Recent non-ST elevation myocardial infarction: May continue on the Plavix, aspirin and statin. Patient requires a cardiac catheterization, to further evaluate his coronary status. However in view of his ongoing diarrhea, elevated white cell count, chronic kidney disease and altered mental status, it may be appropriate to hold off on this for the time being. Status: Acute (3) Ischemic cardiomyopathy: Medications as mesntioned above. Had an episode of nonsustained ventricular tachycardia on the monitor. He need to be closely monitored on telemetry. May continue on the beta-deb. I may start him on Mag-Tab SR 84 mg twice daily. Status: Acute (4) Recent cerebrovascular accident (CVA): Patient had a carotid Doppler examination which did not reveal any significant carotid artery disease. May continue on the current measures. Status: Acute (5) Dementia: Management as per the primary. Status: Acute Qualifiers: Dementia type: vascular dementia Dementia behavioral disturbance: with behavioral disturbance Qualified Code(s): F01.51 - Vascular dementia with behavioral disturbance (6) Acute kidney injury: The creatinine seems to be slowly going up with the diuresis. Recent vancomycin treatment could be a contributing factor for the acute injury. May continue on the current measures. We will be closely monitoring the kidney function Status: Acute Additional A&P Information His other problems are Possible pneumonia-remains afebrile UTI Anemia-stable Diarrhea-ongoing Peripheral edema-improving Hypoalbuminemia Ventricular arrhythmia-stable I had a long discussion with his son Avel Govea, who is out of state and has the power of electronic publishing specialist. Patient's current medical condition was explained in detail. In view of the patient's multiple comorbidities and the possibility of developing contrast-induced nephropathy, it was decided to hold off on cardiac catheterization at this point. I also discussed about prophylactic ICD. Patient apparently does not want to be on any life support measures. So it was decided to continue optimizing the medical treatment, at this point. This discussion was understood well by his son. There were no further questions. Attestations Medical Necessity Statement*: Defer to the primary Coding Level of Care Code Acute Client Experience Specialist for [employer] Fwd Diagnoses Acute on chronic systolic heart failure I50.23 Recent non-ST elevation myocardial infarction Ischemic cardiomyopathy I25.5 Recent cerebrovascular accident (CVA) Z86.73 Dementia F01.51 Dementia type: vascular dementia Dementia behavioral disturbance: with behavioral disturbance Acute kidney injury N17.9
--- NOTE | 2019-12-07 14:00 | PM.PN ---
Subjective Subjective: Interval history: Complaining of some dysuria. Diarrhea persists. Vitals/I&O/Wt Last Vital Signs Temp 97.7 F 12/07/19 11:22 Pulse 76 12/07/19 11:22 Resp 18 12/07/19 11:22 BP 99/62 12/07/19 11:22 Pulse Ox 94 12/07/19 11:22 12/06/19 12/07/19 12/07/19 22:59 06:59 14:59 Intake Total 120 / 880 100 / 980 360 / 360 Output Total 300 / 880 600 / 1480 750 / 750 Balance -180 / 0 -500 / -500 -390 / -390 Weight last 48 hrs Weight 76.657 kg Weight 76.793 kg Physical Exam Const: COMMON NORMALS: no acute distress and patient oriented x3 ORIENTATION/CONSCIOUSNESS: Yes oriented to person and Yes oriented to place (Knows he is in a hospital) OTHER: Sitting at the edge of the bed. Appears more energetic. HENMT: COMMON NORMALS: oropharynx normal Neck/C-Spine: COMMON NORMALS: no JVD Resp: COMMON NORMALS: normal respiratory effort and clear to auscultation bilaterally AUSCULTATION: clear to auscultation bilaterally Cardio: COMMON NORMALS: no JVD, regular rhythm, S1 normal heart sound present, S2 normal heart sound present and No murmurs present (Cardio) RHYTHM: regular rhythm HEART SOUNDS: S1 normal heart sound present and S2 normal heart sound present GI: COMMON NORMALS: Normal to inspection, nondistended, normoactive bowel sounds present, Soft to palpation and non-tender PALPATION: Yes Soft to palpation OTHER: Abdomen with some distention, firm to touch, but no rigidity. No pain. Extremity: COMMON NORMALS: no joint enlargement and no pedal edema GENERAL: Yes edema (3+ bilateral LE edema below knees) Neuro: COMMON NORMALS: patient oriented x3 and moves all extremities SENSORIUM/ORIENTATION: Yes oriented to person and Yes oriented to place (Knows he is in a hospital) Skin: COMMON NORMALS: no rashes or lesions noted GENERAL SKIN EXAM: no rashes or lesions noted OTHER: Some chronic stasis changes in LE Data : 12/07/19 04:24 12/07/19 04:24 A&P Assessment and plan (1) Acute kidney injury: Appears to have stabilized, although creatinine slightly worse today at 1.5. Does produce good urine output with diuresis. Given anasarca, with edema of lower extremities, abdominal wall, mesentery, continue with diuresis at this time. Monitor I&O. Given CKD, if inadequate output dose of Lasix was increased further by cardiology. Monitor for any signs of urinary retention. Previously on bladder scan 75 to [address] abdomen pelvis due to history of hematuria - no hydronephrosis or signs of obstruction to explain POOJA. Possible injury from combination vancomycin and Zosin earlier. Baseline creatinine appears to be somewhere around 1.1-1.2. Creatinine of 1 on presentation may have been falsely low secondary to fluid overload. Status: Acute (2) CHF exacerbation: -1L balance. Continue diuresis for anasarca. Monitor I&O, renal function. Some of the edema may also be secondary to poor nutritional status, with low albumin, possibly secondary to dementia. In case his condition continues to deteriorate and he is at risk of terminal event, son would like to be notified so he can come stay with his father. He would have to drive down here from [place] which takes about 11 hours. Appreciate cardiology consultation. Noted worsening of ejection fraction down to 25-30% from prior 40% back in September. If renal function were to stabilize, would benefit from coronary angiography. Cardiac diet. Continue CAD medications. No VTE on Doppler ultrasound. Status: Acute (3) Pneumonia: Improving. Oxygenation remains good on room air. Persistent leukocytosis, but gradually improving. Given recent admission continue with coverage for hospital-acquired pneumonia. Blood cultures. Sputum culture requested. No sample. Rapid flu negative. Coronavirus negative. Negative MRSA by PCR. Urine bacterial antigens negative. Status: Acute (4) UTI (urinary tract infection): Klebsiella in urine. Continue Levaquin. Noted likely chronic cystitis on CT scan, versus bladder wall thickening due to chronic bladder outlet obstruction. Noted also enlarged prostate, possible prostatitis, versus prostate cancer. PSA elevated at 12.5. Discussed with patient and his son. Will need outpatient follow-up with urology, in about 6 weeks of antibiotics due to prostatitis. He does have BPH, and with some noted blood at the end of urethra on arrival to [facility] on admission. Without recurrence. Monitor I&O. Continue Flomax. Status: Acute (5) CAD (coronary artery disease): With gradually declining troponin. Suspect this is secondary to his prior [place]. No chest pain. Would benefit from coronary angiography. Appreciate cardiology consultation. Status: Acute (6) Diarrhea: Persistent diarrhe. On 11/27 C diff was negative at DC. Seems stool was also tested on 10/26 with negative C. difficile and enteric pathogens. We will request O&P. Switch diet to lactose-free at this time. Imodium as needed. May need additional evaluation as this appears to be a chronic diarrhea. Status: Acute (7) Dementia: Recently progressive dementia per son, with episodes of confusion lasting longer and longer, with patient not able to care for himself at home, and requiring placement to jail. His son has power of consumer attorney healthcare paperwork. Patient may get confused sometimes and thus can go home, however, he currently primarily lives at [facility]. Given declining quality of life, as well as underlying medical issues with known CAD, CHF, in case of cardiopulmonary arrest his son would not want extraordinary measures including CPR or intubation as he does not believe his father would want such interventions given the low chance of likely recovery. Otherwise, he is agreeable with other medical interventions that may lead to reasonable recovery. Status: Acute Qualifiers: Dementia type: vascular dementia Dementia behavioral disturbance: with behavioral disturbance Qualified Code(s): F01.51 - Vascular dementia with behavioral disturbance (8) Hematuria: Resolved. Secondary to UTI or traumatic straight catheterization. Monitor for any recurrence or signs of obstruction. Status: Acute (9) BPH (benign prostatic hyperplasia): History of. Status: Acute (10) CKD (chronic kidney disease): History of. Status: Acute (11) Lung nodule: Noted spiculated 10 mm nodule right lower lobe. Follow-up recommended with CT scan in 6 months. Discussed with patient's son. Status: Acute Additional A&P Information Cholelithiasis. Small pericardial effusion Anemia Thrombocytosis: Suspected reactive secondary to infection Mild isolated alkaline phosphatase elevation: Minimal. Resolved. Hypoalbuminemia: Suspect may be under nourished, possibly secondary to dementia. Add Ensure shakes to meals. Could not reach son for update on Sunday. Attestations Medical Necessity Statement*: Continue admission for assessment of management of CHF exacerbation, in setting of POOJA on CKD, UTI, prostatitis, pneumonia, diarrhea. Coding Level of Care Code Acute Bsa Officer for [facility] Fwd Diagnoses Acute kidney injury N17.9 CHF exacerbation I50.9 Pneumonia J18.9 UTI (urinary tract infection) N39.0 CAD (coronary artery disease) I25.10 Diarrhea R19.7 Dementia F01.51 Dementia type: vascular dementia Dementia behavioral disturbance: with behavioral disturbance Hematuria R31.9 BPH (benign prostatic hyperplasia) N40.0 CKD (chronic kidney disease) N18.9 Lung nodule R91.1
[2019-12-07] MEDS: loperamide 2 mg Capsule PO (17:14)
[2019-12-08] VITALS (7 sets, daily range): BP systolic 95–115; BP diastolic 53–68; PULSE 76–88; RESP 16–18; TEMP 36–36.5; O2SAT 93–95
[2019-12-08 04:15] LABS: Anion Gap 16.2 (5-19); Blood Urea Nitrogen 25 mg/dL (8-23); Calcium 8.4 mg/dL (8.5-10.5); Carbon Dioxide 27 mmol/L (22-29); Chloride 100 mmol/L (98-107); Glucose 92 mg/dL (65-115); Osmolality Calculated 284 mOsm/kg (285-295); Potassium 4.2 mmol/L (3.5-5.1); Sodium 139 mmol/L (136-145)
[2019-12-08] MEDS: FUROsemide 10 mg/mL SDV 10mL 60 MG IVP ×3 (05:01→20:51)
[2019-12-08] MEDS: heparin 5,000 unit/mL INJ 1 mL 5000 UNIT SUBCUT ×3 (05:04→20:51)
[2019-12-08 07:21] LABS: Basophils # 0.3 10^3/uL (0.0-0.1); Basophils % 1.4 %; Eosinophils # 11.3 10^3/uL (0.0-0.8); Hematocrit 39.7 % (42.0-52.0); Hemoglobin 12.3 g/dL (11.7-16.6); Lymphocytes # 1.6 10^3/uL (0.8-4.8); Lymphocytes % 7.6 %; Mean Corpuscular Hemoglobin 26.9 pg (28.0-34.0); Mean Corpuscular Volume 86.7 fL (80-94); Mean Platelet Volume 11.9 fL (7.4-10.4); Monocytes # 1.3 10^3/uL (0.2-0.9); Monocytes % 6.3 %; Neutrophils # 6.6 10^3/uL (1.8-7.7); Nucleated Red Blood Cells % 0 %; Platelet Count 388 10^3/cmm (130-400); Red Blood Count 4.58 10^6/uL (4.1-5.3); Red Cell Distribution Width 18.1 % (12.1-15.1); White Blood Count 21.4 10^3/uL (4.0-10.0)
[2019-12-08] MEDS: sacubitril/valsartan 24-26 mg Tablet 1 EACH PO ×2 (08:03→17:03)
[2019-12-08] MEDS: aspirin 81 mg EC Tablet PO (08:03)
[2019-12-08] MEDS: clopidogrel 75 mg Tablet PO (08:04)
[2019-12-08] MEDS: metoprolol tartrate 25 mg Tablet 12.5 MG PO ×2 (08:04→17:03)
[2019-12-08] MEDS: atorvastatin 40 mg Tablet PO (08:04)
[2019-12-08] MEDS: magnesium lactate 84 mg Tablet PO ×2 (08:04→17:03)
[2019-12-08] MEDS: potassium chloride ER 10 mEq Tablet 20 MEQ PO ×3 (08:04→20:49)
[2019-12-08] MEDS: gabapentin 300 mg Capsule PO ×3 (08:04→20:49)
[2019-12-08] MEDS: tamsulosin 0.4 mg Capsule PO (08:04)
[2019-12-08 09:50] LABS: LAB Peripheral Smear Sent for Review
--- NOTE | 2019-12-08 11:06 | PC.SOCIAL ---
IMM Updated Updated pt on Pg 2 IMM. Pt verbally understands. No questions voiced. Provided pt a copy & left on pt's bedside table. Signed, dated, & timed copy in chart.
[2019-12-08] MEDS: loperamide 2 mg Capsule PO (13:14)
[2019-12-08] MEDS: levofloxacin-dextrose 5 % 750 MG/150 ML PREMIX 100 MG IV (14:13)
--- NOTE | 2019-12-08 15:22 | PC.RESP ---
Pulmonary Rehab information sent to patient.
--- NOTE | 2019-12-08 16:12 | PM.PN ---
Subjective Subjective: Interval history: This morning patient has no significant complaints except getting up multiple times throughout the middle the night to urinate, states that his breathing has improved, no chest pain, shortness of breath, is wondering when he will go back to the [facility], has no other complaints, is -5.5 L since admission Vitals/I&O/Wt Last Vital Signs Temp 96.8 F L 12/08/19 16:00 Pulse 85 12/08/19 16:00 Resp 18 12/08/19 16:00 BP 102/68 12/08/19 16:00 Pulse Ox 95 12/08/19 16:00 12/08/19 12/08/19 12/08/19 06:59 14:59 22:59 Intake Total 400 / 880 600 / 600 Output Total 1950 / 5150 1100 / 1100 750 / 1850 Balance -1550 / -4270 -500 / -500 -750 / -1250 Weight last 48 hrs Weight 69.672 kg Weight 76.657 kg Physical Exam Const: COMMON NORMALS: no acute distress and alert GENERAL APPEARANCE: cooperative ORIENTATION/CONSCIOUSNESS: Yes oriented to person and Yes oriented to place HENMT: COMMON NORMALS: normocephalic HEAD & SCALP: normocephalic Neck/C-Spine: COMMON NORMALS: no JVD Resp: COMMON NORMALS: normal respiratory effort, No retractions, No use of accessory muscles and clear to auscultation bilaterally AUSCULTATION: clear to auscultation bilaterally Cardio: COMMON NORMALS: no JVD, regular rate, regular rhythm, S1 normal heart sound present and S2 normal heart sound present RATE: regular rate RHYTHM: regular rhythm HEART SOUNDS: S1 normal heart sound present and S2 normal heart sound present GI: COMMON NORMALS: Normal to inspection, nondistended, normoactive bowel sounds present, Soft to palpation, non-tender, No hepatosplenomegaly present, no masses and no bruits PALPATION: Yes Soft to palpation and Yes No hepatosplenomegaly present Extremity: COMMON NORMALS: capillary refill normal, no clubbing, cyanosis or edema, no calf tenderness and no pedal edema Neuro: SENSORIUM/ORIENTATION: Yes alert, Yes oriented to person and Yes oriented to place Data : 12/08/19 07:14 12/08/19 03:36 Micro: Microbiology 12/08/19 05:25 Parasite Antigen Panel - Final Stool Routine Collection 12/03/19 10:50 Blood Culture - Final Blood NO GROWTH AFTER 5 DAYS 12/03/19 11:30 Blood Culture - Final Blood NO GROWTH AFTER 5 DAYS A&P Assessment and plan (1) Acute kidney injury: Appears to have stabilized, creatinine 1.5. Does produce good urine output with diuresis. Given anasarca, with edema of lower extremities, abdominal wall, mesentery, continue with diuresis at this time. Monitor I&O. Given CKD, if inadequate output dose of Lasix was increased further by cardiology. Monitor for any signs of urinary retention. Previously on bladder scan [address] abdomen pelvis due to history of hematuria - no hydronephrosis or signs of obstruction to explain POOJA. Possible injury from combination vancomycin and Zosin earlier. Baseline creatinine appears to be somewhere around 1.1-1.2. Creatinine of 1 on presentation may have been falsely low secondary to fluid overload. Status: Acute (2) CHF exacerbation: -5.5L balance. Continue diuresis for anasarca. Monitor I&O, renal function. Some of the edema may also be secondary to poor nutritional status, with low albumin, possibly secondary to dementia. In case his condition continues to deteriorate and he is at risk of terminal event, son would like to be notified so he can come stay with his father. He would have to drive down here from [place] which takes about 11 hours. Appreciate cardiology consultation. Noted worsening of ejection fraction down to 25-30% from prior 40% back in September. If renal function were to stabilize, would benefit from coronary angiography. Cardiac diet. Continue CAD medications. No VTE on Doppler ultrasound. Status: Acute (3) Pneumonia: Improving. Oxygenation remains good on room air. Persistent leukocytosis, but gradually improving. Given recent admission continue with coverage for hospital-acquired pneumonia. Blood cultures unremarkable. Sputum culture requested. No sample. Rapid flu negative. Coronavirus negative. Negative MRSA by PCR. Urine bacterial antigens negative. Status: Acute (4) UTI (urinary tract infection): Klebsiella in urine. Continue Levaquin. Noted likely chronic cystitis on CT scan, versus bladder wall thickening due to chronic bladder outlet obstruction. Noted also enlarged prostate, possible prostatitis, versus prostate cancer. PSA elevated at 12.5. Discussed with patient and his son. Will need outpatient follow-up with urology, in about 6 weeks of antibiotics due to prostatitis. He does have BPH, and with some noted blood at the end of urethra on arrival to [facility] on admission. Without recurrence. Monitor I&O. Continue Flomax. Status: Acute (5) CAD (coronary artery disease): With gradually declining troponin. Suspect this is secondary to his prior [place]. No chest pain. Would benefit from coronary angiography. Appreciate cardiology consultation. Status: Acute (6) Diarrhea: Persistent diarrhe. On 11/27 C diff was negative at [facility]. Seems stool was also tested on 10/26 with negative C. difficile and enteric pathogens. We will request O&P. Switch diet to lactose-free at this time. Imodium as needed. May need additional evaluation as this appears to be a chronic diarrhea. Status: Acute (7) Dementia: Recently progressive dementia per son, with episodes of confusion lasting longer and longer, with patient not able to care for himself at home, and requiring placement to [facility]. His son has power of deputy commonwealth's attorney healthcare paperwork. Patient may get confused sometimes and thus can go home, however, he currently primarily lives at [facility]. Given declining quality of life, as well as underlying medical issues with known CAD, CHF, in case of cardiopulmonary arrest his son would not want extraordinary measures including CPR or intubation as he does not believe his father would want such interventions given the low chance of likely recovery. Otherwise, he is agreeable with other medical interventions that may lead to reasonable recovery. Status: Acute Qualifiers: Dementia type: vascular dementia Dementia behavioral disturbance: with behavioral disturbance Qualified Code(s): F01.51 - Vascular dementia with behavioral disturbance (8) Hematuria: Resolved. Secondary to UTI or traumatic straight catheterization. Monitor for any recurrence or signs of obstruction. Status: Acute (9) BPH (benign prostatic hyperplasia): History of. Status: Acute (10) CKD (chronic kidney disease): History of. Status: Acute (11) Lung nodule: Noted spiculated 10 mm nodule right lower lobe. Follow-up recommended with CT scan in 6 months. Discussed with patient's son. Status: Acute Additional A&P Information Cholelithiasis. Small pericardial effusion Anemia Thrombocytosis: Suspected reactive secondary to infection Mild isolated alkaline phosphatase elevation: Minimal. Resolved. Hypoalbuminemia: Suspect may be under nourished, possibly secondary to dementia. Add Ensure shakes to meals. Could not reach son for update on Sunday. Attestations Medical Necessity Statement*: Patient requires continued hospitalization due to CHF exacerbation Coding Level of Care Code Acute Fig Bar Machine Operator for g Fwd Diagnoses Acute kidney injury N17.9 CHF exacerbation I50.9 Pneumonia J18.9 UTI (urinary tract infection) N39.0 CAD (coronary artery disease) I25.10 Diarrhea R19.7 Dementia F01.51 Dementia type: vascular dementia Dementia behavioral disturbance: with behavioral disturbance Hematuria R31.9 BPH (benign prostatic hyperplasia) N40.0 CKD (chronic kidney disease) N18.9 Lung nodule R91.1
--- NOTE | 2019-12-08 18:32 | PC.NURSE ---
Patient still on Fluid restriction at this time and continues to need to use BSC every 15 minutes to urinate. Patient forgets limitations at times and alarm is set to help prevent falls.
--- NOTE | 2019-12-08 18:34 | PC.NURSE ---
Patient has been compliant with cares and medications so far this shift.
--- NOTE | 2019-12-08 18:35 | PC.NURSE ---
Patient did have episodes of loose stools earlier this shift and PRN order of Imodium was given per orders. Patient does have frequent urgencies to use BSC and requires staff assistance. Patients briefs have been changed 3 times so far this shift.
--- NOTE | 2019-12-08 20:08 | PM.PN ---
Subjective Subjective: Interval history: Patient is feeling okay. He continues to have the diarrhea. The BUN/creatinine seems to be stable. His white cell count is going up. Denies any chest pain or shortness of breath. No new arrhythmias on the monitor. Medications: Reviewed: Yes Medication Review Details: Current Medications Acetaminophen (Tylenol) 650 mg PO Q6H PRN PRN Reason: Mild/Mod Pain Or Temp >/= 101 Acetaminophen (Tylenol) 650 mg PO QID PRN PRN Reason: Pain Albuterol Sulfate (Ventolin) 1 puff INHALATION QID PRN PRN Reason: Shortness Of Breath Aspirin (Aspirin Ec) 81 mg PO DAILY [facility] Last Admin: 12/08/19 08:03 Dose: 81 mg Documented by: Atorvastatin Calcium (Lipitor) 40 mg PO DAILY [facility] Last Admin: 12/08/19 08:04 Dose: 40 mg Documented by: Bisacodyl (Bisac-Evac) 10 mg [place] DAILY PRN PRN Reason: Constipation Clopidogrel Bisulfate (Plavix) 75 mg PO DAILY [facility] Last Admin: 12/08/19 08:04 Dose: 75 mg Documented by: Furosemide (Lasix) 60 mg IVP Q8H [facility] Last Admin: 12/08/19 12:19 Dose: 60 mg Documented by: Gabapentin (Neurontin) 300 mg PO TID [facility] Last Admin: 12/08/19 14:13 Dose: 300 mg Documented by: Heparin Sodium (Beef Lung) (Heparin) 5,000 unit SUBCUT Q8H [facility] Last Admin: 12/08/19 11:49 Dose: 5,000 unit Documented by: Levofloxacin (Levaquin) 750 mg PO Q48H [facility]; Protocol Loperamide HCl (Imodium Capsule) 2 mg PO QID PRN PRN Reason: DIARRHEA Last Admin: 12/08/19 13:14 Dose: 2 mg Documented by: Magnesium Lactate (Mag-Tab Sr) 84 mg PO BID [facility] Last Admin: 12/08/19 17:03 Dose: 84 mg Documented by: Metoprolol Tartrate (Lopressor) 12.5 mg PO BID [facility] Last Admin: 12/08/19 17:03 Dose: 12.5 mg Documented by: Ondansetron HCl (Zofran) 4 mg PO Q8H PRN PRN Reason: NAUSEA Phenazopyridine HCl (Pyridium) 100 mg PO TID PRN PRN Reason: DYSURIA Last Admin: 12/04/19 01:55 Dose: 100 mg Documented by: Potassium Chloride (Klor-Con 10) 20 meq PO TID [facility] Last Admin: 12/08/19 14:13 Dose: 20 meq Documented by: Sacubitril/Valsartan (Entresto 24-26 Mg) 1 each PO BID [facility] Last Admin: 12/08/19 17:03 Dose: 1 each Documented by: Fluticasone/Salmeterol (Advair Diskus 250-50) 1 puff INHALATION BID.RESPIRATORY [facility] Last Admin: 12/08/19 10:38 Dose: 1 puff Documented by: Tamsulosin HCl (Flomax) 0.4 mg PO DAILY [facility] Last Admin: 12/08/19 08:04 Dose: 0.4 mg Documented by: Vitals/I&O/Wt Last Vital Signs Temp 97.6 F 12/08/19 18:57 Pulse 84 12/08/19 18:57 Resp 18 12/08/19 18:57 BP 95/58 12/08/19 18:57 Pulse Ox 94 12/08/19 18:57 12/08/19 12/08/19 12/08/19 06:59 14:59 22:59 Intake Total 400 / 880 600 / 600 360 / 960 Output Total 1950 / 5150 1100 / 1100 1500 / 2600 Balance -1550 / -4270 -500 / -500 -1140 / -1640 Weight last 48 hrs Weight 153 lb 9.6 oz Weight 169 lb Physical Exam Narrative: EXAM NARRATIVE: GENERAL: The patient is alert and oriented to person. Has dementia with intermittent confusion . HEENT: Minimal pallor. No icterus or lymphadenopathy. Oral cavity: There are no mucous membrane lesions. NECK: Trachea appears to be central. No masses noted. No JVD or thyromegaly appreciated. No carotid bruit. RESPIRATORY: Chest is symmetrical. No intercostals muscle retraction or any accessory muscle activation. There is no chest wall tenderness. Breath sounds are heard bilaterally. No evidence of any consolidation. BREASTS: Deferred. HEART: The heart sounds are normal. No S3. Short systolic murmur in the left sternal border. No diastolic murmurs. ABDOMEN: Abdomen is slightly distended. Bowel sounds are normally heard. Vague tenderness in the umbilical region : Deferred. RECTAL: Deferred. LYMPHATIC: No lymphadenopathy noted in the neck or groin. EXTREMITIES: 1-2+ edema both lower extremities. MUSCULOSKELETAL: No acute joint deformities or swelling SKIN: There are no significant scars or skin rash noted. NEUROPSYCHIATRIC: The patient is alert and oriented to person.. Appears to be in a good mood. No focal motor deficits. Data : 12/08/19 07:14 12/08/19 03:36 Micro: Microbiology 12/08/19 05:25 Parasite Antigen Panel - Final Stool Routine Collection 12/03/19 10:50 Blood Culture - Final Blood NO GROWTH AFTER 5 DAYS 12/03/19 11:30 Blood Culture - Final Blood NO GROWTH AFTER 5 DAYS A&P Assessment and plan (1) Acute on chronic systolic heart failure: The heart failure seems to be getting compensated clinically. May continue on the Lasix 60 every 12 hours for the time being. Status: Acute (2) Recent non-ST elevation myocardial infarction: May continue on the Plavix, aspirin and statin. In view of the patient's multiple other comorbidities, after discussing with the son who has the power of senior attorney, it was decided to optimize his medical treatment, for the time being. Status: Acute (3) Ischemic cardiomyopathy: May continue on the current medications. Consider starting on ARB, if the kidney function remained stable. The patient does not want to be put on a life support. After discussing with the son, it was decided not to consider prophylactic ICD or LifeVest Status: Acute (4) Recent cerebrovascular accident (CVA): Patient had a carotid Doppler examination which did not reveal any significant carotid artery disease. May continue on the current measures. Status: Acute (5) Dementia: Management as per the primary. Status: Acute Qualifiers: Dementia type: vascular dementia Dementia behavioral disturbance: with behavioral disturbance Qualified Code(s): F01.51 - Vascular dementia with behavioral disturbance (6) Acute kidney injury: The BUN/creatinine ratio seems stable. Status: Acute (7) Elevated white blood cell count: The etiology is not clear. Status: Acute Qualifiers: Leukocytosis type: eosinophilia Qualified Code(s): D72.1 - Eosinophilia Additional A&P Information His other problems are Possible pneumonia-remains afebrile UTI Anemia-stable Diarrhea-ongoing Peripheral edema-improving Hypoalbuminemia Ventricular arrhythmia-stable May continue on the current measures. Based on the clinical progress, further recommendations will be made. Attestations Medical Necessity Statement*: Disposition as per primary Coding Level of Care Code Acute Bell Staff for Chg Fwd Diagnoses Acute on chronic systolic heart failure I50.23 Recent non-ST elevation myocardial infarction Ischemic cardiomyopathy I25.5 Recent cerebrovascular accident (CVA) Z86.73 Dementia F01.51 Dementia type: vascular dementia Dementia behavioral disturbance: with behavioral disturbance Acute kidney injury N17.9 Elevated white blood cell count D72.1 Leukocytosis type: eosinophilia
[2019-12-08 22:14] LABS: LAB Peripheral Smear Sent for Review
[2019-12-09] VITALS (9 sets, daily range): BP systolic 96–116; BP diastolic 59–68; PULSE 78–95; RESP 16–21; TEMP 36.3–36.6; O2SAT 92–97; BMI 22.5
[2019-12-09] MEDS: levoFLOXacin 750 mg Tablet PO (05:10)
[2019-12-09] MEDS: heparin 5,000 unit/mL INJ 1 mL 5000 UNIT SUBCUT ×3 (05:10→20:13)
--- NOTE | 2019-12-09 07:00 | XR_ITS ---
WS: [id number] PORTABLE CHEST HISTORY: sob COMPARISON: 12/03/2019 Moderate pulmonary hyperexpansion. No pneumonia. Spiculated nodule measuring 8 mm in the central LEFT lung needs further evaluation. Small bilateral pleural effusions. Cardiac size: Mildly enlarged cardiac silhouette. Mediastinum/Aorta: Partially calcified aorta. No osseous abnormality seen. XR/XR chest 1V portable [id number] IMPRESSION: 1. Chronic emphysema with small bilateral pleural effusions. 2. New 8 mm spiculated nodule in the central LEFT lung. Recommend follow-up est CT with IV contrast to exclude neoplasm.
[2019-12-09 07:35] LABS: Basophils # 0.1 10^3/uL (0.0-0.1); Basophils % 0.6 %; Eosinophils # 12.8 10^3/uL (0.0-0.8); Eosinophils % 54.4 %; Hematocrit 41.1 % (42.0-52.0); Hemoglobin 12.7 g/dL (11.7-16.6); Lymphocytes # 1.5 10^3/uL (0.8-4.8); Lymphocytes % 6.5 %; Mean Corpuscular HGB Conc 30.9 g/dL (30.0-36.0); Mean Corpuscular Hemoglobin 27.1 pg (28.0-34.0); Mean Corpuscular Volume 87.8 fL (80-94); Mean Platelet Volume 11.8 fL (7.4-10.4); Monocytes # 1.4 10^3/uL (0.2-0.9); Neutrophils # 7.6 10^3/uL (1.8-7.7); Neutrophils % 32.1 %; Nucleated Red Blood Cells % 0 %; Platelet Count 364 10^3/cmm (130-400); Red Blood Count 4.68 10^6/uL (4.1-5.3); Red Cell Distribution Width 18.3 % (12.1-15.1); White Blood Count 23.5 10^3/uL (4.0-10.0)
[2019-12-09] MEDS: FUROsemide 10 mg/mL SDV 10mL 60 MG IVP ×2 (07:44→20:14)
[2019-12-09 08:02] LABS: Procalcitonin 0.32 ng/mL (0-0.5)
[2019-12-09 08:13] LABS: Anion Gap 14.4 (5-19); Blood Urea Nitrogen 20 mg/dL (8-23); C Reactive Protein 27.5 mg/L (0.0-4.9); Calcium 8.6 mg/dL (8.5-10.5); Carbon Dioxide 30 mmol/L (22-29); Chloride 95 mmol/L (98-107); Creatinine Clr Calc Pharmacy 45.6992; Glucose 87 mg/dL (65-115); Magnesium 1.9 mg/dL (1.7-2.3); Osmolality Calculated 276 mOsm/kg (285-295); Phosphorus 2.8 mg/dL (2.5-4.5); Potassium 4.4 mmol/L (3.5-5.1); Sodium 135 mmol/L (136-145)
[2019-12-09] MEDS: aspirin 81 mg EC Tablet PO (08:55)
[2019-12-09] MEDS: sacubitril/valsartan 24-26 mg Tablet 1 EACH PO ×2 (08:55→17:15)
[2019-12-09] MEDS: metoprolol tartrate 25 mg Tablet 12.5 MG PO ×2 (08:55→17:14)
[2019-12-09] MEDS: tamsulosin 0.4 mg Capsule PO (08:55)
[2019-12-09] MEDS: potassium chloride ER 10 mEq Tablet 20 MEQ PO ×3 (08:57→20:14)
[2019-12-09] MEDS: atorvastatin 40 mg Tablet PO (08:57)
[2019-12-09] MEDS: clopidogrel 75 mg Tablet PO (08:59)
[2019-12-09] MEDS: gabapentin 300 mg Capsule PO ×3 (08:59→20:14)
[2019-12-09] MEDS: magnesium lactate 84 mg Tablet PO ×2 (08:59→17:14)
[2019-12-09 10:15] LABS: Erythrocyte Sedimentation Rate 26 mm/hr (0-10)
[2019-12-09 10:54] LABS: Vitamin B12 1070 pg/mL (232-1245)
[2019-12-09 11:42] LABS: HIV 1 & 2 Antibody Non-Reactive (Non-Reactiv); HIV 1 & 2 Antigen Non-Reactive (Non-Reactiv)
--- NOTE | 2019-12-09 13:13 | PM.PN ---
Subjective Subjective: Interval history: He states he has no CP or SOB. His leg swelling has improved but he still has some diarrhea. Medications: Reviewed: Yes Medication Review Details: Current Medications Acetaminophen (Tylenol) 650 mg PO Q6H PRN PRN Reason: Mild/Mod Pain Or Temp >/= 101 Acetaminophen (Tylenol) 650 mg PO QID PRN PRN Reason: Pain Albuterol Sulfate (Ventolin) 1 puff INHALATION QID PRN PRN Reason: Shortness Of Breath Aspirin (Aspirin Ec) 81 mg PO DAILY [facility] Last Admin: 12/09/19 08:55 Dose: 81 mg Documented by: Atorvastatin Calcium (Lipitor) 40 mg PO DAILY [facility] Last Admin: 12/09/19 08:57 Dose: 40 mg Documented by: Bisacodyl (Bisac-Evac) 10 mg [place] DAILY PRN PRN Reason: Constipation Clopidogrel Bisulfate (Plavix) 75 mg PO DAILY [facility] Last Admin: 12/09/19 08:59 Dose: 75 mg Documented by: Furosemide (Lasix) 60 mg IVP Q12H [facility] Last Admin: 12/09/19 07:44 Dose: 60 mg Documented by: Gabapentin (Neurontin) 300 mg PO TID [facility] Last Admin: 12/09/19 08:59 Dose: 300 mg Documented by: Heparin Sodium (Beef Lung) (Heparin) 5,000 unit SUBCUT Q8H [facility] Last Admin: 12/09/19 11:27 Dose: 5,000 unit Documented by: Levofloxacin (Levaquin) 750 mg PO Q48H [facility]; Protocol Last Admin: 12/09/19 05:10 Dose: 750 mg Documented by: Loperamide HCl (Imodium Capsule) 2 mg PO QID PRN PRN Reason: DIARRHEA Last Admin: 12/08/19 13:14 Dose: 2 mg Documented by: Magnesium Lactate (Mag-Tab Sr) 84 mg PO BID [facility] Last Admin: 12/09/19 08:59 Dose: 84 mg Documented by: Metoprolol Tartrate (Lopressor) 12.5 mg PO BID [facility] Last Admin: 12/09/19 08:55 Dose: 12.5 mg Documented by: Ondansetron HCl (Zofran) 4 mg PO Q8H PRN PRN Reason: NAUSEA Phenazopyridine HCl (Pyridium) 100 mg PO TID PRN PRN Reason: DYSURIA Last Admin: 12/04/19 01:55 Dose: 100 mg Documented by: Potassium Chloride (Klor-Con 10) 20 meq PO TID [facility] Last Admin: 12/09/19 08:57 Dose: 20 meq Documented by: Sacubitril/Valsartan (Entresto 24-26 Mg) 1 each PO BID [facility] Last Admin: 12/09/19 08:55 Dose: 1 each Documented by: Fluticasone/Salmeterol (Advair Diskus 250-50) 1 puff INHALATION BID.RESPIRATORY [facility] Last Admin: 12/09/19 07:42 Dose: 1 puff Documented by: Tamsulosin HCl (Flomax) 0.4 mg PO DAILY [facility] Last Admin: 12/09/19 08:55 Dose: 0.4 mg Documented by: Vitals/I&O/Wt Last Vital Signs Temp 97.9 F 12/09/19 11:11 Pulse 84 12/09/19 11:11 Resp 21 H 12/09/19 11:11 BP 100/62 12/09/19 11:11 Pulse Ox 93 12/09/19 11:11 12/08/19 12/09/19 12/09/19 22:59 06:59 14:59 Intake Total 360 / 960 0 / 960 720 / 720 Output Total 1900 / 3000 1500 / 4500 200 / 200 Balance -1540 / -2040 -1500 / -3540 520 / 520 Weight last 48 hrs Weight 148 lb 0.3 oz Weight 153 lb 9.6 oz Physical Exam Narrative: EXAM NARRATIVE: GENERAL: The patient is alert and oriented to person. HEENT: Minimal pallor. No icterus or lymphadenopathy. NECK: No JVD appreciated. No carotid bruit. RESPIRATORY: Chest is symmetrical. No intercostals muscle retraction or any accessory muscle activation. Breath sounds are heard bilaterally. No wheezing, rhonchi or rales. HEART: The heart sounds are normal. No S3. Short systolic murmur in the left sternal border. No diastolic murmurs. EXTREMITIES: 1-2+ edema both lower extremities. NEUROPSYCHIATRIC: The patient is alert and oriented to person.. Appears to be in a good mood. No focal motor deficits. Data : 12/10/19 03:23 12/10/19 03:23 Micro: Microbiology 12/08/19 05:25 Parasite Antigen Panel - Final Stool Routine Collection 12/03/19 10:50 Blood Culture - Final Blood NO GROWTH AFTER 5 DAYS 12/03/19 11:30 Blood Culture - Final Blood NO GROWTH AFTER 5 DAYS A&P Assessment and plan (1) Acute on chronic systolic heart failure: The heart failure seems to be getting compensated clinically. May transition to lasix 60 mg PO BID possibly tomorrow. -continue entresto, low dose metoprolol. Transition to metoprolol succinate 25 mg possibly tomorrow. Status: Acute (2) Recent non-ST elevation myocardial infarction: May continue on the Plavix, aspirin and statin. In view of the patient's multiple other comorbidities, after discussing with the son who has the power of document review attorney, it was decided to optimize his medical treatment, for the time being. Status: Acute (3) Ischemic cardiomyopathy: May continue on the current medications. The patient does not want to be put on a life support. After discussing with the son, it was decided not to consider prophylactic ICD or LifeVest Status: Acute (4) Recent cerebrovascular accident (CVA): Patient had a carotid Doppler examination which did not reveal any significant carotid artery disease. May continue on the current measures. Status: Acute (5) Dementia: Management as per the primary. Status: Acute Qualifiers: Dementia type: vascular dementia Dementia behavioral disturbance: with behavioral disturbance Qualified Code(s): F01.51 - Vascular dementia with behavioral disturbance (6) Acute kidney injury: The BUN/creatinine ratio seems stable. Status: Acute (7) Elevated white blood cell count: The etiology is not clear. Status: Acute Qualifiers: Leukocytosis type: eosinophilia Qualified Code(s): D72.1 - Eosinophilia Additional A&P Information His other problems are Possible pneumonia-remains afebrile UTI Anemia-stable Diarrhea-ongoing Peripheral edema-improving Hypoalbuminemia Ventricular arrhythmia-stable May continue on the current measures. Based on the clinical progress, further recommendations will be made. Attestations Medical Necessity Statement*: Needs hospital stay for decompensated CHF Coding Level of Care Code Acute Historiography Teacher for Chg Fwd Diagnoses Acute on chronic systolic heart failure I50.23 Recent non-ST elevation myocardial infarction Ischemic cardiomyopathy I25.5 Recent cerebrovascular accident (CVA) Z86.73 Dementia F01.51 Dementia type: vascular dementia Dementia behavioral disturbance: with behavioral disturbance Acute kidney injury N17.9 Elevated white blood cell count D72.1 Leukocytosis type: eosinophilia
--- NOTE | 2019-12-09 14:01 | PM.PN ---
Subjective Subjective: Interval history: This morning patient states that he still has some swelling on his legs, no fevers, no chills has some persistent diarrhea, one episode last night, but no episodes this morning, no lightheadedness, no dizziness, no nausea, no vomiting, I advised patient that we can likely get him back to his assisted living facility today, patient states that he would like to have 1 more day in the hospital Vitals/I&O/Wt Last Vital Signs Temp 97.9 F 12/09/19 11:11 Pulse 84 12/09/19 11:11 Resp 21 H 12/09/19 11:11 BP 100/62 12/09/19 11:11 Pulse Ox 93 12/09/19 11:11 12/08/19 12/09/19 12/09/19 22:59 06:59 14:59 Intake Total 360 / 960 0 / 960 720 / 720 Output Total 1900 / 3000 1500 / 4500 200 / 200 Balance -1540 / -2040 -1500 / -3540 520 / 520 Weight last 48 hrs Weight 67.14 kg Weight 69.672 kg Physical Exam Const: COMMON NORMALS: no acute distress, patient oriented x3 and alert GENERAL APPEARANCE: cooperative ORIENTATION/CONSCIOUSNESS: Yes oriented to person and Yes oriented to place HENMT: COMMON NORMALS: normocephalic HEAD & SCALP: normocephalic Neck/C-Spine: COMMON NORMALS: no JVD Resp: COMMON NORMALS: normal respiratory effort, No retractions, No use of accessory muscles and clear to auscultation bilaterally AUSCULTATION: clear to auscultation bilaterally Cardio: COMMON NORMALS: no JVD, regular rate, regular rhythm, S1 normal heart sound present and S2 normal heart sound present RATE: regular rate RHYTHM: regular rhythm HEART SOUNDS: S1 normal heart sound present and S2 normal heart sound present GI: COMMON NORMALS: Normal to inspection, nondistended, normoactive bowel sounds present, Soft to palpation, non-tender, No hepatosplenomegaly present, no masses and no bruits PALPATION: Yes Soft to palpation and Yes No hepatosplenomegaly present Extremity: COMMON NORMALS: capillary refill normal, no clubbing, cyanosis or edema, no calf tenderness and no pedal edema Neuro: COMMON NORMALS: patient oriented x3 SENSORIUM/ORIENTATION: Yes alert, Yes oriented to person and Yes oriented to place Psych: COMMON NORMALS: mental status grossly normal Data : 12/09/19 07:10 12/09/19 07:10 Micro: Microbiology 12/08/19 05:25 Parasite Antigen Panel - Final Stool Routine Collection 12/03/19 10:50 Blood Culture - Final Blood NO GROWTH AFTER 5 DAYS 12/03/19 11:30 Blood Culture - Final Blood NO GROWTH AFTER 5 DAYS A&P Assessment and plan (1) CHF exacerbation: -Doing significantly better, minimal bilateral pitting edema -7.3L balance. Continue diuresis 60 mg IV twice daily for anasarca, pulmonary edema, CHF, likely de-escalate pending cardiology's recommendations Monitor I&O, renal function. Some of the edema may also be secondary to poor nutritional status, with low albumin, possibly secondary to dementia. Appreciate cardiology consultation. Noted worsening of ejection fraction down to 25-30% from prior 40% back in September. If renal function were to stabilize, would benefit from coronary angiography. Cardiac diet. Continue CAD medications. No VTE on Doppler ultrasound. 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 Lott about the case, advised to continue to monitor, obtain stool studies, hold off on steroids, patient is clinically doing well, likely will require a hematologic work-up/myeloproliferative work-up as outpatient Status: Acute (3) Acute kidney injury: Appears to have stabilized, creatinine 1.3. Does produce good urine output with diuresis. Given anasarca, with edema of lower extremities, abdominal wall, mesentery, continue with diuresis at this time. Monitor I&O. Given CKD, if inadequate output dose of Lasix was increased further by cardiology. Monitor for any signs of urinary retention. Previously on bladder scan [address] abdomen pelvis due to history of hematuria - no hydronephrosis or signs of obstruction to explain POOJA. Possible injury from combination vancomycin and Zosin earlier. Baseline creatinine appears to be somewhere around 1.1-1.2. Creatinine of 1 on presentation may have been falsely low secondary to fluid overload. Status: Acute (4) Pneumonia: Improving. Oxygenation remains good on room air. Patient is doing well, continue Levaquin. Given recent admission continue with coverage for hospital-acquired pneumonia. Blood cultures unremarkable. Sputum culture requested. No sample. Rapid flu negative. Coronavirus negative. Negative MRSA by PCR. Urine bacterial antigens negative. Status: Acute (5) UTI (urinary tract infection): Klebsiella in urine. Continue Levaquin. Noted likely chronic cystitis on CT scan, versus bladder wall thickening due to chronic bladder outlet obstruction. Noted also enlarged prostate, possible prostatitis, versus prostate cancer. PSA elevated at 12.5. Discussed with patient and his son. Will need outpatient follow-up with urology, in about 6 weeks of antibiotics due to prostatitis. He does have BPH, and with some noted blood at the end of urethra on arrival to [facility] on admission. Without recurrence. Monitor I&O. Continue Flomax. Status: Acute (6) CAD (coronary artery disease): With gradually declining troponin. Suspect this is secondary to his prior VT. No chest pain. Would benefit from coronary angiography. Appreciate cardiology consultation. Status: Acute (7) Diarrhea: Persistent diarrhe. On 11/27 C diff was negative at [facility]. Seems stool was also tested on 10/26 with negative C. difficile and enteric pathogens. We will request O&P. Switch diet to lactose-free at this time. Imodium as needed. May need additional evaluation as this appears to be a chronic diarrhea. Status: Acute (8) Dementia: Recently progressive dementia per son, with episodes of confusion lasting longer and longer, with patient not able to care for himself at home, and [facility]. His son has power of professor of floriculture healthcare paperwork. Patient may get confused sometimes and thus can go home, however, he currently primarily lives at [facility]. Given declining quality of life, as well as underlying medical issues with known CAD, CHF, in case of cardiopulmonary arrest his son would not want extraordinary measures including CPR or intubation as he does not believe his father would want such interventions given the low chance of likely recovery. Otherwise, he is agreeable with other medical interventions that may lead to reasonable recovery. Status: Acute Qualifiers: Dementia type: vascular dementia Dementia behavioral disturbance: with behavioral disturbance Qualified Code(s): F01.51 - Vascular dementia with behavioral disturbance (9) Hematuria: Resolved. Secondary to UTI or traumatic straight catheterization. Monitor for any recurrence or signs of obstruction. Status: Acute (10) BPH (benign prostatic hyperplasia): History of. Status: Acute (11) CKD (chronic kidney disease): History of. Status: Acute (12) Lung nodule: Noted spiculated 10 mm nodule right lower lobe. Follow-up recommended with CT scan in 6 months. Discussed with patient's son. Status: Acute Additional A&P Information Cholelithiasis. Small pericardial effusion Anemia Thrombocytosis: Suspected reactive secondary to infection Mild isolated alkaline phosphatase elevation: Minimal. Resolved. Hypoalbuminemia: Suspect may be under nourished, possibly secondary to dementia. Add Ensure shakes to meals. Could not reach son for update on Sunday. Attestations Medical Necessity Statement*: Requires continued hospitalization for CHF exacerbation, likely discharge in the next 24 hours Coding Level of Care Code Acute Children[facility] Nursery Assistant for [facility] Fwd Diagnoses CHF exacerbation I50.9 Eosinophilia D72.1 Acute kidney injury N17.9 Pneumonia J18.9 UTI (urinary tract infection) N39.0 CAD (coronary artery disease) I25.10 Diarrhea R19.7 Dementia F01.51 Dementia type: vascular dementia Dementia behavioral disturbance: with behavioral disturbance Hematuria R31.9 BPH (benign prostatic hyperplasia) N40.0 CKD (chronic kidney disease) N18.9 Lung nodule R91.1
--- NOTE | 2019-12-09 21:09 | PC.NURSE ---
Patient does not have any complaints at this time. Bed alarm is set. Will monitor.
--- NOTE | 2019-12-09 23:10 | PC.NURSE ---
Patient is currently resting with eyes closed.
[2019-12-10] VITALS (7 sets, daily range): BP systolic 72–106; BP diastolic 52–65; PULSE 72–90; RESP 16–20; TEMP 36.6–36.8; O2SAT 95–96
[2019-12-10] MEDS: heparin 5,000 unit/mL INJ 1 mL 5000 UNIT SUBCUT (03:19)
--- NOTE | 2019-12-10 04:08 | PC.NURSE ---
pt laying on right side. refused to reposition. will try again later
[2019-12-10 04:44] LABS: Basophils # 0.1 10^3/uL (0.0-0.1); Basophils % 0.5 %; Eosinophils # 13.3 10^3/uL (0.0-0.8); Eosinophils % 55.5 %; Hematocrit 42.4 % (42.0-52.0); Hemoglobin 13.2 g/dL (11.7-16.6); Lymphocytes # 1.5 10^3/uL (0.8-4.8); Lymphocytes % 6.3 %; Mean Corpuscular HGB Conc 31.1 g/dL (30.0-36.0); Mean Corpuscular Hemoglobin 27.7 pg (28.0-34.0); Mean Corpuscular Volume 89.1 fL (80-94); Monocytes # 1.2 10^3/uL (0.2-0.9); Monocytes % 5.1 %; Neutrophils # 7.7 10^3/uL (1.8-7.7); Neutrophils % 32.1 %; Nucleated Red Blood Cells % 0 %; Platelet Count 347 10^3/cmm (130-400); Red Blood Count 4.76 10^6/uL (4.1-5.3); Red Cell Distribution Width 18.6 % (12.1-15.1)
[2019-12-10 05:05] LABS: C Reactive Protein 27.9 mg/L (0.0-4.9); Magnesium 2.1 mg/dL (1.7-2.3); Phosphorus 3.1 mg/dL (2.5-4.5)
[2019-12-10 05:14] LABS: Procalcitonin 0.28 ng/mL (0-0.5)
[2019-12-10 05:18] LABS: Alanine Aminotransferase 21 U/L (0-41); Albumin Level 2.9 g/dL (3.5-5.2); Alkaline Phosphatase 100 IU/L (40-130); Anion Gap 15.2 (5-19); Aspartate Amino Transferase 23 U/L (0-40); Blood Urea Nitrogen 21 mg/dL (8-23); Calcium 8.4 mg/dL (8.5-10.5); Carbon Dioxide 30 mmol/L (22-29); Chloride 96 mmol/L (98-107); Creatinine Clr Calc Pharmacy 45.6992; Globulin 3.3 g/dL (1.3-4.6); Glucose 97 mg/dL (65-115); Osmolality Calculated 281 mOsm/kg (285-295); Potassium 4.2 mmol/L (3.5-5.1); Sodium 137 mmol/L (136-145); Total Bilirubin 0.6 mg/dL (0.15-1.2); Total Protein 6.2 g/dL (6.6-8.7)
[2019-12-10] MEDS: FUROsemide 10 mg/mL SDV 10mL 60 MG IVP (07:37)
--- NOTE | 2019-12-10 07:47 | CT_ITS ---
WS: [id number] CT CHEST WITHOUT INTRAVENOUS CONTRAST HISTORY: Nodularities at the lung base TECHNIQUE: Contiguous 5 mm axial imaging performed on the thorax. Coronal and sagittal reformats are submitted. All CT scans at [facility] use at least one of these dose optimization techniq ues: automated exposure control; mA and/or kV adjustment per patient size (includes targeted exams wh ere dose is matched to clinical indication); or iterative reconstruction. CONTRAST: None DLP: 438.43 mGy.cm COMPARISON: 03/04/2019 and 09/09/2018 and 04/28/2017. Chest radiograph 12/09/2019. Lungs and central airway: Multi lobar scattered opacifications. These are predominantly within the pe riphery of the lungs with tree-in-bud airspace opacification. These involve the upper lobes and the l ower lobes bilaterally. The recent chest radiograph spiculation corresponds to irregular nodule measu ring 9 mm in the posterior LEFT lower lobe. There are additional opacifications similar characteristi cs at the lung bases. Atelectatic changes at the lung bases bilaterally. Pleura: Small RIGHT pleural effusion. Heart and pericardium: Mild enlargement of the heart. There is mild diffuse pericardial effusion. Mil dly increased in size since the prior study. Mediastinum and kody: There are numerous mildly enlarged mediastinal and hilar lymph nodes. The large st lymph nodes measure up to 9 mm. Similar appearance on 03/04/2019. Vessels: Atherosclerosis aorta with no aneurysm. Normal pulmonary artery size. Chest wall and lower neck: Mild gynecomastia. Upper abdomen: Mild edema in the mesentery upper abdomen. Osseous structures: No osteoblastic or osteolytic bone disease. CT/CT chest wo con [id number] IMPRESSION: 1. Multi lobar scattered ill-defined opacifications and tree-in-bud opacificat ions. Most significant at the lung bases. Most likely endobronchial pneumonia/p ostinflammatory disease. 2. Small RIGHT pleural effusion and small but slightly increased pericardial e ffusion. 3. Spiculated 8mm nodule described on recent chest radiograph corresponds to o pacification which is likely related to pneumonia and acute inflammatory diseas e. 4. Recommend follow-up chest CT in 3 months to ensure these changes resolve wi th treatment.
--- NOTE | 2019-12-10 07:50 | PM.PN ---
Subjective Subjective: Interval history: He feels better. No CP, SOB. Still complains of diarrhea. Medications: Reviewed: Yes Medication Review Details: Current Medications Acetaminophen (Tylenol) 650 mg PO Q6H PRN PRN Reason: Mild/Mod Pain Or Temp >/= 101 Acetaminophen (Tylenol) 650 mg PO QID PRN PRN Reason: Pain Albuterol Sulfate (Ventolin) 1 puff INHALATION QID PRN PRN Reason: Shortness Of Breath Aspirin (Aspirin Ec) 81 mg PO DAILY [facility] Last Admin: 12/10/19 09:37 Dose: 81 mg Documented by: Atorvastatin Calcium (Lipitor) 40 mg PO DAILY [facility] Last Admin: 12/10/19 09:37 Dose: 40 mg Documented by: Bisacodyl (Bisac-Evac) 10 mg [place] DAILY PRN PRN Reason: Constipation Clopidogrel Bisulfate (Plavix) 75 mg PO DAILY [facility] Last Admin: 12/10/19 09:37 Dose: 75 mg Documented by: Furosemide (Lasix) 60 mg IVP Q12H [facility] Last Admin: 12/10/19 07:37 Dose: 60 mg Documented by: Gabapentin (Neurontin) 300 mg PO TID [facility] Last Admin: 12/10/19 09:37 Dose: 300 mg Documented by: Heparin Sodium (Beef Lung) (Heparin) 5,000 unit SUBCUT Q8H [facility] Last Admin: 12/10/19 03:19 Dose: 5,000 unit Documented by: Levofloxacin (Levaquin) 750 mg PO Q48H [facility]; Protocol Last Admin: 12/09/19 05:10 Dose: 750 mg Documented by: Loperamide HCl (Imodium Capsule) 2 mg PO QID PRN PRN Reason: DIARRHEA Last Admin: 12/08/19 13:14 Dose: 2 mg Documented by: Magnesium Lactate (Mag-Tab Sr) 84 mg PO BID [facility] Last Admin: 12/10/19 09:37 Dose: 84 mg Documented by: Metoprolol Tartrate (Lopressor) 12.5 mg PO BID [facility] Last Admin: 12/10/19 09:37 Dose: 12.5 mg Documented by: Ondansetron HCl (Zofran) 4 mg PO Q8H PRN PRN Reason: NAUSEA Phenazopyridine HCl (Pyridium) 100 mg PO TID PRN PRN Reason: DYSURIA Last Admin: 12/04/19 01:55 Dose: 100 mg Documented by: Potassium Chloride (Klor-Con 10) 20 meq PO TID [facility] Last Admin: 12/10/19 09:37 Dose: 20 meq Documented by: Sacubitril/Valsartan (Entresto 24-26 Mg) 1 each PO BID [facility] Last Admin: 12/10/19 09:37 Dose: 1 each Documented by: Fluticasone/Salmeterol (Advair Diskus 250-50) 1 puff INHALATION BID.RESPIRATORY [facility] Last Admin: 12/10/19 07:26 Dose: 1 puff Documented by: Tamsulosin HCl (Flomax) 0.4 mg PO DAILY [facility] Last Admin: 12/10/19 09:37 Dose: 0.4 mg Documented by: Vitals/I&O/Wt Last Vital Signs Temp 97.9 F 12/10/19 04:00 Pulse 83 12/10/19 07:27 Resp 17 12/10/19 07:27 BP 95/65 12/10/19 05:00 Pulse Ox 95 12/10/19 07:27 12/09/19 12/10/19 12/10/19 22:59 06:59 14:59 Intake Total 120 / 840 220 / 1060 Output Total 200 / 400 1400 / 1800 Balance -80 / 440 -1180 / -740 Weight last 48 hrs Weight 148 lb 4.8 oz Weight 140 lb 12.8 oz Weight 148 lb 0.3 oz Physical Exam Narrative: EXAM NARRATIVE: GENERAL: The patient is alert and oriented to person. HEENT: Mild pallor. No icterus. NECK: No JVD appreciated. No carotid bruit. RESPIRATORY: Chest is symmetrical. No intercostals muscle retraction or any accessory muscle activation. Breath sounds are heard bilaterally. No wheezing, rhonchi or rales. HEART: The heart sounds are normal. No S3. Short systolic murmur in the left sternal border. No diastolic murmurs. EXTREMITIES: trace-1+ edema both lower extremities (R> L). NEUROPSYCHIATRIC: The patient is alert and oriented to person.. Appears to be in a good mood. No focal motor deficits. Data : 12/10/19 03:23 12/10/19 03:23 Micro: Microbiology 12/09/19 18:36 Stool Lactoferrin - Final Stool C.difficile Toxin B Gene (PCR) - Final Occult Blood (FIT) - Final Intake & Output 12/08/19 12/09/19 12/10/19 12/11/19 06:59 06:59 06:59 06:59 Intake Total 880 / 880 960 / 960 1060 / 1060 240 / 240 Output Total 5150 / 5150 4500 / 4500 1800 / 1800 Balance -4270 / -4270 -3540 / -3540 -740 / -740 240 / 240 Weight 153 lb 9.6 oz 148 lb 0.3 oz 148 lb 4.8 oz Cumulative I&O 12/03/19 10:08 thru 12/10/19 08:00 Intake Total 6910 Output Total 23289 Balance -8340 A&P Assessment and plan (1) Acute on chronic systolic heart failure: The heart failure seems to be getting compensated clinically. May transition to lasix 60 mg PO BID today -continue entresto, low dose metoprolol. Transition to metoprolol succinate 25 mg possibly tomorrow. Status: Acute (2) Recent non-ST elevation myocardial infarction: May continue on the Plavix, aspirin and statin. In view of the patient's multiple other comorbidities, after discussing with the son who has the power of application project leader, it was decided to optimize his medical treatment, for the time being. Status: Acute (3) Ischemic cardiomyopathy: May continue on the current medications. The patient does not want to be put on a life support. After discussing with the son, it was decided not to consider prophylactic ICD or LifeVest Status: Acute (4) Recent cerebrovascular accident (CVA): Patient had a carotid Doppler examination which did not reveal any significant carotid artery disease. May continue on the current measures. Status: Acute (5) Dementia: Management as per the primary. Status: Acute Qualifiers: Dementia type: vascular dementia Dementia behavioral disturbance: with behavioral disturbance Qualified Code(s): F01.51 - Vascular dementia with behavioral disturbance (6) Acute kidney injury: The BUN/creatinine ratio seems stable at 1.3. Status: Acute (7) Elevated white blood cell count: The etiology is not clear. Status: Acute Qualifiers: Leukocytosis type: eosinophilia Qualified Code(s): D72.1 - Eosinophilia Additional A&P Information Pneumonia-remains afebrile UTI Anemia-stable Diarrhea-ongoing Peripheral edema-improving Hypoalbuminemia Ventricular arrhythmia-stable Leucocytosis with increased eosinophillia: under investigation by primary team May continue on the current measures. Based on the clinical progress, further recommendations will be made. Attestations Medical Necessity Statement*: As per primary team Coding Level of Care Code Acute Printer Assistant for [employer] Fwd Diagnoses Acute on chronic systolic heart failure I50.23 Recent non-ST elevation myocardial infarction Ischemic cardiomyopathy I25.5 Recent cerebrovascular accident (CVA) Z86.73 Dementia F01.51 Dementia type: vascular dementia Dementia behavioral disturbance: with behavioral disturbance Acute kidney injury N17.9 Elevated white blood cell count D72.1 Leukocytosis type: eosinophilia
[2019-12-10] MEDS: aspirin 81 mg EC Tablet PO (09:37)
[2019-12-10] MEDS: clopidogrel 75 mg Tablet PO (09:37)
[2019-12-10] MEDS: potassium chloride ER 10 mEq Tablet 20 MEQ PO (09:37)
[2019-12-10] MEDS: magnesium lactate 84 mg Tablet PO (09:37)
[2019-12-10] MEDS: sacubitril/valsartan 24-26 mg Tablet 1 EACH PO (09:37)
[2019-12-10] MEDS: tamsulosin 0.4 mg Capsule PO (09:37)
[2019-12-10] MEDS: metoprolol tartrate 25 mg Tablet 12.5 MG PO (09:37)
[2019-12-10] MEDS: gabapentin 300 mg Capsule PO (09:37)
[2019-12-10] MEDS: atorvastatin 40 mg Tablet PO (09:37)
--- NOTE | 2019-12-10 09:38 | PC.SOCIAL ---
IMM Update Pg 2 of IMM given and explained to patient who verbalized understanding. Copy provided to patient.
[2019-12-10 10:00] LABS: COMPLEMENT COMPONENT C3C 102 mg/dL (82-185); COMPLEMENT COMPONENT C4C 12 mg/dL (15-53)
[2019-12-10 10:22] LABS: NT Pro B Type Natriuretic Pept 7904 pg/mL (0-450)
--- NOTE | 2019-12-10 11:30 | PM.DCS ---
Discharge Providers Date of Admission: 12/03/19 13:18 Date of Discharge: December 10, 2019 Attending Provider at Admission: Subhash Mukherjee Attending Provider at Discharge: Hamlet Kapadia MD Primary Care Provider: Mike Ruggiero DO Diagnoses at Discharge Discharge Diagnosis (1) Acute on chronic systolic heart failure: Status: Acute (2) Recent non-ST elevation myocardial infarction: Status: Acute (3) Ischemic cardiomyopathy: Status: Acute (4) Recent cerebrovascular accident (CVA): Status: Acute (5) Dementia: Status: Acute Qualifiers: Dementia type: vascular dementia Dementia behavioral disturbance: with behavioral disturbance Qualified Code(s): F01.51 - Vascular dementia with behavioral disturbance (6) Acute kidney injury: Status: Acute (7) Elevated white blood cell count: Status: Acute Qualifiers: Leukocytosis type: eosinophilia Qualified Code(s): D72.1 - Eosinophilia Reason for Visit Reason for Visit: FATIGUE, PNEUMONIA Hospital Course Discharge Summary: This is a 79-year-old male with a past medical history of dementia, CVA TIA a few months ago, several admissions including acute ND,, recent history of pneumonia, UTI, history of aspiration, resident of [facility] who presents [facility] due to complaints of easy fatigability, dyspnea, findings of acute infiltrates on chest x-ray concerning for pneumonia, and chronic diarrhea. 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 Of note patient has recent history of ND, medically managed. Cardiology was consulted, he received diuretic therapy, clinically improved, -8.3 L since admission, discharged on Lasix 60 twice daily, potassium replacement therapy, instructions on fluid restrictions less than 1500 cc, recheck creatinine in 3 days, creatinine on discharge was 1.3, with close follow-up with cardiology in 2 weeks. He was also discharged on Entresto, aspirin, Plavix, statin. Given low blood pressures, discharged on metoprolol succinate 12.5 once daily. For his pneumonia, patient received inpatient IV antibiotics, clinically improved, off oxygen, during my examination when I came on Sunday he was relatively asymptomatic ambulating around the room without significant respiratory symptomatology, no cough, no fevers. Patient remains this way on discharge on Sunday. His COVID-19 was negative. Blood cultures remain unremarkable. Rapid flu negative. Negative MRSA PCR. Urine bacterial antigens were negative. Patient finished 7 days of Levaquin as inpatient. Again on discharge patient was relatively asymptomatic, lungs was clear, not requiring any oxygen, no significant shortness of breath, no fevers, no cough. Chest CT on discharge did show multilobar scattered ill-defined opacifications and tree in bud opacifications most significant at the lung bases, 9 mm nodule in posterior left lobe. Possibly patient's radiographic findings are related to resolving pneumonia and or chronic aspiration. I will have patient follow-up with Dr. Hernandez as outpatient. discharged on aspiration precautions. For patient's UTI and prostatitis, he received antibiotics as inpatient, discharged on 6 weeks of Bactrim, with close follow-up with Dr. Nj as outpatient. Patient was also found to have diffuse enlargement and heterogeneity involving the prostate measuring 6.6 cm, diffuse bladder wall thickening. Patient will follow with Dr. Nj for possible cystoscopy and evaluation for possible prostate biopsies on prostatis is treated. During patient's hospital admission, he had complaints of acute on chronic diarrhea, review his records, he shows that he has complained of this in the past, he has had a parasitic and stool work-up in the past which has been relatively unremarkable. On this admission, his C. difficile was negative, his Hemoccult was positive, his parasite panel was negative, his stool for ova and parasite are pending on discharge. Given his eosinophilia as below, possibilities include eosinophillic gastroenteritis, ulcerative colitis or Crohn's disease, patient is to follow with general surgery for consideration for colonoscopy in 1 month. 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 Did receive high-dose steroids for giant cell arteritis biopsy-proven -Currently has no vision complaints, no shoulder pain, no joint pain -Peripheral smear shows eosinophilia, no malignancy seen -Given his recurrence of eosinophilia, likely autoimmune disease versus myeloproliferative disorder -I spoke with Dr. Lott about the case, advised to continue to monitor, follow ova and parasites, follow autoimmune panel results, hold off on steroids, patient is clinically doing well, likely will require a hematologic work-up/myeloproliferative work-up as outpatient Physical Exam Const: COMMON NORMALS: no acute distress and patient oriented x3 HENMT: COMMON NORMALS: normocephalic HEAD & SCALP: normocephalic Neck/C-Spine: COMMON NORMALS: no JVD Resp: COMMON NORMALS: normal respiratory effort, No retractions, No use of accessory muscles and clear to auscultation bilaterally AUSCULTATION: clear to auscultation bilaterally Cardio: COMMON NORMALS: no JVD, regular rate, regular rhythm, S1 normal heart sound present and S2 normal heart sound present RATE: regular rate RHYTHM: regular rhythm HEART SOUNDS: S1 normal heart sound present and S2 normal heart sound present GI: COMMON NORMALS: Normal to inspection, nondistended, normoactive bowel sounds present, Soft to palpation, non-tender, No hepatosplenomegaly present, no masses and no bruits PALPATION: Yes Soft to palpation and Yes No hepatosplenomegaly present Extremity: COMMON NORMALS: capillary refill normal, no clubbing, cyanosis or edema, no calf tenderness and no pedal edema Neuro: COMMON NORMALS: patient oriented x3 Psych: COMMON NORMALS: mental status grossly normal Discharge Data Data Completed and Pending: Completed Studies During Hospitalization Category Date Time Status CT chest wo con 7 1250 Stat Cat Scan 12/10/19 07:[address] kidney stone 7 3772 Routine Cat Scan 12/05/19 10:22 Completed XR chest 1V winifred ble 59323 Routine Exams 12/09/19 07:00 Completed XR chest 1V winifred ble 67591 Stat Exams 12/03/19 11:11 Completed CV echo limited 9 3308 Routine Ultrasound 12/05/19 19:54 [place] [id number] Routin e Ultrasound 12/05/19 20:02 Completed Pending at discharge Category Date Time Status PAT Profile Rheum atology Stat Lab 12/09/19 10:09 Results C Reactive Protei n AM LABS Lab 12/11/19 04:00 Ordered Clostridioides Di fficile PCR Routin e Lab 12/09/19 18:36 Results Complete Blood Co unt w/Auto AM LABS Lab 12/11/19 04:00 Ordered Complete Blood Co unt w/Auto AM LABS Lab 12/12/19 04:00 Ordered Comprehensive Met abolic Panel AM LA BS Lab 12/11/19 04:00 Ordered Comprehensive Met abolic Panel AM LA BS Lab 12/12/19 04:00 Ordered Enteric Bacterial Panel by PCR Rout ine Lab 12/09/19 18:36 Results Enteric Parasite Panel by PCR Routi ne Lab 12/09/19 18:36 Results Immunochemical Fe alaina OCB Routine Lab 12/09/19 18:36 Results Lactoferrin Routi ne Lab 12/09/19 18:36 Results Magnesium AM LABS Lab 12/11/19 04:00 Ordered OVA and Parasites , Conc and PE Rout ine Lab 12/09/19 18:36 Received Phosphorus AM LAB S Lab 12/11/19 04:00 Ordered Procalcitonin AM LABS Lab 12/11/19 04:00 Ordered Sputum Culture an d Gram Stain Routi ne Lab 12/03/19 19:52 Uncollected Total Protein Shruthi ctrophoresis Stat Lab 12/09/19 10:09 Received Urine Protein Shruthi ctrop Random Stat Lab 12/09/19 08:44 Ordered Labs from last 24 hours 12/10/19 12/10/19 12/10/19 03:23 03:23 03:23 WBC 24.0 H RBC 4.76 Hgb 13.2 Hct 42.4 MCV 89.1 MCH 27.7 L MCHC 31.1 RDW 18.6 H Plt Count 347 MPV 12.0 H Neut % (Auto) 32.1 Lymph % (Auto) 6.3 Tarrant % (Auto) 5.1 Eos % (Auto) 55.5 Baso % (Auto) 0.5 Neut # (Auto) 7.7 Lymph # (Auto) 1.5 Tarrant # (Auto) 1.2 H Eos # (Auto) 13.3 H Baso # (Auto) 0.1 Nucleated RBC % (a uto) 0 Nucleated RBCs # 0.0 Sodium 137 Potassium 4.2 Chloride 96 L Carbon Dioxide 30 H Anion Gap 15.2 BUN 21 Creatinine 1.3 H Glucose 97 Calculated Osmolal ity 281 L Calcium 8.4 L Phosphorus Magnesium Total Bilirubin 0.6 AST 23 ALT 21 Alkaline Phosphata se 100 C-Reactive Protein NT-Pro-B Natriuret Pep Total Protein 6.2 L Albumin 2.9 L Globulin 3.3 Procalcitonin 0.28 PAT IFA Animal Tis Res CAMELIA-1 Antibody SS-A Antibody Sm (Herrmann) Antibod y [employer] Antibody Scl-70 Antibody Anti-ds DNA IgG (C rith) Centromere B Antib abdi Thyroid Peroxidase Ab Complement C3c Complement C4c CH50 Classical [place] HIV 1&2 Ab & HIV 1 Ag HIV 1&2 Antibody 12/10/19 12/10/19 12/09/19 03:23 03:00 10:09 WBC RBC Hgb Hct MCV MCH MCHC RDW Plt Count MPV Neut % (Auto) Lymph % (Auto) Tarrant % (Auto) Eos % (Auto) Baso % (Auto) Neut # (Auto) Lymph # (Auto) Tarrant # (Auto) Eos # (Auto) Baso # (Auto) Nucleated RBC % (a uto) Nucleated RBCs # Sodium Potassium Chloride Carbon Dioxide Anion Gap BUN Creatinine Glucose Calculated Osmolal ity Calcium Phosphorus 3.1 Magnesium 2.1 Total Bilirubin AST ALT Alkaline Phosphata se C-Reactive Protein 27.9 H NT-Pro-B Natriuret Pep 7904 H Total Protein Albumin Globulin Procalcitonin PAT IFA Animal Tis Res Pending CAMELIA-1 Antibody Pending SS-A Antibody Pending Sm (Herrmann) Antibod y Pending [employer] Antibody Pending Scl-70 Antibody Pending Anti-ds DNA IgG (C rith) Pending Centromere B Antib abdi Pending Thyroid Peroxidase Ab Pending Complement C3c 102 Complement C4c 12 L CH50 Classical [place] Pending HIV 1&2 Ab & HIV 1 Ag HIV 1&2 Antibody 12/09/19 10:09 WBC RBC Hgb Hct MCV MCH MCHC RDW Plt Count MPV Neut % (Auto) Lymph % (Auto) Tarrant % (Auto) Eos % (Auto) Baso % (Auto) Neut # (Auto) Lymph # (Auto) Tarrant # (Auto) Eos # (Auto) Baso # (Auto) Nucleated RBC % (a uto) Nucleated RBCs # Sodium Potassium Chloride Carbon Dioxide Anion Gap BUN Creatinine Glucose Calculated Osmolal ity Calcium Phosphorus Magnesium Total Bilirubin AST ALT Alkaline Phosphata se C-Reactive Protein NT-Pro-B Natriuret Pep Total Protein Albumin Globulin Procalcitonin PAT IFA Animal Tis Res CAMELIA-1 Antibody SS-A Antibody Sm (Herrmann) Antibod y [employer] Antibody Scl-70 Antibody Anti-ds DNA IgG (C rith) Centromere B Antib abdi Thyroid Peroxidase Ab Complement C3c Complement C4c CH50 Classical [place] HIV 1&2 Ab & HIV 1 Ag Non-reactive HIV 1&2 Antibody Non-reactive Vitals: Last Vital Signs Temp 98.0 F 12/10/19 11:20 Pulse 72 12/10/19 11:20 Resp 18 12/10/19 11:20 BP 98/52 12/10/19 11:20 Pulse Ox 95 12/10/19 08:00 Discharge Plan Discharge Patient Disposition: Xfer SNF Condition: Stable Prescriptions: New furosemide 40 mg Tablet 60 mg PO BID@08,16 30 Days Qty: 90 RF: 0 potassium chloride 10 mEq Tablet Extended Release 20 meq PO TID 30 Days Qty: 180 RF: 0 Magtab 84 mg Tablet Extended Release 84 mg PO BID 30 Days Qty: 60 RF: 0 Entresto 24-26 mg Tablet 1 tab PO BID 30 Days Qty: 60 RF: 0 metoprolol succinate 25 mg tablet extended release 24 hr 12.5 mg PO DAILY 30 Days Qty: 30 RF: 0 sulfamethoxazole-trimethoprim [Bactrim DS] 800-160 mg tablet 1 tab PO BID 42 Days Qty: 84 RF: 0 Continued fluticasone propion-salmeterol 250-50 mcg/dose blister with device 1 inh INHALATION BID Qty: 60 RF: 0 atorvastatin 40 mg tablet 40 mg PO DAILY 30 Days Qty: 30 RF: 0 clopidogrel 75 mg tablet 75 mg PO DAILY 30 Days Qty: 30 RF: 5 aspirin 81 mg Tablet,Delayed Release (Dr/Ec) 81 mg PO DAILY 30 Days Qty: 30 RF: 0 gabapentin [Neurontin] 300 mg capsule 300 mg PO TID 30 Days Qty: 90 RF: 0 acetaminophen 325 mg Tablet 650 mg PO QID PRN (Reason: Pain) RF: 0 Milk of Magnesia 400 mg/5 mL Suspension 30 ml PO DAILY PRN (Reason: Constipation) RF: 0 Flomax 0.4 mg Capsule 0.4 mg PO DAILY RF: 0 bisacodyl 10 mg Suppository 10 mg MA DAILY PRN (Reason: Constipation) RF: 0 Fleet Enema 19-7 gram/118 mL Enema 118 ml MA DAILY PRN (Reason: Constipation) RF: 0 albuterol sulfate 90 mcg/actuation Hfa Aerosol Inhaler 1 inh INHALATION QID PRN (Reason: Shortness Of Breath) RF: 0 Culturelle 10 billion cell Capsule 1 cap PO DAILY RF: 0 Discontinued potassium chloride 10 mEq Tablet Extended Release 10 meq PO DAILY RF: 0 metoprolol tartrate 25 mg Tablet 12.5 mg PO BID RF: 0 furosemide 20 mg tablet 20 mg PO DAILY RF: 0 Discharge Orders: Discharge Order (Routine); Ordered 12/10/19 Ordered By: Hamlet Kapadia Other Ambulatory Orders: Complete Blood Count w/Auto (Routine) Timeframe: 3 Days Location: Determined by Patient Ordered By: Hamlet Kapadia Comprehensive Metabolic Panel (Routine) Timeframe: 3 Days Facility: [facility] - Location: Lab - Main Lab Ordered By: Hamlet Kapadia Referrals: [facility] [Outside] Mario Hernandez MD [Physician] - 1 month (colonoscopy, chronic diarrhea, eosinophillia) Logan Nj MD [Physician] - 1-3 days (prostatitis, enlarged prostate) Mike Lott MD [Hospitalist] - 1 week (eosinophillia) Rin Hernandez MD [Physician] - 3 months (Multi lobar scattered ill-defined opacifications and tree-in-bud opacifications) Manuela Novak MD [Physician] - 2 weeks Mike Ruggiero DO [Primary Care Provider] - (You have an follow-up appointment on December 15 at 11:30a.m. If you have any questions or need to reschedule. Please, call ) Discharge Diet: Cardiac Discharge Activity: Resume usual activity Patient Instructions: Sulfamethoxazole/Trimethoprim (By mouth), Metoprolol (By mouth), Furosemide (By mouth), Potassium Chloride (By mouth), Magnesium (By mouth), Heart Failure (DC), Acute Kidney Injury (DC), Leukocytosis (DC), Pneumonia (DC), CHF Stoplight, Pneumonia Stoplight Activity Restrictions/Additional Instructions: -If you have fevers, chills, cough come back to the emergency room -Take Lasix 60 mg twice daily as prescribed, daily weights, restrict fluids less than 1500 cc, repeat blood work in 3 days to monitor creatinine -For your chronic diarrhea and eosinophilia, please follow-up with Dr. Henrandez for consideration for colonoscopy -For your eosinophilia, Dr. Lott wants to see you for further work-up -For your prostatitis, enlarged prostate, please follow-up with Dr. Nj -In the next 3 months please follow-up with Dr. Hernandez Discharge Attestations Time Spent in Discharge Care*: less than 30 min Status at Discharge: Cognitive status at discharge: moderately impaired cognition (underlying dementia), Behavioral status at discharge: cooperative and dependent in ADL's, Quality Metrics Clinical Quality Measures During this hospital stay, did patient experience: None Coding Level of Care Code Acute Pallet Rectifier for Mary Fwd Diagnoses Acute on chronic systolic heart failure I50.23 Recent non-ST elevation myocardial infarction Ischemic cardiomyopathy I25.5 Recent cerebrovascular accident (CVA) Z86.73 Dementia F01.51 Dementia type: vascular dementia Dementia behavioral disturbance: with behavioral disturbance Acute kidney injury N17.9 Elevated white blood cell count D72.1 Leukocytosis type: eosinophilia
--- NOTE | 2019-12-10 12:31 | PC.NURSE ---
Dr pedraza okayed not giving heparin dose due to discharge
--- NOTE | 2019-12-10 13:22 | PC.NURSE ---
patient discharge to [facility] report called to Patience SYED; patient discharge with all belongings and discharge instructions in hand. IV dc'd cath intact min bleeding noted coban applied. patient assisted to wheel chair and out ER entrance to transportation.
[2019-12-10 14:16] LABS: CENTROMERE B ANTIBODY <1.0 NEG AI (<1.0 NEG); JO-1 ANTIBODY <1.0 NEG AI (<1.0 NEG); RNP ANTIBODY <1.0 NEG AI (<1.0 NEG); SCL-70 ANTIBODY <1.0 NEG AI (<1.0 NEG); SJOGREN'S ANTIBODY (SS-A) <1.0 NEG AI (<1.0 NEG); SM ANTIBODY <1.0 NEG AI (<1.0 NEG)
[2019-12-10 14:40] LABS: COMPLEMENT, TOTAL (CH50) 38 U/mL (31-60)
[2019-12-10 15:40] LABS: ALBUMIN 2.4 g/dL (3.8-4.8); ALPHA 1 GLOBULIN 0.5 g/dL (0.2-0.3); ALPHA 2 GLOBULIN 0.7 g/dL (0.5-0.9); BETA 1 GLOBULIN 0.3 g/dL (0.4-0.6); BETA 2 GLOBULIN 0.4 g/dL (0.2-0.5); GAMMA GLOBULIN 0.7 g/dL (0.8-1.7)
[2019-12-10 16:05] LABS: THYROID PEROXIDASE ANTIBODIES <1 IU/mL (<9)
[2019-12-11 14:50] LABS: ANA SCREEN, IFA NEGATIVE (NEGATIVE)
[2019-12-15 02:36] LABS: DNA AB (DS) CRITHIDIA,IFA NEGATIVE (NEGATIVE)
== END 2019-12-10 13:21 | disposition skilled nursing facility (03) | DRG 291 ==
LOC: ER 13:22 → CSU 14:57
PROVIDERS: Emergency Medicine; Internal Medicine Cardiovascular Disease; Admitting Provider Internal Medicine; PCP Internal Medicine; Visit Provider Family Medicine
DX: I13.0 Hypertensive heart and chronic kidney disease with heart failure and stage 1 through stage 4 chronic kidney disease, or unspecified chronic kidney disease (principal); J18.9 Pneumonia, unspecified organism; J96.90 Respiratory failure, unspecified, unspecified whether with hypoxia or hypercapnia; I50.23 Acute on chronic systolic (congestive) heart failure; N39.0 Urinary tract infection, site not specified; N17.9 Acute kidney failure, unspecified; F01.51 Vascular dementia, unspecified severity, with behavioral disturbance; I25.2 Old myocardial infarction; Z86.73 Personal history of transient ischemic attack (TIA), and cerebral infarction without residual deficits; I25.5 Ischemic cardiomyopathy; K52.81 Eosinophilic gastritis or gastroenteritis; N41.9 Inflammatory disease of prostate, unspecified; Z20.828 Contact with and (suspected) exposure to other viral communicable diseases; K52.9 Noninfective gastroenteritis and colitis, unspecified; Z79.82 Long term (current) use of aspirin; Z79.02 Long term (current) use of antithrombotics/antiplatelets; I25.10 Atherosclerotic heart disease of native coronary artery without angina pectoris; J44.9 Chronic obstructive pulmonary disease, unspecified; G62.9 Polyneuropathy, unspecified; R31.9 Hematuria, unspecified; N18.9 Chronic kidney disease, unspecified; D63.1 Anemia in chronic kidney disease; D47.3 Essential (hemorrhagic) thrombocythemia; E88.09 Other disorders of plasma-protein metabolism, not elsewhere classified
CPT/HCPCS: 12345; 36415; 71045; 71250; 74176; 80048; 80053; 80202; 80500; 81001; 82274; 82607; 83605; 83630; 83735; 83880; 84100; 84145; 84153; 84155; 84165; 84484; 85025; 85651; 86140; 86403; 87040; 87077; 87086; 87177; 87186; 87209; 87449; 87493; 87506; 87635; 87641; 87804; 87806; 93005; 93308; 93970; 94640; 94664; 96372; 96375; 99284; J0696; J1644; J1940; J1956; J2543; J3370; J7050

== ENCOUNTER 2019-12-24 12:02 | Inpatient (IN) | payer MEDICARE, BC, SELFPAY ==
[2019-12-24] VITALS (12 sets, daily range): BP systolic 103–145; BP diastolic 60–76; PULSE 62–117; RESP 16–20; TEMP 36.4–36.5; O2SAT 93–99; BMI 24.3
--- NOTE | 2019-12-24 12:41 | W.ED.NAVMDI ---
HPI - Nausea/Vomiting/Diarrhea General: Chief complaint: Nausea/Vomiting/Diarrhea Stated complaint: INCREASED CONFUSION / BLOODY STOOLS Time Seen by Provider: 12/24/19 12:38 Source: patient, RN notes reviewed and old records reviewed Limitations: other (Discussed with Dr. Ruggiero) History of Present Illness: HPI Narrative: 79-[facility]-old [facility] this essentially unchanged except [facility] staff noted that there was some blood in it recently. He has a history of leuko-cytosis that is essentially unchanged and his hemoglobin is stable. But patient was also noted to have increased confusion. Dr. Ruggiero says he was called by the [facility] and told that the patient was hypoxic we did not get that report and patient did not appear to be hypoxic here. He tells me his only problem is that he has burning on his feet and he needs to Tylenol and that was helped some. I did admit him on December 02 for his diarrhea and fatigue that was worked up and is still undergoing evaluation for that. Associated nausea: No Associated symtoms: Denies change in vision, chest pain, dysuria, headache(s) or nausea Review of Systems General: Reports: 10 or more systems reviewed and unremarkable except in HPI and below Const: Denies: fever(s) or chills Eyes: Denies: change in vision ENMT: Denies: throat pain Card: Denies: chest pain Resp: Denies: dyspnea GI: Reports: change in bowel habits; Denies: abdominal pain, nausea or vomiting : Denies: dysuria Musc: Denies: muscle weakness Skin/Breast: Denies: rash Neuro: Denies: headache(s) Psych: Reports: difficulty concentrating; Denies: hopelessness or suicidal ideation Endo: Denies: polyuria Mike/Lymph: Denies: easy bruising or easy bleeding All/Imm: Denies: urticaria PFSH ED PFSH: Medical History (Updated 12/24/19 @ 19:26 by Genie Beckham MD) Acute on chronic systolic heart failure BPH (benign prostatic hyperplasia) -on Flomax CAD (coronary artery disease) CHF (congestive heart failure) Compensated currently. CHF (congestive heart failure) -has chronic systolic CHF, last Echo with reported EF=40% as noted above -can resume low dose lasix, previously held diuretics due to hypotension -BNP >20,000 COPD (chronic obstructive pulmonary disease) -no acute exacerbation -not oxygen dependent at baseline -continue to monitor respiratory status CVA (cerebral vascular accident) -with noted aphasia during last admission which seems to have resolved -on ASA, Plavix -no significant stenosis on carotid US -Echo noted above -had neuroimaging done including CT head and MRI head showing chronic ischemic changes Dementia HTN (hypertension) -was noted to be borderline hypotensive during last admission; ACEi and aldactone discontinued -on BB, titrate as needed -continue to monitor vital signs; normotensive currently Hypercholesteremia -on statin Ischemic cardiomyopathy Neuropathy Non-ST elevation (NSTEMI) myocardial infarction -Noted to have significant troponin elevation with delta greater than 270, no correlating ST changes on ECGs -telemetry monitoring -close monitoring of vital signs -no hx of cath on review of medical record -nuclear stress testing (03/2019): Medium size perfusion abnormality of mid to distal anterior and apical osullivan with mild reversibility in mid anterior wall which is suggestive of old PA in LAD territory with minimal ayah-infarct ischemia. Medium size perfusion abnormality of basal to apical inferolateral and inferior osullivan suggestive of old PA/scarring in the RCA/circumflex artery territory, severe diffuse hypokinesis -Echo (09/2019): EF=40%, G1DD, mild diffuse hypokinesia, mild MR, mild , trace TR, aneurysmal basal to mid inferior wall -on aspirin, statin; off therapeutic anticoagulation -Cardiology evaluation appreciated; medical management Pericardial effusion Recent cerebrovascular accident (CVA) Recent non-ST elevation myocardial infarction Temporal arteritis -resolved after treatment -affected R eye Vascular dementia -waxes and wanes at baseline, easily redirected -off 1:1 monitoring Surgical History H/O hand surgery -left hand, for finger contracture Social History (Updated 12/17/19 @ 11:38 by Sheila Pittman LPN) Smoking and tobacco status: never smoked Alcohol intake: never Lives independently: Yes Household members: other Housing: Assisted Living Facility Marital status: / Current occupational status: retired History of recent travel: No Current gender identity: Male Physical Exam Const: COMMON NORMALS: no acute distress, patient oriented x3, alert and well nourished HENMT: COMMON NORMALS: normocephalic and Normal external nose present HEAD & SCALP: normocephalic NOSE: Normal external nose present MOUTH: no trismus Eye: COMMON NORMALS: EOMs intact bilaterally and conjunctivae normal CONJUNCTIVA: Yes conjunctivae normal Neck/C-Spine: COMMON NORMALS: full ROM, no lymphadenopathy and supple CERVICAL SPINE: Yes cervical ROM normal Lymph: LYMPHATIC: no lymphadenopathy noted Resp: COMMON NORMALS: normal respiratory effort, No retractions, No use of accessory muscles and clear to auscultation bilaterally EFFORT & INSPECTION: Yes able to speak in complete sentences AUSCULTATION: clear to auscultation bilaterally Cardio: COMMON NORMALS: regular rate and regular rhythm RATE: regular rate RHYTHM: regular rhythm GI: COMMON NORMALS: Normal to inspection, nondistended, normoactive bowel sounds present, Soft to palpation, non-tender and no masses INSPECTION: Yes normal to inspection AUSCULTATION: Yes normoactive bowel sounds PALPATION: Yes Soft to palpation, No Guarding due to palpation present (GI) and No Rigid due to palpation RECTAL EXAM: Yes visual inspection normal and Yes normal sphincter tone OTHER: Brown stool on exam but was trace positive on bedside guaiac Back/Pelvis: OTHER: Normal range of motion Extremity: GENERAL: Yes normal exam except as noted Neuro: COMMON NORMALS: patient oriented x3 and CN's II-XII intact bilaterally SENSORIUM/ORIENTATION: Yes alert SPEECH: speech normal Psych: COMMON NORMALS: mental status grossly normal Skin: COMMON NORMALS: no rashes or lesions noted GENERAL SKIN EXAM: no rashes or lesions noted Course Vital Signs: Vital signs: Vital Signs Temperature 97.7 F 12/24/19 12:03 Pulse Rate 99 12/24/19 19:00 Respiratory Rate 18 12/24/19 19:00 Blood Pressure 112/70 12/24/19 19:00 Pulse Oximetry 99 12/24/19 19:00 MDM - Nausea/Vomiting/Diarrhea MDM Narrative: Medical decision making narrative: Patient has underlying vascular dementia and was admitted for altered mental status in September of this year that HPI and discharge summary reviewed. I also spoke with Dr. Ruggiero who is his primary care doctor. He was told that patients confusion increased at the [facility] and him he was hypoxic. He was not hypoxic here and I did an ABG to make sure that we were not missing something it appears to be fairly normal especially since the patient has a history of COPD. Lanny will admit for observation d/w Lab Data: Attestation: I reviewed the patient's lab results. Labs: Lab Results 12/24/19 12/24/19 12/24/19 Range/Units 11:53 11:53 11:53 WBC 28.3 H (4.0-10.0) 10^3/ uL RBC 4.40 (4.1-5.3) 10^6/u L Hgb 11.8 (11.7-16.6) g/dL Hct 37.8 L (42.0-52.0) % MCV 85.9 (80-94) fL MCH 26.8 L (28.0-34.0) pg MCHC 31.2 (30.0-36.0) g/dL RDW 17.7 H (12.1-15.1) % Plt Count 377 (130-400) 10^3/c mm MPV 11.6 H (7.4-10.4) fL Neut % (Auto) 26.9 % Lymph % (Auto) 5.4 % [place] % (Auto) 3.0 % Eos % (Auto) 64.0 % Baso % (Auto) 0.4 % Neut # (Auto) 7.61 (1.8-7.7) 10^3/u L Lymph # (Auto) 1.5 (0.8-4.8) 10^3/u L [place] # (Auto) 0.8 (0.2-0.9) 10^3/u L Eos # (Auto) 18.1 H (0.0-0.8) 10^3/u L Baso # (Auto) 0.1 (0.0-0.1) 10^3/u L Nucleated RBC % (a uto) 0 % Nucleated RBCs # 0.0 /100WBC PT 15.80 H (10.5-13.3) SECO NDS INR 1.22 H (0.8-1.2) Specimen Type Sample Site ABG pH (7.35-7.45) ABG pCO2 (35-45) mmHg ABG pO2 (80.0-100.0) mmH g ABG HCO3 (22-26) mmol/L ABG Base Excess (-2.0-2.0) mmol/ L Holden Test Hematocrit (42-52) % O2 Delivery Device FiO2 % Solar Installer Technician ID Sodium 134 L (136-145) mmol/L Potassium 4.5 (3.5-5.1) mmol/L Chloride 96 L (98-107) mmol/L Carbon Dioxide 24 (22-29) mmol/L Anion Gap 18.5 (5-19) BUN 21 (8-23) mg/dL Creatinine 1.6 H (0.7-1.2) mg/dL GFR Calculation Not Reportable Glucose 108 (65-115) mg/dL Calculated Osmolal ity 275 L (285-295) mOsm/k g Calcium 8.2 L (8.5-10.5) mg/dL Total Bilirubin 0.6 (0.15-1.2) mg/dL AST 27 (0-40) U/L ALT 22 (0-41) U/L Alkaline Phosphata se 125 (40-130) IU/L Total Protein 7.1 (6.6-8.7) g/dL Albumin 3.5 (3.5-5.2) g/dL Globulin 3.6 (1.3-4.6) g/dL Urine Color (Yellow) Urine Appearance (CLEAR) Urine pH (5-7) Ur Specific Gravit y (1.005-1.030) Urine Protein (Negative) Urine Glucose (UA) (Normal) Urine Ketones (Negative) Urine Blood (Negative) Urine Nitrate (Negative) Urine Bilirubin (NEGATIVE) Urine Urobilinogen (Negative) mg/dL Ur Leukocyte Kirsten ase (Negative) 12/24/19 12/24/19 Range/Units 15:30 15:39 WBC (4.0-10.0) 10^3/ uL RBC (4.1-5.3) 10^6/u L Hgb (11.7-16.6) g/dL Hct (42.0-52.0) % MCV (80-94) fL MCH (28.0-34.0) pg MCHC (30.0-36.0) g/dL RDW (12.1-15.1) % Plt Count (130-400) 10^3/c mm MPV (7.4-10.4) fL Neut % (Auto) % Lymph % (Auto) % [place] % (Auto) % Eos % (Auto) % Baso % (Auto) % Neut # (Auto) (1.8-7.7) 10^3/u L Lymph # (Auto) (0.8-4.8) 10^3/u L [place] # (Auto) (0.2-0.9) 10^3/u L Eos # (Auto) (0.0-0.8) 10^3/u L Baso # (Auto) (0.0-0.1) 10^3/u L Nucleated RBC % (a uto) % Nucleated RBCs # /100WBC PT (10.5-13.3) SECO NDS INR (0.8-1.2) Specimen Type Arterial Sample Site Radial, right ABG pH 7.44 (7.35-7.45) ABG pCO2 30.0 L (35-45) mmHg ABG pO2 69.5 L (80.0-100.0) mmH g ABG HCO3 20.5 L (22-26) mmol/L ABG Base Excess -2.8 L (-2.0-2.0) mmol/ L Holden Test Pos Hematocrit 34.9 L (42-52) % O2 Delivery Device Room air FiO2 21.0 % Solar Installer Technician ID monro Sodium (136-145) mmol/L Potassium (3.5-5.1) mmol/L Chloride (98-107) mmol/L Carbon Dioxide (22-29) mmol/L Anion Gap (5-19) BUN (8-23) mg/dL Creatinine (0.7-1.2) mg/dL GFR Calculation Glucose (65-115) mg/dL Calculated Osmolal ity (285-295) mOsm/k g Calcium (8.5-10.5) mg/dL Total Bilirubin (0.15-1.2) mg/dL AST (0-40) U/L ALT (0-41) U/L Alkaline Phosphata se (40-130) IU/L Total Protein (6.6-8.7) g/dL Albumin (3.5-5.2) g/dL Globulin (1.3-4.6) g/dL Urine Color Yellow (Yellow) Urine Appearance Clear (CLEAR) Urine pH 5 (5-7) Ur Specific Gravit y 1.025 (1.005-1.030) Urine Protein Neg (Negative) Urine Glucose (UA) Norm (Normal) Urine Ketones Negative (Negative) Urine Blood Neg (Negative) Urine Nitrate Negative (Negative) Urine Bilirubin Neg (NEGATIVE) Urine Urobilinogen Norm (Negative) mg/dL Ur Leukocyte Kirsten ase Negative (Negative) Discharge Plan Discharge Patient Disposition: Admitted As Inpatient Clinical Impression: Hematochezia, Diarrhea, Anticoagulant long-term use Condition: Stable Prescriptions: No Action atorvastatin 40 mg tablet 40 mg PO DAILY 30 Days Qty: 30 RF: 0 clopidogrel 75 mg tablet 75 mg PO DAILY 30 Days Qty: 30 RF: 5 aspirin 81 mg Tablet,Delayed Release (Dr/Ec) 81 mg PO DAILY 30 Days Qty: 30 RF: 0 gabapentin [Neurontin] 300 mg capsule 300 mg PO TID 30 Days Qty: 90 RF: 0 Fleet Enema 19-7 gram/118 mL Enema 118 ml ID DAILY PRN (Reason: Constipation) RF: 0 Culturelle 10 billion cell Capsule 1 cap PO DAILY RF: 0 furosemide 40 mg Tablet 60 mg PO BID@08,16 30 Days Qty: 90 RF: 0 potassium chloride 10 mEq Tablet Extended Release 20 meq PO TID 30 Days Qty: 180 RF: 0 magnesium L-lactate [Magtab] 84 mg Tablet Extended Release 84 mg PO BID 30 Days Qty: 60 RF: 0 Entresto 24-26 mg Tablet 1 tab PO BID 30 Days Qty: 60 RF: 0 Referrals: Mike Ruggiero DO [Primary Care Provider] - Coding Level of Care Code ED Director Of Partnerships for Chg Fwd Exam Comprehensive
[2019-12-24 12:54] LABS: Basophils # 0.1 10^3/uL (0.0-0.1); Basophils % 0.4 %; Eosinophils # 18.1 10^3/uL (0.0-0.8); Hematocrit 37.8 % (42.0-52.0); Hemoglobin 11.8 g/dL (11.7-16.6); Lymphocytes # 1.5 10^3/uL (0.8-4.8); Lymphocytes % 5.4 %; Mean Corpuscular HGB Conc 31.2 g/dL (30.0-36.0); Mean Corpuscular Hemoglobin 26.8 pg (28.0-34.0); Mean Corpuscular Volume 85.9 fL (80-94); Mean Platelet Volume 11.6 fL (7.4-10.4); Monocytes # 0.8 10^3/uL (0.2-0.9); Neutrophils # 7.61 10^3/uL (1.8-7.7); Neutrophils % 26.9 %; Nucleated Red Blood Cells % 0 %; Platelet Count 377 10^3/cmm (130-400); Red Cell Distribution Width 17.7 % (12.1-15.1); White Blood Count 28.3 10^3/uL (4.0-10.0)
[2019-12-24] MEDS: sodium chloride 0.9% 1,000 ML 999 ML IV (13:01)
[2019-12-24] MEDS: acetaminophen 325 mg Tablet 650 MG PO (13:06)
[2019-12-24 13:09] LABS: INR 1.22 (0.8-1.2)
[2019-12-24 13:14] LABS: Alanine Aminotransferase 22 U/L (0-41); Albumin Level 3.5 g/dL (3.5-5.2); Alkaline Phosphatase 125 IU/L (40-130); Anion Gap 18.5 (5-19); Aspartate Amino Transferase 27 U/L (0-40); Blood Urea Nitrogen 21 mg/dL (8-23); Calcium 8.2 mg/dL (8.5-10.5); Carbon Dioxide 24 mmol/L (22-29); Chloride 96 mmol/L (98-107); Globulin 3.6 g/dL (1.3-4.6); Glucose 108 mg/dL (65-115); Osmolality Calculated 275 mOsm/kg (285-295); Potassium 4.5 mmol/L (3.5-5.1); Sodium 134 mmol/L (136-145); Total Bilirubin 0.6 mg/dL (0.15-1.2); Total Protein 7.1 g/dL (6.6-8.7)
[2019-12-24 15:53] LABS: ABG PH Result 7.44 (7.35-7.45); Arterial Blood Gas Hematocrit 34.9 % (42-52); Base Excess ABG -2.8 mmol/L (-2.0-2.0); Blood Gas Allen Test Pos; Blood Gas Sample Site Radial, right; Blood Gas Sample Type Arterial; HCO3 ABG 20.5 mmol/L (22-26); Oxygen Device ROOM AIR; PO2 ABG 69.5 mmHg (80.0-100.0)
[2019-12-24 16:02] LABS: Add Urine Microscopic? NO
[2019-12-24 16:14] LABS: Bilirubin Urine Neg (NEGATIVE); Blood Urine Neg (Negative); Glucose Urine UA Norm (Normal); Ketones Urine Negative (Negative); Leukocyte Esterase Urine Negative (Negative); Nitrate Urine Negative (Negative); Protein Urine Neg (Negative); Specific Gravity, Urine 1.025 (1.005-1.030); Urine Appearance Clear (CLEAR); Urine Color Yellow (Yellow); Urobilinogen Urine Norm (Negative); pH Urine 5 (5-7)
--- NOTE | 2019-12-24 19:20 | PM.HP ---
Providers/Chief Complaint Primary Care Provider: Mike Ruggeiro DO Chief Complaint: INCREASED CONFUSION / BLOODY STOOLS History of Present Illness Chapin Govea is a 79 year old male who carries history of dementia, CVA, chronic diarrhea, reduced ejection fraction heart failure with grade 1 diastolic dysfunction, history of CA being managed medically, was recently discharged from the hospital on 12/09 after management of prostatitis, he was referred to Dr. 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 He had extensive work-up in the past SPEP UPEP unremarkable, ova parasite negative, HIV negative, C. difficile panel negative. Dr. Lott recommended autoimmune work-up. He was scheduled for colonoscopy, follow-up visit with Dr. Nj for prostatitis and Dr. Lott for eosinophilia. [facility] Nurse told me that there has been hand and eye coordination problem, he keeps refusing his medications, otherwise he ambulates on his own, eats very well, no one noticed any facial asymmetry. No recent nausea, vomiting. Nurse is not endorsing any blood in stool however blood in stool was reported to the ED physician. ED physician was notified that patient was hypoxic, confused and there was blood in stool. I have reviewed these chief complaints with the nursing staff and they are not endorsing these findings. However during his work-up in the ER he has been afebrile, saturating well on room air, normal blood pressure, he is confused and keeps insisting on going back to the facility. Stool guaiac test positive. Hemoglobin stable. Review of Systems General: Reports: ROS unobtainable due to medical condition (Sundowning, hyperactive delirium) Medications/Allergies Home Medications Medication Instructions Recorded Confirmed Last Taken Type aspirin 81 mg PO DAILY 30 Days #30 tab 10/31/19 12/24/19 12/23/19 Rx atorvastatin 40 mg PO DAILY 30 Days #30 tab 10/31/19 12/24/19 12/23/19 Rx clopidogrel 75 mg PO DAILY 30 Days #30 tab 10/31/19 12/24/19 12/23/19 Rx gabapentin [Neurontin] 300 mg PO TID 30 Days #90 cap 10/31/19 12/24/19 12/23/19 Rx Culturelle 1 cap PO DAILY 12/03/19 12/24/19 Unknown History Fleet Enema 118 ml UT DAILY PRN 12/03/19 12/24/19 Unknown History furosemide 60 mg PO BID@08,16 30 Days #90 tab 12/10/19 12/24/19 12/23/19 Rx magnesium L-lactate [Magtab] 84 mg PO BID 30 Days #60 tab 12/10/19 12/24/19 12/23/19 Rx potassium chloride 20 meq PO TID 30 Days #180 tab 12/10/19 12/24/19 12/23/19 Rx sacubitril-valsartan [Entresto] 1 tab PO BID 30 Days #60 tab 12/10/19 12/24/19 12/23/19 Rx Allergies Allergy/AdvReac Type Severity Reaction Status Date / Time No Known Allergies Allergy Verified 12/24/19 15:11 PFSH Acute PFSH: Medical History (Updated 12/24/19 @ 20:15 by Daljit Marcelo MD) Acute on chronic systolic heart failure BPH (benign prostatic hyperplasia) -on Flomax CAD (coronary artery disease) CHF (congestive heart failure) Compensated currently. CHF (congestive heart failure) -has chronic systolic CHF, last Echo with reported EF=40% COPD (chronic obstructive pulmonary disease) - CVA (cerebral vascular accident) -had neuroimaging done including CT head and MRI head showing chronic ischemic changes Dementia HTN (hypertension) Hypercholesteremia -on statin Ischemic cardiomyopathy Neuropathy Non-ST elevation (NSTEMI) myocardial infarction Pericardial effusion Recent cerebrovascular accident (CVA) Recent non-ST elevation myocardial infarction Temporal arteritis -resolved after treatment -affected R eye Vascular dementia -waxes and wanes at baseline, easily redirected Surgical History H/O hand surgery -left hand, for finger contracture Social History Smoking and tobacco status: never smoked Alcohol intake: never Lives independently: Yes Household members: other Housing: Assisted Living Facility Marital status: / Current occupational status: retired History of recent travel: No Current gender identity: Male Vitals/I&O/Wt Last Vital Signs Temp 97.7 F 12/24/19 12:03 Pulse 99 12/24/19 19:00 Resp 18 12/24/19 19:00 BP 112/70 12/24/19 19:00 Pulse Ox 99 12/24/19 19:00 12/24/19 12/24/19 12/24/19 06:59 14:59 22:59 Intake Total 1000 / 1000 Balance 1000 / 1000 Weight last 48 hrs Weight 72.575 kg Physical Exam Narrative: EXAM NARRATIVE: Head to toe examination Patient was sitting in a recliner He was awake alert oriented x3 GCS 15 Patient follows command intermittently He keeps repeating statements: He wants to go back to where he belongs He got up from chair went to the other side of the room to grab his shorts He was upset for not wearing his regular clothes He kept mentioning a doctor who had a heart attack and never saw him Bilateral breath sounds with diminished at the bases no adventitious sounds S1, S2 no active heart failure or murmur appreciated Clinically looks dry Abdomen soft nontender nondistended Rectal exam positive stool guaiac test Lower extremities venous stasis dermatitis extremely dry skin Hemodynamically stable, saturating well on room air Hyperactive delirium Data : 12/24/19 11:53 12/24/19 11:53 Micro: Microbiology 12/24/19 15:19 C.difficile Toxin B Gene (PCR) - Final Stool - Stool Aspirate A&P Assessment and plan (1) Eosinophilia: Status: Acute (2) Stool guaiac positive: Status: Acute (3) Acute kidney injury: Status: Acute (4) Dehydration: Status: Acute (5) Elevated white blood cell count: Status: Acute Qualifiers: Leukocytosis type: eosinophilia Qualified Code(s): D72.1 - Eosinophilia (6) Lung nodule: Status: Acute (7) Dementia: Status: Acute Qualifiers: Dementia type: vascular dementia Dementia behavioral disturbance: with behavioral disturbance Qualified Code(s): F01.51 - Vascular dementia with behavioral disturbance (8) Acute hyperactive delirium due to another medical condition: Status: Acute Additional A&P Information Stool guaiac positive Hemoglobin stable, hemodynamically stable Considering eosinophilia and chronic diarrhea he might need outpatient EGD and colonoscopy I do not see any urgent need of endoscopies I will keep him on cardiac diet, start Protonix 40 twice daily IV Monitor hemoglobin overnight Hold aspirin Plavix Hyperactive delirium with underlying vascular dementia One-to-one supervision Zyprexa 10 mg IM x1 Acute on chronic kidney disease secondary to dehydration I would hold Entresto and Lasix Clinically he looks dry, I would resuscitate him with fluid low maintenance rate Lung nodule with eosinophilia: Scheduled for bronchoscopy by Dr. Bolton on next visit CVA and TIA history Bilateral cerebellar infarct evident on previous cranial imaging I would not repeat cranial imaging at this point, Hold aspirin Plavix and continue statin for now CODE STATUS: DNR/DNI Son is his D POA, Cardiac diet DVT prophylaxis SCD Attestations Medical Necessity Statement*: Anticipating discharge in less than 48 hours need overnight monitoring for stool occult positive stool currently hemoglobin stable, need management for hyperactive delirium as well Time Spent in Patient Care: (>than 50% of time spent in counselling and/or direct pt care on unit). 60 minutes Coding Level of Care Code Acute Credit Card Associate for [employer] Diagnoses Eosinophilia D72.1 Stool guaiac positive R19.5 Acute kidney injury N17.9 Dehydration E86.0 Elevated white blood cell count D72.1 Leukocytosis type: eosinophilia Lung nodule R91.1 Dementia F01.51 Dementia type: vascular dementia Dementia behavioral disturbance: with behavioral disturbance Acute hyperactive delirium due to another medical condition F05
--- NOTE | 2019-12-24 20:21 | XR_ITS ---
WS: [id number] Portable AP upright chest, 12/24/2019 Clinical Data: chf Comparison: Portable chest, 12/09/2019. Findings: No nodules or masses are seen. There is a small right effusion which has diminished compare d to the previous x-ray. The soft tissue nodule left lung is not seen. There is minimal atelectasis o vielka the surface of the right diaphragm. The heart is enlarged. The pulmonary vascularity is not incre ased. No pneumonia or pneumothorax is seen. There is minimal calcification at the aortic arch. XR/XR chest 1V portable [id number] Impression: 1. Mild cardiomegaly. 2. Small right effusion with minimal right basilar atelectasis. 3. Spiculated nodule in the left midlung not seen on current exam.
[2019-12-24] MEDS: sodium chloride 0.9% 1,000 ML 30 ML IV (20:56)
[2019-12-24] MEDS: OLANZapine 10 mg VIAL IM (20:56)
[2019-12-24] MEDS: ziprasidone 20 mg/mL SDV IM (23:24)
[2019-12-25] VITALS (12 sets, daily range): BP systolic 108–143; BP diastolic 75–99; PULSE 114–160; RESP 18–30; TEMP 36.4–36.7; O2SAT 90–99
--- NOTE | 2019-12-25 | XACV_ITS ---
Ht: 165 cm Wt: 73 kg BSA: 1.84 m2 Gender: Male : 1940 Exam Type: Invasive Peripheral Vascular Procedure(s): Procedure Description: Peripheral vascular Intervention Procedure Description: PV IVC Filter Placement Exam Priority: Routine Abdominal Interventional Findings Indication for IVC filter: Recent large pulmonary embolism with respiratory distress and inability to take anticoagulation due to fresh GI bleed on anticoagulation. Patient is full code I have detailed discussion with patient's son who has power of health care attorney patient has underlying dementia his son would like to proceed with IVC filter and to do everything possible. We therefore proceeded with IVC filter placement which is removable. We are planning to remove it after 2 to 3 months once patient is stable and will be able to take anticoagulation.Through right groin approach and right common femoral vein under conscious sedation and local anesthetic using lidocaine, 7 Mauritian sheath was placed. IVC venogram was performed to identify right and left renal veins. Both veins were marked. Anneliseip Austin removable IVC filter was then deployed below the veins. Its position was confirmed. Long sheath was removed and hemostasis was achieved. Patient was transferred back to CSU without any complication. Recommend bedrest for 3 to 4 hours post sheath removal. Recommendations Usual post-cath care. Access Site Site: Right Femoral vein Sheath Size: 6 Fr Hemost... Method: Suture Hemost... Success: Successful Procedure Details Findings Admit Source: In Patient. Pre-Procedure Time Out. Identified patient by full name and date of as verbalized by the patient/guarantor. Does the consent match the physician's order: Yes. Accurate & Complete Informed Consent: Yes. Inpatient/Outpatient History & Physical on Chart: Yes. If H&P is completed, is and addenduem needed: N/A; If yes, is the addendum complete: N/A. Visualize and Verify Site with Patient/Guarantor: N/A. Relevant Radiology Images available: N/A. Pre-op teaching completed and patient verbalized understanding. The risks, benefits, and alternatives of sedation and/or procedure were discussed by physician. The patient agrees to continue. Procedure started. Correct patient, site and procedure confirmed by cath team. PERRLA. 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 Lungs clear x 5 lobes. IV Site on Arrival: 20 gauge in the left anticubital. Oxygen started at 2 liters/min via nasal canula. bilateral groins was prepped with chloroprep then draped in the usual sterile fashion. Physician notified. Baseline sample Acquired. HR: 116 BPM. Physician arrived. Physician scrubbed in. Immediate Pre-Procedure Time Out. Correct Patient: Yes; Correct Procedure: Yes; Correct Site: Yes; Correct Patient Position: Yes; Correct Supplies: Yes; Dried Flammable Prep: Yes; Blood Products Available: N/A;. Lidocaine 1% infiltrated to the right groin. Arterial access obtained. A 6 german Angled Pig catheter in over wire. Abdominal aortogram performed in [place] @ 103 mL/sec for a total of mL. Abdominal aortogram performed in [place] @ 10 mL/sec for a total of 30 mL. Catheter out. Sheath upsized to a 7 Fr. Filter inserted and deployed. Sheath upsized to a 8 Fr. Sheath(s) sutured into position with 2-0 silk and sterile 4x4's and Op-site applied over the site. No oozing or signs and symptoms of hematoma noted. Post Procedure: Pulses reassessed and unchanged. PERRLA. 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 No VTE prophylaxis required. Medication's Wasted: Lidocaine 1% = 10 mL. Medication's Wasted: Heparin = 1000 units. Medication's Wasted: Other = versed 1 mg. Total IV fluids: 300 mL. Contrast type used: Omnipaque 300 mgI/mL, 500 mL bottle. Contrast Material : Omnipaque 20 ml. Complications: none. Estimated blood loss: 5mL-10mL. Procedure completed. Patient transferred by bed to 1st floor. A Suture was successful obtaining hemostatsis at the Right Femoral vein insertion site. Vital chart was stopped. Post-op diagnosis: IVC filter deployed successfully in IVC. Procedure Medications Start: 6:30 PM Stop: 6:30 PM Medication: Fentanyl Amount: 50 mcg Route: I.V. Start: 6:36 PM Stop: 6:36 PM Medication: Versed Amount: 1 mg Route: I.V. I, the attending physician, have reviewed and verified all procedure medications. Yes, all medications given per verbal order Report Signatures Finalized by:Daljit Anthony MD on 01/11/2020 4:24:18 PM
--- NOTE | 2019-12-25 01:51 | ECG_ITS ---
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 Measurements Intervals Wesley Rate: 127 P: 55 SC: 154 QRS: -31 QRSD: 104 T: 70 QT: 295 QTc: 429 Interpretive Statements SINUS TACHYCARDIA MARKED LEFT AXIS DEVIATION [QRS AXIS < -30] ANTEROSEPTAL MYOCARDIAL INFARCTION [40+ ms Q WAVE IN V1-V4], OF INDETERMINATE AGE Compared to ECG 12/03/2019 23:03:37 Left-axis deviation now present Sinus rhythm no longer present Ventricular premature complex(es) no longer present Myocardial infarct finding still present Electronically Signed On 12-25-2019 17:09:16 CDT by Darian Bond M.D. [id number]
[2019-12-25] MEDS: ipratropium-albuterol 3 mL Neb INHALATION (02:35)
[2019-12-25 02:44] LABS: Basophils # 0.1 10^3/uL (0.0-0.1); Basophils % 0.3 %; Eosinophils # 7.7 10^3/uL (0.0-0.8); Eosinophils % 37.7 %; Hematocrit 36.4 % (42.0-52.0); Hemoglobin 11.3 g/dL (11.7-16.6); Lymphocytes # 0.9 10^3/uL (0.8-4.8); Lymphocytes % 4.2 %; Mean Corpuscular Hemoglobin 27.1 pg (28.0-34.0); Mean Corpuscular Volume 87.3 fL (80-94); Mean Platelet Volume 10.7 fL (7.4-10.4); Monocytes # 0.7 10^3/uL (0.2-0.9); Monocytes % 3.6 %; Neutrophils # 11.02 10^3/uL (1.8-7.7); Neutrophils % 53.8 %; Nucleated Red Blood Cells % 0 %; Platelet Count 322 10^3/cmm (130-400); Red Blood Count 4.17 10^6/uL (4.1-5.3); Red Cell Distribution Width 17.6 % (12.1-15.1); White Blood Count 20.5 10^3/uL (4.0-10.0)
--- NOTE | 2019-12-25 02:51 | P.EN_ITS ---
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
[2019-12-25 03:02] LABS: ABG PH Result 7.43 (7.35-7.45); Alveolar-Arterial Oxygen Gradi 33.8 mmHg (5-10); Arterial Blood Gas Hematocrit 35.1 % (42-52); Base Excess ABG -4.5 mmol/L (-2.0-2.0); Blood Gas Sample Site Brachial, right; Blood Gas Sample Type Arterial; Carboxyhemoglobin 1.1 %THgb (0.4-20.1); HCO3 ABG 18.6 mmol/L (22-26); HGB O2 Sat 94.2 % (95-100); Ionized Calcium Level - ABG 1.1 mmol/L (1.1-1.4); Methemoglobin 0.5 % (0.4-1.5); Oxygen Device NC; Oxygen Saturation ABG 95.8; PO2 ABG 79.4 mmHg (80.0-100.0); Total Hemoglobin 11.4 g/dL (14-18)
[2019-12-25 03:03] LABS: Anion Gap 19.2 (5-19); Blood Urea Nitrogen 20 mg/dL (8-23); Carbon Dioxide 21 mmol/L (22-29); Chloride 97 mmol/L (98-107); Glucose 135 mg/dL (65-115); Osmolality Calculated 275 mOsm/kg (285-295); Potassium 4.2 mmol/L (3.5-5.1); Sodium 133 mmol/L (136-145)
[2019-12-25 03:05] LABS: D Dimer 3.44 ug/mIFEU (0-0.59)
--- NOTE | 2019-12-25 03:19 | USR_ITS ---
PROCEDURE INFORMATION: Exam: US Duplex Lower Extremity Veins, Bilateral Exam date and time: 12/25/2019 8:15 AM Age: 79 years old Clinical indication: Other: Pulmonary embolism; Additional info: Pe TECHNIQUE: Imaging protocol: Real-time duplex ultrasound of the extremities with 2-D herbert scale, color Doppler flow and spectral waveform analysis with image documentation. Complete exam focused on the bilateral lower extremity veins. COMPARISON: No relevant prior studies available. FINDINGS: Right deep veins: Unremarkable. The common femoral, femoral, proximal profunda femoral and popliteal veins are patent without thrombus. Normal Doppler waveforms. Normal compressibility and/or augmentation response. Right superficial veins: Saphenofemoral junction is patent without thrombus. Left deep veins: Unremarkable. The common femoral, femoral, proximal profunda femoral and popliteal veins are patent without thrombus. Normal Doppler waveforms. Normal compressibility and/or augmentation response. Left superficial veins: Saphenofemoral junction is patent without thrombus. Soft tissues: Unremarkable. US/CV venous duplex [facility] [id number] IMPRESSION: No evidence of deep vein thrombosis.
[2019-12-25 03:34] LABS: NT Pro B Type Natriuretic Pept 13304 pg/mL (0-450)
--- NOTE | 2019-12-25 03:35 | PC.NURSE ---
EVENT REPORT: AT APPROXIMATELY 0145 THE PSA IN THE ROOM WITH THE PATIENT BEGAN TO CALL OUT FOR HEP. UPON ENTERING THE ROOM THE PATIENT WAS NOTED TO HAVE DIFFICULTY BREATHING. THE PATIENT WAS THEN TAKEN TO THE RESTROOM AND WAS ASSESSED MORE THOROUGHLY. PATIENT BREATHING LABORED, HEARTRATE WAS READING IN THE 160'S. PATIENT BACK TO BED WITH ASSISTANCE. OXI MASK APPLIED WITH 4 L OF O2 STATS. BP NOTED TO BE ELEVATED, HEART RATE IN 170'S, AND O2 IN THE 80'S. CALL MADE TO HOSPITALIST AND REPORT OF CONDITION GIVEN. ORDERS FOR EKG AND D/C IV FLUIDS GIVEN. EKG OBTAINED AT BEDSIDE, PATIENT NOTED TO BE TACHY WITH POSSIBLE AFLUTTER PER EKG REPORT. DOCTOR IN ROOM AND ORDERS GIVEN FOR IVP CARDIZEM GIVEN BY RN. LITTLE IMPROVEMENT NOTED, ORDERS GIVEN FOR 2ND PUSH FROM PHYSICIAN AT BEDSIDE [facility] LABS AND RESPIRATORY TO APPLY BI-PAP AND ABG. CELINE WITH RESP. IN ROOM WITH PATIENT WELL, PATIENT BECAME SICK TO STOMACH AND STARTED TO GET SICK, BIPAP REMOVED, WITH CHANGE OF CONDITION ORDERS GIVEN TO TRANSFER PATIENT TO CSU. REPORT CALLED AND GIVEN TO SHERLY AND PATIENT TRANSPORTED VIA HOSPITAL BED TO CSU WITH PERSONAL BELONGINGS AND GLASSES. 1:1 SITTER WITH PATIENT.
[2019-12-25] MEDS: heparin 5,000 unit/mL INJ 1 mL IV ×2 (03:41→12:21)
[2019-12-25] MEDS: heparin drip 25,000 UNIT/500 ML PREMIX 21 UNIT IV (03:41)
--- NOTE | 2019-12-25 03:54 | PC.NURSE ---
Addendum entered by Patience Jon RN 12/25/19 05:01: Informed Dr Marcelo that 40mg of Geodon daily is a max dose. Dr Marcelo discontinued the one time dose of Geodon and replaced with one time dose of Haldol 5mg IVP. Haldol given as ordered. Original Note: Patient becoming uncooperative. Pulling at lines. Refusing to have bipap placed at this time. Dr Marcelo on the floor at this time. Received order for one time dose Geodon 40mg IM now. Able to get patient back in bed at this time. 1:1 sitter at bedside. Heparin gtt started as ordered.
[2019-12-25] MEDS: haloperidol inj 5 mg/mL INJ 1 mL IVP (04:37)
--- NOTE | 2019-12-25 05:06 | PC.NURSE ---
Patient continues to attempt to get out of bed, pull at lines and is verbally aggressive at times. Last dose of Haldol was given at [address] Marcelo of continued confusion, fall risk, and pulling a lines/arm bands. 1:1 sitter remains at bedside. Dr Marcelo placed order for one time dose Ativan 2mg IVP now.
[2019-12-25] MEDS: LORazepam 2 mg/mL INJ 1 mL IVP ×2 (05:30→21:20)
--- NOTE | 2019-12-25 05:56 | PC.NURSE ---
Patient given Ativan as ordered at 0530. Patient got up out of bed and walked to door with 1:1 assistance. Unable to get patient back in bed. Yells out I wish you women would leave me alone and let me leave. 1:1 able to get patient to sit up in a chair for about 30min. Informed Dr Marcelo of patient's continued confusion. No new orders received. Ativan beginning to work at this time. Assisted patient back to bed x3 assist. Positioned for comfort. IV access remains intact for now. Heparin drip at 21ml/hr presently.
[2019-12-25 06:02] LABS: Platelet Count 311 10^3/cmm (130-400)
[2019-12-25 06:07] LABS: Troponin T (5th) Once 656 ng/L (0-15)
[2019-12-25] MEDS: pantoprazole 40 mg SDV IVP ×2 (08:40→17:35)
--- NOTE | 2019-12-25 09:42 | CT_ITS ---
WS: [id number] CT CHEST ANGIOGRAPHY WITH REFORMATS HISTORY: hypoxia, tachycardia TECHNIQUE: Contiguous axial images are obtained through the chest during arterial injection of intrav enous contrast. Images are reconstructed to evaluate the pulmonary arteries. MIP imaging also reviewe d. All CT scans at [facility] use at least one of these dose optimization techniques: aut omated exposure control; mA and/or kV adjustment per patient size (includes targeted exams where dose is matched to clinical indication); or iterative reconstruction. CONTRAST: Visipaque 320; 95 mL IV. DLP: 608.56 mGy.cm COMPARISON: 12/10/2019 Very good opacification of the pulmonary arteries. Distal segmental to subsegmental filling defects i n the pulmonary arteries of the lower lobes bilaterally. Atherosclerosis of aorta. No aneurysm. Study is limited by breathing motion artifact. There are a scattered opacifications in the mid to low er lung manning. Very small RIGHT pleural effusion. Similar to the prior study. Marked enlargement of the cardiac chambers. Small pericardial effusion similar to the prior study. Ag ain noted is indeterminate mediastinal and hilar lymphadenopathy. Largest lymph node measures 14 mm a t the RIGHT hilum. Size of the lymph nodes appears to have progressed. Diffuse soft tissue anasarca. Gynecomastia. Tricuspid regurgitation into the hepatic veins. Cholelithiasis. Hyperplasia LEFT adrenal gland. Notified Marty Montemayor MD at 12/25/2019 11:[address]/CT angio chest PE protcl [id number] IMPRESSION: 1. Bilateral lower lobe segmental and subsegmental pulmonary emboli. 2. Study is limited by motion. 3. Cardiomegaly and small pericardial effusion. 4. Continued areas of consolidation with groundglass attenuation and opacifica tions in the periphery of the lungs without improvement since 12/10/2019. Conside r viral pneumonia or pneumonitis. 5. Small RIGHT pleural effusion is unchanged. 6. Indeterminate mediastinal and hilar adenopathy with mild progression since the prior study. 7. Soft tissue anasarca has progressed.
[2019-12-25 10:11] LABS: Partial Thromboplastin Time 45.2 SECONDS (23.9-36.7)
--- NOTE | 2019-12-25 10:59 | PC.NURSE ---
PO medication not given due to patient decreased LOC Dr abebe notified
[2019-12-25] MEDS: iodixanol 320 mg/mL 100mL Btl IV (11:01)
--- NOTE | 2019-12-25 11:11 | PC.NURSE ---
patient assisted to wheel chair by 2 assist patient tolerated test well is slow and groggy not responding well to direction patient assisted back to bed by 2 assist. one on one sitter with patient at all times during transfers and testing.
[2019-12-25 11:31] LABS: Hematocrit 33.7 % (42.0-52.0); Hemoglobin 10.4 g/dL (11.7-16.6)
--- NOTE | 2019-12-25 12:21 | P.PN_ITS ---
Subjective Subjective: Interval history: Chapin is sleeping when I evaluate him. Nursing does report that he was quite agitated, and required quite a bit of medication to allow treatment. History and physical was reviewed. Medications: Reviewed: Yes Vitals/I&O/Wt Last Vital Signs Temp 98.0 F 12/25/19 04:00 Pulse 122 H 12/25/19 10:24 Resp 22 H 12/25/19 10:24 BP 137/82 12/25/19 10:24 Pulse Ox 97 12/25/19 10:24 12/24/19 12/25/19 12/25/19 22:59 06:59 14:59 Intake Total 1029.5 / 1029.5 Balance 1029.5 / 1029.5 Weight last 48 hrs Weight 72.575 kg Physical Exam Narrative: EXAM NARRATIVE: Sleeping Cardiovascular tachycardic, no murmur Lungs clear Abdomen is soft, positive bowel sounds Extremities no cyanosis clubbing or edema Data : 12/25/19 11:15 12/25/19 02:30 Micro: Microbiology 12/24/19 15:19 C.difficile Toxin B Gene (PCR) - Final Stool - Stool Aspirate A&P Assessment and plan (1) Eosinophilia: Apparently outpatient follow-up is been arranged Status: Acute (2) Stool guaiac positive: Done in the emergency department. Hemoglobin slightly low. Continue to monitor closely. Plavix and aspirin were held Heparin was started even though risk secondary to pulmonary embolism Status: Acute (3) Acute kidney injury: Superimposed on chronic kidney disease Status: Acute (4) Dehydration: Status: Acute (5) Elevated white blood cell count: Concern of pneumonia exists on CTA Status: Acute Qualifiers: Leukocytosis type: eosinophilia Qualified Code(s): D72.1 - Eosinophilia (6) Lung nodule: Status: Acute (7) Dementia: Status: Acute Qualifiers: Dementia type: vascular dementia Dementia behavioral disturbance: with behavioral disturbance Qualified Code(s): F01.51 - Vascular dementia with behavioral disturbance (8) Acute hyperactive delirium due to another medical condition: Required quite a bit of medicine to calm him. Status: Acute Additional A&P Information Pulmonary embolism by CTA, bilateral lower lobes. Placed on heparin drip. Monitoring for bleeding closely. Elevated troponin. Likely secondary pulmonary embolism but will recheck troponin tomorrow morning. Chronic diarrhea. C. difficile negative History of CVA History of ischemic cardiomyopathy with last EF approximately 40%. Now we will continue Lasix 40 mg IV every 12 hours DNR/DNI Heparin will suffice for DVT prophylaxis Attestations Medical Necessity Statement*: Needs continued hospitalization for IV antibiotics and heparin secondary to pulmonary embolism Coding Level of Care Code Acute Field Service Rep for Chg Fwd Diagnoses Eosinophilia D72.1 Stool guaiac positive R19.5 Acute kidney injury N17.9 Dehydration E86.0 Elevated white blood cell count D72.1 Leukocytosis type: eosinophilia Lung nodule R91.1 Dementia F01.51 Dementia type: vascular dementia Dementia behavioral disturbance: with behavioral disturbance Acute hyperactive delirium due to another medical condition F05
[2019-12-25] MEDS: levofloxacin-dextrose 5 % 750 MG/150 ML PREMIX 100 MG IV (15:14)
[2019-12-25] MEDS: FUROsemide 10 mg/mL SDV 4mL 40 MG IVP (15:15)
--- NOTE | 2019-12-25 15:55 | PC.NURSE ---
Attempts made to obtain a second IV for administration of abx and Lasix. several failed obtain made by multiple nurses eventually obtained access and medications given. Dr abebe notified of delay in medication administration no further instructions given at this time.
--- NOTE | 2019-12-25 17:31 | P.CONIM_ITS ---
Providers/Reason For Consult Consulting Physican/Specialty*: Cardiology Reason for Consult*: Pulmonary embolism/bleeding per rectum with intolerability for anticoagulation. Placement of IVC filter Attending Physician: Marty Montemayor MD Primary Care Provider: Mike Ruggiero DO History of Present Illness History of Present Illness Chapin Govea is a 79 year old male past medical history significant for CVA, dementia, ischemic cardiomyopathy with moderately reduced LV function of 40%, eosinophilic pneumonia under treatment of tip out worker presented with hypoxia confusion and bloody stools. During investigation he was confirmed by CTA for pulmonary embolism both segmental and subsegmental, he was started on IV heparin after that he passed bright blood per rectum more than 30 mL. Patient is tachycardic and hypoxic it is the reason we have been asked by medicine service to assess for IVC filter. I have detailed discussion with Dr. Marty Montemayor and patient's son. Patient's son told me that since his father has been evaluated by tip out worker and he is not sure of his long-term prognosis yet he would like to consider anything that can prolong his life expectancy for now and would not like to see him with more clot going to the lung until he finds out the final evaluation by pulmonary whether patient can be help with medicine which can prolong his life and quality of life. We discussed all the risk benefit and alternative for the procedure. We discussed putting IVC filter can dislodge the clot leading to hemodynamically unstable pulmonary embolism, it can cause laceration of inferior vena cava and chances of which is in between 10 to 20%. We also discussed long-term sequelae from IVC filter in case it cannot be taken out after 3 months it can clog. Patient's son would like to proceed with it. Review of Systems General: Reports: 10 or more systems reviewed and unremarkable except in HPI and below and ROS unobtainable due to medical condition (Sundowning, hyperactive delirium) Const: Denies: fever(s) or chills Eyes: Denies: change in vision ENMT: Denies: throat pain Card: Denies: chest pain Resp: Denies: dyspnea GI: Reports: change in bowel habits; Denies: abdominal pain, nausea or vomiting : Denies: dysuria Musc: Denies: muscle weakness Skin/Breast: Denies: rash Neuro: Denies: headache(s) Psych: Reports: difficulty concentrating; Denies: hopelessness or suicidal ideation Endo: Denies: polyuria Mike/Lymph: Denies: easy bruising or easy bleeding All/Imm: Denies: urticaria Meds/Allergies Home Medications and Allergies Home Medications Medication Instructions Recorded Confirmed Last Taken Type aspirin 81 mg PO DAILY 30 Days #30 tab 10/31/19 12/24/19 12/23/19 Rx atorvastatin 40 mg PO DAILY 30 Days #30 tab 10/31/19 12/24/19 12/23/19 Rx clopidogrel 75 mg PO DAILY 30 Days #30 tab 10/31/19 12/24/19 12/23/19 Rx gabapentin [Neurontin] 300 mg PO TID 30 Days #90 cap 10/31/19 12/24/19 12/23/19 Rx Culturelle 1 cap PO DAILY 12/03/19 12/24/19 Unknown History Fleet Enema 118 ml MA DAILY PRN 12/03/19 12/24/19 Unknown History furosemide 60 mg PO BID@08,16 30 Days #90 tab 12/10/19 12/24/19 12/23/19 Rx magnesium L-lactate [Magtab] 84 mg PO BID 30 Days #60 tab 12/10/19 12/24/19 12/23/19 Rx potassium chloride 20 meq PO TID 30 Days #180 tab 12/10/19 12/24/19 12/23/19 Rx sacubitril-valsartan [Entresto] 1 tab PO BID 30 Days #60 tab 12/10/19 12/24/19 12/23/19 Rx Allergies Allergy/AdvReac Type Severity Reaction Status Date / Time No Known Allergies Allergy Verified 12/24/19 15:11 Current Medications Current Medications Generic Name Dose Route Start Last Admin Trade Name Freq PRN Reason Stop Dose Admin Atorvastatin Calcium 40 mg 12/25/19 09:00 12/25/19 10:58 Lipitor PO Not Given DAILY PHIL Furosemide 40 mg 12/25/19 12:45 12/25/19 15:15 Lasix IVP 40 mg Q12H PHIL Administration Levofloxacin/Dextrose 750 mg in 150 mls @ 100 mls/hr 12/25/19 13:00 12/25/19 15:14 Levaquin-D5w IV 100 mls/hr Q24H PHIL Administration Protocol Pantoprazole Sodium 40 mg 12/25/19 09:00 12/25/19 08:40 Protonix IVP 40 mg BID PHIL Administration PFSH Acute PFSH: Medical History Acute on chronic systolic heart failure BPH (benign prostatic hyperplasia) -on Flomax CAD (coronary artery disease) CHF (congestive heart failure) Compensated currently. CHF (congestive heart failure) -has chronic systolic CHF, last Echo with reported EF=40% COPD (chronic obstructive pulmonary disease) - CVA (cerebral vascular accident) -had neuroimaging done including CT head and MRI head showing chronic ischemic changes Dementia HTN (hypertension) Hypercholesteremia -on statin Ischemic cardiomyopathy Neuropathy Non-ST elevation (NSTEMI) myocardial infarction Pericardial effusion Recent cerebrovascular accident (CVA) Recent non-ST elevation myocardial infarction Temporal arteritis -resolved after treatment -affected R eye Vascular dementia -waxes and wanes at baseline, easily redirected Surgical History H/O hand surgery -left hand, for finger contracture Social History Smoking and tobacco status: never smoked Alcohol intake: never Lives independently: Yes Household members: other Housing: Assisted Living Facility Marital status: / Current occupational status: retired History of recent travel: No Current gender identity: Male Dietary Habits: Current diet type/program: regular Caffeine: Yes Caffeine intake frequency: coffee Number of coffee servings: 2 Vitals/I&O/Wt Last Vital Signs Temp 97.6 F 12/25/19 15:09 Pulse 119 H 12/25/19 15:09 Resp 22 H 12/25/19 15:09 BP 109/76 12/25/19 16:28 Pulse Ox 92 12/25/19 15:09 12/25/19 12/25/19 12/25/19 06:59 14:59 22:59 Intake Total 182 / 182 69.3 / 251.3 Output Total 100 / 100 200 / 300 Balance 82 / 82 -130.7 / -48.7 Weight last 48 hrs Weight 160 lb Physical Exam Narrative: EXAM NARRATIVE: GENERAL: Patient is confused NECK: No jugular vein distension. HEENT: No cyanosis. No icterus. No pallor. HEART: Regular S1 and S2. No murmur, rub or gallop. LUNGS: Decreased breath sound bilaterally. ABDOMEN: Soft, nontender and nondistended. Positive bowel sounds. No guarding, rebound or tenderness. CENTRAL NERVOUS SYSTEM: Grossly nonfocal. EXTREMITIES: Lower extremities without edema bilaterally. Data Labs: Other Labs: CT/CT angio chest PE protcl [id number] IMPRESSION: 1. Bilateral lower lobe segmental and subsegmental pulmonary emboli. 2. Study is limited by motion. 3. Cardiomegaly and small pericardial effusion. 4. Continued areas of consolidation with groundglass attenuation and opacifications in the periphery of the lungs without improvement since 12/10/2019. Consider viral pneumonia or pneumonitis. 5. Small RIGHT pleural effusion is unchanged. 6. Indeterminate mediastinal and hilar adenopathy with mild progression since the prior study. 7. Soft tissue anasarca has progressed. Micro: Micro: Microbiology 12/24/19 15:19 C.difficile Toxin B Gene (PCR) - Fin al Stool - Stool Asp irate A&P Assessment and plan (1) Pulmonary embolism: Patient has multiple pulmonary embolism leading to hypoxia tachypnea and tachycardia. He appeared to be in a moderate distress. He cannot tolerate anticoagulation due to active bleeding per rectum. IV heparin was stopped. It is fear that patient may will throw further clots. We have been asked to assess him for IVC filter. As defined above I have detailed discussion with the patient's son who has power of pulp making plant operator he would like to proceed with it. Status: Acute Qualifiers: Pulmonary embolism type: unspecified Chronicity: acute Acute cor pulmonale presence: unspecified Qualified Code(s): I26.99 - Other pulmonary embolism without acute cor pulmonale (2) Acute kidney injury: Mostly prerenal. Creatinine today is 1.5 which is improved from 1.6 baseline is 1.3. Continue IV fluid. Hold diuretics. Since it is emergent procedure I will try to minimize contrast as low as possible. Patient son is aware of contrast-induced nephropathy secondary to dye leading to transient permanent dialysis. He would like to proceed with it Status: Acute (3) Ischemic cardiomyopathy: Appears to be stable from a coronary disease perspective. Continue meds Status: Acute (4) CHF exacerbation: Patient is on dry side. Status: Acute (5) GI bleed: Heparin has been stopped. IV filter will be placed for pulmonary embolism. Status: Acute Consult Attestations Medical Necessity Statement: Patient require continuation hospitalization for above defined care. Coding Level of Care Code New Pt Acute Hi Low Truck Driver for Chg Fwd Patient Type New History Expanded Problem Focused Exam Expanded Problem Focused Medical Decision Making Moderate Complexity Diagnoses Pulmonary embolism I26.99 Pulmonary embolism type: unspecified Chronicity: acute Acute cor pulmonale presence: unspecified Acute kidney injury N17.9 Ischemic cardiomyopathy I25.5 CHF exacerbation I50.9 GI bleed K92.2
[2019-12-25] MEDS: sodium chloride 0.9% 1,000 ML 50 ML IV (18:03)
--- NOTE | 2019-12-25 18:05 | PC.NURSE ---
Dr Montemayor notified of patient low output and inability to urinate patient bladder scanned and found to have 568 in bladder instructions to place a Echevarria for acute urinary retention
[2019-12-25] MEDS: fentaNYL 50 mcg/mL INJ 2mL IVP (19:11)
--- NOTE | 2019-12-25 21:00 | PC.NURSE ---
Pt resting in bed. Starting to become agitated and kicking legs. Will administer PRN ativan, see MAr for further details. Pt remains very drowsy. right groin site with dressing in place, no hematoma or drainage noted. denies pain. Able to respond to verbal stimuli without any complications. States his name and answers yes or no questions at this time. Sitter at bedside.
--- NOTE | 2019-12-25 23:14 | PC.NURSE ---
Sheath pulled from right groin at 1917 by Mary SYED. Pressure held. No complications noted. Dressing in place.
--- NOTE | 2019-12-26 00:23 | PC.PHAR ---
Levaquin dosage is adjusted from 750mg IVPB every 24 hours to 750mg IVPB every 48 hours due to creatinine clearance of 40.87.
[2019-12-26] MEDS: LORazepam 2 mg/mL INJ 1 mL IVP (01:22)
[2019-12-26] MEDS: acetaminophen 325 mg Tablet 650 MG PO ×2 (02:38→05:11)
--- NOTE | 2019-12-26 03:27 | USCV_ITS ---
Chapin Govea Age: 79 Gender: M : 1940 Exam Date: 12/26/2019 08:02 Ordering Phys: Daljit Marcelo MD Technologist: Catarino Trujillo [place] [facility] [place]: PE BP: 115 / 69 HR: 56 Rhythm: Sinus Technical Quality: MEASUREMENTS (Male / Female) Normal Values 2D ECHO LV Diastolic Diameter PLAX 5.6 cm 4.2 - 5.9 / 3.9 - 5.3 cm LV Systolic Diameter PLAX 5.0 cm IVS Diastolic Thickness 0.9 cm 0.6 - 1.0 / 0.6 - 0.9 cm IVS Systolic Thickness 1.2 cm LVPW Diastolic Thickness 1.1 cm 0.6 - 1.0 / 0.6 - 0.9 cm LVPW Systolic Thickness 1.5 cm LVOT Diameter 2.1 cm LV Ejection Fraction 2D Teich 22.9 % LV Ejection Fraction MOD 2C 8.4 % LV Ejection Fraction 2C AL 9.6 % LA Diameter 4.3 cm LA Width 4.6 cm LA Height 4.3 cm RA Width 3.2 cm RA Height 4.7 cm M-MODE LV Diastolic Diameter MM 6.1 cm 4.2 - 5.9 / 3.9 - 5.3 cm LV Systolic Diameter MM 5.1 cm LV Ejection Fraction MM Teich 31.8 % IVS Diastolic Thickness MM 1.0 cm 0.6 - 1.0 / 0.6 - 0.9 cm IVS Systolic Thickness MM 1.4 cm LVPW Diastolic Thickness MM 1.3 cm 0.6 - 1.0 / 0.6 - 0.9 cm LVPW Systolic Thickness MM 1.9 cm RV Diastolic Diameter MM 2.1 cm Aortic Annulus Diameter 3.7 cm LA Ao Ratio MM 1.2 MV E Point Septal Separation 1.8 cm FINDINGS Left Ventricle Mildly dilated left ventricular cavity. Severely decreased left ventricular systolic function. Left ventricular ejection fraction is estimated at 25-30%. There is severe global hypokinesis with dyskinetic basal to mid inferior osullivan. Right Ventricle Normal right ventricular size and systolic function. Right Atrium Mildly increased right atrial size. Right atrial pressure estimated at 15 mmHg. Left Atrium Moderately increased left atrial size. Mitral Valve Mildly thickened mitral valve. Moderate mitral valve regurgitation. Aortic Valve Aortic valve not well visualized. Thickened aortic valve. Trace aortic valve regurgitation. Tricuspid Valve Structurally normal tricuspid valve. Pulmonic Valve Structurally normal pulmonic valve. Pericardium Trivial pericardial effusion. Aorta Normal-sized aortic root. CONCLUSIONS 1. This is a limited echocardiogram. 2. Mildly dilated left ventricular cavity. Severely decreased left ventricular systolic function. Left ventricular ejection fraction is estimated at 25-30%. There is severe global hypokinesis with dyskinetic basal to mid inferior osullivan. 3. Moderate mitral valve regurgitation. 4. When compared to previous echocardiogram dated 12/05/2019, there has been no significant change. Manuela Novak MD (Electronically Signed) Final Date: 28 December 2019 13:27 S
--- NOTE | 2019-12-26 04:22 | PC.NURSE ---
END OF SHIFT NOTE: Pt restless throughout this shift depsite ativan, SEE MAR. Continues to attempt to pull at pickering and get out of bed. Sitter at bedside. Right groin accessed yesterday. Sheath removed at shift change without complications. PRN tylenol administered (SEE MAR) for discomfort in right groin. Pickering in place. No further needs identified.
[2019-12-26 04:45] VITALS: BP 115/79; PULSE 112; RESP 16; TEMP 36.9; O2SAT 96
[2019-12-26 05:20] LABS: Basophils # 0.1 10^3/uL (0.0-0.1); Basophils % 0.3 %; Eosinophils % 38.9 %; Hematocrit 31.9 % (42.0-52.0); Hemoglobin 9.7 g/dL (11.7-16.6); Lymphocytes # 1.2 10^3/uL (0.8-4.8); Lymphocytes % 7.5 %; Mean Corpuscular HGB Conc 30.4 g/dL (30.0-36.0); Mean Corpuscular Hemoglobin 26.3 pg (28.0-34.0); Mean Corpuscular Volume 86.4 fL (80-94); Mean Platelet Volume 11.2 fL (7.4-10.4); Monocytes # 0.8 10^3/uL (0.2-0.9); Monocytes % 4.9 %; Neutrophils # 7.39 10^3/uL (1.8-7.7); Neutrophils % 48.1 %; Nucleated Red Blood Cells % 0 %; Platelet Count 319 10^3/cmm (130-400); Red Blood Count 3.69 10^6/uL (4.1-5.3); Red Cell Distribution Width 17.6 % (12.1-15.1); White Blood Count 15.4 10^3/uL (4.0-10.0)
[2019-12-26 05:42] LABS: Alanine Aminotransferase 12 U/L (0-41); Albumin Level 2.6 g/dL (3.5-5.2); Alkaline Phosphatase 88 IU/L (40-130); Aspartate Amino Transferase 10 U/L (0-40); Blood Urea Nitrogen 25 mg/dL (8-23); Calcium 8.7 mg/dL (8.5-10.5); Carbon Dioxide 19 mmol/L (22-29); Chloride 100 mmol/L (98-107); Globulin 3.1 g/dL (1.3-4.6); Glucose 87 mg/dL (65-115); Osmolality Calculated 272 mOsm/kg (285-295); Sodium 133 mmol/L (136-145); Total Bilirubin 0.6 mg/dL (0.15-1.2); Total Protein 5.7 g/dL (6.6-8.7)
[2019-12-26 05:50] LABS: Troponin T (5th) Once 902 ng/L (0-15)
[2019-12-26 07:40] VITALS: PULSE 106; RESP 16; O2SAT 95
--- NOTE | 2019-12-26 07:42 | PM.PN ---
Subjective Subjective: Interval history: Chapin is sleeping soundly. He underwent an IVC filter yesterday. He required several doses of Ativan last night. He appears comfortable, arousable but nonconversant this morning. Medications: Reviewed: Yes Vitals/I&O/Wt Last Vital Signs Temp 98.4 F 12/26/19 04:45 Pulse 106 H 12/26/19 07:40 Resp 16 12/26/19 07:40 BP 115/79 12/26/19 04:45 Pulse Ox 95 12/26/19 07:40 12/25/19 12/26/19 12/26/19 22:59 06:59 14:59 Intake Total 219.3 / 401.3 500 / 901.3 Output Total 850 / 950 100 / 1050 Balance -630.7 / -548.7 400 / -148.7 Weight last 48 hrs Weight 65.907 kg Weight 72.575 kg Physical Exam Narrative: EXAM NARRATIVE: Sleeping soundly Cardiovascular tachycardic, no murmur. Tachycardia is improved from yesterday Lungs clear Abdomen is soft, positive bowel sounds Extremities no cyanosis clubbing or edema Urinary Catheter Management^: Coude: Cath Placed During This Visit: yes Reason for Continuing Indwelling Catheter: Acute Urinary Retention or Obstruction Urinary Catheter Date of Insertion: 12/25/19 Urinary Catheter Time of Insertion: 18:00 Data : 12/26/19 04:51 12/26/19 04:51 A&P Assessment and plan (1) Eosinophilia: Apparently outpatient follow-up is been arranged Status: Acute (2) Stool guaiac positive: Done in the emergency department. He had repetitive bleeding yesterday, and hemoglobin decreased. Therefore heparin was discontinued, and an IVC filter placed for his pulmonary emboli Plavix and aspirin held secondary to GI bleeding Status: Acute (3) Acute kidney injury: Superimposed on chronic kidney disease Renal function somewhat improved this morning. Status: Acute (4) Dehydration: Adequate fluid stores currently. Status: Acute (5) Elevated white blood cell count: Concern of pneumonia exists on CTA Levaquin initiated IV Status: Acute Qualifiers: Leukocytosis type: eosinophilia Qualified Code(s): D72.1 - Eosinophilia (6) Lung nodule: Status: Acute (7) Dementia: Status: Acute Qualifiers: Dementia type: vascular dementia Dementia behavioral disturbance: with behavioral disturbance Qualified Code(s): F01.51 - Vascular dementia with behavioral disturbance (8) Acute hyperactive delirium due to another medical condition: Reevaluate later today. Received Ativan last night. Status: Acute Additional A&P Information Pulmonary embolism by CTA, bilateral lower lobes. Placed on heparin drip. Had significant GI bleeding so IVC filter was placed after discussion with son regarding directive for care. Son confirmed he is DNR/DNI but wants continued medical care to see if he can have some improvement in his quality of life. Venous duplex was ordered and pending. Elevated troponin. Likely secondary pulmonary embolism. This did increase some. Check EKG. Echo has been ordered. This can be a limited. Chronic diarrhea. C. difficile negative History of CVA History of ischemic cardiomyopathy with last EF approximately 40%. DNR/DNI Holding anticoagulation secondary to GI bleeding Attestations Medical Necessity Statement*: Needs continued hospitalization for close monitoring secondary to pulmonary emboli requiring IVC filter, GI bleeding, anemia, etc. Coding Level of Care Code Acute Creative Services Coordinator for g Fwd Diagnoses Eosinophilia D72.1 Stool guaiac positive R19.5 Acute kidney injury N17.9 Dehydration E86.0 Elevated white blood cell count D72.1 Leukocytosis type: eosinophilia Lung nodule R91.1 Dementia F01.51 Dementia type: vascular dementia Dementia behavioral disturbance: with behavioral disturbance Acute hyperactive delirium due to another medical condition F05
--- NOTE | 2019-12-26 07:45 | ECG_ITS ---
[facility] Test Date: 2019-12-26 Pat Name: Chapin Govea Department: Room: 111 Gender: Male Epidemiology Intern: : 1940 Requested By: Marty Bagley Order Number: [id number] Katie MD: Daljit Anthony M.D. Measurements Intervals [place] Rate: 106 P: 69 WV: 170 QRS: -21 QRSD: 110 T: 87 QT: 339 QTc: 451 Interpretive Statements SINUS TACHYCARDIA POSSIBLE ANTERIOR MYOCARDIAL INFARCTION [30 ms Q WAVE IN V3/V4, OR R < 0.2 mV IN V4], OF INDETERMINATE AGE Compared to ECG 12/25/2019 02:48:55 Left-axis deviation no longer present Myocardial infarct finding still present Electronically Signed On 12-26-2019 20:14:08 CDT by Daljit Anthony M.D. [id number]
[2019-12-26] MEDS: pantoprazole 40 mg SDV IVP ×2 (09:00→18:39)
[2019-12-26] MEDS: metoprolol tartrate 25 mg Tablet 12.5 MG PO ×2 (09:00→18:39)
[2019-12-26] MEDS: atorvastatin 40 mg Tablet PO (09:00)
--- NOTE | 2019-12-26 18:18 | PM.PN ---
Subjective Subjective: Interval history: Status post IVC filter placement today he is feeling better. Right groin looks good Medications: Reviewed: Yes Vitals/I&O/Wt Last Vital Signs Temp 98.4 F 12/26/19 04:45 Pulse 106 H 12/26/19 07:40 Resp 16 12/26/19 07:40 BP 115/79 12/26/19 04:45 Pulse Ox 95 12/26/19 07:40 12/26/19 12/26/19 12/26/19 06:59 14:59 22:59 Intake Total 500 / 901.3 150 / 150 Output Total 100 / 1050 Balance 400 / -148.7 150 / 150 Weight last 48 hrs Weight 145 lb 4.8 oz Physical Exam Narrative: EXAM NARRATIVE: GENERAL: Patient is confused NECK: No jugular vein distension. HEENT: No cyanosis. No icterus. No pallor. HEART: Regular S1 and S2. No murmur, rub or gallop. LUNGS: Decreased breath sound bilaterally. ABDOMEN: Soft, nontender and nondistended. Positive bowel sounds. No guarding, rebound or tenderness. CENTRAL NERVOUS SYSTEM: Grossly nonfocal. EXTREMITIES: Lower extremities without edema bilaterally. Urinary Catheter Management^: Coude: Cath Placed During This Visit: yes Reason for Continuing Indwelling Catheter: Acute Urinary Retention or Obstruction Urinary Catheter Date of Insertion: 12/25/19 Urinary Catheter Time of Insertion: 18:00 Data : 12/26/19 04:51 12/26/19 04:51 Micro: Microbiology 12/26/19 13:35 C.difficile Toxin B Gene (PCR) - Final Stool - Stool Aspirate A&P Assessment and plan (1) Pulmonary embolism: Status post IVC filter for inability to take anticoagulation and active bleeding. Advised to retrieve filter in 2 to 3 months once patient can take anticoagulation. We will follow-up on him in 3 months in my clinic as we will set up the date to take the filter out. Please follow-up upon discharge with Dr. Anthony in 3 months Status: Acute Qualifiers: Pulmonary embolism type: unspecified Chronicity: acute Acute cor pulmonale presence: unspecified Qualified Code(s): I26.99 - Other pulmonary embolism without acute cor pulmonale (2) Acute kidney injury: Stable at 1.5. Continue to follow with medicine Status: Acute (3) Ischemic cardiomyopathy: Appears to be stable from a coronary disease perspective. Continue meds Status: Acute (4) CHF exacerbation: Patient is on dry side may can be given IV fluid. Status: Acute (5) GI bleed: Patient is status post IVC filter placement. Continue holding anticoagulation Status: Acute Attestations Medical Necessity Statement*: As per medicine Coding Level of Care Code Established Pt Acute Human Factors Engineer for g Fwd Patient Type Established History Expanded Problem Focused Exam Expanded Problem Focused Medical Decision Making Moderate Complexity Diagnoses Pulmonary embolism I26.99 Pulmonary embolism type: unspecified Chronicity: acute Acute cor pulmonale presence: unspecified Acute kidney injury N17.9 Ischemic cardiomyopathy I25.5 CHF exacerbation I50.9 GI bleed K92.2
--- NOTE | 2019-12-26 19:40 | PC.NURSE ---
Rounding: Patient resting in bed. Patient has 1:1 sitter at bedside. Patient is calm at this time. Will continue to monitor.
[2019-12-26 20:38] VITALS: BP 104/71; PULSE 113; RESP 24; TEMP 36.6; O2SAT 98
[2019-12-27] VITALS (7 sets, daily range): BP systolic 91–127; BP diastolic 63–86; PULSE 93–114; RESP 16–36; TEMP 36.3–36.7; O2SAT 95–100
--- NOTE | 2019-12-27 00:13 | PC.NURSE ---
Patient has been refusing telemetry this shift. When staff goes to put his telemetry back on he says get your hands off me . Patient is other phipps calm and resting in bed. Will continue to try and place patient on telemetry when he is calmer.
[2019-12-27 04:39] LABS: Basophils # 0.1 10^3/uL (0.0-0.1); Basophils % 0.4 %; Eosinophils % 27.7 %; Hematocrit 34.8 % (42.0-52.0); Hemoglobin 10.5 g/dL (11.7-16.6); Lymphocytes # 1.4 10^3/uL (0.8-4.8); Lymphocytes % 9.3 %; Mean Corpuscular HGB Conc 30.2 g/dL (30.0-36.0); Mean Corpuscular Hemoglobin 26.6 pg (28.0-34.0); Mean Corpuscular Volume 88.1 fL (80-94); Mean Platelet Volume 11.1 fL (7.4-10.4); Monocytes # 0.6 10^3/uL (0.2-0.9); Monocytes % 4.4 %; Neutrophils # 8.42 10^3/uL (1.8-7.7); Neutrophils % 57.8 %; Nucleated Red Blood Cells % 0 %; Platelet Count 437 10^3/cmm (130-400); Red Blood Count 3.95 10^6/uL (4.1-5.3); Red Cell Distribution Width 17.6 % (12.1-15.1); White Blood Count 14.6 10^3/uL (4.0-10.0)
--- NOTE | 2019-12-27 04:43 | PC.NURSE ---
Patient restless this morning wanting to go back home. Patient sat out in the [place] for awhile with one on one sitter. Then patient wanted to call this . Patient was provided a phone. Patient reoriented and re directed. Patient is calm but impulsive. Will continue to montior.
[2019-12-27 05:02] LABS: Alanine Aminotransferase 28 U/L (0-41); Albumin Level 3.1 g/dL (3.5-5.2); Alkaline Phosphatase 117 IU/L (40-130); Anion Gap 20.2 (5-19); Aspartate Amino Transferase 42 U/L (0-40); Blood Urea Nitrogen 29 mg/dL (8-23); Calcium 8.4 mg/dL (8.5-10.5); Carbon Dioxide 18 mmol/L (22-29); Chloride 98 mmol/L (98-107); Globulin 3.8 g/dL (1.3-4.6); Glucose 129 mg/dL (65-115); Osmolality Calculated 273 mOsm/kg (285-295); Potassium 4.2 mmol/L (3.5-5.1); Sodium 132 mmol/L (136-145); Total Bilirubin 0.7 mg/dL (0.15-1.2); Total Protein 6.9 g/dL (6.6-8.7)
--- NOTE | 2019-12-27 05:17 | PC.NURSE ---
End of shift: Patient resting in bed. Patient has not wanted to wear his telemetry majory of this shift. Either by ripping the patches off his chest or pulling at the wires. Patient has pulled at his catheter some. draining yellow urine. Sitter is at bedside. Bed in low position and side rails up x2. call light within reach.
--- NOTE | 2019-12-27 05:26 | PC.NURSE ---
Notified Dr. Marcelo of low urine output. NO orders recieved at this time.
[2019-12-27 08:22] LABS: Magnesium 2.3 mg/dL (1.7-2.3)
[2019-12-27] MEDS: pantoprazole 40 mg SDV IVP (09:11)
[2019-12-27] MEDS: metoprolol tartrate 25 mg Tablet PO ×2 (09:11→17:48)
[2019-12-27] MEDS: atorvastatin 40 mg Tablet PO (09:11)
--- NOTE | 2019-12-27 09:19 | PM.PN ---
Subjective Subjective: Interval history: Chapin reports he is doing okay. No shortness of breath. No chest discomfort. Certainly much more alert today. Medications: Reviewed: Yes Vitals/I&O/Wt Last Vital Signs Temp 98.0 F 12/27/19 07:50 Pulse 108 H 12/27/19 08:15 Resp 16 12/27/19 08:15 BP 117/80 12/27/19 07:50 Pulse Ox 95 12/27/19 08:15 12/26/19 12/27/19 12/27/19 22:59 06:59 14:59 Intake Total 290 / 440 300 / 740 240 / 240 Output Total 100 / 500 Balance 290 / 40 200 / 240 240 / 240 Weight last 48 hrs Weight 65.907 kg Physical Exam Narrative: EXAM NARRATIVE: Awakens easily. Cardiovascular tachycardic, no murmur. Tachycardia is mild. Lungs clear Abdomen is soft, positive bowel sounds Extremities no cyanosis clubbing or edema Urinary Catheter Management^: Coude: Cath Placed During This Visit: yes Reason for Continuing Indwelling Catheter: Acute Urinary Retention or Obstruction Urinary Catheter Date of Insertion: 12/25/19 Urinary Catheter Time of Insertion: 18:00 Data : 12/27/19 04:10 12/27/19 04:10 Micro: Microbiology 12/26/19 13:35 C.difficile Toxin B Gene (PCR) - Final Stool - Stool Aspirate A&P Assessment and plan (1) Eosinophilia: Apparently outpatient follow-up is been arranged Status: Acute (2) Stool guaiac positive: Done in the emergency department. He had repetitive bleeding yesterday, and hemoglobin decreased. Therefore heparin was discontinued, and an IVC filter placed for his pulmonary emboli Plavix and aspirin held secondary to GI bleeding Bleeding has lessened significantly. Consider outpatient endoscopy. Hemoglobin has stabilized. Change Protonix to p.o. Status: Acute (3) Acute kidney injury: Superimposed on chronic kidney disease Waxes and wanes. Overall no significant change. Status: Acute (4) Dehydration: Adequate fluid stores currently. Status: Acute (5) Elevated white blood cell count: Concern of pneumonia exists on CTA Levaquin initiated IV White blood cell count decreasing Status: Acute Qualifiers: Leukocytosis type: eosinophilia Qualified Code(s): D72.1 - Eosinophilia (6) Lung nodule: Status: Acute (7) Dementia: Status: Acute Qualifiers: Dementia type: vascular dementia Dementia behavioral disturbance: with behavioral disturbance Qualified Code(s): F01.51 - Vascular dementia with behavioral disturbance (8) Acute hyperactive delirium due to another medical condition: Improved significantly today Status: Acute Additional A&P Information Pulmonary embolism by CTA, bilateral lower lobes. Placed on heparin drip. Had significant GI bleeding so IVC filter was placed after discussion with son regarding directive for care. Son confirmed he is DNR/DNI but wants continued medical care to see if he can have some improvement in his quality of life. Venous duplex was ordered and pending. Elevated troponin. Likely secondary pulmonary embolism. This did increase some. Limited echo pending, for recheck of EF. Increase beta-deb slightly. Continue statin Cardiac arrhythmia. 5 beat run of ventricular tachycardia, nonsustained noted last night. Awaiting magnesium. Potassium normal. Chronic diarrhea. C. difficile negative History of CVA. Holding antiplatelet and aspirin secondary to GI bleeding History of ischemic cardiomyopathy with last EF approximately 40%. DNR/DNI Holding anticoagulation secondary to GI bleeding Hopefully can transition to [facility] for close monitoring, rehabilitation following pulmonary embolism with weakness and delirium. Attestations Medical Necessity Statement*: Needs continued hospitalization for close monitoring status post pulmonary embolism with IVC filter placement. Coding Level of Care Code Acute Drafter Geological for g Fwd Diagnoses Eosinophilia D72.1 Stool guaiac positive R19.5 Acute kidney injury N17.9 Dehydration E86.0 Elevated white blood cell count D72.1 Leukocytosis type: eosinophilia Lung nodule R91.1 Dementia F01.51 Dementia type: vascular dementia Dementia behavioral disturbance: with behavioral disturbance Acute hyperactive delirium due to another medical condition F05
[2019-12-27] MEDS: levofloxacin-dextrose 5 % 750 MG/150 ML PREMIX 100 MG IV (15:16)
[2019-12-27] MEDS: pantoprazole DR 40 mg Tablet PO (17:48)
[2019-12-28] VITALS (7 sets, daily range): BP systolic 91–124; BP diastolic 64–80; PULSE 90–112; RESP 18–36; TEMP 36.2–36.9; O2SAT 94–100
[2019-12-28 05:22] LABS: Basophils % 0.3 %; Eosinophils # 0.4 10^3/uL (0.0-0.8); Eosinophils % 3.4 %; Hematocrit 33.4 % (42.0-52.0); Hemoglobin 10.1 g/dL (11.7-16.6); Lymphocytes # 1.1 10^3/uL (0.8-4.8); Lymphocytes % 9.2 %; Mean Corpuscular HGB Conc 30.2 g/dL (30.0-36.0); Mean Corpuscular Hemoglobin 26.2 pg (28.0-34.0); Mean Corpuscular Volume 86.8 fL (80-94); Mean Platelet Volume 11.3 fL (7.4-10.4); Monocytes # 0.9 10^3/uL (0.2-0.9); Monocytes % 7.7 %; Neutrophils # 9.34 10^3/uL (1.8-7.7); Neutrophils % 78.7 %; Nucleated Red Blood Cells % 0 %; Platelet Count 359 10^3/cmm (130-400); Red Blood Count 3.85 10^6/uL (4.1-5.3); Red Cell Distribution Width 17.6 % (12.1-15.1); White Blood Count 11.9 10^3/uL (4.0-10.0)
--- NOTE | 2019-12-28 07:58 | PM.PN ---
Subjective Subjective: Interval history: Chapin is confused but conversant. Denies any pain. Nurse believes he is a little bit more confused than yesterday. Medications: Reviewed: Yes Vitals/I&O/Wt Last Vital Signs Temp 97.1 F L 12/28/19 07:32 Pulse 112 H 12/28/19 07:32 Resp 22 H 12/28/19 07:32 BP 124/80 12/28/19 07:32 Pulse Ox 94 12/28/19 07:32 12/27/19 12/28/19 12/28/19 22:59 06:59 14:59 Intake Total 390 / 870 Output Total 360 / 360 200 / 560 Balance 30 / 510 -200 / 310 Physical Exam Narrative: EXAM NARRATIVE: General exam no apparent distress Cardiovascular tachycardic, no murmur Lungs few crackles bilateral bases Abdomen is soft, positive bowel sounds Extremities no cyanosis clubbing or edema Urinary Catheter Management^: Coude: Cath Placed During This Visit: yes Reason for Continuing Indwelling Catheter: Acute Urinary Retention or Obstruction Urinary Catheter Date of Insertion: 12/25/19 Urinary Catheter Time of Insertion: 18:00 Data : 12/28/19 04:20 12/27/19 04:10 Coding Level of Care 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
--- NOTE | 2019-12-28 07:59 | CTR_ITS ---
PROCEDURE INFORMATION: Exam: CT Head Without Contrast Exam date and time: 12/28/2019 9:15 AM Age: 79 years old Clinical indication: Other: Confusion TECHNIQUE: Imaging protocol: Computed tomography of the head without contrast. Radiation optimization: All CT scans at this facility use at least one of these dose optimization techniques: automated exposure control; mA and/or kV adjustment per patient size (includes targeted exams where dose is matched to clinical indication); or iterative reconstruction. COMPARISON: CT head wo con* [id number] 10/24/2019 2:37 PM RADIATION DOSE METRICS: Total DLP (mGy-cm): 867.5 FINDINGS: Brain: No intracranial hemorrhage. Generalized atrophy. Patchy decreased attenuation of the deep white matter is nonspecific but compatible with chronic microvascular ischemia and unchanged. There are old subcentimeter bilateral basal ganglia lacunar infarcts. No evidence of territorial infarct. No abnormal mass effect or midline shift. Ventricles: Ventriculomegaly in the setting of atrophy. Bones/joints: No acute fracture. Sinuses: Bilateral median antrostomies. No air-fluid levels. Mastoid air cells: Visualized mastoid air cells are well aerated. Soft tissues: Unremarkable. CT/CT head wo con* [id number] IMPRESSION: 1. No acute findings. 2. Atrophy and likely chronic microvascular ischemic changes. Radiation Dose CTDIVOL = (mGy): DLP = 867.5 (mGy-cm)
[2019-12-28] MEDS: metoprolol tartrate 25 mg Tablet PO ×2 (09:43→17:13)
[2019-12-28] MEDS: atorvastatin 40 mg Tablet PO (09:43)
[2019-12-28] MEDS: pantoprazole DR 40 mg Tablet PO ×2 (09:43→17:13)
[2019-12-28 10:32] LABS: Alanine Aminotransferase 505 U/L (0-41); Albumin Level 3.1 g/dL (3.5-5.2); Alkaline Phosphatase 174 IU/L (40-130); Anion Gap 21.7 (5-19); Blood Urea Nitrogen 40 mg/dL (8-23); Carbon Dioxide 17 mmol/L (22-29); Chloride 95 mmol/L (98-107); Globulin 3.1 g/dL (1.3-4.6); Glucose 124 mg/dL (65-115); Osmolality Calculated 267 mOsm/kg (285-295); Potassium 4.7 mmol/L (3.5-5.1); Sodium 129 mmol/L (136-145); Thyroid Stimulating Hormone 5.74 uIU/mL (0.27-4.20); Total Bilirubin 0.8 mg/dL (0.15-1.2); Total Protein 6.2 g/dL (6.6-8.7)
[2019-12-28 10:43] LABS: Aspartate Amino Transferase 1074 U/L (0-40)
--- NOTE | 2019-12-28 11:26 | P.PN_ITS ---
Subjective Subjective: Interval history: No specific complaints today. Confusion noted. Up in a chair when I visited him. Urine output has been decreased. Medications: Reviewed: Yes Vitals/I&O/Wt Last Vital Signs Temp 97.9 F 12/28/19 10:56 Pulse 97 12/28/19 10:56 Resp 18 12/28/19 10:56 BP 99/70 12/28/19 10:56 Pulse Ox 96 12/28/19 10:56 12/27/19 12/28/19 12/28/19 22:59 06:59 14:59 Intake Total 390 / 870 Output Total 360 / 360 200 / 560 Balance 30 / 510 -200 / 310 Physical Exam Narrative: EXAM NARRATIVE: General exam no apparent distress Cardiovascular tachycardic, no murmur Lungs few crackles bilateral bases Abdomen is soft, positive bowel sounds Extremities no cyanosis clubbing or edema Urinary Catheter Management^: Coude: Cath Placed During This Visit: yes Reason for Continuing Indwelling Catheter: Acute Urinary Retention or Obstruction Urinary Catheter Date of Insertion: 12/25/19 Urinary Catheter Time of Insertion: 18:00 Data : 12/28/19 04:20 12/28/19 09:20 A&P Assessment and plan (1) Eosinophilia: Apparently outpatient follow-up is been arranged with pulmonary and consideration of bronchoscopy. This may need to be adjusted secondary to his pulmonary emboli. Status: Acute (2) Stool guaiac positive: Done in the emergency department. He had repetitive bleeding yesterday, and hemoglobin decreased. Therefore heparin was discontinued, and an IVC filter placed for his pulmonary emboli Plavix and aspirin held secondary to GI bleeding Bleeding has lessened significantly although he had a small amount of blood with bowel movement today. Consider outpatient endoscopy. Hemoglobin has stabilized. Continue Protonix by mouth Status: Acute (3) Acute kidney injury: Superimposed on chronic kidney disease This appears worse today. Recent overall intake poor. Add low-dose IV fluids Status: Acute (4) Dehydration: Supplement with low-dose IV fluids overnight Status: Acute (5) Elevated white blood cell count: Concern of pneumonia exists on CTA Levaquin initiated IV White blood cell count decreasing Status: Acute Qualifiers: Leukocytosis type: eosinophilia Qualified Code(s): D72.1 - Eosinophilia (6) Lung nodule: Status: Acute (7) Dementia: Status: Acute Qualifiers: Dementia type: vascular dementia Dementia behavioral disturbance: with behavioral disturbance Qualified Code(s): F01.51 - Vascular dementia with behavioral disturbance (8) Acute hyperactive delirium due to another medical condition: Improved significantly today Status: Acute Additional A&P Information Pulmonary embolism by CTA, bilateral lower lobes. Placed on heparin drip. Had significant GI bleeding so IVC filter was placed after discussion with son regarding directive for care. Son confirmed he is DNR/DNI but wants continued medical care to see if he can have some improvement in his quality of life. Venous duplex was negative. Elevated troponin. Likely secondary pulmonary embolism. This did increase some. Limited echo pending, for recheck of EF. Continue beta-deb, statin Cardiac arrhythmia. 5 beat run of ventricular tachycardia, nonsustained noted last night. Magnesium and potassium level were normal. Beta-deb was increased. Persistent confusion. Check CT head today. This demonstrated no acute findings. Chronic diarrhea. C. difficile negative History of CVA. Holding antiplatelet and aspirin secondary to GI bleeding History of ischemic cardiomyopathy with last EF approximately 40%. DNR/DNI Holding anticoagulation secondary to GI bleeding Hopefully can transition to detention facility for close monitoring, rehabilitation following pulmonary embolism with weakness and delirium. Attestations Medical Necessity Statement*: Needs continued hospitalization for evaluation of acute kidney injury, somewhat worsened over the last 24 hours Coding Level of Care Code Acute Train Control Electronic Technician for [facility] Diagnoses Eosinophilia D72.1 Stool guaiac positive R19.5 Acute kidney injury N17.9 Dehydration E86.0 Elevated white blood cell count D72.1 Leukocytosis type: eosinophilia Lung nodule R91.1 Dementia F01.51 Dementia type: vascular dementia Dementia behavioral disturbance: with behavioral disturbance Acute hyperactive delirium due to another medical condition F05
[2019-12-28] MEDS: ondansetron 2 mg/ML SDV 2 mL 4 MG IVP ×2 (11:42→17:13)
[2019-12-28] MEDS: sodium chloride 0.9% 250 ML IV (11:46)
[2019-12-28] MEDS: sodium chloride 0.9% 1,000 ML 50 ML IV (12:39)
--- NOTE | 2019-12-28 13:31 | PC.NURSE ---
DR. SANTOS NOTIFIED THIS MORNING OF PATIENT'S BLOODY STOOLS. WILL CONTINUE TO MONITOR.
[2019-12-28 13:35] LABS: Magnesium 2.2 mg/dL (1.7-2.3)
[2019-12-28] MEDS: OLANZapine 5 mg ODT PO (15:30)
--- NOTE | 2019-12-28 15:31 | PC.NURSE ---
PATIENT HAS BECOME INCREASINGLY AGITATED THIS AFTERNOON AND INSISTS UPON GOING HOME. NOTIFIED. ORDERED ZYPREXA ZYDIS PO.
--- NOTE | 2019-12-28 15:34 | DCPLANNER ---
Pg 2 of IM updated and reviewed with pt. No questions, copy provided.
--- NOTE | 2019-12-28 18:36 | PC.NURSE ---
SHIFT SUMMARY PATIENT HAS BECOME PROGRESSIVELY MORE WEAK THIS SHIFT, HE NOW REQUIRES A TWO PERSON TRANSFER VS STANDBY ASSIST WITH A WALKER. HIS URINE OUTPUT WAS APPROXIMATELY 200ML FOR 12 HOURS. PATIENT HAD TWO SMALL BOWEL MOVEMENTS THAT HAD MINH BLOOD. HE ALSO HAD A 10 BEAT RUN OF VTACH THIS AFTERNOON AND HAS REMAINED IN SINUS TACH THE REMAINDER OF THE SHIFT. DR. SANTOS NOTIFIED OF ALL THE ABOVE MENTIONED. PATIENT RESTING COMFORTABLY AT THE TIME OF THIS NOTE.
[2019-12-29 03:33] VITALS: BP 93/59; PULSE 98; RESP 32; TEMP 36.8; O2SAT 99
--- NOTE | 2019-12-29 06:00 | US_ITS ---
WS: [id number] ULTRASOUND ABDOMEN LIMITED CLINICAL INFORMATION: Elevated liver function tests, nausea COMPARISON: None. FINDINGS: Liver Size: Enlarged Craniocaudal length: 17.5 cm. Echogenicity: Normal. Surface nodularity: None. Mass (size and location): None. Bile ducts Intrahepatic ducts: Normal. Common bile duct diameter: 0.7 cm. Gallbladder Diffuse gallbladder wall thickening or pericholecystic fluid. Recommend correlation for cholecystitis . Gallstones: None. Gallbladder sludge: Present Gallbladder wall thickening: Present Pericholecystic fluid: Present Sonographic Bowman sign: Absent. Pancreas Normal as visualized. Right kidney: Normal. Hydronephrosis: None. Size: 9.4 cm x 6.5 cm x 5.6 cm. Abdominal aorta and IVC Visualized portions are normal. Ascites: None. US/US gall bladder [id number] IMPRESSION: 1. Mild hepatomegaly. 2. Mild gallbladder wall thickening with gallbladder wall thickening with ayah cholecystic edema. Small amount sludge in the gallbladder. Recommend correlatio n for cholecystitis. This can be further evaluated with HIDA scan. 3. Partially visualized debris within the IVC may represent thrombus. This can be further evaluated with vascular ultrasound. Correlate with history of IVC f ilter placement
[2019-12-29 06:07] LABS: Basophils % 0.1 %; Eosinophils # 0.1 10^3/uL (0.0-0.8); Eosinophils % 0.6 %; Hematocrit 32.8 % (42.0-52.0); Lymphocytes # 1.2 10^3/uL (0.8-4.8); Lymphocytes % 8.2 %; Mean Corpuscular HGB Conc 30.5 g/dL (30.0-36.0); Mean Corpuscular Hemoglobin 26.8 pg (28.0-34.0); Mean Corpuscular Volume 87.9 fL (80-94); Mean Platelet Volume 11.4 fL (7.4-10.4); Monocytes # 1.4 10^3/uL (0.2-0.9); Monocytes % 9.3 %; Neutrophils # 11.95 10^3/uL (1.8-7.7); Neutrophils % 80.8 %; Nucleated Red Blood Cells % 0.1 %; Platelet Count 368 10^3/cmm (130-400); Red Blood Count 3.73 10^6/uL (4.1-5.3); Red Cell Distribution Width 17.5 % (12.1-15.1); White Blood Count 14.8 10^3/uL (4.0-10.0)
[2019-12-29 06:23] LABS: Albumin Level 2.8 g/dL (3.5-5.2); Alkaline Phosphatase 255 IU/L (40-130); Blood Urea Nitrogen 48 mg/dL (8-23); Carbon Dioxide 14 mmol/L (22-29); Chloride 97 mmol/L (98-107); Globulin 3.2 g/dL (1.3-4.6); Glucose 98 mg/dL (65-115); Osmolality Calculated 266 mOsm/kg (285-295); Sodium 129 mmol/L (136-145); Total Bilirubin 1.3 mg/dL (0.15-1.2)
[2019-12-29] MEDS: sodium chloride 0.9% 1,000 ML 50 ML IV (07:29)
[2019-12-29 07:31] VITALS: BP 92/50; PULSE 100; RESP 22; TEMP 35.9; O2SAT 99
--- NOTE | 2019-12-29 08:00 | USCV_ITS ---
Chapin Govea Age: 79 Gender: M : 1940 Exam Date: 12/29/2019 09:26 Ordering Phys: Subhash Mukherjee MD Technologist: Catarino Trujillo Exam Location: [facility] [place] Indication: ? MASS IN ICV Findings NORMAL VASCULAR FLOW IN LIVER VESSELS IVC FILTER IN IVC Conclusions Normal hepatic doppler. No thrombus IVC filter Vasquez Kendall MD (Electronically Signed) Final Date: 29 December 2019 12:25 S MTDD
--- NOTE | 2019-12-29 08:35 | P.PN_ITS ---
Subjective Subjective: Interval history: He is sleeping during the visit, but wakes up easily. He denies any complaints. He knows the year is 2019, however, thinks he is in [place]. Denies any shortness of breath, chest pain, or other discomfort. One-to-one sitter at bedside states he has been intermittently pulling on lines and cables. Recheck BP 118/59, not clear if prior values are correct. Vitals/I&O/Wt Last Vital Signs Temp 96.7 F L 12/29/19 07:31 Pulse 100 12/29/19 07:31 Resp 22 H 12/29/19 07:31 BP 92/50 12/29/19 07:31 Pulse Ox 99 12/29/19 07:31 12/28/19 12/29/19 12/29/19 22:59 06:59 14:59 Intake Total 20 / 380 941.667 / 941.667 Output Total 230 / 230 225 / 455 Balance -210 / 150 -225 / -75 941.667 / 941.667 Physical Exam Const: COMMON NORMALS: no acute distress ORIENTATION/CONSCIOUSNESS: Yes oriented to person and Yes oriented to time HENMT: COMMON NORMALS: oropharynx normal Neck/C-Spine: COMMON NORMALS: no JVD Resp: COMMON NORMALS: normal respiratory effort and clear to auscultation bilaterally AUSCULTATION: clear to auscultation bilaterally Cardio: COMMON NORMALS: no JVD, regular rhythm, S1 normal heart sound present, S2 normal heart sound present and No murmurs present (Cardio) RHYTHM: regular rhythm HEART SOUNDS: S1 normal heart sound present and S2 normal heart sound present GI: COMMON NORMALS: Normal to inspection, nondistended, normoactive bowel sounds present, Soft to palpation and non-tender PALPATION: Yes Soft to palpation Extremity: COMMON NORMALS: no joint enlargement and no pedal edema Neuro: COMMON NORMALS: moves all extremities SENSORIUM/ORIENTATION: Yes or iented to person and Yes oriented to time Skin: COMMON NORMALS: no rashes or lesions noted GENERAL SKIN EXAM: no rashes or lesions noted Urinary Catheter Management^: Coude: Cath Placed During This Visit: yes Reason for Continuing Indwelling Catheter: Acute Urinary Retention or Obstruction Urinary Catheter Date of Insertion: 12/25/19 Urinary Catheter Time of Insertion: 18:00 Data : 12/29/19 05:43 12/29/19 05:43 A&P Assessment and plan (1) CHF (congestive heart failure): Ejection fraction noted decreased down to 25-30%. He is currently doing well on room air, without peripheral edema. However, several other findings are concerning including soft blood pressure, w orsening liver parameters, renal function. He currently denies any chest pain or discomfort. We will need additional evaluation for suspected progression of ischemic cardiomyopathy. Appreciate cardiology assessment. Intervention may be difficult due to a number of factors including GIB, renal failure. Discussed with son. He is aware of difficult situation his father is in. If there are limited/risky options to pursue further and he is not showing improvement, he is considering transition to hospice care depending on clinical course this week. Status: Acute Qualifiers: Heart failure chronicity: unspecified Heart failure type: diastolic Qualified Code(s): I50.30 - Unspecified diastolic (congestive) heart failure (2) Elevated liver enzymes: Worsening liver parameters today. AST up to 1500, ALT up to 847. Alkaline phosphatase up to 255. T bili up to 1.3. Pending gallbladder ultrasound results. Stop acetaminophen. Check acute hepatitis panel. Should be low chance that Levaquin is causing this as if he previously had this medication, and also it is less than 1% chance. First and only dose was on 12/26. For now we will hold additional. Blood pressure appears has been soft, 92/50 this morning. On recheck this morning 118/59. Monitor for any episodes of hypotension may be contributing to liver injury. With recent IVC filter placement, will also request for duplex ultrasound of perihepatic vessels to exclude thrombosis. Status: Acute (3) Acute kidney injury: Cr 1.9. Hold diuretics for now. He is receiving gentle IV hydration. Monitor volume status. Respiratory status. Avoid hypotensive episodes. Superimposed on chronic kidney disease Status: Acute (4) Stool guaiac positive: Hb stable. Continue Protonix by mouth Status: Acute (5) Eosinophilia: Apparently outpatient follow-up is been arranged with pulmonary and consideration of bronchoscopy. This may need to be adjusted secondary to his pulmonary emboli. Status: Acute (6) Dehydration: Supplement with low-dose IV fluids overnight Status: Acute (7) Elevated white blood cell count: Concern of pneumonia exists on CTA Levaquin initiated IV at renal dosing. Held today due to worsening liver parameters. Persistent leukocytosis, at this time neutrophilic. No eosinophilia currently. Eosinophils were increased earlier during this admission. Status: Acute Qualifiers: Leukocytosis type: eosinophilia Qualified Code(s): D72.1 - Eosinophilia (8) Lung nodule: Status: Acute (9) Dementia: Status: Acute Qualifiers: Dementia type: vascular dementia Dementia behavioral disturbance: with behavioral disturbance Qualified Code(s): F01.51 - Vascular dementia with behavioral disturbance (10) Acute hyperactive delirium due to another medical condition: Still requiring one-to-one sitter at this time due to pulling on IVs, lines, cables. Status: Acute (11) Hyponatremia: This appears stabilized at this time. For now continue liberalized sodium intake diet. Status: Acute (12) Pulmonary embolism: Status post IVC filter placement. Status: Acute Qualifiers: Pulmonary embolism type: unspecified Chronicity: acute Acute cor pulmonale presence: unspecified Qualified Code(s): I26.99 - Other pulmonary embolism without acute cor pulmonale Additional A&P Information Nonsustained ventricular tachycardia Elevated troponin Chronic diarrhea Pneumonia: With infiltrate on CTA. Neutrophilic leukocytosis. For now Levaquin held as above. Switch to Rocephin, azithromycin. Elevated TSH: Check free T3, free T4. Attestations Medical Necessity Statement*: Continue admission for assessment management of worsening cardiomyopathy, kidney injury, liver injury, encephalopathy, other problems as outlined above. 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 Diagnoses CHF (congestive heart failure) I50.30 Heart failure chronicity: unspecified Heart failure type: diastolic Elevated liver enzymes R74.8 Acute kidney injury N17.9 Stool guaiac positive R19.5 Eosinophilia D72.1 Dehydration E86.0 Elevated white blood cell count D72.1 Leukocytosis type: eosinophilia Lung nodule R91.1 Dementia F01.51 Dementia type: vascular dementia Dementia behavioral disturbance: with behavioral disturbance Acute hyperactive delirium due to another medical condition F05 Hyponatremia E87.1 Pulmonary embolism I26.99 Pulmonary embolism type: unspecified Chronicity: acute Acute cor pulmonale presence: unspecified
[2019-12-29] MEDS: cefTRIAXone 1,000 MG in sodium chloride 0.9% (plus) 50 ML 100 MG IV (09:47)
[2019-12-29] MEDS: pantoprazole DR 40 mg Tablet PO ×2 (09:50→17:00)
[2019-12-29] MEDS: metoprolol tartrate 25 mg Tablet PO (09:50)
--- NOTE | 2019-12-29 09:53 | PC.NURSE ---
Dr Anthony at bedside assessing patient and discussing POC. Holding Metroprolol at this time due BP and HR. Awaiting other orders to be placed.
[2019-12-29 09:56] LABS: Hepatitis A Antibody IgM Non-Reactive (Nonreactive); Hepatitis B Core IgM Non-Reactive (Nonreactive); Hepatitis B Surface Antigen Non-Reactive (Nonreactive); Hepatitis C Virus Antibody Non-Reactive (Nonreactive); T3 Free 1.1 PG/ML (2.0-4.4)
--- NOTE | 2019-12-29 10:06 | PC.CHAP ---
Pastoral Care Encounter/Spiritual Assessment Type of Contact [] Declined seat scooper machine visit [] Patient/Family/Request visit [] Outpatient visit [] Follow-up visit [] Physician referral [] Code/Alert [x] Routine visit [] Staff referral [] Actively dying [] Patient sleeping [] Family support [] [] Out of room [] Palliative care [] [] Receiving care in room [] Pre-surgical visit [] Trauma [] Long length of stay [] ICU visit [] Other: Relational/Emotional Strength [] Patient feels connected with others/family/visitors/staff [] Distress [] Loneliness/isolation [] Abandonment Spirituality of Patient [] Person of Melva [] Attends Sabianist of their Melva [] Believes in Prayer [] Reads Bible or Anabaptist materials [] There are Spiritual issues to be addressed Rn Testing Interventions [x] Prayer [x] Active listening [x] Non-anxious presence [x] Spiritual/emotional support [] Crisis/trauma care [] Spiritual counseling [] Bereavement support [] Provided bereavement packet [] Provided Bible/devotional materials [] Provided toy/stuffed animal, coloring book to patient or family member [] Provided Communion [] Anointing/[place] [] Salvation [x] Completed spiritual assessment [] Other: Impact on Illness or Injury [] Angry [] Fearful [] Anxious [] Often cries [] Exhaustion [] Unable to work [] Unable to attend yazidism [] Unable to walk/stand [] Unable to read [] Unable to drive [] Unable to eat/drink [] Unable to sleep [] Unable to be with family [] Patient intubated [] Other: Summary Patient able to understand prayer and responded to closing AMEN. has a setter Time spent with patient 10 min
[2019-12-29] MEDS: azithromycin 500 MG in sodium chloride 0.9% 250 ML 250 MG IV (10:26)
[2019-12-29 10:59] VITALS: BP 140/62; PULSE 92; RESP 22; TEMP 36.2
--- NOTE | 2019-12-29 11:20 | PC.NURSE ---
call from Dr romero to check on patient instructions given to give lasix 40mg IVP now and call in 3 hours with output.
[2019-12-29] MEDS: FUROsemide 10 mg/mL SDV 4mL 40 MG IVP ×2 (11:32→16:52)
--- NOTE | 2019-12-29 12:12 | PC.RESP ---
Pulmonary Rehab information sent to patient.
--- NOTE | 2019-12-29 12:41 | PC.NURSE ---
called placed to Dr barron due to patient being post 1 hour after lasix with little to no out put instructions to bladder scan PRN, irrigate with 50 CC to ensure patency if pickering will still not drain to call back for further instructions.
--- NOTE | 2019-12-29 14:15 | PC.NURSE ---
call placed to Dr romero per instructions to report patients urine output post IV lasix 150ml is all the urine output noted at this time Instructions to continue to monitor Urine output and let Dr. Romero know of any changes.
[2019-12-29 15:12] VITALS: PULSE 103; RESP 18
--- NOTE | 2019-12-29 16:29 | PC.NURSE ---
called Dr romero with urine output since last check only 100 mls also asked about holding metoprolol due to holding it this am instructions given to hold next dose of metoprolol and give Lasix 40mg IVP now
--- NOTE | 2019-12-29 19:17 | P.PN_ITS ---
Subjective Subjective: Interval history: I was asked by Dr. Ruby to come and see the patient as we signed off on him over the weekend, according to him he would like us to manage patient's heart failure. Patient in general is laying still but become short of breath on mild exertion. He denies any complaint as chest pain. He has more abdominal girth or edema lower extremities did not show any positive fluid Vitals/I&O/Wt Last Vital Signs Temp 97.1 F L 12/29/19 10:59 Pulse 103 H 12/29/19 15:12 Resp 18 12/29/19 15:12 BP 140/62 12/29/19 10:59 Pulse Ox 99 12/29/19 07:31 12/29/19 12/29/19 12/29/19 06:59 14:59 22:59 Intake Total 941.667 / 941.667 Output Total 225 / 455 250 / 250 220 / 470 Balance -225 / -75 691.667 / 691.667 -220 / 471.667 Physical Exam Narrative: EXAM NARRATIVE: GENERAL: Patient is alert, awake with baseline dementia and confusion NECK: No jugular vein distension. HEENT: No cyanosis. No icterus. No pallor. HEART: Regular S1 and S2. No murmur, rub or gallop. LUNGS: Clear to auscultate bilaterally. ABDOMEN: Soft, nontender and mildly distended. Abdominal wall has 1+ edema CENTRAL NERVOUS SYSTEM: Grossly nonfocal. EXTREMITIES: Lower extremities without edema bilaterally. Urinary Catheter Management^: Coude: Cath Placed During This Visit: yes Reason for Continuing Indwelling Catheter: Acute Urinary Retention or Obstruction Urinary Catheter Date of Insertion: 12/25/19 Urinary Catheter Time of Insertion: 18:00 Data : 12/29/19 05:43 12/29/19 05:43 A&P Assessment and plan (1) CHF exacerbation: Patient appeared to be volume overloaded his chest is silent though he has abdominal wall edema. I will hold beta-deb since blood pressure is borderline low. I will diurese him IV Lasix 40 twice daily. Since potassium is high normal I will not give him potassium. His creatinine has worsened. We will continue to monitor him Status: Acute Qualifiers: Heart failure type: systolic Qualified Code(s): I50.23 - Acute on chronic systolic (congestive) heart failure (2) CKD (chronic kidney disease): Patient has acute on chronic renal failure most likely due to low cardiac output failure. Hopefully with diuresis it will improve Status: Acute Qualifiers: Chronic kidney disease stage: stage 3 (moderate) Qualified Code(s): N18.3 - Chronic kidney disease, stage 3 (moderate) (3) Ischemic cardiomyopathy: Patient has severely depressed LV function most likely due to ischemic cardiomyopathy. In the past she has been discussed for left heart cath by Dr. Novak at different times which patient refused and would like to be managed conservatively. We will continue to manage him conservatively. Status: Acute (4) Dementia: Status: Acute Qualifiers: Dementia type: vascular dementia Dementia behavioral disturbance: with behavioral disturbance Qualified Code(s): F01.51 - Vascular dementia with behavioral disturbance (5) Pulmonary embolism: Status post IVC filter for pulmonary embolism and bleeding on anticoagulation which was discontinued. Status: Acute Qualifiers: Pulmonary embolism type: unspecified Chronicity: acute Acute cor pulmonale presence: unspecified Qualified Code(s): I26.99 - Other pulmonary embolism without acute cor pulmonale Attestations Medical Necessity Statement*: As per medicine Coding Level of Care Code Established Pt Acute Project Finance Analyst for Chg Fwd Patient Type Established History Expanded Problem Focused Exam Expanded Problem Focused Medical Decision Making Moderate Complexity Diagnoses CHF exacerbation I50.23 Heart failure type: systolic CKD (chronic kidney disease) N18.3 Chronic kidney disease stage: stage 3 (moderate) Ischemic cardiomyopathy I25.5 Dementia F01.51 Dementia type: vascular dementia Dementia behavioral disturbance: with behavioral disturbance Pulmonary embolism I26.99 Pulmonary embolism type: unspecified Chronicity: acute Acute cor pulmonale presence: unspecified
[2019-12-29 19:37] VITALS: BP 112/76; PULSE 100; RESP 34; TEMP 36.5
[2019-12-29 20:40] LABS: Alanine Aminotransferase 686 U/L (0-41); Albumin Level 2.4 g/dL (3.5-5.2); Alkaline Phosphatase 249 IU/L (40-130); Blood Urea Nitrogen 45 mg/dL (8-23); Carbon Dioxide 13 mmol/L (22-29); Chloride 104 mmol/L (98-107); Globulin 2.5 g/dL (1.3-4.6); Glucose 97 mg/dL (65-115); Osmolality Calculated 276 mOsm/kg (285-295); Sodium 134 mmol/L (136-145); Total Protein 4.9 g/dL (6.6-8.7)
[2019-12-29 20:59] LABS: Aspartate Amino Transferase 1291 U/L (0-40)
--- NOTE | 2019-12-29 23:29 | PC.NURSE ---
PT RESTING IN BED. PT KEEPS TRYING TO GET UP AND USE THE BATHROOM. THIS NURSE AND SHELLFISH CHECKER GOT PT UP TO BSC. PT DENIES PAIN AT THIS TIME. WILL CONTINUE TO MONITOR.
[2019-12-29 23:32] VITALS: BP 108/68; PULSE 99; RESP 34; TEMP 36.8; O2SAT 96
[2019-12-30 03:38] VITALS: BP 118/69; PULSE 98; RESP 34; TEMP 36.6; O2SAT 94
[2019-12-30] MEDS: sodium chloride 0.9% 1,000 ML 50 ML IV ×2 (03:39→21:13)
[2019-12-30 04:30] LABS: Basophils % 0.2 %; Eosinophils # 0.1 10^3/uL (0.0-0.8); Eosinophils % 0.5 %; Hematocrit 30.6 % (42.0-52.0); Hemoglobin 9.7 g/dL (11.7-16.6); Lymphocytes # 1.4 10^3/uL (0.8-4.8); Lymphocytes % 7.2 %; Mean Corpuscular HGB Conc 31.7 g/dL (30.0-36.0); Mean Corpuscular Hemoglobin 26.3 pg (28.0-34.0); Mean Corpuscular Volume 82.9 fL (80-94); Mean Platelet Volume 11.3 fL (7.4-10.4); Monocytes # 2.3 10^3/uL (0.2-0.9); Neutrophils # 14.89 10^3/uL (1.8-7.7); Neutrophils % 79.1 %; Nucleated Red Blood Cells # 0.1 /100WBC; Nucleated Red Blood Cells % 0.5 %; Platelet Count 352 10^3/cmm (130-400); Red Blood Count 3.69 10^6/uL (4.1-5.3); Red Cell Distribution Width 17.8 % (12.1-15.1); White Blood Count 18.8 10^3/uL (4.0-10.0)
[2019-12-30 05:12] LABS: Albumin Level 2.8 g/dL (3.5-5.2); Alkaline Phosphatase 331 IU/L (40-130); Anion Gap 22.6 (5-19); Blood Urea Nitrogen 56 mg/dL (8-23); Calcium 7.6 mg/dL (8.5-10.5); Carbon Dioxide 15 mmol/L (22-29); Chloride 100 mmol/L (98-107); Globulin 3.1 g/dL (1.3-4.6); Glucose 87 mg/dL (65-115); Osmolality Calculated 274 mOsm/kg (285-295); Potassium 4.6 mmol/L (3.5-5.1); Sodium 133 mmol/L (136-145); Total Bilirubin 1.3 mg/dL (0.15-1.2); Total Protein 5.9 g/dL (6.6-8.7)
[2019-12-30 05:26] LABS: Alanine Aminotransferase 920 U/L (0-41)
[2019-12-30 05:27] LABS: Aspartate Amino Transferase 1516 U/L (0-40)
--- NOTE | 2019-12-30 06:38 | PC.NURSE ---
REPORT GIVEN TO ON COMING NURSE. PT STILL NEEDS A 1:1 SITTER AT THIS TIME. PT IS CONFUSED AND IS TRYING TO GET OUT OF BED. WILL CONTINUE TO MONITOR.
[2019-12-30 06:55] VITALS: BP 117/79; PULSE 99; RESP 18; TEMP 36.6; O2SAT 96
--- NOTE | 2019-12-30 07:46 | NM_ITS ---
WS: [id number] NUCLEAR MEDICINE HIDA SCAN CLINICAL INFORMATION: assess for cholecystitis TECHNIQUE: Following intravenous administration of 6.6 mCi of technetium 99m mebrofenin, images of th e abdomen were obtained over the course of 60 minutes. Next, gallbladder ejection fraction was determ ined by obtaining preprandial and one-hour postprandial images of the gallbladder following oral ruddy stion of Ensure. COMPARISON: None. FINDINGS: Normal hepatic uptake at 5 minutes. Cardiac and pericardial activity also incidentally visualized lik tamela due to right heart failure Contracted gallbladder visualized by 30 minutes. No evidence of acute cholecystitis. Additional focal area of activity likely due to reflux into stomach or duodenum. Normal small bowel is visualized. Gallbladder ejection fraction was attempted but no significant gallbladder emptying at 60 minutes. IMPRESSION: 1. Contracted diminutive gallbladder visualized by 30 minutes. No evidence of acute cholecystitis. 2. Gallbladder ejection fraction was attempted but no significant emptying at 60 minutes. Consider u nderlying gallbladder dysfunction with chronic cholecystitis
--- NOTE | 2019-12-30 08:29 | PC.NURSE ---
Called Dr. Anthony with concerns of giving metoprolol due to holding medication yesterday instructions to give 12.5mg metoprolol this am and to reassess hold metoprolol 25mg dose
[2019-12-30] MEDS: pantoprazole DR 40 mg Tablet PO ×2 (08:51→17:36)
[2019-12-30] MEDS: cefTRIAXone 1,000 MG in sodium chloride 0.9% (plus) 50 ML 100 MG IV (08:51)
[2019-12-30] MEDS: metoprolol tartrate 25 mg Tablet 12.5 MG PO (09:04)
[2019-12-30] MEDS: azithromycin 500 MG in sodium chloride 0.9% 250 ML 250 MG IV (09:28)
--- NOTE | 2019-12-30 09:38 | PC.SOCIAL ---
IMM Update Pg. 2 of IMM updated and copy left at bedside.
--- NOTE | 2019-12-30 09:42 | PC.NURSE ---
Addendum entered by Zunilda North RN 12/30/19 09:51: verbal instructions given to run NS at 100 ml/hr for a total of 1 L then return to previous dose of 50 ml/hr Original Note: Dr. Anthony at bedside assessing patient and discussing POC at this time.
[2019-12-30 11:06] VITALS: BP 100/60; PULSE 85; RESP 32; TEMP 35.9; O2SAT 96
--- NOTE | 2019-12-30 14:21 | PC.NURSE ---
patient went to [facility], tolerated procedure well. Patient arrived back to [facility] at 1350. Hooked back up to telemetry.
[2019-12-30 14:40] VITALS: BP 90/65; PULSE 93; RESP 24; TEMP 36.1; O2SAT 95
--- NOTE | 2019-12-30 16:04 | PM.PN ---
Subjective Subjective: Interval history: He says he is has felt better . Has no appetite. Denies specific areas of pain. Says I will just rest here a while . Vitals/I&O/Wt Last Vital Signs Temp 97.0 F L 12/30/19 14:40 Pulse 93 12/30/19 14:40 Resp 24 H 12/30/19 14:40 BP 90/65 12/30/19 14:40 Pulse Ox 95 12/30/19 14:40 12/30/19 12/30/19 12/30/19 06:59 14:59 22:59 Intake Total 1000 / 2241.667 50 / 50 Output Total 650 / 1120 Balance 350 / 1121.667 50 / 50 Physical Exam Const: COMMON NORMALS: no acute distress OTHER: Generally weak. HENMT: COMMON NORMALS: oropharynx normal Neck/C-Spine: COMMON NORMALS: no JVD Resp: COMMON NORMALS: normal respiratory effort and clear to auscultation bilaterally AUSCULTATION: clear to auscultation bilaterally Cardio: COMMON NORMALS: no JVD, regular rhythm, S1 normal heart sound present, S2 normal heart sound present and No murmurs present (Cardio) RHYTHM: regular rhythm HEART SOUNDS: S1 normal heart sound present and S2 normal heart sound present GI: COMMON NORMALS: Normal to inspection, nondistended, normoactive bowel sounds present, Soft to palpation and non-tender PALPATION: Yes Soft to palpation Extremity: COMMON NORMALS: no joint enlargement and no pedal edema Neuro: COMMON NORMALS: moves all extremities Skin: COMMON NORMALS: no rashes or lesions noted GENERAL SKIN EXAM: no rashes or lesions noted Urinary Catheter Management^: Coude: Cath Placed During This Visit: yes Reason for Continuing Indwelling Catheter: Acute Urinary Retention or Obstruction Urinary Catheter Date of Insertion: 12/25/19 Urinary Catheter Time of Insertion: 18:00 Data : 12/30/19 03:30 12/30/19 03:30 A&P Assessment and plan (1) CHF (congestive heart failure): Noted worsening of renal function, creatinine up to 2.4. Diuresis was held. Receiving gentle hydration. Monitor oxygenation, renal function, I&O. Ejection fraction noted decreased down to 25-30%. Concern also for underlying pulmonary hypertension, possibly secondary to chronic VTE. Concern also for underlying ischemic cardiomyopathy with possibility of severe coronary disease, although previously had declined additional invasive evaluation, currently also not possible due to medical condition. At this time continue supportive care. Resume diuresis when possible. Appreciate cardiology follow-up. He is currently doing well on room air, without peripheral edema. However, several other findings are concerning including soft blood pressure, worsening liver parameters, renal function. He currently denies any chest pain or discomfort. We will need additional evaluation for suspected progression of ischemic cardiomyopathy. Appreciate cardiology assessment. Intervention may be difficult due to a number of factors including GIB, renal failure. Discussed with son. He is aware of difficult situation his father is in. If there are limited/risky options to pursue further and he is not showing improvement, he is considering transition to hospice care depending on clinical course this week. Status: Acute Qualifiers: Heart failure chronicity: unspecified Heart failure type: diastolic Qualified Code(s): I50.30 - Unspecified diastolic (congestive) heart failure (2) Elevated liver enzymes: Gallbladder ultrasound with some color wall thickening, some pericholecystic edema. HIDA scan obtained, without finding of acute cholecystitis, however, with no gallbladder ejection noted after 60 minutes, and concern for possible chronic midline dysfunction, possibly chronic cholecystitis. Discussed with radiology, going back to prior imaging, there is gallbladder wall thickening, some pericholecystic edema has been present previously, initially no acute cholecystitis, current cholecystitis cannot be excluded entirely, but definitely suspicion is much less, also given other findings, and overall clinical picture. I do appreciate additional evaluation by general surgery, although he is not a surgical candidate at this time, however, question will be whether percutaneous drainage would be a consideration, although would need to be weighed very carefully, as per discussion with radiology due to risk of complications, risk of infection being introduced if this is noninfected acute cholecystitis. Also with other organ injury such as to more of congestive heart failure be likely etiology. Discussed all these concerns with his son. He is agreeable with the additional evaluation, and plan. Worsening liver parameters today. AST up to 1500, ALT up to 847. Alkaline phosphatase up to 255. T bili up to 1.3. Stopped acetaminophen. Check acute hepatitis panel. Low chance that Levaquin is causing this as if he previously had this medication, and also it is less than 1% chance. First and only dose was on 12/26. For now we will hold additional. With recent IVC filter placement, debris noted on gallbladder ultrasound and IVC, however, on duplex patent filter seen and no abnormality in IVC. Status: Acute (3) Acute kidney injury: Worsening with creatinine of 2.4. There is had to be held. He is receiving gentle IV hydration. Monitor volume status. Respiratory status. Avoid hypotensive episodes. Superimposed on chronic kidney disease Status: Acute (4) Stool guaiac positive: Hb stable. Continue Protonix by mouth Status: Acute (5) Eosinophilia: Apparently outpatient follow-up is been arranged with pulmonary and consideration of bronchoscopy. This may need to be adjusted secondary to his pulmonary emboli. Status: Acute (6) Dehydration: Supplement with low-dose IV fluids overnight Status: Acute (7) Elevated white blood cell count: Concern of pneumonia exists on CTA Levaquin held due to worsening liver parameters. Continue Rocephin and azithromycin. He has no respiratory complaints. He is doing well on room air. He is afebrile. Persistent leukocytosis, at this time neutrophilic. No eosinophilia currently. Eosinophils were increased earlier during this admission. Status: Acute Qualifiers: Leukocytosis type: eosinophilia Qualified Code(s): D72.1 - Eosinophilia (8) Lung nodule: Status: Acute (9) Dementia: Status: Acute Qualifiers: Dementia behavioral disturbance: with behavioral disturbance Dementia type: vascular dementia Qualified Code(s): F01.51 - Vascular dementia with behavioral disturbance (10) Acute hyperactive delirium due to another medical condition: One-to-one sitter due to pulling on IVs, lines, cables. Status: Acute (11) Hyponatremia: This appears stabilized at this time. For now continue liberalized sodium intake diet. Status: Acute (12) Pulmonary embolism: Status post IVC filter placement. Status: Acute Qualifiers: Acute cor pulmonale presence: unspecified Chronicity: acute Pulmonary embolism type: unspecified Qualified Code(s): I26.99 - Other pulmonary embolism without acute cor pulmonale Additional A&P Information Nonsustained ventricular tachycardia Elevated troponin Chronic diarrhea Pneumonia: With infiltrate on CTA. Neutrophilic leukocytosis. For now Levaquin held as above. Rocephin, azithromycin. Elevated TSH: Mild decrease in T3. Possibly secondary to sick euthyroid syndrome. Attestations Medical Necessity Statement*: Continue admission for assessment management of acute systolic congestive heart failure. Coding Level of Care Code Acute Manager Produce for Chg Fwd Exam Comprehensive Diagnoses CHF (congestive heart failure) I50.30 Heart failure chronicity: unspecified Heart failure type: diastolic Elevated liver enzymes R74.8 Acute kidney injury N17.9 Stool guaiac positive R19.5 Eosinophilia D72.1 Dehydration E86.0 Elevated white blood cell count D72.1 Leukocytosis type: eosinophilia Lung nodule R91.1 Dementia F01.51 Dementia behavioral disturbance: with behavioral disturbance Dementia type: vascular dementia Acute hyperactive delirium due to another medical condition F05 Hyponatremia E87.1 Pulmonary embolism I26.99 Acute cor pulmonale presence: unspecified Chronicity: acute Pulmonary embolism type: unspecified
--- NOTE | 2019-12-30 16:12 | PM.CONSULT ---
Providers/Reason For Consult Consulting Physican/Specialty*: General Surgery Erik Greco MD Reason for Consult*: Possible gallbladder disease. Attending Physician: Subhash Mukherjee Primary Care Provider: Mike Ruggiero DO History of Present Illness History of Present Illness Chapin Govea is a 79 year old male admitted recently with guaiac positive stool, dehydration, leukocytosis and dementia. The patient has a history of ischemic cardiomyopathy/congestive heart failure. More recently, he has been found to have some LFT abnormalities. A gallbladder ultrasound revealed possible sludge within the gallbladder with some gallbladder wall thickening (although the gallbladder was contracted) and pericholecystic edema. A HIDA scan revealed no evidence of cystic duct obstruction, but there was little to no ejection fraction. The patient had a CAT scan done earlier this month which also revealed suspected cholelithiasis and some edema in the gallbladder fossa thought secondary to liver disease. The patient's mental status does not appear to be optimal, but he denies any history of food intolerances or abdominal pain as he lays in his bed currently. He says he is hungry and eats whatever he wants to. Review of Systems General: Reports: 10 or more systems reviewed and unremarkable except in HPI and below (Although given the patient's mental status, I am not sure how much accuracy there is to his report) GI: Reports: other (Denies food intolerances); Denies: abdominal pain Meds/Allergies Home Medications and Allergies Home Medications Medication Instructions Recorded Confirmed Last Taken Type aspirin 81 mg PO DAILY 30 Days #30 tab 10/31/19 12/24/19 12/23/19 Rx atorvastatin 40 mg PO DAILY 30 Days #30 tab 10/31/19 12/24/19 12/23/19 Rx clopidogrel 75 mg PO DAILY 30 Days #30 tab 10/31/19 12/24/19 12/23/19 Rx gabapentin [Neurontin] 300 mg PO TID 30 Days #90 cap 10/31/19 12/24/19 12/23/19 Rx Culturelle 1 cap PO DAILY 12/03/19 12/24/19 Unknown History Fleet Enema 118 ml WI DAILY PRN 12/03/19 12/24/19 Unknown History furosemide 60 mg PO BID@08,16 30 Days #90 tab 12/10/19 12/24/19 12/23/19 Rx magnesium L-lactate [Magtab] 84 mg PO BID 30 Days #60 tab 12/10/19 12/24/19 12/23/19 Rx potassium chloride 20 meq PO TID 30 Days #180 tab 12/10/19 12/24/19 12/23/19 Rx sacubitril-valsartan [Entresto] 1 tab PO BID 30 Days #60 tab 12/10/19 12/24/19 12/23/19 Rx Allergies Allergy/AdvReac Type Severity Reaction Status Date / Time No Known Allergies Allergy Verified 12/24/19 15:11 Current Medications Current Medications Generic Name Dose Route Start Last Admin Trade Name Freq PRN Reason Stop Dose Admin Acetaminophen 650 mg 12/25/19 18:58 12/26/19 02:38 Tylenol PO 650 mg Q6H PRN Administration MILD PAIN Levofloxacin/Dextrose 750 mg in 150 mls @ 100 mls/hr 12/27/19 15:00 12/27/19 16:50 Levaquin-D5w IV Infused Q48H PHIL Infusion Protocol Ceftriaxone Sodium 1,000 mg/ 50 mls @ 100 mls/hr 12/29/19 09:30 12/30/19 09:26 Sodium Chloride IV Infused Q24H PHIL Infusion Protocol Azithromycin 500 mg/ Sodium 250 mls @ 250 mls/hr 12/29/19 10:00 12/30/19 09:28 Chloride IV 250 mls/hr Q24H PHIL Administration Protocol Metoprolol Tartrate 25 mg 12/27/19 09:00 12/30/19 08:48 Lopressor PO Not Given BID PHIL Ondansetron HCl 4 mg 12/28/19 09:42 12/28/19 17:13 Zofran IVP 4 mg Q6H PRN Administration NAUSEA AND VOMITING Pantoprazole Sodium 40 mg 12/27/19 18:00 12/30/19 08:51 Protonix PO 40 mg BID PHIL Administration PFSH Acute PFSH: Medical History (Updated 12/30/19 @ 16:23 by Erik Greco MD) Acute on chronic systolic heart failure BPH (benign prostatic hyperplasia) -on Flomax CAD (coronary artery disease) CHF (congestive heart failure) CHF (congestive heart failure) -has chronic systolic CHF, last Echo with reported EF=40% COPD (chronic obstructive pulmonary disease) - CVA (cerebral vascular accident) -had neuroimaging done including CT head and MRI head showing chronic ischemic changes Dementia HTN (hypertension) Hypercholesteremia -on statin Ischemic cardiomyopathy Neuropathy Non-ST elevation (NSTEMI) myocardial infarction Pericardial effusion Recent cerebrovascular accident (CVA) Recent non-ST elevation myocardial infarction Temporal arteritis -resolved after treatment -affected R eye Vascular dementia -waxes and wanes at baseline, easily redirected Surgical History (Updated 12/30/19 @ 16:37 by Erik Greco MD) H/O hand surgery -left hand, for finger contracture H/O nasal polyp bilateral -- excised History of temporal artery biopsy R S/P IVC filter Social History Smoking and tobacco status: never smoked Alcohol intake: never Lives independently: Yes Household members: other Housing: Assisted Living Facility Marital status: / Current occupational status: retired History of recent travel: No Current gender identity: Male Vitals/I&O/Wt Last Vital Signs Temp 97.0 F L 12/30/19 14:40 Pulse 93 12/30/19 14:40 Resp 24 H 12/30/19 14:40 BP 90/65 12/30/19 14:40 Pulse Ox 95 12/30/19 14:40 12/30/19 12/30/19 12/30/19 06:59 14:59 22:59 Intake Total 1000 / 2241.667 50 / 50 Output Total 650 / 1120 Balance 350 / 1121.667 50 / 50 Physical Exam Narrative: EXAM NARRATIVE: The patient was encountered in his hospital room. He was initially resting but was arousable with some effort. His pupils seem equal. No carotid bruits are heard. The lungs are clear anteriorly. The heart seems regular. The abdomen, which appeared to be very soft to palpation before arousing the patient, was somewhat firm with some voluntary guarding no matter where a try to push on his abdomen. He seems to indicate that he has some tenderness on the right side of his abdomen, but Bowman sign appears to be negative. No obvious masses are palpated, but again, the patient's intentional firming up of his abdomen make palpation or any findings secondary to that difficult. Neurologically the patient can move all limbs to command. Urinary Catheter Management^: Coude: Cath Placed During This Visit: yes Reason for Continuing Indwelling Catheter: Acute Urinary Retention or Obstruction Urinary Catheter Date of Insertion: 12/25/19 Urinary Catheter Time of Insertion: 18:00 Data Labs: Other Labs: Laboratory Tests 12/30/19 03:30 Total Bilirubin 1.3 H AST 1516 H ALT 920 H Alkaline Phosphata se 331 H Albumin 2.8 L Imaging^: US: Radiologist's impression: Gallbladder ultrasound 12/29/2019 impression: 1. Mild hepatomegaly. 2. Mild gallbladder wall thickening with pericholecystic edema. Small amount sludge in the gallbladder. Recommend correlation for cholecystitis. This can be further evaluated with HIDA scan. 3. Partially visualized debris within the IVC may represent thrombus. This can be further evaluated with vascular ultrasound. Correlate with history of IVC filter placement HIDA scan: Radiologist's impression: HIDA scan 12/30/2019 IMPRESSION: 1. Contracted diminutive gallbladder visualized by 30 minutes. No evidence of acute cholecystitis. 2. Gallbladder ejection fraction was attempted but no significant emptying at 60 minutes. Consider underlying gallbladder dysfunction with chronic cholecystitis CT Abd/Pel: Radiologist's impression: CT abdomen/pelvis 12/05/2019 iMPRESSION: 1. No obstructing renal or ureteral calculi. No hydronephrosis. 2. Diffuse bladder wall thickening can be seen with chronic cystitis or bladder outlet obstruction. 3. Diffuse enlargement and heterogeneity involving the prostate measuring 6.6 CM. Recommend correlation with PSA and consider prostatitis. 4. Diffuse body wall anasarca and mesenteric edema. 5. Small right pleural effusion with compressive atelectasis in right lung base with air bronchograms. 6. Multiple opacities in both lung bases likely infectious or inflammatory. Recommend chest CT. 7. Spiculated nodule right lower lobe measuring 10 mm slightly increased since 2018. Recommend further evaluation with chest CT in 6 month follow-up. 8. Gallbladder is contracted with cholelithiasis. Fluid in the gallbladder fossa likely related to hepatic disease. This can be further evaluated with ultrasound. 9. Small pericardial effusion. A&P Assessment and plan (1) Cholelithiasis: The patient was felt to have some cholelithiasis on a CT earlier this month (as well as back in 2018), but a more recent ultrasound only showed what was felt to be some sludge. He did have some ayah-cholecystic edema on both recent studies. His HIDA scan today showed no obvious evidence of acute cholecystitis but no significant emptying at 60 minutes. It is difficult to know if any of this represents gallbladder disease. The patient's gallbladder wall thickening could certainly be explained by his history of CHF and/or hypoalbuminemia. He does not give any reliable history of biliary colic, but I am not sure how accurate of a history we can obtain from him with his mental state. He is obviously not a good surgical candidate and so I would not embark on surgery lightly. I will be happy to follow the patient while he is hospitalized, but unless we get clear indication that he has a worsening right upper quadrant process, I would favor conservative in management. Even if he does develop possible evidence of acute cholecystitis, a cholecystostomy tube may be a better solution initially as opposed to a formal surgical procedure otherwise. Status: Acute Qualifiers: Cholelithiasis location: gallbladder Biliary obstruction: without biliary obstruction (2) Elevated liver enzymes: This may or may not be secondary to gallbladder disease, but I would favor more of a hepatic etiology, perhaps hepatic congestion secondary to CHF. Status: Acute Consult Attestations Medical Necessity Statement: See admitting service's notation. Coding Level of Care Code Acute Manager [employer] for [facility] Diagnoses Cholelithiasis K80.20 Cholelithiasis location: gallbladder Biliary obstruction: without biliary obstruction Elevated liver enzymes R74.8
[2019-12-30 16:48] VITALS: BP 109/73; PULSE 92; RESP 22; O2SAT 95
--- NOTE | 2019-12-30 16:50 | PC.NURSE ---
Called Dr. Anthony to ask about metoprolol medication, Dr. Anthony gave verbal orders to hold tonights dose and re-evaluate with him tomorrow morning about dosage.
--- NOTE | 2019-12-30 18:12 | P.PN_ITS ---
Subjective Subjective: Interval history: Patient appeared to be awake and alert but confused however sometime onset question appropriately. Creatinine has worsened Medications: Reviewed: Yes Vitals/I&O/Wt Last Vital Signs Temp 97.0 F L 12/30/19 14:40 Pulse 92 12/30/19 16:48 Resp 22 H 12/30/19 16:48 BP 109/73 12/30/19 16:48 Pulse Ox 95 12/30/19 16:48 12/30/19 12/30/19 12/30/19 06:59 14:59 22:59 Intake Total 1000 / 2241.667 50 / 50 Output Total 650 / 1120 400 / 400 Balance 350 / 1121.667 50 / 50 -400 / -350 Physical Exam Narrative: EXAM NARRATIVE: GENERAL: Patient is alert, awake with baseline dementia and confusion NECK: No jugular vein distension. HEENT: No cyanosis. No icterus. No pallor. HEART: Regular S1 and S2. No murmur, rub or gallop. LUNGS: Clear to auscultate bilaterally. ABDOMEN: Soft, nontender and mildly distended. Abdominal wall has 1+ edema CENTRAL NERVOUS SYSTEM: Grossly nonfocal. EXTREMITIES: Lower extremities without edema bilaterally. Urinary Catheter Management^: Coude: Cath Placed During This Visit: yes Reason for Continuing Indwelling Catheter: Acute Urinary Retention or Obstruction Urinary Catheter Date of Insertion: 12/25/19 Urinary Catheter Time of Insertion: 18:00 Data : 12/30/19 03:30 12/30/19 03:30 A&P Assessment and plan (1) CHF exacerbation: Patient appeared to be overcompensated rather on the dry side. I will discontinue diuretics. Status: Acute Qualifiers: Heart failure type: systolic Qualified Code(s): I50.23 - Acute on chronic systolic (congestive) heart failure (2) CKD (chronic kidney disease): Acute on chronic renal failure most likely due to prerenal and diuresis. Discontinue diuretics Status: Acute Qualifiers: Chronic kidney disease stage: stage 3 (moderate) Qualified Code(s): N18.3 - Chronic kidney disease, stage 3 (moderate) (3) Ischemic cardiomyopathy: Patient has severely depressed LV function most likely due to ischemic cardiomyopathy. In the past she has been discussed for left heart cath by Dr. Novak at different times which patient refused and would like to be managed conservatively. Continue medical management Status: Acute (4) Dementia: As per medicine Status: Acute Qualifiers: Dementia type: vascular dementia Dementia behavioral disturbance: with behavioral disturbance Qualified Code(s): F01.51 - Vascular dementia with behavioral disturbance (5) Pulmonary embolism: Status post IVC filter placement for active GI bleed and inability to take anticoagulation for pulmonary embolism Status: Acute Qualifiers: Pulmonary embolism type: unspecified Chronicity: acute Acute cor pulmonale presence: unspecified Qualified Code(s): I26.99 - Other pulmonary embolism without acute cor pulmonale Attestations Medical Necessity Statement*: Require continuation hospitalization for above defined care. 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
--- NOTE | 2019-12-30 19:11 | PC.NURSE ---
Patient urine output decreased from yesterday only 400ml urine out patient has been NPO this shift how ever had normal saline running continues at 100 ml for 1000 ML Patient did have 1 large occult Stool
[2019-12-30 19:31] VITALS: BP 108/72; PULSE 92; RESP 24; TEMP 36.6; O2SAT 96
--- NOTE | 2019-12-30 19:34 | PC.NURSE ---
Patient has NS running at 100 ml/hr at this time. Ordered states to run NS at 50 ml/hr once this liter bag is finished.
--- NOTE | 2019-12-30 22:59 | PC.NURSE ---
Patient is currently resting in bed with eyes closed. One-on-one sitter at bedside. Will monitor.
[2019-12-31] VITALS (7 sets, daily range): BP systolic 104–129; BP diastolic 61–79; PULSE 74–92; RESP 16–30; TEMP 36.3–36.7; O2SAT 94–96
[2019-12-31 04:40] LABS: Alanine Aminotransferase 640 U/L (0-41); Albumin Level 2.7 g/dL (3.5-5.2); Alkaline Phosphatase 470 IU/L (40-130); Blood Urea Nitrogen 60 mg/dL (8-23); Calcium 8.1 mg/dL (8.5-10.5); Carbon Dioxide 14 mmol/L (22-29); Chloride 104 mmol/L (98-107); Globulin 2.6 g/dL (1.3-4.6); Glucose 81 mg/dL (65-115); Osmolality Calculated 280 mOsm/kg (285-295); Sodium 136 mmol/L (136-145); Total Bilirubin 1.2 mg/dL (0.15-1.2); Total Protein 5.3 g/dL (6.6-8.7)
[2019-12-31 04:42] LABS: Anion Gap 22.3 (5-19); Potassium 4.3 mmol/L (3.5-5.1)
[2019-12-31 04:57] LABS: Aspartate Amino Transferase 724 U/L (0-40)
[2019-12-31 05:18] LABS: Basophils % 0.2 %; Eosinophils # 0.2 10^3/uL (0.0-0.8); Eosinophils % 1.3 %; Hematocrit 35.2 % (42.0-52.0); Hemoglobin 10.6 g/dL (11.7-16.6); Lymphocytes # 1.3 10^3/uL (0.8-4.8); Lymphocytes % 7.2 %; Mean Corpuscular HGB Conc 30.1 g/dL (30.0-36.0); Mean Corpuscular Hemoglobin 26.2 pg (28.0-34.0); Mean Corpuscular Volume 86.9 fL (80-94); Mean Platelet Volume 10.7 fL (7.4-10.4); Monocytes # 2.5 10^3/uL (0.2-0.9); Monocytes % 13.6 %; Neutrophils # 13.85 10^3/uL (1.8-7.7); Neutrophils % 76.7 %; Nucleated Red Blood Cells # 0.2 /100WBC; Platelet Count 311 10^3/cmm (130-400); Red Blood Count 4.05 10^6/uL (4.1-5.3); Red Cell Distribution Width 18.9 % (12.1-15.1); White Blood Count 18.1 10^3/uL (4.0-10.0)
--- NOTE | 2019-12-31 06:36 | P.PN_ITS ---
Subjective Subjective: Interval history: The patient denies any abdominal pain this morning. He does mention that both of his feet are not hurting him. Vitals/I&O/Wt Last Vital Signs Temp 97.6 F 12/31/19 03:55 Pulse 92 12/31/19 03:55 Resp 28 H 12/31/19 03:55 BP 115/75 12/31/19 03:55 Pulse Ox 94 12/31/19 03:55 12/30/19 12/30/19 12/31/19 14:59 22:59 06:59 Intake Total 50 / 50 Output Total 400 / 575 175 / 575 Balance 50 / -525 -400 / -525 -175 / -525 Physical Exam Narrative: EXAM NARRATIVE: Once again, it is difficult to examine the patient because he tenses up even as I move my hand towards his abdomen. His lower extremities appear unremarkable to me. Urinary Catheter Management^: Coude: Cath Placed During This Visit: yes Reason for Continuing Indwelling Catheter: Acute Urinary Retention or Obstruction Urinary Catheter Date of Insertion: 12/25/19 Urinary Catheter Time of Insertion: 18:00 Data : 12/31/19 05:10 12/31/19 03:05 A&P Assessment and plan (1) Cholelithiasis: Continue conservative management. Status: Acute Qualifiers: Cholelithiasis location: gallbladder Biliary obstruction: without biliary obstruction (2) Elevated liver enzymes: Some improvement this morning. Status: Acute Attestations Medical Necessity Statement*: See admitting service's notation. 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
--- NOTE | 2019-12-31 06:57 | PC.NURSE ---
Pt transferred to floor in bed, with IV running, IV site with some edema, stopped IV fluids and will reassess, one on one sitter at bedside, Pt asking for sips of water, Pt appears to be resting comfortably, will continue to monitor.
--- NOTE | 2019-12-31 07:04 | PC.NURSE ---
Addendum entered by Yulisa Rojas RN 12/31/19 07:06: Patient belongings transferred with patient. Original Note: Dr. Marcelo ordered to transfer patient to Med-Surg. Report given to Med- Surg. Patient transferred to Med-Surg by bed with 1:1 sitter.
[2019-12-31] MEDS: cefTRIAXone 1,000 MG in sodium chloride 0.9% (plus) 50 ML 100 MG IV (08:42)
[2019-12-31] MEDS: pantoprazole DR 40 mg Tablet PO ×2 (08:43→17:51)
[2019-12-31] MEDS: metoprolol tartrate 25 mg Tablet PO ×2 (08:43→17:51)
[2019-12-31] MEDS: sodium chloride 0.9% 1,000 ML 50 ML IV ×2 (08:44→15:17)
[2019-12-31] MEDS: azithromycin 500 MG in sodium chloride 0.9% 250 ML 250 MG IV (11:23)
[2019-12-31] MEDS: metroNIDAZOLE IV 500 MG/100 ML PREMIX 100 MG IV (15:17)
--- NOTE | 2019-12-31 15:20 | PC.NURSE ---
notified Dr Mukherjee that patient has not tried to get out of bed or pulled tubes today. Requested the 1:[address] Mukherjee, ok to discontinue 1:1 sitter
--- NOTE | 2019-12-31 18:45 | P.PN_ITS ---
Subjective Subjective: Interval history: Per discussion with one-to-one sitter, he has not been very active, is been staying in bed, does respond to questions when spoken to, otherwise staying mostly still and quiet. He denies having any pain or discomfort currently. 2 older questions response t hat he is doing great . Appetite is great, breathing is great, abdomen is great. Denies pain. Vitals/I&O/Wt Last Vital Signs Temp 97.5 F L 12/31/19 15:30 Pulse 83 12/31/19 15:30 Resp 18 12/31/19 15:30 BP 116/77 12/31/19 15:30 Pulse Ox 94 12/31/19 15:30 12/31/19 12/31/19 12/31/19 06:59 14:59 22:59 Intake Total 575.833 / 575.833 Output Total 175 / 575 450 / 450 Balance -175 / -275 575.833 / 575.833 -450 / 125.833 Physical Exam Const: COMMON NORMALS: no acute distress ORIENTATION/CONSCIOUSNESS: Yes oriented to person and Yes oriented to time OTHER: Generally weak. HENMT: COMMON NORMALS: oropharynx normal Neck/C-Spine: COMMON NORMALS: no JVD Resp: COMMON NORMALS: normal respiratory effort and clear to auscultation bilaterally AUSCULTATION: clear to auscultation bilaterally Cardio: COMMON NORMALS: no JVD, regular rhythm, S1 normal heart sound present, S2 normal heart sound present and No murmurs present (Cardio) RHYTHM: regular rhythm HEART SOUNDS: S1 normal heart sound present and S2 normal heart sound present GI: COMMON NORMALS: Normal to inspection, nondistended, normoactive bowel sounds present, Soft to palpation and non-tender PALPATION: Yes Soft to palpation Extremity: COMMON NORMALS: no joint enlargement and no pedal edema Neuro: COMMON NORMALS: moves all extremities SENSORIUM/ORIENTATION: Yes oriented to person and Yes oriented to time Skin: COMMON NORMALS: no rashes or lesions noted GENERAL SKIN EXAM: no rashes or lesions noted Urinary Catheter Management^: Coude: Cath Placed During This Visit: yes Reason for Continuing Indwelling Catheter: Acute Urinary Retention or Obstruction Urinary Catheter Date of Insertion: 12/25/19 Urinary Catheter Time of Insertion: 18:00 Data : 12/31/19 05:10 12/31/19 03:05 A&P Assessment and plan (1) CHF (congestive heart failure): Renal function appears stabilized. He has been receiving gentle IV hydration. So far he is still saturating well on room air. For now continue gentle fluid challenge. Diuretics on hold. Monitor RAFFY, renal function. Appears to be responding some increasing preload. Ejection fraction noted decreased down to 25-30%. Concern also for underlying pulmonary hypertension, possibly secondary to chronic VTE. Concern also for underlying ischemic cardiomyopathy with possibility of severe coronary disease, although previously had declined additional invasive evaluation, currently also not possible due to medical condition. At this time continue supportive care. Resume diuresis when possible. Appreciate cardiology follow-up. He is currently doing well on room air, without peripheral edema. However, several other findings are concerning including soft blood pressure, worsening liver parameters, renal function. He currently denies any chest pain or discomfort. We will need additional evaluation for suspected progression of ischemic cardiomyopathy. Appreciate cardiology assessment. Intervention may be difficult due to a number of factors including GIB, renal failure. Discussed with son. He is aware of difficult situation his father is in. If there are limited/risky options to pursue further and he is not showing i mprovement, he is considering transition to hospice care depending on clinical course this week. Status: Acute Qualifiers: Heart failure chronicity: unspecified Heart failure type: diastolic Qualified Code(s): I50.30 - Unspecified diastolic (congestive) heart failure (2) Elevated liver enzymes: Liver parameters with some improvement today and AST LT, but worsening alkaline phosphatase. T bili slightly better 1.2. Abdomen is very difficult to examine, and unfortunately with his mental status not sure whether we can believe his review of systems, as he states everything is feeling great. He does stands up somewhat on abdominal examination, but when he is pushed anyw here. I did push right upper quadrant very slowly, and he actually denies pain. Will reassess lab studies, and examination again in the morning. For now empirically added Flagyl. Gallbladder ultrasound with some color wall thickening, some pericholecystic edema. HIDA scan obtained, without finding of acute cholecystitis, however, with no gallbladder ejection noted after 60 minutes, and concern for possible chronic midline dysfunction, possibly chronic cholecystitis. Discussed with radiology, going back to prior imaging, there is gallbladder wall thickening, some pericholecystic edema has been present previously, initially no acute cholecystitis, current cholecystitis cannot be excluded entirely, but definitely suspicion is much less, also given other findings, and overall clinical picture. I do appreciate additional evaluation by general surgery, although he is not a surgical candidate at this time, however, question will be whether percutaneous drainage would be a consideration, although would need to be weighed very carefully, as per discussion with radiology due to risk of complications, risk of infection being introduced if this is noninfected acute cholecystitis. With contracted gallbladder, this would also be a difficult target. Also with other organ injury such as to more of congestive heart failure be likely etiology. Stopped acetaminophen. Acute hepatitis panel negative. Low chance that Levaquin is causing this as if he previously had this medication, and also it is less than 1% chance. First and only dose was on 12/26. For now we will hold additional. With recent IVC filter placement, debris noted on gallbladder ultrasound and IVC, however, on duplex patent filter seen and no abnormality in IVC. Status: Acute (3) Acute kidney injury: This appears to have stabilized at 2.4. For now continues with with gentle fluid challenge is right side failure appears to be responding to some improved preload. Monitor volume status. Respiratory status. Avoid hypotensive episodes. Superimposed on chronic kidney disease Status: Acute (4) Stool guaiac positive: Hb stable. Continue Protonix by mouth Status: Acute (5) Eosinophilia: Apparently outpatient follow-up is being arranged with pulmonary and c onsideration of bronchoscopy. This may need to be adjusted secondary to his pulmonary emboli. Status: Acute (6) Dehydration: Supplement with low-dose IV fluids overnight Status: Acute (7) Elevated white blood cell count: Concern of pneumonia exists on CTA Levaquin held due to worsening liver parameters. Continue Rocephin and az ithromycin. He has no respiratory complaints. He is doing well on room air. He is afebrile. Persistent leukocytosis, at this time neutrophilic. No eosinophilia currently. Eosinophils were increased earlier during this admission. For now empirically added Flagyl. 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 For now maintain fall precautions. One-to-one sitter discontinued as he has been doing better. Remains calm. Cooperative. Status: Acute (11) Hyponatremia: This appears stabilized at this time. For now continue liberalized sodium intake diet. Status: Acute (12) Pulmonary embolism: Status post IVC filter placement. Status: Acute Qualifiers: Pulmonary embolism type: unspecified Chronicity: acute Acute cor pulmonale presence: unspecified Qualified Code(s): I26.99 - Other pulmonary embolism without acute cor pulmonale Additional A&P Information Nonsustained ventricular tachycardia Elevated troponin Chronic diarrhea Pneumonia: With infiltrate on CTA. Neutrophilic leukocytosis. For now Levaquin held as above. Rocephin, azithromycin. Elevated TSH: Mild decrease in T3. Possibly secondary to sick euthyroid syndrome. Attestations Medical Necessity Statement*: Continue admission for assessment of management of congestive heart failure, with acute kidney injury, acute liver injury, congestive hepatitis, ongoing assessments for possibility of cholecystitis. Coding Level of Care Code Acute District Adviser for [facility] Fwd Diagnoses CHF (congestive heart failure) I50.30 Heart failure chronicity: unspecified Heart failure type: diastolic Elevated liver enzymes R74.8 Acute kidney injury N17.9 Stool guaiac positive R19.5 Eosinophilia D72.1 Dehydration E86.0 Elevated white blood cell count D72.1 Leukocytosis type: eosinophilia Lung nodule R91.1 Dementia F01.51 Dementia type: vascular dementia Dementia behavioral disturbance: with behavioral disturbance Acute hyperactive delirium due to another medical condition F05 Hyponatremia E87.1 Pulmonary embolism I26.99 Pulmonary embolism type: unspecified Chronicity: acute Acute cor pulmonale presence: unspecified
[2020-01-01] MEDS: metroNIDAZOLE IV 500 MG/100 ML PREMIX 100 MG IV (02:06)
[2020-01-01 03:55] VITALS: BP 115/76; PULSE 82; RESP 16; TEMP 36.6; O2SAT 97
[2020-01-01 06:45] LABS: Basophils % 0.2 %; Eosinophils # 0.3 10^3/uL (0.0-0.8); Eosinophils % 1.5 %; Hematocrit 39.5 % (42.0-52.0); Lymphocytes # 1.1 10^3/uL (0.8-4.8); Lymphocytes % 5.8 %; Mean Corpuscular HGB Conc 30.4 g/dL (30.0-36.0); Mean Corpuscular Hemoglobin 26.4 pg (28.0-34.0); Mean Platelet Volume 10.8 fL (7.4-10.4); Monocytes # 2.5 10^3/uL (0.2-0.9); Monocytes % 12.9 %; Neutrophils # 15.25 10^3/uL (1.8-7.7); Neutrophils % 78.3 %; Nucleated Red Blood Cells # 0.2 /100WBC; Nucleated Red Blood Cells % 0.9 %; Platelet Count 324 10^3/cmm (130-400); Red Blood Count 4.54 10^6/uL (4.1-5.3); Red Cell Distribution Width 19.9 % (12.1-15.1); White Blood Count 19.5 10^3/uL (4.0-10.0)
[2020-01-01 06:58] LABS: Alanine Aminotransferase 507 U/L (0-41); Albumin Level 2.6 g/dL (3.5-5.2); Alkaline Phosphatase 434 IU/L (40-130); Anion Gap 19.2 (5-19); Aspartate Amino Transferase 303 U/L (0-40); Blood Urea Nitrogen 58 mg/dL (8-23); Calcium 7.7 mg/dL (8.5-10.5); Carbon Dioxide 16 mmol/L (22-29); Chloride 105 mmol/L (98-107); Globulin 3.5 g/dL (1.3-4.6); Glucose 92 mg/dL (65-115); Osmolality Calculated 280 mOsm/kg (285-295); Potassium 4.2 mmol/L (3.5-5.1); Sodium 136 mmol/L (136-145); Total Bilirubin 1.3 mg/dL (0.15-1.2); Total Protein 6.1 g/dL (6.6-8.7)
[2020-01-01 08:00] VITALS: BP 129/84; PULSE 91; RESP 18; TEMP 36; O2SAT 96
[2020-01-01] MEDS: pantoprazole DR 40 mg Tablet PO ×2 (08:34→17:17)
[2020-01-01] MEDS: metoprolol tartrate 25 mg Tablet PO ×2 (08:34→17:17)
--- NOTE | 2020-01-01 09:19 | PM.PN ---
Subjective Subjective: Interval history: Patient says he has a little discomfort right above his pubic bone this morning. He denies upper abdominal pain. Vitals/I&O/Wt Last Vital Signs Temp 96.8 F L 01/01/20 08:00 Pulse 91 01/01/20 08:00 Resp 18 01/01/20 08:00 BP 129/84 01/01/20 08:00 Pulse Ox 96 01/01/20 08:00 12/31/19 01/01/20 01/01/20 22:59 06:59 14:59 Intake Total 100 / 675.833 400 / 400 Output Total 450 / 550 100 / 550 Balance -350 / 125.833 -100 / 125.833 400 / 400 Physical Exam Narrative: EXAM NARRATIVE: Exam remains the same. Again, very difficult to evaluate the patient for any true tenderness but he does not wince, etc. even though he tenses up. Urinary Catheter Management^: Coude: Cath Placed During This Visit: yes Reason for Continuing Indwelling Catheter: Acute Urinary Retention or Obstruction Urinary Catheter Date of Insertion: 12/25/19 Urinary Catheter Time of Insertion: 18:00 Data : 01/01/20 06:38 01/01/20 06:38 A&P Assessment and plan (1) Cholelithiasis: Continue conservative management. Status: Acute Qualifiers: Cholelithiasis location: gallbladder Biliary obstruction: without biliary obstruction (2) Elevated liver enzymes: Further improvement this morning. Despite this, the patient's white blood cell count remains elevated and it appears that his renal function is worsening. I still have difficulty attributing this to any gallbladder disease with any certainty. Status: Acute Attestations Medical Necessity Statement*: See admitting service's notation. Coding Level of Care Code Acute Signals Collection Technician for [facility] Diagnoses Cholelithiasis K80.20 Cholelithiasis location: gallbladder Biliary obstruction: without biliary obstruction Elevated liver enzymes R74.8
--- NOTE | 2020-01-01 09:35 | PC.SOCIAL ---
IMM Updated Page 2 of IMM updated and given to patient. Initialed, dated and timed and placed back in chart.
--- NOTE | 2020-01-01 10:17 | P.PN_ITS ---
Subjective Subjective: Interval history: He is confused, alert, but only intermittently answers yes/no question and not sure if answers are reliable. Makes eye contact. Does not follow commands well. Pulled off his gown and lying sideways in bed, as of trying to climb out. Vitals/I&O/Wt Last Vital Signs Temp 96.8 F L 01/01/20 08:00 Pulse 91 01/01/20 08:00 Resp 18 01/01/20 08:00 BP 129/84 01/01/20 08:00 Pulse Ox 96 01/01/20 08:00 12/31/19 01/01/20 01/01/20 22:59 06:59 14:59 Intake Total 100 / 675.833 400 / 400 Output Total 450 / 450 100 / 550 Balance -350 / 225.833 -100 / 125.833 400 / 400 Physical Exam Const: COMMON NORMALS: no acute distress ORIENTATION/CONSCIOUSNESS: Yes oriented to person and Yes oriented to time OTHER: Generally weak. HENMT: COMMON NORMALS: oropharynx normal Neck/C-Spine: COMMON NORMALS: no JVD Resp: COMMON NORMALS: normal respiratory effort and clear to auscultation bilaterally AUSCULTATION: clear to auscultation bilaterally Cardio: COMMON NORMALS: no JVD, regular rhythm, S1 normal heart sound present, S2 normal heart sound present and No murmurs present (Cardio) RHYTHM: regular rhythm HEART SOUNDS: S1 normal heart sound present and S2 normal heart sound present GI: COMMON NORMALS: Normal to inspection, nondistended, normoactive bowel sounds present, Soft to palpation and non-tender PALPATION: Yes Soft to palpation Extremity: COMMON NORMALS: no joint enlargement and no pedal edema Neuro: COMMON NORMALS: moves all extremities SENSORIUM/ORIENTATION: Yes oriented to person and Yes oriented to time Skin: COMMON NORMALS: no rashes or lesions noted GENERAL SKIN EXAM: no rashes or lesions noted Urinary Catheter Management^: Coude: Cath Placed During This Visit: yes Reason for Continuing Indwelling Catheter: Acute Urinary Retention or Obstruction Urinary Catheter Date of Insertion: 12/25/19 Urinary Catheter Time of Insertion: 18:00 Data : 01/01/20 06:38 01/01/20 06:38 A&P Assessment and plan (1) Elevated white blood cell count: Concerned that this may be secondary to several sources, possibly prostatitis as noted during prior admission. Question of possible cholecystitis. Previously question of pneumonia, although he has been otherwise not having any respiratory symptoms, doing well on room air, and so suspicion for pneumonia is less. Given his AST and ALT have been improving, we will go ahead and switch him back to quinolone, especially he has lost his IV access several times due to confusion/pulling IV out. For now is empirically on Flagyl as well, although does not have convincing evidence of cholecystitis. Discussed his condition with his son, including his worse confusion today. Discussed for now delaying initiation of hospice given concern for ongoing und erlying infection, and for now we will switch him back to Levaquin. Discussed also concern that he does not have acute cholecystitis as noted, possible chronic cholecystitis, and with that at this time may be difficult to justify more invasive treatment, as well this may be difficult due to his conf usion, and pulling in different tubes and lines. Discussed possibility of transfer to a facility where he can be evaluated by gastroenterology. For now son would like to continue with antibiotic treatment, reassess. Persistent leukocytosis, at this time neutrophilic. No eosinophilia currently. Eosinophils were increased earlier during this admission. For now empirically added Flagyl. Repeat blood culture, urine culture. Status: Acute Qualifiers: Leukocytosis type: eosinophilia Qualified Code(s): D72.1 - Eosinophilia (2) CHF (congestive heart failure): For now maintain gentle IV hydration as he has not had oral intake. We will try him on a bit of clear liquid diet, see if we can taper off IV fluids. Renal function appears stabilized. For now continue gentle fluid challenge. Diuretics on hold. Monitor RAFFY, renal function. Appears to be responding some increasing preload. Ejection fraction noted decreased down to 25-30%. Concern also for underlying pulmonary hypertension, possibly secondary to chronic VTE. Concern also for underlying ischemic cardiomyopathy with possibility of severe coronary disease, although previously had declined additional invasive evaluation, currently also not possible due to medical condition. However, several other findings are concerning including soft blood pressure, worsening liver parameters, renal function. His blood pressure appears to have stabilized. He currently denies any chest pain or discomfort. Suspected progression of ischemic cardiomyopathy. Appreciate cardiology assessment. Intervention not possible due to a number of factors including GIB, renal failure. Discussed with son. He is aware of difficult situation his father is in. If there are limited/risky options to pursue further and he is not showing improvement, he is considering transition to hospice care depending on clinical course this week. Status: Acute Qualifiers: Heart failure chronicity: unspecified Heart failure type: diastolic Qualified Code(s): I50.30 - Unspecified diastolic (congestive) heart failure (3) Elevated liver enzymes: Liver parameters with further improvement today and AST LT, stable alkaline phosphatase. T bili slightly similar. Abdomen is very difficult to examine, he denies pain. For now empirically Flagyl. Gallbladder ultrasound with some wall thickening, some pericholecystic edema. HIDA without finding of acute cholecystitis, however, with no gallbladder ejection noted after 60 minutes, and concern for possible chronic midline dysfunction, possibly chronic cholecystitis. I do appreciate additional evaluation by general surgery. With contracted gallbladder, this would also be a difficult target. Made more difficult by his mental status and dementia and whether he will maintain the drain in place. With recent IVC filter placement, debris noted on gallbladder ultrasound and IVC, however, on duplex patent filter seen and no abnormality in IVC. Status: Acute (4) Acute kidney injury: This appears to have stabilized at 2.4. For now continues with with gentle fluid challenge is right side failure appears to be responding to some improved preload. Monitor volume status. Respiratory status. Avoid hypotensive episodes. Superimposed on chronic kidney disease. Status: Acute (5) Stool guaiac positive: Hb stable. Continue Protonix by mouth Status: Acute (6) Eosinophilia: Apparently outpatient follow-up is being arranged with pulmonary and consideration of bronchoscopy. This may need to be adjusted secondary to his pulmonary emboli. Status: Acute (7) Dehydration: Supplement with low-dose IV fluids overnight Status: Acute (8) Lung nodule: Status: Acute (9) Dementia: Status: Acute Qualifiers: Dementia behavioral disturbance: with behavioral disturbance Dementia type: vascular dementia Qualified Code(s): F01.51 - Vascular dementia with behavioral disturbance (10) Acute hyperactive delirium due to another medical condition: Acute encephalopathy secondary to metabolic arrangements, as well as possible infectious etiology, worse today, he is more confused, restless, trying to climb out of bed, pulling on lines and tubes. Will request again for one-to-one sitter. Status: Acute (11) Hyponatremia: This appears stabilized at this time. For now continue liberalized sodium intake diet. Status: Acute (12) Pulmonary embolism: Status post IVC filter placement. Status: Acute Qualifiers: Acute cor pulmonale presence: unspecified Chronicity: acute Pulmonary embolism type: unspecified Qualified Code(s): I26.99 - Other pulmonary embolism without acute cor pulmonale Additional A&P Information Nonsustained ventricular tachycardia Elevated troponin Chronic diarrhea Pneumonia: With infiltrate on CTA. Neutrophilic leukocytosis. For now Levaquin held as above. Rocephin, azithromycin. Elevated TSH: Mild decrease in T3. Possibly secondary to sick euthyroid syndrome. Attestations Medical Necessity Statement*: Continue admission for assessment and management of CHF, complicated by multiple organ injury, assessment for suspected additional underlying infection, worsening encephalopathy. Coding Level of Care Code Acute Windlace Machine Operator for [facility] Fwd Exam Comprehensive Diagnoses Elevated white blood cell count D72.1 Leukocytosis type: eosinophilia CHF (congestive heart failure) I50.30 Heart failure chronicity: unspecified Heart failure type: diastolic Elevated liver enzymes R74.8 Acute kidney injury N17.9 Stool guaiac positive R19.5 Eosinophilia D72.1 Dehydration E86.0 Lung nodule R91.1 Dementia F01.51 Dementia behavioral disturbance: with behavioral disturbance Dementia type: vascular dementia Acute hyperactive delirium due to another medical condition F05 Hyponatremia E87.1 Pulmonary embolism I26.99 Acute cor pulmonale presence: unspecified Chronicity: acute Pulmonary embolism type: unspecified
[2020-01-01] MEDS: metroNIDAZOLE 500 MG Tablet PO ×2 (10:58→16:15)
[2020-01-01] MEDS: levoFLOXacin 750 mg Tablet PO (10:58)
[2020-01-01 12:00] VITALS: BP 122/79; PULSE 88; RESP 18; TEMP 36.4; O2SAT 94
--- NOTE | 2020-01-01 14:50 | P.PN_ITS ---
Subjective Subjective: Interval history: Patient is laying in the bed does not want to wear the clothes and trying the sheath away. Right groin site looks good he does not appear to be in distress or shortness of breath. Medications: Reviewed: Yes Vitals/I&O/Wt Last Vital Signs Temp 97.6 F 01/01/20 12:00 Pulse 88 01/01/20 12:00 Resp 18 01/01/20 12:00 BP 122/79 01/01/20 12:00 Pulse Ox 94 01/01/20 12:00 12/31/19 01/01/20 01/01/20 22:59 06:59 14:59 Intake Total 100 / 675.833 400 / 400 Output Total 450 / 450 100 / 550 Balance -350 / 225.833 -100 / 125.833 400 / 400 Physical Exam Narrative: EXAM NARRATIVE: GENERAL: Patient is alert, awake with baseline dementia and confusion NECK: No jugular vein distension. HEENT: No cyanosis. No icterus. No pallor. HEART: Regular S1 and S2. No murmur, rub or gallop. LUNGS: Clear to auscultate bilaterally. ABDOMEN: Soft, nontender and mildly distended. Abdominal wall has 1+ edema CENTRAL NERVOUS SYSTEM: Grossly nonfocal. EXTREMITIES: Lower extremities without edema bilaterally. Urinary Catheter Management^: Coude: Cath Placed During This Visit: yes Reason for Continuing Indwelling Catheter: Acute Urinary Retention or Obstruction Urinary Catheter Date of Insertion: 12/25/19 Urinary Catheter Time of Insertion: 18:00 Data : 01/01/20 06:38 01/01/20 06:38 A&P Assessment and plan (1) CHF exacerbation: Patient appeared to be well compensated systolic heart failure. Continue holding diuretic Status: Acute Qualifiers: Heart failure type: systolic Qualified Code(s): I50.23 - Acute on chronic systolic (congestive) heart failure (2) CKD (chronic kidney disease): Diuretics on hold. Continue to monitor renal function Status: Acute Qualifiers: Chronic kidney disease stage: stage 3 (moderate) Qualified Code(s): N18.3 - Chronic kidney disease, stage 3 (moderate) (3) Ischemic cardiomyopathy: Patient has severely depressed LV function most likely due to ischemic cardiomyopathy. In the past she has been discussed for left heart cath by Dr. Novak at different times which patient refused and would like to be managed conservatively. Continue medical management Status: Acute (4) Dementia: As per medicine Status: Acute Qualifiers: Dementia type: vascular dementia Dementia behavioral disturbance: with behavioral disturbance Qualified Code(s): F01.51 - Vascular dementia with behavioral disturbance (5) Pulmonary embolism: Status post IVC filter placement for active GI bleed and inability to take anticoagulation for pulmonary embolism Status: Acute Qualifiers: Pulmonary embolism type: unspecified Chronicity: acute Acute cor pulmonale presence: unspecified Qualified Code(s): I26.99 - Other pulmonary embolism without acute cor pulmonale Attestations Medical Necessity Statement*: As per medicine recommendation Coding Level of Care Code Established Pt Acute Training And Development Rep for [facility] Fwd Patient Type Established History Expanded Problem Focused Exam Expanded Problem Focused Medical Decision Making Moderate Complexity Diagnoses CHF exacerbation I50.23 Heart failure type: systolic CKD (chronic kidney disease) N18.3 Chronic kidney disease stage: stage 3 (moderate) Ischemic cardiomyopathy I25.5 Dementia F01.51 Dementia type: vascular dementia Dementia behavioral disturbance: with behavioral disturbance Pulmonary embolism I26.99 Pulmonary embolism type: unspecified Chronicity: acute Acute cor pulmonale presence: unspecified
[2020-01-01 18:31] VITALS: BP 131/76; PULSE 85; RESP 18; TEMP 36.4; O2SAT 96
[2020-01-01 20:00] VITALS: BP 110/70; PULSE 87; RESP 18; TEMP 35.9; O2SAT 98
[2020-01-02 00:58] VITALS: BP 123/78; PULSE 83; RESP 20; TEMP 36.2; O2SAT 96
[2020-01-02 04:00] VITALS: BP 112/72; PULSE 82; RESP 18; TEMP 36.4; O2SAT 98
[2020-01-02 05:16] LABS: Basophils % 0.2 %; Eosinophils # 0.4 10^3/uL (0.0-0.8); Eosinophils % 2.5 %; Hematocrit 38.7 % (42.0-52.0); Hemoglobin 11.6 g/dL (11.7-16.6); Lymphocytes # 1.1 10^3/uL (0.8-4.8); Lymphocytes % 6.3 %; Mean Corpuscular Hemoglobin 27.3 pg (28.0-34.0); Mean Corpuscular Volume 91.1 fL (80-94); Mean Platelet Volume 11.4 fL (7.4-10.4); Monocytes # 2.3 10^3/uL (0.2-0.9); Monocytes % 12.9 %; Neutrophils # 13.36 10^3/uL (1.8-7.7); Neutrophils % 76.8 %; Nucleated Red Blood Cells # 0.1 /100WBC; Nucleated Red Blood Cells % 0.5 %; Platelet Count 287 10^3/cmm (130-400); Red Blood Count 4.25 10^6/uL (4.1-5.3); Red Cell Distribution Width 20.6 % (12.1-15.1); White Blood Count 17.4 10^3/uL (4.0-10.0)
[2020-01-02 05:42] LABS: Alanine Aminotransferase 313 U/L (0-41); Albumin Level 2.6 g/dL (3.5-5.2); Alkaline Phosphatase 347 IU/L (40-130); Anion Gap 16.7 (5-19); Aspartate Amino Transferase 138 U/L (0-40); Blood Urea Nitrogen 58 mg/dL (8-23); Calcium 8.4 mg/dL (8.5-10.5); Carbon Dioxide 19 mmol/L (22-29); Chloride 109 mmol/L (98-107); Globulin 2.7 g/dL (1.3-4.6); Glucose 93 mg/dL (65-115); Osmolality Calculated 290 mOsm/kg (285-295); Potassium 3.7 mmol/L (3.5-5.1); Sodium 141 mmol/L (136-145); Total Bilirubin 1.4 mg/dL (0.15-1.2); Total Protein 5.3 g/dL (6.6-8.7)
--- NOTE | 2020-01-02 07:32 | PM.PN ---
Subjective Subjective: Interval history: Chapin is once again nonverbal this morning. Vitals/I&O/Wt Last Vital Signs Temp 97.5 F L 01/02/20 04:00 Pulse 82 01/02/20 04:00 Resp 18 01/02/20 04:00 BP 112/72 01/02/20 04:00 Pulse Ox 98 01/02/20 04:00 01/01/20 01/02/20 01/02/20 22:59 06:59 14:59 Intake Total 360 / 1220 460 / 1220 Balance 360 / 1220 460 / 1220 Physical Exam Narrative: EXAM NARRATIVE: His exam remains unchanged. He does not seem to be any more any less tender. Urinary Catheter Management^: Coude: Cath Placed During This Visit: yes, but has since been removed by the nurse Reason for Continuing Indwelling Catheter: Decision to DC Catheter Urinary Catheter Date of Insertion: 12/25/19 Urinary Catheter Time of Insertion: 18:00 Date Urinary Catheter Removed: 01/01/20 Time Urinary Catheter Discontinued: 19:23 Data : 01/02/20 04:52 01/02/20 05:22 A&P Assessment and plan (1) Cholelithiasis: Continue conservative management. Status: Acute Qualifiers: Cholelithiasis location: gallbladder Biliary obstruction: without biliary obstruction (2) Elevated liver enzymes: Further improvement this morning. Status: Acute Attestations Medical Necessity Statement*: See admitting service's notation. Coding Level of Care Code Acute Sap Director for Mary Savage Diagnoses Cholelithiasis K80.20 Cholelithiasis location: gallbladder Biliary obstruction: without biliary obstruction Elevated liver enzymes R74.8
[2020-01-02 07:39] VITALS: BP 121/73; PULSE 87; RESP 22; TEMP 36.4; O2SAT 93
[2020-01-02] MEDS: metoprolol tartrate 25 mg Tablet PO ×2 (08:22→17:41)
[2020-01-02] MEDS: metroNIDAZOLE 500 MG Tablet PO ×3 (08:22→21:02)
[2020-01-02] MEDS: pantoprazole DR 40 mg Tablet PO ×2 (08:23→17:41)
--- NOTE | 2020-01-02 11:21 | P.PN_ITS ---
Subjective Subjective: Interval history: He is today more alert, is somewhat hard of hearing so this may be contributing to difficulty in communicating. Does answer questions much better. He is not oriented to place or year. Does deny any pain or discomfort. Denies trouble breathing. Vitals/I&O/Wt Last Vital Signs Temp 97.6 F 01/02/20 07:39 Pulse 87 01/02/20 07:39 Resp 22 H 01/02/20 07:39 BP 121/73 01/02/20 07:39 Pulse Ox 93 01/02/20 07:39 01/01/20 01/02/20 01/02/20 22:59 06:59 14:59 Intake Total 360 / 760 460 / 1220 240 / 240 Balance 360 / 760 460 / 1220 240 / 240 Physical Exam Const: COMMON NORMALS: no acute distress GENERAL APPEARANCE: frail appearing ORIENTATION/CONSCIOUSNESS: Yes oriented to person; not oriented to place and not oriented to time OTHER: Generally weak. HENMT: COMMON NORMALS: oropharynx normal Neck/C-Spine: COMMON NORMALS: no JVD Resp: COMMON NORMALS: normal respiratory effort and clear to auscultation bilaterally AUSCULTATION: clear to auscultation bilaterally Cardio: COMMON NORMALS: no JVD, regular rhythm, S1 normal heart sound present, S2 normal heart sound present and No murmurs present (Cardio) RHYTHM: regular rhythm HEART SOUNDS: S1 normal heart sound present and S2 normal heart sound present GI: COMMON NORMALS: Normal to inspection, nondistended, normoactive bowel mariano nds present, Soft to palpation and non-tender (Abdomen is not tender to palpation, including right upper quadrant.) PALPATION: Yes Soft to palpation Extremity: COMMON NORMALS: no joint enlargement and no pedal edema Neuro: COMMON NORMALS: moves all extremities SENSORIUM/ORIENTATION: Yes or iented to person, No oriented to place and No oriented to time Skin: COMMON NORMALS: no rashes or lesions noted GENERAL SKIN EXAM: no rashes or lesions noted Urinary Catheter Management^: Coude: Cath Placed During This Visit: yes, but has since been removed by the nurse Reason for Continuing Indwelling Catheter: Decision to DC Catheter Urinary Catheter Date of Insertion: 12/25/19 Urinary Catheter Time of Insertion: 18:00 Date Urinary Catheter Removed: 01/01/20 Time Urinary Catheter Discontinued: 19:23 Data : 01/02/20 04:52 01/02/20 05:22 A&P Assessment and plan (1) Elevated white blood cell count: There is slight improvement today, down to 7.4. He is more alert today. Yesterday he was very much bothered by his Echevarria catheter, so this was discontinued. He has been monitored with bladder scans, with intermittent straight cath ordered as needed. Reportedly only 75 mL seen on bladder scan after he had voided. As IV access could not be obtained unfortunately, we did have to switch his antibiotics all to p.o., and he has been taking them. I do suspect that this is mostly coming from his prostatitis, as his abdomen is entirely nontender, including deep palpation of right upper quadrant. As he is improving for now we will not seek placement of PICC line or other alternative IV access as with his confusion/dementia, he has been pulling on lines, and may be at risk of a com plication. Concerned that this may be secondary to several sources, possibly prostatitis as noted during prior admission. Question of possible cholecystitis. Previously question of pneumonia, although he has been otherwise not having any respiratory symptoms, doing well on room air, and so suspicion for pneumonia is less. Continue Levaquin. For now is empirically on Flagyl as well, although does not have convincing evidence of cholecystitis. Continue to readdress goals of care depending on his recovery. Persistent leukocytosis, at this time neutrophilic. No eosinophilia currently. Eosinophils were increased earlier during this admission. Status: Acute Qualifiers: Leukocytosis type: eosinophilia Qualified Code(s): D72.1 - Eosinophilia (2) CHF (congestive heart failure): At this time off IV fluids. Holding off diuretics for now. Renal function appears stabilized. At this time encourage oral nutrition, hydration. Will monitor volume status. Blood pressures. Did respond some to increasing preload with gentle IVF. Ejection fraction noted decreased down to 25-30%. Concern also for underlying pulmonary hypertension, possibly secondary to chronic VTE. Concern also for underlying ischemic cardiomyopathy with possibility of severe coronary disease, although previously had declined additional invasive evaluation, currently also not possible due to medical condition. However, several other findings are concerning including soft blood pressure, worsening liver parameters, renal function. His blood pressure appears to have stabilized. He currently denies any chest pain or discomfort. Suspected progression of ischemic cardiomyopathy. Appreciate cardiology assessment. Intervention not possible due to a number of factors including GIB, renal failure. Discussed with son. He is aware of difficult situation his father is in. If there are limited/risky options to pursue further and he is not showing improvement, he is considering transition to hospice care depending on clinical course this week. Status: Acute Qualifiers: Heart failure chronicity: unspecified Heart failure type: diastolic Qualified Code(s): I50.30 - Unspecified diastolic (congestive) heart failure (3) Elevated liver enzymes: Liver parameters improving. T bili is somewhat lagging behind, today slightly up to 1.4. No abdominal pain noted on examination. Negative Bowman sign. For now empirically Flagyl. Gallbladder ultrasound with some wall thickening, some pericholecystic edema. HIDA without finding of acute cholecystitis, however, with no gallbladder ejection noted after 60 minutes, and concern for possible chronic midline dysfunction, possibly chronic cholecystitis. I do appreciate additional evaluation by general surgery. With contracted gallbladder, this would also be a difficult target. Made more difficult by his mental status and dementia and whether he will maintain the drain in place. With recent IVC filter placement, debris noted on gallbladder ultrasound and IVC, however, on duplex patent filter seen and no abnormality in IVC. Status: Acute (4) Acute kidney injury: This appears to have stabilized with mild improvement. For now continues with with gentle fluid challenge is right side failure appears to be responding to some improved preload. Monitor volume status. Respiratory status. Avoid hypotensive episodes. Superimposed on chronic kidney disease. Status: Acute (5) Stool guaiac positive: Hb stable. Continue Protonix by mouth Status: Acute (6) Eosinophilia: Apparently outpatient follow-up is being arranged with pulmonary and consideration of bronchoscopy. This may need to be adjusted secondary to his pulmonary emboli. Status: Acute (7) Dehydration: Supplement with low-dose IV fluids overnight Status: Acute (8) Lung nodule: Status: Acute (9) Dementia: Status: Acute Qualifiers: Dementia type: vascular dementia Dementia behavioral disturbance: with behavioral disturbance Qualified Code(s): F01.51 - Vascular dementia with behavioral disturbance (10) Acute hyperactive delirium due to another medical condition: Acute encephalopathy secondary to metabolic arrangements, as well as possible infectious etiology, worse today, he is more confused, restless, trying to climb out of bed, pulling on lines and tubes. Will request again for one-to-one sitter. Status: Acute (11) Hyponatremia: Resolved. For now continue liberalized sodium intake diet. Status: Acute (12) Pulmonary embolism: Status post IVC filter placement. Intolerant of anticoagulation due to GI bleeding. Status: Acute Qualifiers: Pulmonary embolism type: unspecified Chronicity: acute Acute cor pulmonale presence: unspecified Qualified Code(s): I26.99 - Other pulmonary embolism without acute cor pulmonale Additional A&P Information Nonsustained ventricular tachycardia Elevated troponin Chronic diarrhea Pneumonia: With infiltrate on CTA. Neutrophilic leukocytosis. For now Levaquin held as above. Rocephin, azithromycin. Elevated TSH: Mild decrease in T3. Possibly secondary to sick euthyroid syndrome. Attestations Medical Necessity Statement*: Continue admission for assessment management of acute encephalopathy, suspected infection, prostatitis, reassessments for possibility of cholecystitis, CHF exacerbation, concern for possible low output failure, acute kidney injury, liver injury. Coding Level of Care Code Acute Career Guidance Technician for [facility] Diagnoses Elevated white blood cell count D72.1 Leukocytosis type: eosinophilia CHF (congestive heart failure) I50.30 Heart failure chronicity: unspecified Heart failure type: diastolic Elevated liver enzymes R74.8 Acute kidney injury N17.9 Stool guaiac positive R19.5 Eosinophilia D72.1 Dehydration E86.0 Lung nodule R91.1 Dementia F01.51 Dementia type: vascular dementia Dementia behavioral disturbance: with behavioral disturbance Acute hyperactive delirium due to another medical condition F05 Hyponatremia E87.1 Pulmonary embolism I26.99 Pulmonary embolism type: unspecified Chronicity: acute Acute cor pulmonale presence: unspecified
[2020-01-02 11:23] VITALS: BP 111/73; PULSE 78; RESP 18; TEMP 36.7; O2SAT 92
[2020-01-02 15:36] VITALS: BP 130/64; PULSE 76; RESP 18; TEMP 37.2; O2SAT 98
[2020-01-02 19:51] VITALS: BP 99/68; PULSE 77; RESP 18; TEMP 36.1; O2SAT 98
[2020-01-03 00:36] VITALS: BP 94/63; PULSE 75; RESP 18; TEMP 36.2; O2SAT 93
[2020-01-03 04:14] VITALS: BP 98/69; PULSE 83; RESP 20; TEMP 35.9; O2SAT 96
[2020-01-03 04:22] LABS: Basophils % 0.1 %; Eosinophils # 0.8 10^3/uL (0.0-0.8); Eosinophils % 4.9 %; Hematocrit 40.2 % (42.0-52.0); Hemoglobin 12.1 g/dL (11.7-16.6); Lymphocytes # 1.2 10^3/uL (0.8-4.8); Lymphocytes % 7.5 %; Mean Corpuscular HGB Conc 30.1 g/dL (30.0-36.0); Mean Corpuscular Hemoglobin 26.7 pg (28.0-34.0); Mean Corpuscular Volume 88.7 fL (80-94); Mean Platelet Volume 10.9 fL (7.4-10.4); Monocytes % 12.2 %; Neutrophils % 74.3 %; Nucleated Red Blood Cells # 0.1 /100WBC; Nucleated Red Blood Cells % 0.3 %; Platelet Count 252 10^3/cmm (130-400); Red Blood Count 4.53 10^6/uL (4.1-5.3); Red Cell Distribution Width 20.9 % (12.1-15.1); White Blood Count 16.2 10^3/uL (4.0-10.0)
[2020-01-03 04:57] LABS: Alanine Aminotransferase 256 U/L (0-41); Albumin Level 2.5 g/dL (3.5-5.2); Alkaline Phosphatase 295 IU/L (40-130); Anion Gap 16.5 (5-19); Aspartate Amino Transferase 110 U/L (0-40); Blood Urea Nitrogen 50 mg/dL (8-23); Calcium 7.6 mg/dL (8.5-10.5); Carbon Dioxide 19 mmol/L (22-29); Chloride 110 mmol/L (98-107); Glucose 112 mg/dL (65-115); Osmolality Calculated 293 mOsm/kg (285-295); Potassium 3.5 mmol/L (3.5-5.1); Sodium 142 mmol/L (136-145); Total Bilirubin 1.3 mg/dL (0.15-1.2); Total Protein 5.5 g/dL (6.6-8.7)
[2020-01-03 07:32] VITALS: BP 95/63; PULSE 92; RESP 18; TEMP 37; O2SAT 98
--- NOTE | 2020-01-03 08:38 | PM.PN ---
Subjective Subjective: Interval history: The patient reports he is feeling good when asked this morning. He did not answer any more questions for me. Vitals/I&O/Wt Last Vital Signs Temp 98.6 F 01/03/20 07:32 Pulse 92 01/03/20 07:32 Resp 18 01/03/20 07:32 BP 95/63 01/03/20 07:32 Pulse Ox 98 01/03/20 07:32 01/02/20 01/03/20 01/03/20 22:59 06:59 14:59 Intake Total 600 / 900 Balance 600 / 900 Physical Exam Narrative: EXAM NARRATIVE: Exam remains about the same, although when I continue to encourage the patient to relax his abdomen he tends to be a little bit more cooperative today. His abdomen seems soft when he is compliant with that request. Urinary Catheter Management^: Coude: Cath Placed During This Visit: yes, but has since been removed by the nurse Reason for Continuing Indwelling Catheter: Decision to DC Catheter Urinary Catheter Date of Insertion: 12/25/19 Urinary Catheter Time of Insertion: 18:00 Date Urinary Catheter Removed: 01/01/20 Time Urinary Catheter Discontinued: 19:23 Data : 01/03/20 03:45 01/03/20 03:45 Other Labs: Laboratory Tests 01/03/20 03:45 Total Bilirubin 1.3 H AST 110 H ALT 256 H Alkaline Phosphatase 295 H A&P Assessment and plan (1) Cholelithiasis: Continue conservative management. Status: Acute Qualifiers: Cholelithiasis location: gallbladder Biliary obstruction: without biliary obstruction (2) Elevated liver enzymes: Continue daily improvement. Status: Acute Attestations Medical Necessity Statement*: See admitting service's notation. Coding Level of Care Code Acute Production Wood Craftsman for Mary Savage Diagnoses Cholelithiasis K80.20 Cholelithiasis location: gallbladder Biliary obstruction: without biliary obstruction Elevated liver enzymes R74.8
[2020-01-03] MEDS: metroNIDAZOLE 500 MG Tablet PO ×3 (09:23→21:45)
[2020-01-03] MEDS: metoprolol tartrate 25 mg Tablet PO ×2 (09:23→17:40)
[2020-01-03] MEDS: pantoprazole DR 40 mg Tablet PO ×2 (09:23→17:40)
--- NOTE | 2020-01-03 09:45 | PC.SOCIAL ---
IMM Updated Updated pt on Pg 2 IMM. No questions voiced. Provided pt a copy. Signed, dated, & timed copy in chart.
[2020-01-03] MEDS: levoFLOXacin 750 mg Tablet PO (11:24)
[2020-01-03 11:25] VITALS: BP 102/61; PULSE 70; RESP 16; TEMP 36.6; O2SAT 94
--- NOTE | 2020-01-03 16:24 | USR_ITS ---
PROCEDURE INFORMATION: Exam: US Chest, Soft Tissue Exam date and time: 01/03/2020 5:10 PM Age: 79 years old Clinical indication: Symptoms: Left chest mass/lump; Additional info: L pectoral mass TECHNIQUE: Imaging protocol: Real time ultrasound of the chest was performed with image documentation. Exam focused on the soft tissue. COMPARISON: [facility]A Chest-Pulmonary Emb [id number] 03/04/2019 8:52 PM FINDINGS: Soft tissues: There is a well-defined mass left chest wall measuring 7.2 x 2.3 x 5.6 cm in size. This mass has internal vascularity and is a solid lesion.There is a small area of decreased echogenicity within the center of this mass that is poorly marginated with a small amount of internal vascularity measuring 2.6 x 0.8 cm in size. No foreign body. This is not a simple fluid collection or simple cyst. Other findings: The left anterior lateral chest was evaluated just inferior and lateral to the nipple. No additional mass is identified. US/US soft tissue/extremity [id number] IMPRESSION: Solid mass left chest wall. This is the probable lipoma visualized on the prior chest CT. There is no fluid collection or abscess. 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 This correlates with the location today's mass. On the prior CT scan, it measured 8.3 x 3.3 x 7.3 cm in size. The measurements of the mass on today's exam are smaller but it is suspected that this is due to the fact that is difficult to differentiate the margins of the mass lipoma from the adjacent subcutaneous fat.
--- NOTE | 2020-01-03 18:48 | P.PN_ITS ---
Subjective Subjective: Interval history: Today he is somewhat more alert, smiles during my visit, says that he is not in pain or discomfort. Denies any needs. He is very hard of hearing, and so sometimes questions do not register and need to be repeated. He is still somewhat confused, as although he knows he is in the hospital, does not remember the year. When asked how his appetite is also replies I do not remember . Vitals/I&O/Wt Last Vital Signs Temp 97.9 F 01/03/20 11:25 Pulse 70 01/03/20 11:25 Resp 16 01/03/20 11:25 BP 102/61 01/03/20 11:25 Pulse Ox 94 01/03/20 11:25 01/03/20 01/03/20 01/03/20 06:59 14:59 22:59 Output Total 150 / 150 Balance -150 / -150 Physical Exam Const: COMMON NORMALS: no acute distress GENERAL APPEARANCE: frail appearing ORIENTATION/CONSCIOUSNESS: Yes oriented to person and Yes oriented to place (Knows he is in the hospital, although named the wrong town.); not oriented to time OTHER: Generally weak. Appears slightly more energetic today. HENMT: COMMON NORMALS: oropharynx normal Neck/C-Spine: COMMON NORMALS: no JVD Chest: OTHER: Left pectoral mass, large, soft, freely mobile, nontender. Resp: COMMON NORMALS: normal respiratory effort and clear to auscultation bilaterally AUSCULTATION: clear to auscultation bilaterally Cardio: COMMON NORMALS: no JVD, regular rhythm, S1 normal heart sound present, S2 normal heart sound present and No murmurs present (Cardio) RHYTHM: regular rhythm HEART SOUNDS: S1 normal heart sound present and S2 normal heart sound present GI: COMMON NORMALS: Normal to inspection, nondistended, normoactive bowel sounds present, Soft to palpation and non-tender (Abdomen is not tender to palpation, including right upper quadrant.) PALPATION: Yes Soft to palpation Extremity: COMMON NORMALS: no joint enlargement and no pedal edema Neuro: COMMON NORMALS: moves all extremities SENSORIUM/ORIENTATION: Yes oriented to person, Yes oriented to place (Knows he is in the hospital, although named the wrong town.) and No oriented to time Skin: COMMON NORMALS: no rashes or lesions noted GENERAL SKIN EXAM: no rashes or lesions noted Urinary Catheter Management^: Coude: Cath Placed During This Visit: yes, but has since been removed by the nurse Reason for Continuing Indwelling Catheter: Decision to DC Catheter Urinary Catheter Date of Insertion: 12/25/19 Urinary Catheter Time of Insertion: 18:00 Date Urinary Catheter Removed: 01/01/20 Time Urinary Catheter Discontinued: 19:23 Data : 01/03/20 03:45 01/03/20 03:45 Micro: Microbiology 01/03/20 15:35 C.difficile Toxin B Gene (PCR) - Final Stool A&P Assessment and plan (1) Elevated white blood cell count: This is with slight improvement today down to 16,000. He is somewhat more energetic. Still somewhat confused, but is cooperative. Today again restarted him in diarrhea. C. difficile is negative. So far no growth on any of the cultures from this hospitalization. Continue bladder scans. Will need follow-up with urology with regards to prostatitis. Continue monitoring for any signs of development of acute cholecys titis. As IV access could not be obtained unfortunately, we did have to switch his antibiotics all to p.o., and he has been taking them. I do suspect that this is mostly coming from his prostatitis, as his abdomen is entirely nontender, including deep palpation of right upper quadrant. As he is improving for now we will not seek placement of PICC line or other alternative IV access as with his confusion/dementia, he has been pulling on lines, and may be at risk of a complication. Concerned that this may be secondary to several sources, possibly prostatitis as noted during prior admission. Question of possible cholecystitis. Previously question of pneumonia, although he has been otherwise not having any respiratory symptoms, doing well on room air, and so suspicion for pneumonia is less. Continue Levaquin. For now is empirically on Flagyl as well, although does not have convincing evidence of cholecystitis. Continue to readdress goals of care depending on his recovery. Persistent leukocytosis, at this time neutrophilic. No eosinophilia currently. Eosinophils were increased earlier during this admission. Status: Acute Qualifiers: Leukocytosis type: eosinophilia Qualified Code(s): D72.1 - Eosinophilia (2) CHF (congestive heart failure): At this time off IV fluids. Holding off diuretics for now. Renal function appears stabilized. At this time encourage oral nutrition, hydration. Will monitor volume status. Blood pressures are somewhat on the soft side again. Will decrease metoprolol dose to 12.5 mg. Did respond some to increasing preload earlier with gentle IVF. Ejection fraction noted decreased down to 25-30%. Concern also for underlying pulmonary hypertension, possibly secondary to chronic VTE. Concern also for underlying ischemic cardiomyopathy with possibility of severe coronary disease, although previously had declined additional invasive evaluation, currently also not possible due to medical condition. However, several other findings are concerning including soft blood pressure, worsening liver parameters, renal function. His blood pressure appears to have stabilized. He currently denies any chest pain or discomfort. Suspected progression of ischemic cardiomyopathy. Appreciate cardiology assessment. Intervention not possible due to a number of factors including GIB, renal failure. Hospice care was considered, but for now we are holding off as he has been showing signs of improvement. If continues to improve, and able to participate with therapy, possibly could go for rehabilitation. Overall his prognosis is likely not good given underlying dementia, severe cardiomyopathy, multiorgan injury, recurrent hospitalizations, and overall hospice may be a reasonable option especially if his improvement stalls. Continue discussions of goals of care with his son Avel who is his power of assistant district attorney for healthcare. Status: Acute Qualifiers: Heart failure chronicity: unspecified Heart failure type: diastolic Qualified Code(s): I50.30 - Unspecified diastolic (congestive) heart failure (3) Elevated liver enzymes: Liver parameters improving. No abdominal pain noted on examination. Negative Bowman sign. For now empirically Flagyl. Gallbladder ultrasound with some wall thickening, some pericholecystic edema. H FRANNIE without finding of acute cholecystitis, however, with no gallbladder ejection noted after 60 minutes, and concern for possible chronic midline dysfunction, possibly chronic cholecystitis. I do appreciate additional evaluation by general surgery. With contracted gallbladder, this would also be a difficult target. Made more difficult by his mental status and dementia and whether he will maintain the drain in place. With recent IVC filter placement, debris noted on gallbladder ultrasound and IVC, however, on duplex patent filter seen and no abnormality in IVC. Status: Acute (4) Acute kidney injury: This appears to have stabilized with mild improvement. For now continues with with gentle fluid challenge is right side failure appears to be responding to some improved preload. Monitor volume status. Respiratory status. Avoid hypotensive episodes. Superimposed on chronic kidney disease. Status: Acute (5) Stool guaiac positive: Hb stable. Continue Protonix by mouth Status: Acute (6) Eosinophilia: Apparently outpatient follow-up is being arranged with pulmonary and consideration of bronchoscopy. This may need to be adjusted secondary to his pulmonary emboli. Status: Acute (7) Dehydration: Monitor for recurrence. Status: Acute (8) Lung nodule: Status: Acute (9) Dementia: Status: Acute Qualifiers: Dementia type: vascular dementia Dementia behavioral disturbance: with behavioral disturbance Qualified Code(s): F01.51 - Vascular dementia with behavioral disturbance (10) Acute hyperactive delirium due to another medical condition: Improved but has done well so far without one-to-one sitter. In large part appear was very much bothered by a Echevarria catheter. Status: Acute (11) Hyponatremia: Resolved. For now continue liberalized sodium intake diet. Status: Acute (12) Pulmonary embolism: Status post IVC filter placement. Intolerant of anticoagulation due to GI bleeding. Status: Acute Qualifiers: Pulmonary embolism type: unspecified Chronicity: acute Acute cor pulmo nale presence: unspecified Qualified Code(s): I26.99 - Other pulmonary embolism without acute cor pulmonale Additional A&P Information Nonsustained ventricular tachycardia Elevated troponin Chronic diarrhea Pneumonia: With infiltrate on CTA. Neutrophilic leukocytosis. For now Levaquin held as above. Rocephin, azithromycin. Elevated TSH: Mild decrease in T3. Possibly secondary to sick euthyroid syndrome. Left pectoral chest wall mass: Soft but irregularly-shaped, mobile, nontender large left pectoral mass. 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 Attestations Medical Necessity Statement*: Continue admission for assessment and management of acute encephalopathy with suspected underlying infection, suspected urinary tract infection/prostatitis, monitoring for signs of cholecystitis with abnormal liver parameters, in the setting of CHF with severe cardiomyopathy, acute kidney injury, goals of care planning. Coding Level of Care Code Acute Medical Assisting Program Director for Chg Fwd Diagnoses Elevated white blood cell count D72.1 Leukocytosis type: eosinophilia CHF (congestive heart failure) I50.30 Heart failure chronicity: unspecified Heart failure type: diastolic Elevated liver enzymes R74.8 Acute kidney injury N17.9 Stool guaiac positive R19.5 Eosinophilia D72.1 Dehydration E86.0 Lung nodule R91.1 Dementia F01.51 Dementia type: vascular dementia Dementia behavioral disturbance: with behavioral disturbance Acute hyperactive delirium due to another medical condition F05 Hyponatremia E87.1 Pulmonary embolism I26.99 Pulmonary embolism type: unspecified Chronicity: acute Acute cor pulmonale presence: unspecified
[2020-01-03 19:48] VITALS: BP 103/70; PULSE 72; RESP 18; TEMP 36.6; O2SAT 96
[2020-01-04] VITALS: RESP 17; O2SAT 96
[2020-01-04 04:00] VITALS: BP 133/76; PULSE 60; RESP 19; TEMP 36.4; O2SAT 96
[2020-01-04 04:23] LABS: Basophils % 0.1 %; Eosinophils # 0.7 10^3/uL (0.0-0.8); Hematocrit 35.8 % (42.0-52.0); Lymphocytes # 1.2 10^3/uL (0.8-4.8); Lymphocytes % 8.7 %; Mean Corpuscular HGB Conc 30.7 g/dL (30.0-36.0); Mean Corpuscular Hemoglobin 26.3 pg (28.0-34.0); Mean Corpuscular Volume 85.4 fL (80-94); Mean Platelet Volume 10.9 fL (7.4-10.4); Monocytes # 1.5 10^3/uL (0.2-0.9); Monocytes % 11.3 %; Nucleated Red Blood Cells % 0 %; Platelet Count 223 10^3/cmm (130-400); Red Blood Count 4.19 10^6/uL (4.1-5.3); Red Cell Distribution Width 21.1 % (12.1-15.1); White Blood Count 13.4 10^3/uL (4.0-10.0)
[2020-01-04 04:44] LABS: Alanine Aminotransferase 182 U/L (0-41); Albumin Level 2.6 g/dL (3.5-5.2); Alkaline Phosphatase 242 IU/L (40-130); Aspartate Amino Transferase 62 U/L (0-40); Blood Urea Nitrogen 44 mg/dL (8-23); Calcium 7.5 mg/dL (8.5-10.5); Carbon Dioxide 21 mmol/L (22-29); Chloride 109 mmol/L (98-107); Globulin 2.8 g/dL (1.3-4.6); Glucose 95 mg/dL (65-115); Osmolality Calculated 288 mOsm/kg (285-295); Sodium 140 mmol/L (136-145); Total Bilirubin 1.3 mg/dL (0.15-1.2); Total Protein 5.4 g/dL (6.6-8.7)
[2020-01-04 05:13] LABS: Anion Gap 13.4 (5-19); Potassium 3.4 mmol/L (3.5-5.1)
--- NOTE | 2020-01-04 06:24 | PC.NURSE ---
Shift Summary Patient was able to ambulate from bed to the chair. Patient used the urinal once but was incontinent most of the night.
[2020-01-04 07:47] VITALS: BP 113/74; PULSE 80; RESP 18; TEMP 37.2; O2SAT 96
--- NOTE | 2020-01-04 07:47 | PM.PN ---
Subjective Subjective: Interval history: The patient seems much more conversant today. He denies abdominal pain. Vitals/I&O/Wt Last Vital Signs Temp 97.5 F L 01/04/20 04:00 Pulse 60 01/04/20 04:00 Resp 19 H 01/04/20 04:00 BP 133/76 01/04/20 04:00 Pulse Ox 96 01/04/20 04:00 01/03/20 01/04/20 01/04/20 22:59 06:59 14:59 Intake Total 240 / 480 240 / 480 Output Total 150 / 150 Balance 90 / 330 240 / 330 Physical Exam Narrative: EXAM NARRATIVE: Abdominal exam remains non-concerning. Urinary Catheter Management^: Coude: Cath Placed During This Visit: yes, but has since been removed by the nurse Reason for Continuing Indwelling Catheter: Decision to DC Catheter Urinary Catheter Date of Insertion: 12/25/19 Urinary Catheter Time of Insertion: 18:00 Date Urinary Catheter Removed: 01/01/20 Time Urinary Catheter Discontinued: 19:23 Data : 01/04/20 04:06 01/04/20 04:06 Micro: Microbiology 01/03/20 15:35 C.difficile Toxin B Gene (PCR) - Final Stool A&P Assessment and plan (1) Cholelithiasis: Continue conservative management. White blood cell count slowly defervescing. Status: Acute Qualifiers: Cholelithiasis location: gallbladder Biliary obstruction: without biliary obstruction (2) Elevated liver enzymes: Continue daily improvement. Status: Acute Attestations Medical Necessity Statement*: See admitting service's notation. Coding Level of Care Code Acute Custom Framing Specialist for [facility] Diagnoses Cholelithiasis K80.20 Cholelithiasis location: gallbladder Biliary obstruction: without biliary obstruction Elevated liver enzymes R74.8
[2020-01-04] MEDS: metoprolol tartrate 25 mg Tablet 12.5 MG PO ×2 (09:11→17:06)
[2020-01-04] MEDS: potassium chloride oral liq 20 mEq/15 mL UDC PO (09:11)
[2020-01-04] MEDS: pantoprazole DR 40 mg Tablet PO ×2 (09:11→17:06)
[2020-01-04] MEDS: metroNIDAZOLE 500 MG Tablet PO ×3 (09:11→21:46)
[2020-01-04 11:59] VITALS: BP 102/68; PULSE 76; RESP 18; TEMP 36.6; O2SAT 93
--- NOTE | 2020-01-04 12:35 | P.PN_ITS ---
Subjective Subjective: Interval history: He is hard of hearing, but today is alert and interactive. Denies any pain or discomfort. Breathing is comfortable. Denies any abdominal pain. He thinks the year is 2000. He is not oriented to place. Otherwise cooperates with a review of systems and with physical exam. Vitals/I&O/Wt Last Vital Signs Temp 97.8 F 01/04/20 11:59 Pulse 76 01/04/20 11:59 Resp 18 01/04/20 11:59 BP 102/68 01/04/20 11:59 Pulse Ox 93 01/04/20 11:59 01/03/20 01/04/20 01/04/20 22:59 06:59 14:59 Intake Total 240 / 240 240 / 480 360 / 360 Output Total 150 / 150 Balance 90 / 90 240 / 330 360 / 360 Physical Exam Const: COMMON NORMALS: no acute distress GENERAL APPEARANCE: frail appearing ORIENTATION/CONSCIOUSNESS: Yes oriented to person; not oriented to place (Knows he is in the hospital, although named the wrong town.) and not oriented to time OTHER: Generally weak. More energetic today. Answers questions more quickly. Not oriented to place or year. HENMT: COMMON NORMALS: oropharynx normal Neck/C-Spine: COMMON NORMALS: no JVD Chest: OTHER: Left pectoral lipoma, large, soft, freely mobile, nontender. Resp: COMMON NORMALS: normal respiratory effort and clear to auscultation bilaterally AUSCULTATION: clear to auscultation bilaterally Cardio: COMMON NORMALS: no JVD, regular rhythm, S1 normal heart sound present, S2 normal heart sound present and No murmurs present (Cardio) RHYTHM: regular rhythm HEART SOUNDS: S1 normal heart sound present and S2 normal heart sound present GI: COMMON NORMALS: Normal to inspection, nondistended, normoactive bowel sounds present, Soft to palpation and non-tender (Abdomen is not tender to palpation, including right upper quadrant.) PALPATION: Yes Soft to palpation Extremity: COMMON NORMALS: no joint enlargement and no pedal edema Neuro: COMMON NORMALS: moves all extremities SENSORIUM/ORIENTATION: Yes oriented to person, No oriented to place (Knows he is in the hospital, although named the wrong town.) and No oriented to time Skin: COMMON NORMALS: no rashes or lesions noted GENERAL SKIN EXAM: no rashes or lesions noted Urinary Catheter Management^: Coude: Cath Placed During This Visit: yes, but has since been removed by the nurse Reason for Continuing Indwelling Catheter: Decision to DC Catheter Urinary Catheter Date of Insertion: 12/25/19 Urinary Catheter Time of Insertion: 18:00 Date Urinary Catheter Removed: 01/01/20 Time Urinary Catheter Discontinued: 19:23 Data : 01/04/20 04:06 01/04/20 04:06 Micro: Microbiology 01/03/20 15:35 C.difficile Toxin B Gene (PCR) - Final Stool A&P Assessment and plan (1) Elevated white blood cell count: This is gradually improving. His encephalopathy is also better, although his somewhat more confused than usual. Is somewhat more energetic in the last 2 days. Cooperative. Multiple episodes of diarrhea again on 01/02. C. difficile is negative. This is been assessed multiple times previously, including other stool studies, each time unremarkable. So far no growth on any of the cultures from this hospitalization. Continue bladder scans. Will need follow-up with urology with regards to prostatitis. Continue monitoring for any signs of development of acute cholecystitis. We will try to get him mobilized with physical therapy. Continue to monitor mental status. As IV access could not be obtained unfortunately, we did have to switch his antibiotics all to p.o., and he has been taking them. I do suspect that this is mostly coming from his prostatitis, as his abdomen is entirely nontender, including deep palpation of right upper quadrant. As he is improving for now we will not seek placement of PICC line or other alternative IV access as with his confusion/dementia, he has been pulling on lines, and may be at risk of a complication. Concerned that this may be secondary to several sources, possibly prostatitis as noted during prior admission. Question of possible cholecystitis. Previously question of pneumonia, although he has been otherwise not having any respiratory symptoms, doing well on room air, and so suspicion for pneumonia is less. Continue Levaquin. For now is empirically on Flagyl as well, although does not have convincing evidence of cholecystitis. Continue to readdress goals of care depending on his recovery. Son was considering whether they should proceed with hospice, but wanted to wait to see how his father improves from the suspected infectious cause of the current epis ode and revisit the issue then. He was reassured by his father's improvement, although we had discussed that overall his prognosis is likely not good given other comorbidities and multiple recent hospitalizations. I could not reach him for an update today. Persistent leukocytosis, at this time neutrophilic. No eosinophilia currently. Eosinophils were increased earlier during this admission. Will need follow-up with regards to eosinophilia after discharge with hematology. Status: Acute Qualifiers: Leukocytosis type: eosinophilia Qualified Code(s): D72.1 - Eosinophilia (2) CHF (congestive heart failure): Appears is close to euvolemia, creatinine has been declining, unclear if due to improvement in renal function, versus possibly again started to become somewhat fluid overloaded. Continue to monitor volume status. Blood pressures did improve somewhat, although we had to cut down metoprolol dose to 12.5 mg. Did respond some to increasing preload earlier with gentle IVF. Ejection fraction noted decreased down to 25-30%. Concern also for underlying pulmonary hypertension, possibly secondary to chronic VTE. Concern also for underlying ischemic cardiomyopathy with possibility of severe coronary disease, although previously had declined additional invasive evaluation, currently also not possible due to medical condition. If the infection is resolving, but still having functional mutations, organ injury, worsening of cognitive functioning/dementia, hospice care consideration may be revisited with his son. However, several other findings are concerning including soft blood pressure, worsening liver parameters, renal function. His blood pressure appears to have stabilized. He currently denies any chest pain or discomfort. Suspected progression of ischemic cardiomyopathy. Appreciate cardiology assessment. Intervention not possible due to a number of factors including GIB, renal failure. Hospice care was considered, but for now we are holding off as he has been showing signs of improvement. If continues to improve, and able to participate with therapy, possibly could go for rehabilitation. Overall his prognosis is likely not good given underlying dementia, severe cardiomyopathy, multiorgan injury, recurrent hospitalizations, and overall hospice may be a reasonable option especially if his improvement stalls. Continue discussions of goals of care with his son Avel who is his power of patent prosecution attorney for healthcare. Status: Acute Qualifiers: Heart failure chronicity: unspecified Heart failure type: diastolic Qualified Code(s): I50.30 - Unspecified diastolic (congestive) heart failure (3) Elevated liver enzymes: Liver parameters improving. No abdominal pain noted on examination. Negative Bowman sign. For now empirically Flagyl. Gallbladder ultrasound with some wall thickening, some pericholecystic edema. HIDA without finding of acute cholecystitis, however, with no gallbladder ejection noted after 60 minutes, and concern for possible chronic midline dysfunction, possibly chronic cholecystitis. I do appreciate additional evaluation by general surgery. With contracted gallbladder, this would also be a difficult target. Made more difficult by his mental status and dementia and whether he will maintain the drain in place. With recent IVC filter placement, debris noted on gallbladder ultrasound and IVC, however, on duplex patent filter seen and no abnormality in IVC. Status: Acute (4) Acute kidney injury: This appears to have stabilized with mild improvement. For now continues with with gentle fluid challenge is right side failure appears to be responding to some improved preload. Monitor volume status. Respiratory status. Avoid hypotensive episodes. Superimposed on chronic kidney disease. Status: Acute (5) Stool guaiac positive: Hb stable. Continue Protonix by mouth Status: Acute (6) Eosinophilia: Apparently outpatient follow-up is being arranged with pulmonary and consideration of bronchoscopy. This may need to be adjusted secondary to his pulmonary emboli. Status: Acute (7) Dehydration: Monitor for recurrence. Status: Acute (8) Lung nodule: Status: Acute (9) Dementia: Status: Acute Qualifiers: Dementia type: vascular dementia Dementia behavioral disturbance: with behavioral disturbance Qualified Code(s): F01.51 - Vascular dementia with behavioral disturbance (10) Acute hyperactive delirium due to another medical condition: Improved but has done well so far without one-to-one sitter. In large part appear was very much bothered by a Echevarria catheter. Status: Acute (11) Hyponatremia: Resolved. For now continue liberalized sodium intake diet. Status: Acute (12) Pulmonary embolism: Status post IVC filter placement. Intolerant of anticoagulation due to GI bleeding. Status: Acute Qualifiers: Pulmonary embolism type: unspecified Chronicity: acute Acute cor pulmonale presence: unspecified Qualified Code(s): I26.99 - Other pulmonary embolism without acute cor pulmonale Additional A&P Information Nonsustained ventricular tachycardia Elevated troponin Chronic diarrhea Pneumonia: With infiltrate on CTA. Neutrophilic leukocytosis. For now Levaquin held as above. Rocephin, azithromycin. Elevated TSH: Mild decrease in T3. Possibly secondary to sick euthyroid syndrome. Left pectoral chest wall mass: Soft but irregularly-shaped, mobile, nontender large left pectoral mass. 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 Attestations Medical Necessity Statement*: Continue admission for assessment management of acute infection suspected prostatitis with infection related encephalopathy, in the setting of severe cardiomyopathy, congestive heart failure, acute kidney injury on chronic kidney disease, liver injury, and depending on condition further determination of goals of care. Coding Level of Care Code Acute Stock Preparation Operator for Chg Fwd Diagnoses Elevated white blood cell count D72.1 Leukocytosis type: eosinophilia CHF (congestive heart failure) I50.30 Heart failure chronicity: unspecified Heart failure type: diastolic Elevated liver enzymes R74.8 Acute kidney injury N17.9 Stool guaiac positive R19.5 Eosinophilia D72.1 Dehydration E86.0 Lung nodule R91.1 Dementia F01.51 Dementia type: vascular dementia Dementia behavioral disturbance: with behavioral disturbance Acute hyperactive delirium due to another medical condition F05 Hyponatremia E87.1 Pulmonary embolism I26.99 Pulmonary embolism type: unspecified Chronicity: acute Acute cor pulmonale presence: unspecified
[2020-01-04 16:00] VITALS: BP 109/74; PULSE 65; RESP 18; TEMP 36.4; O2SAT 94
[2020-01-04 19:59] VITALS: BP 109/77; PULSE 80; RESP 20; TEMP 36.4; O2SAT 97
[2020-01-05] VITALS (8 sets, daily range): BP systolic 82–119; BP diastolic 48–83; PULSE 63–83; RESP 18–20; TEMP 36.2–36.8; O2SAT 93–98
[2020-01-05 03:41] LABS: Basophils % 0.3 %; Eosinophils # 0.6 10^3/uL (0.0-0.8); Eosinophils % 4.8 %; Hematocrit 36.7 % (42.0-52.0); Hemoglobin 11.2 g/dL (11.7-16.6); Lymphocytes # 1.3 10^3/uL (0.8-4.8); Lymphocytes % 10.5 %; Mean Corpuscular HGB Conc 30.5 g/dL (30.0-36.0); Mean Corpuscular Hemoglobin 26.3 pg (28.0-34.0); Mean Corpuscular Volume 86.2 fL (80-94); Mean Platelet Volume 11.3 fL (7.4-10.4); Monocytes # 1.3 10^3/uL (0.2-0.9); Monocytes % 10.7 %; Neutrophils # 8.77 10^3/uL (1.8-7.7); Neutrophils % 72.8 %; Nucleated Red Blood Cells % 0 %; Platelet Count 221 10^3/cmm (130-400); Red Blood Count 4.26 10^6/uL (4.1-5.3); Red Cell Distribution Width 21.7 % (12.1-15.1); White Blood Count 12.1 10^3/uL (4.0-10.0)
[2020-01-05 04:18] LABS: Alanine Aminotransferase 148 U/L (0-41); Albumin Level 2.7 g/dL (3.5-5.2); Alkaline Phosphatase 227 IU/L (40-130); Anion Gap 13.7 (5-19); Aspartate Amino Transferase 37 U/L (0-40); Blood Urea Nitrogen 37 mg/dL (8-23); Calcium 8.1 mg/dL (8.5-10.5); Carbon Dioxide 21 mmol/L (22-29); Chloride 109 mmol/L (98-107); Globulin 2.8 g/dL (1.3-4.6); Glucose 87 mg/dL (65-115); Osmolality Calculated 287 mOsm/kg (285-295); Potassium 3.7 mmol/L (3.5-5.1); Sodium 140 mmol/L (136-145); Total Bilirubin 1.2 mg/dL (0.15-1.2); Total Protein 5.5 g/dL (6.6-8.7)
--- NOTE | 2020-01-05 07:02 | PM.PN ---
Subjective Subjective: Interval history: The patient once again appears to be more nonverbal today. Vitals/I&O/Wt Last Vital Signs Temp 97.5 F L 01/05/20 04:00 Pulse 81 01/05/20 04:00 Resp 20 H 01/05/20 04:00 BP 115/80 01/05/20 04:00 Pulse Ox 96 01/05/20 04:00 01/04/20 01/05/20 01/05/20 22:59 06:59 14:59 Intake Total 360 / 720 Output Total 100 / 100 0 / 100 Balance 260 / 620 0 / 620 Physical Exam Narrative: EXAM NARRATIVE: His abdominal exam is not concerning. Urinary Catheter Management^: Coude: Cath Placed During This Visit: yes, but has since been removed by the nurse Reason for Continuing Indwelling Catheter: Decision to DC Catheter Urinary Catheter Date of Insertion: 12/25/19 Urinary Catheter Time of Insertion: 18:00 Date Urinary Catheter Removed: 01/01/20 Time Urinary Catheter Discontinued: 19:23 Data : 01/05/20 03:14 01/05/20 03:14 A&P Assessment and plan (1) Cholelithiasis: Continue conservative management. White blood cell count slowly defervescing. I will try to follow peripherally but may not continue to see daily. Please call if I can be of further help. Status: Acute Qualifiers: Cholelithiasis location: gallbladder Biliary obstruction: without biliary obstruction (2) Elevated liver enzymes: Continue daily improvement. Status: Acute Attestations Medical Necessity Statement*: See admitting service's notation. Coding Level of Care Code Acute Penology Professor for Mary Savage Diagnoses Cholelithiasis K80.20 Cholelithiasis location: gallbladder Biliary obstruction: without biliary obstruction Elevated liver enzymes R74.8
[2020-01-05] MEDS: metroNIDAZOLE 500 MG Tablet PO ×3 (09:10→20:42)
[2020-01-05] MEDS: pantoprazole DR 40 mg Tablet PO ×2 (09:10→17:46)
[2020-01-05] MEDS: metoprolol tartrate 25 mg Tablet 12.5 MG PO ×2 (09:10→17:46)
--- NOTE | 2020-01-05 10:30 | PC.SOCIAL ---
IMM Updated Page 2 of IMM updated and given to patient. Initialed, dated, and timed and placed back in chart.
[2020-01-05] MEDS: levoFLOXacin 750 mg Tablet PO (10:46)
--- NOTE | 2020-01-05 18:59 | PM.PN ---
Subjective Subjective: Interval history: Patient known to me from previous admission, chart reviewed. Resting quietly in bed, minimally vocal and has been throughout the day, spent much of the day sitting up in a chair, noted to be hypotensive this AM, BP improved by afternoon. He is alert but confused. Afebrile, on room air, stable hemoglobin and white count, stable renal function, LFTs trending down. Medications: Reviewed: Yes Medication Review Details: Active Medications Generic Name Dose Route Start Last Admin Trade Name Freq PRN Reason Stop Dose Admin Al Hydrox/Mg Andrews x/Simethicone 30 ml 12/25/19 18:58 Maalox PO Q15M PRN INDIGESTION Sodium Chloride 1,000 mls @ 75 ml s/hr 12/30/19 09:49 01/01/20 21:27 Sodium Chloride 0.9% IV Not Given .[id number] PHIL Levofloxacin 750 mg 01/01/20 11:00 01/05/20 10:46 Levaquin PO 750 mg Q48H PHIL Administration Protocol Magnesium Hydroxid e 30 ml 12/25/19 18:58 Milk Of Magnesia PO DAILY PRN CONSTIPATION Metoprolol Tartrat e 12.5 mg 01/04/20 09:00 01/05/20 17:46 Lopressor PO 12.5 mg BID PHIL Administration Metronidazole 500 mg 01/01/20 10:30 01/05/20 17:46 Flagyl Tab PO 500 mg TID PHIL Administration Naloxone HCl 0.1 mg 12/25/19 18:58 Narcan IVP Q2M PRN RESPIRATORY RATE < 8/MIN Nitroglycerin 0.4 mg 12/25/19 18:58 Nitrostat SUBLINGUAL Q5M PRN CHEST PAIN Ondansetron HCl 4 mg 12/28/19 09:42 12/28/19 17:13 Zofran IVP 4 mg Q6H PRN Administration NAUSEA AND VOMITI NG Pantoprazole Sodiu m 40 mg 12/27/19 18:00 01/05/20 17:46 Protonix PO 40 mg BID PHIL Administration No Known Allergies Allergy (Verified 12/24/19 15:11) Vitals/I&O/Wt Last Vital Signs Temp 98.3 F 01/05/20 16:00 Pulse 80 01/05/20 16:00 Resp 18 01/05/20 16:00 BP 100/70 01/05/20 16:00 Pulse Ox 93 01/05/20 16:00 01/05/20 01/05/20 01/05/20 06:59 14:59 22:59 Intake Total 1130 / 1130 240 / 1370 Output Total 0 / 100 Balance 0 / 620 1130 / 1130 240 / 1370 Physical Exam Const: COMMON NORMALS: no acute distress and alert GENERAL APPEARANCE: cooperative, comfortable and frail appearing ORIENTATION/CONSCIOUSNESS: Yes awake and Yes confused HENMT: COMMON NORMALS: normocephalic, atraumatic, hearing grossly normal bilaterally and moist oral mucous membranes HEAD & SCALP: normocephalic and atraumatic Eye: COMMON NORMALS: Equal, round and reactive pupils present, EOMs intact bilaterally and conjunctivae normal CONJUNCTIVA: Yes conjunctivae normal PUPIL: Yes Equal, round and reactive pupils present Neck/C-Spine: COMMON NORMALS: full ROM GENERAL: Yes normal visual inspection and Yes trachea midline Resp: COMMON NORMALS: normal respiratory effort, No retractions, No use of accessory muscles and clear to auscultation bilaterally EFFORT & INSPECTION: Yes able to speak in complete sentences, Yes symmetric chest movement and No tachypneic AUSCULTATION: clear to auscultation bilaterally OTHER: -on RA Cardio: COMMON NORMALS: regular rate, regular rhythm, S1 normal heart sound present, S2 normal heart sound present and No murmurs present (Cardio) RATE: regular rate RHYTHM: regular rhythm HEART SOUNDS: S1 normal heart sound present and S2 normal heart sound present GI: COMMON NORMALS: Normal to inspection, nondistended, normoactive bowel sounds present, Soft to palpation and non-tender PALPATION: Yes Soft to palpation Extremity: COMMON NORMALS: normal to inspection, full ROM and no clubbing, cyanosis or edema; negative for no pedal edema Neuro: COMMON NORMALS: moves all extremities, no focal motor deficits, no sensory deficits noted and gait normal SENSORIUM/ORIENTATION: Yes alert Psych: COMMON NORMALS: mental status grossly normal, Normal thought process present, cooperative, normal affect and speech normal SPEECH: Yes normal speech THOUGHT PROCESS: Normal thought process present Skin: COMMON NORMALS: no rashes or lesions noted, no jaundice, no petechiae and no mottling GENERAL SKIN EXAM: no rashes or lesions noted Urinary Catheter Management^: Coude: Cath Placed During This Visit: yes, but has since been removed by the nurse Reason for Continuing Indwelling Catheter: Decision to DC Catheter Urinary Catheter Date of Insertion: 12/25/19 Urinary Catheter Time of Insertion: 18:00 Date Urinary Catheter Removed: 01/01/20 Time Urinary Catheter Discontinued: 19:23 Data : 01/05/20 03:14 01/05/20 03:14 A&P Assessment and plan (1) Cholelithiasis: -noted on GB US, HIDA scan with no noted acute cholecystitis but somewhat equivocal with concern for possible chronic midline dysfunction and possible chronic cholecystitis -Noted elevated LFTs which are now trending down -Surgery evaluation appreciated, continue medical management Status: Acute Qualifiers: Cholelithiasis location: gallbladder Biliary obstruction: without biliary obstruction Cholecystitis presence: without cholecystitis Qualified Code(s): K80.20 - Calculus of gallbladder without cholecystitis without obstruction (2) Elevated liver enzymes: -Trending down, as noted above -Noted mild hepatomegaly on ultrasound Status: Acute (3) Pulmonary embolism: -Noted to have bilateral PE on admission -Poor candidate for anticoagulation given GI bleed so IVC filter placed Status: Acute Qualifiers: Pulmonary embolism type: unspecified Chronicity: acute Acute cor pulmonale presence: unspecified Qualified Code(s): I26.99 - Other pulmonary embolism without acute cor pulmonale (4) Acute kidney injury: -baseline Cr is around 1.4-2 -current renal function at baseline Status: Acute (5) Diarrhea: -Appears to be chronic -Has been tested several times for C. difficile, all negative Status: Chronic Qualifiers: Diarrhea type: unspecified type Qualified Code(s): R19.7 - Diarrhea, unspecified (6) COPD (chronic obstructive pulmonary disease): -Has been following up with pulmonology as outpatient -Not oxygen dependent at baseline -Noted pneumonia, on antibiotics Status: Acute Qualifiers: COPD type: unspecified COPD Qualified Code(s): J44.9 - Chronic obstructive pulmonary disease, unspecified (7) CKD (chronic kidney disease): Status: Chronic Qualifiers: Chronic kidney disease stage: stage 3 (moderate) Qualified Code(s): N18.3 - Chronic kidney disease, stage 3 (moderate) (8) Ischemic cardiomyopathy: -Echo with noted EF=25-30%, decrease from previous US -Cardiology input appreciated; has previously declined angiogram, medical management -Noted initial troponin elevation -Telemetry monitoring -Has had noted episodes of hypotension, continue to monitor vital signs particularly blood pressure closely Status: Chronic (9) CHF (congestive heart failure): -Clinically compensated -Echo as noted above Status: Chronic Qualifiers: Heart failure chronicity: chronic Heart failure type: systolic Qualified Code(s): I50.22 - Chronic systolic (congestive) heart failure (10) Eosinophilia: -has been f/u with Pulmonology Status: Acute (11) Lung nodule: -may require continued surveillance imaging Status: Chronic (12) Dementia: -tends to wax and wane at baseline -less conversant today -reorient as needed -fall precautions Status: Chronic Qualifiers: Dementia type: vascular dementia Dementia behavioral disturbance: with behavioral disturbance Qualified Code(s): F01.51 - Vascular dementia with behavioral disturbance (13) BPH (benign prostatic hyperplasia): -consider resuming Flomax if BP allows -outpatient Urology f/u Status: Chronic Qualifiers: Lower urinary tract symptom presence: unspecified whether lower urinary tract symptoms present Qualified Code(s): N40.0 - Benign prostatic hyperplasia without lower urinary tract symptoms Additional A&P Information -Left pectoral chest wall mass; US seems consistent with lipoma -previously dehydrated; resolved, encourage oral hydration -Hyponatremia; resolved -Mild normocytic anemia; baseline Hg is around 11; stable currently, FOBT + -GI ppx with PPI -DVT ppx with SCDs, no AC due to anemia -Dispo: [facility] -Code status: DNR/DNI; Son Avel is DPOA. There has been some discussion about considering hospice but son would like to see how patient does with rehabilitation Attestations Medical Necessity Statement*: Patient requires hospitalization for continued monitoring of liver function tests, noted continued leukocytosis, needs continued monitoring of hemodynamic status as well given noted hypotension today. Time Spent in Patient Care: Greater than 35 minutes (>than 50% of time spent in counselling and/or direct pt care on unit). Coding Level of Care Code Acute Animal Physiologist for Mary Savage Diagnoses Cholelithiasis K80.20 Cholelithiasis location: gallbladder Biliary obstruction: without biliary obstruction Cholecystitis presence: without cholecystitis Elevated liver enzymes R74.8 Pulmonary embolism I26.99 Pulmonary embolism type: unspecified Chronicity: acute Acute cor pulmonale presence: unspecified Acute kidney injury N17.9 Diarrhea R19.7 Diarrhea type: unspecified type COPD (chronic obstructive pulmonary disease) J44.9 COPD type: unspecified COPD CKD (chronic kidney disease) N18.3 Chronic kidney disease stage: stage 3 (moderate) Ischemic cardiomyopathy I25.5 CHF (congestive heart failure) I50.22 Heart failure chronicity: chronic Heart failure type: systolic Eosinophilia D72.1 Lung nodule R91.1 Dementia F01.51 Dementia type: vascular dementia Dementia behavioral disturbance: with behavioral disturbance BPH (benign prostatic hyperplasia) N40.0 Lower urinary tract symptom presence: unspecified whether lower urinary tract symptoms present
[2020-01-06 04:00] VITALS: BP 108/72; PULSE 82; RESP 20; TEMP 36.3; O2SAT 98
[2020-01-06 05:25] LABS: Basophils % 0.4 %; Eosinophils # 0.6 10^3/uL (0.0-0.8); Eosinophils % 5.5 %; Hematocrit 38.4 % (42.0-52.0); Hemoglobin 11.4 g/dL (11.7-16.6); Lymphocytes # 1.4 10^3/uL (0.8-4.8); Lymphocytes % 12.8 %; Mean Corpuscular HGB Conc 29.7 g/dL (30.0-36.0); Mean Corpuscular Hemoglobin 26.8 pg (28.0-34.0); Mean Corpuscular Volume 90.1 fL (80-94); Mean Platelet Volume 11.5 fL (7.4-10.4); Monocytes # 1.1 10^3/uL (0.2-0.9); Neutrophils # 7.68 10^3/uL (1.8-7.7); Neutrophils % 70.5 %; Nucleated Red Blood Cells % 0 %; Platelet Count 199 10^3/cmm (130-400); Red Blood Count 4.26 10^6/uL (4.1-5.3); Red Cell Distribution Width 22.2 % (12.1-15.1); White Blood Count 10.9 10^3/uL (4.0-10.0)
[2020-01-06 06:00] LABS: Alanine Aminotransferase 114 U/L (0-41); Albumin Level 2.7 g/dL (3.5-5.2); Alkaline Phosphatase 208 IU/L (40-130); Aspartate Amino Transferase 27 U/L (0-40); Blood Urea Nitrogen 31 mg/dL (8-23); Calcium 8.1 mg/dL (8.5-10.5); Carbon Dioxide 19 mmol/L (22-29); Chloride 113 mmol/L (98-107); Globulin 2.8 g/dL (1.3-4.6); Glucose 85 mg/dL (65-115); Osmolality Calculated 290 mOsm/kg (285-295); Sodium 142 mmol/L (136-145); Total Bilirubin 1.3 mg/dL (0.15-1.2); Total Protein 5.5 g/dL (6.6-8.7)
[2020-01-06 06:04] LABS: Anion Gap 13.8 (5-19); Potassium 3.8 mmol/L (3.5-5.1)
[2020-01-06 08:00] VITALS: BP 116/73; PULSE 70; RESP 18; TEMP 36.6; O2SAT 98
[2020-01-06] MEDS: metoprolol tartrate 25 mg Tablet 12.5 MG PO (08:31)
[2020-01-06] MEDS: metroNIDAZOLE 500 MG Tablet PO ×2 (08:31→15:29)
[2020-01-06] MEDS: pantoprazole DR 40 mg Tablet PO (08:31)
[2020-01-06 11:02] VITALS: BP 90/60; RESP 18; TEMP 36.8; O2SAT 93
--- NOTE | 2020-01-06 14:06 | P.DS_ITS ---
Discharge Providers Date of Admission: 12/25/19 17:20 Date of Discharge: January 06, 2020 Attending Provider at Admission: Daljit Marcelo MD Attending Provider at Discharge: Kimber Nielsen MD Consults: General surgery, cardiology Primary Care Provider: Mike Ruggiero DO Diagnoses at Discharge Discharge Diagnosis (1) Cholelithiasis: Status: Acute Problem details: -noted on GB US, HIDA scan with no noted acute cholecystitis but somewhat equivocal with concern for possible chronic midline dysfunction and possible chronic cholecystitis -Noted elevated LFTs which are now trending down -Surgery evaluation appreciated, continue medical management Qualifiers: Biliary obstruction: without biliary obstruction Cholecystitis presence: without cholecystitis Cholelithiasis location: gallbladder Qualified Code(s): K80.20 - Calculus of gallbladder without cholecystitis without obstruction (2) Elevated liver enzymes: Status: Acute Problem details: -Trending down, as noted above -Noted mild hepatomegaly on ultrasound (3) Pulmonary embolism: Status: Acute Problem details: -Noted to have bilateral PE on admission -Poor candidate for anticoagulation given GI bleed so IVC filter placed Qualifiers: Acute cor pulmonale presence: unspecified Chronicity: acute Pulmonary embolism type: unspecified Qualified Code(s): I26.99 - Other pulmonary embolism without acute cor pulmonale (4) Acute kidney injury: Status: Acute Problem details: -baseline Cr is around 1.4-2 -current renal function at baseline (5) Diarrhea: Status: Chronic Problem details: -Appears to be chronic -Has been tested several times for C. difficile, all negative Qualifiers: Diarrhea type: unspecified type Qualified Code(s): R19.7 - Diarrhea, unspecified (6) COPD (chronic obstructive pulmonary disease): Status: Acute Problem details: -Has been following up with pulmonology as outpatient -Not oxygen dependent at baseline -Noted pneumonia, on antibiotics Qualifiers: COPD type: unspecified COPD Qualified Code(s): J44.9 - Chronic obstructive pulmonary disease, unspecified (7) CKD (chronic kidney disease): Status: Chronic Qualifiers: Chronic kidney disease stage: stage 3 (moderate) Qualified Code(s): N18.3 - Chronic kidney disease, stage 3 (moderate) (8) Ischemic cardiomyopathy: Status: Chronic Problem details: -Echo with noted EF=25-30%, decrease from previous US -Cardiology input appreciated; has previously declined angiogram, medical management -Noted initial troponin elevation -Telemetry monitoring -Has had noted episodes of hypotension, continue to monitor vital signs particularly blood pressure closely (9) CHF (congestive heart failure): Status: Chronic Problem details: -Clinically compensated -Echo as noted above Qualifiers: Heart failure chronicity: chronic Heart failure type: systolic Qualified Code(s): I50.22 - Chronic systolic (congestive) heart failure (10) Eosinophilia: Status: Chronic Problem details: -has been f/u with Pulmonology (11) Lung nodule: Status: Chronic Problem details: -may require continued surveillance imaging (12) Dementia: Status: Chronic Problem details: -tends to wax and wane at baseline -reorient as needed -fall precautions Qualifiers: Dementia behavioral disturbance: with behavioral disturbance Dementia type: vascular dementia Qualified Code(s): F01.51 - Vascular dementia with behavioral disturbance (13) BPH (benign prostatic hyperplasia): Status: Chronic Problem details: -consider resuming Flomax if BP allows -outpatient Urology f/u Qualifiers: Lower urinary tract symptom presence: unspecified whether lower urinary tract symptoms present Qualified Code(s): N40.0 - Benign prostatic hyperplasia without lower urinary tract symptoms Other Information Additional DC diagnoses/information: -Left pectoral chest wall mass; US seems consistent with lipoma -previously dehydrated; resolved, encourage oral hydration -Hyponatremia; resolved -Mild normocytic anemia; baseline Hg is around 11; stable currently, FOBT + Reason for Visit Reason for Visit: INCREASED CONFUSION / BLOODY STOOLS Hospital Course Hospital Course: Patient has had a fairly prolonged hospital course, initially admitted to the medical surgical floor having been noted to have increased confusion and reported blood in his stool. Dual antiplatelet therapy was held and due to noted finding of bilateral pulmonary emboli he was started on heparin drip with very close monitoring for bleeding as well as monitoring of his hemoglobin. He has an underlying history of ischemic cardiomyopathy with noted elevated troponin, limited echo was done showing ejection fraction of 25 to 30% with severe global hypokinesis, noted drop from previous echocardiogram. At this point he was transferred to the cardiac stepdown unit for closer monitoring. With question of consistently taking oral anticoagulation as well as significant risk associated with GI bleed, following discussion with patient's son decision was made to proceed with IVC filter placement, and Dr. Anthony was consulted. Due to his continued confusion patient did require one-on-one monitoring. During the course of his hospital stay he was noted to have elevated liver function tests as well as acute renal impairment. Renal function improved with some IV fluid hydration. General surgery was consulted due to concern for possible gallbladder involvement following ultrasound showing possible sludge within the gallbladder and some possible gallbladder wall thickening. HIDA scan did not show definitive inflammation and with patient's underlying comorbidities and acute issues conservative management was recommended. With time his liver function tests have been trending down. He has been asymptomatic from a GI standpoint. There was concern for infiltrate on CTA of the chest so he has been covered with antibiotic treatment. I will continue this for several more days to complete his treatment course. He has been afebrile, on room air. He has had some intermittent hypotension though this has improved without intervention. He is continued some diuresis on discharge as well as some beta-blockade so we will dose this conservatively to prevent hypotension. Patient has been off one-on-one monitoring for several days now. He is intermittently forgetful and his mental status tends to wax and wane at baseline so we will need to continue to be redirected and cued to his environment as needed. He is at continued risk of fall so fall precautions should be continued as well. There has been discussion with patient's son about patient's overall prognosis in light of his multiple prior readmissions, underlying comorbidities including possibility of hospice. Son would like to see how patient does with some rehabilitation if possible before considering the possibility of hospice further. He remains at risk for readmission to the hospital. He will need close follow-up with his primary care provider, continued follow-up with cardiology, urology and pulmonology. I will not continue Flagyl as patient is asymptomatic from a GI standpoint. He will be continued on low-dose aspirin with great caution due to underlying anemia. If noted active bleeding and/or drop in hemoglobin may need to discontinue this as well. Discharge Summary: -Patient to follow up with primary care provider within 1 week -Patient to continue to follow up with cardiology, pulmonology, urology Physical Exam Const: COMMON NORMALS: no acute distress and alert GENERAL APPEARANCE: cooperative, comfortable and frail appearing ORIENTATION/CONSCIOUSNESS: Yes awake and Yes confused HENMT: COMMON NORMALS: normocephalic, atraumatic, hearing grossly normal bilaterally and moist oral mucous membranes HEAD & SCALP: normocephalic and atraumatic Eye: COMMON NORMALS: Equal, round and reactive pupils present, EOMs intact bilaterally and conjunctivae normal CONJUNCTIVA: Yes conjunctivae normal PUPIL: Yes Equal, round and reactive pupils present Neck/C-Spine: COMMON NORMALS: full ROM GENERAL: Yes normal visual inspection and Yes trachea midline Resp: COMMON NORMALS: normal respiratory effort, No retractions, No use of accessory muscles and clear to auscultation bilaterally EFFORT & INSPECTION: Yes able to speak in complete sentences, Yes symmetric chest movement and No tachypneic AUSCULTATION: clear to auscultation bilaterally OTHER: -on RA Cardio: COMMON NORMALS: regular rate, regular rhythm, S1 normal heart sound present, S2 normal heart sound present and No murmurs present (Cardio) RATE: regular rate RHYTHM: regular rhythm HEART SOUNDS: S1 normal heart sound present and S2 normal heart sound present GI: COMMON NORMALS: Normal to inspection, nondistended, normoactive bowel sounds present, Soft to palpation and non-tender PALPATION: Yes Soft to palpation Extremity: COMMON NORMALS: normal to inspection, full ROM and no clubbing, cyanosis or edema; negative for no pedal edema Neuro: COMMON NORMALS: moves all extremities, no focal motor deficits, no sensory deficits noted and gait normal SENSORIUM/ORIENTATION: Yes alert Psych: COMMON NORMALS: mental status grossly normal, Normal thought process present, cooperative, normal affect and speech normal SPEECH: Yes normal speech THOUGHT PROCESS: Normal thought process present Skin: COMMON NORMALS: no rashes or lesions noted, no jaundice, no petechiae and no mottling GENERAL SKIN EXAM: no rashes or lesions noted Urinary Catheter Management^: Coude: Cath Placed During This Visit: yes, but has since been removed by the nurse Reason for Continuing Indwelling Catheter: Decision to DC Catheter Urinary Catheter Date of Insertion: 12/25/19 Urinary Catheter Time of Insertion: 18:00 Date Urinary Catheter Removed: 01/01/20 Time Urinary Catheter Discontinued: 19:23 Discharge Data Data Completed and Pending: Completed Studies During Hospitalization Category Date Time Status CT angio chest PE protcl 71419 Urge nt Cat Scan 12/25/19 09:[address] head wo con* 7 0450 Routine Cat Scan 12/28/19 07:59 Completed XR chest 1V winifred ble 44110 Stat Exams 12/24/19 20:21 Completed NM hepatobiliary w phar* 51894 Rout ine Nuc Med 12/30/19 07:46 Completed CV duplex IVC 939 78 Routine Ultrasound 12/29/19 08:00 Completed CV echo limited 9 3308 Routine Ultrasound 12/26/19 03:27 [place] [address] Routin e Ultrasound 12/25/19 03:19 Completed US gall bladder 7 6705 Routine Ultrasound 12/29/19 06:00 Completed US soft tissue/ex tremity 87613 Rout ine Ultrasound 01/03/20 16:24 Completed Pending at discharge Category Date Time Status QC LAB TECHNICIAN request for service Routin e Exams 12/25/19 Taken Complete Blood Co unt w/Auto AM LABS Lab 01/07/20 04:00 Ordered Comprehensive Met abolic Panel AM LA BS Lab 01/07/20 04:00 Ordered Gliadin Antibody IgG and IgA Routin e Lab 01/03/20 03:45 Received Sputum Culture an d Gram Stain Routi ne Lab 12/25/19 12:30 Uncollected Tissue Transgluta minase AB Vann Rout ine Lab 01/03/20 03:45 Received Labs from last 24 hours 01/06/20 01/06/20 05:10 05:10 WBC 10.9 H RBC 4.26 Hgb 11.4 L Hct 38.4 L MCV 90.1 MCH 26.8 L MCHC 29.7 L RDW 22.2 H Plt Count 199 MPV 11.5 H Neut % (Auto) 70.5 Lymph % (Auto) 12.8 [place] % (Auto) 10.0 Eos % (Auto) 5.5 Baso % (Auto) 0.4 Neut # (Auto) 7.68 Lymph # (Auto) 1.4 [place] # (Auto) 1.1 H Eos # (Auto) 0.6 Baso # (Auto) 0.0 Nucleated RBC % (a uto) 0 Nucleated RBCs # 0.0 Sodium 142 Potassium 3.8 Chloride 113 H Carbon Dioxide 19 L Anion Gap 13.8 BUN 31 H Creatinine 1.5 H GFR Calculation Not Reportable Glucose 85 Calculated Osmolal ity 290 Calcium 8.1 L Total Bilirubin 1.3 H AST 27 ALT 114 H Alkaline Phosphata se 208 H Total Protein 5.5 L Albumin 2.7 L Globulin 2.8 Vitals: Last Vital Signs Temp 98.2 F 01/06/20 11:02 Pulse 70 01/06/20 08:00 Resp 18 01/06/20 11:02 BP 90/60 01/06/20 11:02 Pulse Ox 93 01/06/20 11:02 Discharge Plan Discharge Patient Disposition: Xfer SNF Condition: Stable Prescriptions: New pantoprazole 40 mg Tablet,Delayed Release (Dr/Ec) 40 mg PO BID Qty: 60 RF: 0 levofloxacin 750 mg Tablet 750 mg PO Q48H Qty: 7 RF: 0 metoprolol tartrate 25 mg Tablet 12.5 mg PO BID Qty: 30 RF: 0 Continued atorvastatin 40 mg tablet 40 mg PO DAILY 30 Days Qty: 30 RF: 0 aspirin 81 mg Tablet,Delayed Release (Dr/Ec) 81 mg PO DAILY 30 Days Qty: 30 RF: 0 Fleet Enema 19-7 gram/118 mL Enema 118 ml OH DAILY PRN (Reason: Constipation) Qty: 118 RF: 0 Neurontin 300 mg capsule 300 mg PO TID 30 Days Qty: 90 RF: 0 Culturelle 10 billion cell Capsule 1 cap PO DAILY Qty: 30 RF: 0 Magtab 84 mg Tablet Extended Release 84 mg PO BID 30 Days Qty: 60 RF: 0 Changed furosemide 40 mg Tablet 20 mg PO DAILY 30 Days Qty: 30 RF: 0 potassium chloride 10 mEq Tablet Extended Release 20 meq PO DAILY 30 Days Qty: 60 RF: 0 Discontinued clopidogrel 75 mg tablet 75 mg PO DAILY 30 Days Qty: 30 RF: 5 Entresto 24-26 mg Tablet 1 tab PO BID 30 Days Qty: 60 RF: 0 Discharge Orders: Discharge Order (Routine); Ordered 01/06/20 Ordered By: Kimber Nielsen Referrals: Shaggy Bolton MD [Physician] - 03/08/20 1:00 pm Logan Nj MD [Physician] - 02/19/20 3:15 pm (with lila maloney) Manuela Novak MD [Physician] - 02/10/20 1:15 pm Mike Ruggiero DO [Primary Care Provider] - 01/14/20 10:00 am (Post hospital discharge follow up) Discharge Diet: Soft Mechanical Discharge Activity: Use walker/crutches as instructed and As per PT/OT instructions Activity Restrictions/Additional Instructions: -Patient is at continued risk for falls so should continue fall precautions, assistance with all out of bed activity -Aspiration precautions should also be maintained and feeding assistance provided with meals as needed Discharge Date/Time: 01/06/20 15:53 Discharge Attestations Time Spent in Discharge Care*: greater than 30 min Specific Discharge Activities: Specific discharge activities: documenting/other paperwork and evaluating patient/reviewing data Status at Discharge: Cognitive status at discharge: moderately impaired cognition (underlying dementia) , Behavioral status at discharge: cooperative and dependent in ADL's , Quality Metrics Clinical Quality Measures During this hospital stay, did patient experience: VTE Contraindication to Overlap Therapy: Overlap treatment not indicated VTE Discharge Education: Education about treatment options/disease process Deep Vein Thrombosis/Pulmonary Embolism Present on Admission: Yes Coding Level of Care Code Acute Hardware Sales Assistant for Chg Fwd Exam Comprehensive Diagnoses Cholelithiasis K80.20 Biliary obstruction: without biliary obstruction Cholecystitis presence: without cholecystitis Cholelithiasis location: gallbladder Elevated liver enzymes R74.8 Pulmonary embolism I26.99 Acute cor pulmonale presence: unspecified Chronicity: acute Pulmonary embolism type: unspecified Acute kidney injury N17.9 Diarrhea R19.7 Diarrhea type: unspecified type COPD (chronic obstructive pulmonary disease) J44.9 COPD type: unspecified COPD CKD (chronic kidney disease) N18.3 Chronic kidney disease stage: stage 3 (moderate) Ischemic cardiomyopathy I25.5 CHF (congestive heart failure) I50.22 Heart failure chronicity: chronic Heart failure type: systolic Eosinophilia D72.1 Lung nodule R91.1 Dementia F01.51 Dementia behavioral disturbance: with behavioral disturbance Dementia type: vascular dementia BPH (benign prostatic hyperplasia) N40.0 Lower urinary tract symptom presence: unspecified whether lower urinary tract symptoms present
[2020-01-06 14:34] VITALS: BP 90/60; PULSE 70; RESP 18; TEMP 36.8; O2SAT 93
[2020-01-07 11:49] LABS: Tissue Transglutaminse AB IGA <1 U/mL; Tissue Transglutaminse AB IGG <1 U/mL
== END 2020-01-06 15:53 | disposition skilled nursing facility (03) | DRG 166 ==
LOC: ER 19:26 → MEDSURG 20:18 → CSU 12-25 03:12 → MEDSURG 12-31 06:57
PROVIDERS: Emergency Medicine; Internal Medicine; Admitting Provider Internal Medicine; PCP Internal Medicine; Visit Provider Family Medicine
DX: I26.99 Other pulmonary embolism without acute cor pulmonale (principal); G93.41 Metabolic encephalopathy; J18.9 Pneumonia, unspecified organism; I50.23 Acute on chronic systolic (congestive) heart failure; N17.9 Acute kidney failure, unspecified; J82 Pulmonary eosinophilia, not elsewhere classified; K92.2 Gastrointestinal hemorrhage, unspecified; F05 Delirium due to known physiological condition; F01.51 Vascular dementia, unspecified severity, with behavioral disturbance; E87.1 Hypo-osmolality and hyponatremia; J44.0 Chronic obstructive pulmonary disease with (acute) lower respiratory infection; N41.9 Inflammatory disease of prostate, unspecified; K80.20 Calculus of gallbladder without cholecystitis without obstruction; Z79.02 Long term (current) use of antithrombotics/antiplatelets; Z79.82 Long term (current) use of aspirin; R19.5 Other fecal abnormalities; R91.1 Solitary pulmonary nodule; I25.5 Ischemic cardiomyopathy; N18.3 Chronic kidney disease, stage 3 (moderate); N40.0 Benign prostatic hyperplasia without lower urinary tract symptoms; D64.9 Anemia, unspecified
CPT/HCPCS: 12345; 36415; 36600; 51702; 51798; 70450; 71045; 71275; 76705; 76882; 78227; 80048; 80051; 80053; 80074; 81003; 82803; 82810; 83516; 83735; 83880; 83986; 84439; 84443; 84481; 84484; 85014; 85018; 85025; 85049; 85378; 85610; 85730; 87493; 93005; 93306; 93308; 93970; 93978; 94640; 94660; 96372; 96375; 97116; 97161; 97166; 97530; 97535; 99284; A9537; C9113; G0378; J0456; J0696; J1630; J1644; J1940; J1956; J2060; J2250; J2405; J3010; J3486; J3490; J7030; J7050; Q9967; S0030